=== PATIENT | female | born 1985 | race Caucasian/White ===

== ENCOUNTER → 2019-06-17 10:03 | Outpatient (CLI) | payer OTHER, SELFPAY ==
[2013-10-02 12:51] VITALS: BMI 35.2
[2019-06-17 12:31] LABS: Absolute Lymphocyte Count 2.29 X10^3/uL (0.83-4.51); Absolute Neutrophil Count 5.2 X10^3/uL (2.0-7.7); Basophil# 0.07 X10^3/uL; Basophil% 0.8 % (0-1); Eosinophil# 0.14 X10^3/uL; Eosinophils% 1.7 % (0-5); Hematocrit 42.1 % (37-47); Hemoglobin 13.6 g/dL (12.0-15.0); Lymphocyte # 2.29 X10^3/ul (4.0); Lymphocyte % 27.7 % (19-41); Mean Corp Hgb Conc 32.3 g/dL (32-36); Mean Corpuscular Hgb 29.4 pg (27.0-32.0); Mean Corpuscular Volume 90.9 fL (81-99); Mean Platelet Vol. 11.8 fl (6.2-12.0); Monocyte# 0.53 X10^3/uL; Monocyte% 6.4 % (0-10); NRBC Flagged by Analyzer 0 % (0-5); Platelet Count 311 K/mm3 (150-450); RBC Distribution Width CV 13.4 % (11.6-14.6); RBC Distribution Width SD 44.7 fl (35.1-43.9); Red Blood Count 4.63 M/mm3 (4.2-5.4); White Blood Count 8.3 K/mm3 (4.4-11.0)
[2019-06-17 13:07] LABS: Cholesterol 279 mg/dL (200); High Density Lipoprotein 47 mg/dL; Thyroid Stim Hormone (TSH) 4.76 uIU/mL (0.358-3.74); Triglycerides 187 mg/dL; Very Low Density Lipoprotein 37 mg/dL (5-40)
== END ==
PROVIDERS: Family Provider Family Medicine; PCP Family Medicine; Referring Provider Family Medicine; Visit Provider Family Medicine
DX: F41.9 Anxiety disorder, unspecified (principal); Z13.220 Encounter for screening for lipoid disorders
CPT/HCPCS: 36415; 80061; 84443; 85025

== ENCOUNTER 2019-07-11 12:39 | Day surgery (SDC) | payer OTHER, SELFPAY ==
[2019-07-11] VITALS (9 sets, daily range): BP systolic 120–133; BP diastolic 76–95; PULSE 16–87; RESP 16–20; TEMP 36–36.4; O2SAT 96–98; BMI 36.1
[2019-07-11] MEDS: Lactated Ringers 1,000 ML 100 ML IV ×2 (13:05→18:16)
[2019-07-11 13:15] LABS: Hematocrit 42.9 % (37-47); Hemoglobin 14.1 g/dL (12.0-15.0); Mean Corp Hgb Conc 32.9 g/dL (32-36); Mean Corpuscular Hgb 29.4 pg (27.0-32.0); Mean Corpuscular Volume 89.4 fL (81-99); Platelet Count 327 K/mm3 (150-450); RBC Distribution Width CV 12.7 % (11.6-14.6); RBC Distribution Width SD 41.5 fl (35.1-43.9); White Blood Count 6.7 K/mm3 (4.4-11.0)
--- NOTE | 2019-07-11 13:15 | PCM.HP.STD ---
History of Present Illness Date of Admission: 07/11/19 Chief Complaint: Abnormal uterine bleeding The patient is a 34 year old F presented with complaint of heavy & painful menses. Past Medical History Medical History: Medical History (Last Updated 07/11/19 @ 13:16 by Agusto Nina) Hypothyroidism E03.9 Allergies No Known Allergies Allergy (Verified 07/10/19 11:54) Home Medications: Ambulatory Orders Medication Instructions Recorded Duloxetine Hcl [Cymbalta] 60 mg PO QHS 07/10/19 Levothyroxine Sodium [Synthroid] 75 mcg PO DAILY 07/10/19 Surgical History: appendectomy - laparoscopic Psychiatric History: Anxiety Lives: With Family Smoking Status: Never smoker Tobacco Use: Non-smoker Drugs: None VTE Information - Inpt Only VTE Present on Admission: No - Physical Exam Vitals/I&O's: Vital Signs Temp Pulse Resp BP Pulse Ox 97.5 F L 87 16 120/83 H 97 07/11/19 12:55 07/11/19 12:55 07/11/19 12:55 07/11/19 12:55 07/11/19 12:55 Oxygen Delivery Method Room Air Weight: 217 lb 2.485 oz Body Mass Index (BMI) 36.1 General: Alert, Oriented x3 Lungs: Clear to auscultation Cardiovascular: Regular rate, Regular Rhythm Abdomen: Bowel Sounds Present, Soft, Non Tender, Non-Distended Extremities: No Calf Tenderness Skin: No rashes Neurological: Cranial nerves II-XII grossly intact Laboratory Results 07/11/19 12:55: WBC Pending, RBC Pending, Hgb Pending, Hct Pending, MCV Pending, MCH Pending, MCHC Pending, RDW Std Deviation Pending, RDW Coeff of Rupali Pending, Plt Count Pending 07/11/19 12:55: Sodium Pending, Potassium Pending, Chloride Pending, Carbon Dioxide Pending, Anion Gap Pending, BUN Pending, Creatinine Pending, Est GFR (MDRD) Af Amer Pending, Est GFR (MDRD) Non-Af Pending, BUN/Creatinine Ratio Pending, Glucose Pending, Calcium Pending 07/11/19 12:55: Serum , Qual Pending 07/11/19 12:55: Blood Type Pending, Antibody Screen Pending Current Medications Lactated Ringer's () 1,000 mls @ 100 mls/hr IV .Q10H YESSY Last Admin: 07/11/19 13:05 Dose: 100 mls/hr Documented by: Assessment/Plan 34yo female with AUB & dysmenorrhea TVUS shows thickened endometrium and possible endometrial polyp. Discussed R/B/A of evaluation and treatment options. Patient will proceed with hysteroscopy with D&C, possible polypectomy and Mirena IUD insertion. Informed consent signed.
[2019-07-11 13:36] LABS: Internal QC Validated? YES +Cl - CLEAR BKGD; Pregnancy, Serum, hCG Quali. NEGATIVE Negative
--- NOTE | 2019-07-11 13:37 | SUR.PREOP ---
recd' call from lab that pt has anti-C and anti-e antigens and that should blood be needed that a special order of blood would be needed from the [facility]. Paged Dr. Nina, returned page at 1522. Dr Nina feels that the blood loss would be minimal and would not be necessary, however feels that she will need to discuss this with the patient. Lab advised.
[2019-07-11 13:42] LABS: Anion Gap 9 (5-15); BUN 8 mg/dL (7-18); BUN/Creat Ratio 8.5 RATIO (10-20); Calcium,Total 8.9 mg/dL (8.5-10.1); Chloride 107 mmol/L (98-107); Creatinine, Serum 0.94 mg/dL (0.55-1.02); EST Glomerular Filtration Rate 72 mL/min (>60); Est Glom Filt Rate - Afr Amer 87 mL/min (>60); Estimated Creatinine Clearance 74.45 ml/min; Glucose 91 mg/dL (74-106); Potassium 3.6 mmol/L (3.5-5.1); Sodium Level 142 mmol/L (136-145)
--- NOTE | 2019-07-11 14:10 | EMB_PTH ---
PATIENT: CECI FERGUSON [place] [facility] [place][id number] AGE/SX: 34/F ROOM: RE07/11/[address]: Dr. Agusto Nina MD : 1985 BED: DIS: 07/11/2019 SPEC #: [id number] RECD: 07/12/19 09:54 STATUS: VICTOR HUGO BREWSTER #: [id number] TETE: 07/11/19 14:[address]: Agusto Nina DEPT: SURGICAL PATHOLOGY RECD BY: Sintia Hirsch ENTERED: 07/12/19 11:33 SP TYPE: ENDOM BX/C SYLVIE DR: Dr. Polly Lopez MD Tissues: Endometrium, NOS Procedures: Surgery Specimen Level IV HEADER OPERATION: Hysteroscopy, dilation and curettage PRE-OP DIAGNOSIS: Abnormal uterine bleeding, dysmenorrhea TISSUE SUBMITTED: Endometrial curettings MICROSCOPIC DIAGNOSIS Endometrium, curettings: Proliferative endometrium with mild disorder. Mild chronic endometritis. AM:ronald 07/15/19 MICROSCOPIC DESCRIPTION Slides are reviewed. GROSS DESCRIPTION Received in formalin is one container labeled with the patient name and designated endometrial curettings. The specimen consists of multiple irregular fragments of light and dark navarro soft tissue measuring in aggregate 2.5 x 1 x 0.1 cm. The specimen is totally submitted in 1 cassettes. / AM:ronald 07/12/19 TC: 3 CPT:15651
--- NOTE | 2019-07-11 16:25 | DCINST_ITS ---
Discharge Diet: No Restrictions Discharge Activity: May Drive - after 24 hours, May Shower May resume sexual activity in: 1-2 weeks Weight Bearing Status: Weight bearing as tolerated Call your doctor if you observe: Fever of 101 or Higher, Coldness, Increased Pa in, Numbness or Tingling, Change in Color, Inability to urinate, Inability to have a bowel movement, Using more than one pad per hour, Shortness of breath, Dizziness, Fainting spells, Chest pain, Increased palpitations (irregular heartbeat), Uncontrolled pain Allergies/Adverse Reactions: Allergies No Known Allergies Allergy (Verified 07/10/19 11:54) Medications to take at Discharge Duloxetine Hcl [Cymbalta] 60 mg PO QHS 07/10/19 Levothyroxine Sodium [Synthroid] 75 mcg PO DAILY 07/10/19 Primary Care Physician: Polly Lopez MD [Primary Care Provider] - Test Results: Test results from this visit will be discussed in further detail at your follow- up appointment, if applicable.
--- NOTE | 2019-07-11 16:26 | OP.PCM_ITS ---
Report of Operation Date of Procedure: 07/11/19 Pre-Operative Diagnosis: (1) Abnormal uterine bleeding (2) Thickened endometrium (3) Possible endometrial polyp Post-Operative Diagnosis: (1) Abnormal uterine bleeding (2) Endometrial polyp Surgery/Procedure Performed:: Hysteroscopy with dilation and curettage Description of Surgical Findings:: Uterus sounded to 10 cm. Endometrial lining was thin. Endometrial polyp noted on right side of endometrium. pierce and shave press operator: Manda Rose pierce and shave press operator: Aure Tinsley Type of Anesthesia:: Local MAC Specimen's removed: EMC Estimated Blood Loss (mL): 25ml Fluids Replaced: 1500ml Description of Procedure: Patient taken to OR where MAC anesthesia was placed and found to be adequate. She was prepped & draped in the dorsal lithotomy position. Cervix was grasped with a tenaculum. Cervix was gently dilated. Uterus sounded to 10 cm and was retroverted. Hysteroscope was introduced with above findings that included an endometrial polyp. Hysteroscope removed. Sharp curettage performed with #2 curette. Repeat hysteroscopy performed. Decision made to proceed with Symphion resection of polyp. Symphion hysterscope inserted by under direct visualization. Unable to obtain good visualization of polyp for removal. Thus Symphion removed after assessment by as well. Uterus was re-sounded & was again confirmed at 10cm. Dayna hysteroscope then inserted as well and again good visualization of polyp was not obtained. Decision made to abort procedure as unable to safely remove polyp due to poor visualization. There is no concern of uterine perforation. - Complications None
[2019-07-11] MEDS: oxyCODONE 5 MG Tablet 10 MG PO (18:07)
[2019-07-11] MEDS: Acetaminophen 325 MG Tablet 650 MG PO (18:07)
[2019-07-11 19:17] LABS: Anion Gap 4 (5-15); BUN 7 mg/dL (7-18); Calcium,Total 8.4 mg/dL (8.5-10.1); Chloride 108 mmol/L (98-107); Creatinine, Serum 0.88 mg/dL (0.55-1.02); EST Glomerular Filtration Rate 78 mL/min (>60); Est Glom Filt Rate - Afr Amer 94 mL/min (>60); Estimated Creatinine Clearance 79.53 ml/min; Glucose 95 mg/dL (74-106); Potassium 3.9 mmol/L (3.5-5.1); Sodium Level 140 mmol/L (136-145)
== END 2019-07-11 19:45 | disposition home or self-care (01) ==
LOC: SDC 12:40 → AC 12:43
PROVIDERS: Family Provider Family Medicine; PCP Family Medicine; Referring Provider Obstetrics & Gynecology; Visit Provider Obstetrics & Gynecology
PROC: 0UB98ZZ Excision of Uterus, Via Natural or Artificial Opening Endoscopic (ICD-10-PCS; CPT 58558; principal; 2019-07-11 14:00)
DX: N71.1 Chronic inflammatory disease of uterus (principal); N84.0 Polyp of corpus uteri; E03.9 Hypothyroidism, unspecified; F41.9 Anxiety disorder, unspecified; F32.9 Major depressive disorder, single episode, unspecified; M54.5 Low back pain; G89.29 Other chronic pain; Z79.899 Other long term (current) drug therapy
CPT/HCPCS: 00952; 58558; 36415; 80048; 84703; 85027; 86850; 86900; 86901; 88305; J7120; J2405

== ENCOUNTER 2019-08-01 13:03 | Day surgery (SDC) | payer OTHER, SELFPAY ==
[2019-07-11 12:55] VITALS: BMI 36.1
--- NOTE | 2019-07-23 18:05 | PCM.HP.BLA ---
History and Physical Date of Admission: 08/01/19 HPI: The patient is a 34 year old female presenting for pre-operative visit. She is scheduled for?LAVH,?bilateral salpingectomy?for intramural uterine fibroid, dysmenorrhea, menorrhagia, retroverted uterus on?08/01/19. ??Procedure discussed along with risks, benefits and complications. ?Other alternatives discussed for management. Consent form signed??Yes.? PAST MEDICAL HISTORY PAST MEDICAL HISTORY Diagnosis Date ? Anxiety ? ? Hypothyroidism ? ? Mild or unspecified pre-eclampsia, unspecified as to episode of care ? ? Pre-ecclampsia,MILD ? ? PAST SURGICAL HISTORY PAST SURGICAL HISTORY Procedure Laterality Date ? APPENDECTOMY ? ? ? laparoscopic ? ? CURRENT MEDICATIONS Current Outpatient Medications Medication Sig Dispense Refill ? tranexamic acid (LYSTEDA) 650 mg tablet Take 2 tablets by mouth three times daily as needed (heavy menstrual bleeding) for up to 5 days. 30 tablet 1 ? duloxetine HCl (CYMBALTA ORAL) Take by mouth. ? ? ? levothyroxine sodium (LEVOTHYROXINE ORAL) Take by mouth. ? ? ? No current facility-administered medications for this visit.? ? ALLERGIES:?Patient has no known allergies. ? PERSONAL HISTORY:? SOCIAL HISTORY Social History ? Tobacco Use ? Smoking status: Never Smoker ? Smokeless tobacco: Never Used Substance Use Topics ? Alcohol use: No ? Drug use: No ? FAMILY HISTORY:? FAMILY HISTORY FAMILY HISTORY Problem Relation Age of Onset ? Melanoma Mother ? ? Diabetes Maternal Grandmother ? ? Hypertension Maternal Grandmother ? ? Breast Cancer Maternal Grandmother ? ? Diabetes Maternal Grandfather ? ? Hypertension Maternal Grandfather ? ? Diabetes Paternal Grandmother ? ? Hypertension Paternal Grandmother ? ? Hypertension Paternal Grandfather ? ? Cancer Maternal Aunt ? TYPE ? REVIEW OF SYMPTOMS: GENERAL: denies fevers or chills ENDOCRINOLOGY: has not been on steroids Cardiology : denies palpitations or chest pain Respiratory: denies SOB or cough Hematology: denies history of prolonged bleeding or easy bruising or VTE Allergy: Denies history of personal or family history of allergy to anesthesia ? ? PHYSICAL EXAMINATION: ? VITALS:?There were no vitals taken for this visit. ? GENERAL:??The patient is well nourished, well hydrated in no acute distress. ?, The patient is oriented to time, place, and person. NECK:?Supple. No lynphadenopathy, normal thyroid, no thyromegaly. LUNGS:?Clear to auscultation bilaterally. no wheezes, rhonchi or rales HEART:?Regular rate and rhythm, Normal heart sounds and No murmurs or gallops GENITALIA:?Normal external genitalia, Urethral meatus normal, Bladder nontender, normal cervix, normal uterus, size and consistency, normal adnexa without masses or tenderness, perineum WNL and?normal vaginal ruggae, first degree cystocele and rectocele WET PREP:?Not indicated ? PELVIC US:Report Summary:??06/14/19? Overall impression: Uterus normal size and contour. ?Endometrial thickness 20.1 mm. ?There is a fundal appearing ovoid echogenic mass likely repsents a polyp measuring 1.5cm in greatest dimension. There is a intramural fibroid measuring 3.2 cm in greatest dimension Right and left ovaries appear normal No free fluid in cul-de-sac. Recommendations / therapy: Consider hysteroscopic resection of the endometrial polyp. Follow- up: Follow-up as clinically indicated. Indication: Menorrhagia. History: Last menstrual period: 05/18/2019. 28th day of cycle. Gynecological Ultrasonography: Uterus: normal, retroverted. Size: Longitudinal 96 mm. Anterio- posterior 59 mm. Transverse 72 mm. Volume: 213.5 ml. Fibroids: Fibroid 1: Size: 32 mm x 23 mm x 26 mm. Type: anterior. Position: rt mid ?uterus. Endometrium: endometrium clearly visualized. Endometrium thickness total: 20.1 mm. Endometrial polyps: 15 mm x 10 mm x 17 mm. Fundal. Right Ovary: normal. Visible. Morphology: normal morphology. Right Ovary size: 37 mm x 24 mm x 23 mm. Volume: 10.7 ml. Left Ovary: normal. Visible. Morphology: normal morphology. Left Ovary size: 31 mm x 22 mm x 21 mm. Volume: 7.5 ml. Cul de Sac / Pouch of Oscar: no free fluid visible. ? ? Pap- done today ? IMPRESSION:?Menorrhagia, intramural uterine fibroid, dysmenorrhea, retroverted?uterus ? PLAN:???The risks/benefits/alternatives and personal involved for the planned?laparoscopic assisted vaginal hysterectomy with bilateral salpingectomy?were reviewed with the patient. Her questions were answered to her satisfaction and she desires to proceed. ?Consent was signed. ?I reviewed with her postop instructions and expectations. ? ? I have reviewed and updated past medical and surgical history, medications and allergies. this history and physical was completed in my office on 07/23/2019.
[2019-08-01] VITALS (10 sets, daily range): BP systolic 106–141; BP diastolic 50–91; PULSE 76–100; RESP 14–20; TEMP 36.3–36.7; O2SAT 95–100; BMI 36.6; BMI 36.8
[2019-08-01 13:51] LABS: Internal QC Validated? YES +Cl - CLEAR BKGD
[2019-08-01 13:52] LABS: Pregnancy, Urine Negative Negative
[2019-08-01] MEDS: Celecoxib 200 MG Capsule 400 MG PO (13:54)
[2019-08-01] MEDS: Gabapentin 600 MG Tablet PO (13:54)
[2019-08-01] MEDS: Acetaminophen 500 MG Tablet 1000 MG PO ×2 (13:55→21:45)
[2019-08-01] MEDS: Phenazopyridine 95 MG Tablet 190 MG PO (13:55)
[2019-08-01] MEDS: Scopolamine 1mg/72hr Patch 1 PATCH TRANSDERM. (13:55)
[2019-08-01] MEDS: Lactated Ringers 1,000 ML 40 ML IV (14:10)
[2019-08-01 14:11] LABS: Bedside Glucose 91 mg/dL (70-110)
[2019-08-01] MEDS: Magnesium Sulfate 4gm/100mL 4 GM/100 ML IV.SOLN. IV (14:11)
[2019-08-01] MEDS: Enoxaparin 40 MG/0.4 ML Syringe SC (14:22)
[2019-08-01 14:42] LABS: Absolute Lymphocyte Count 1.96 X10^3/uL (0.83-4.51); Absolute Neutrophil Count 3.6 X10^3/uL (2.0-7.7); Basophil# 0.04 X10^3/uL; Basophil% 0.6 % (0-1); Eosinophil# 0.15 X10^3/uL; Eosinophils% 2.4 % (0-5); Hematocrit 41.2 % (37-47); Hemoglobin 13.5 g/dL (12.0-15.0); Lymphocyte # 1.96 X10^3/ul (4.0); Lymphocyte % 31.2 % (19-41); Mean Corp Hgb Conc 32.8 g/dL (32-36); Mean Corpuscular Hgb 29.3 pg (27.0-32.0); Mean Corpuscular Volume 89.4 fL (81-99); Mean Platelet Vol. 11.5 fl (6.2-12.0); Monocyte# 0.54 X10^3/uL; Monocyte% 8.6 % (0-10); NRBC Flagged by Analyzer 0 % (0-5); Neutrophil # 3.58 X10^3/uL (2.7-7.7); Neutrophil % 56.9 % (47-70); Platelet Count 339 K/mm3 (150-450); RBC Distribution Width SD 42.5 fl (35.1-43.9); Red Blood Count 4.61 M/mm3 (4.2-5.4); White Blood Count 6.3 K/mm3 (4.4-11.0)
--- NOTE | 2019-08-01 15:30 | HYST_PTH ---
PATIENT: CECI FERGUSON LOC: [facility] – [place] U#:[id number] AGE/SX: 34/F ROOM: RE08/01/[address]: Dr. Aure Tinsley MD : 1985 BED: DIS: 08/02/2019 SPEC #: [id number] RECD: 08/02/19 09:37 STATUS: VICTOR HUGO RETina #: [id number] TETE: 08/01/19 15:[address]: Aure Tinsley DEPT: SURGICAL PATHOLOGY RECD BY: Sintia Hirsch ENTERED: 08/02/19 10:44 SP TYPE: HYSTERECT OTHR DR: Dr. Polly Lopez MD Tissues: Uterus, NOS Procedures: Surgery Specimen Level V HEADER OPERATION: Hysterectomy, LAVH, salpingectomy PRE-OP DIAGNOSIS: Intramural uterine fibroid, dysmenorrhea, menorrhagia, retroverted uterus intramural uterine TISSUE SUBMITTED: Uterus, cervix and bilateral fallopian tubes MICROSCOPIC DIAGNOSIS Uterus, hysterectomy: Cervix - nabothian cysts and mild chronic inflammation. Endometrium - secretory endometrium. Endometrial polyp - secretory change. Myometrium - leiomyomas and focal adenomyosis. Right and left fallopian tubes - no pathologic change. AM:jony 08/05/19 MICROSCOPIC DESCRIPTION Slides are reviewed. GROSS DESCRIPTION Received in fixative is one container labeled with the patient's name and designated uterus. The specimen consists of a uterus with attached cervix and three fragments of detached fallopian tubes, unmarked. The uterus with cervix measures 11 x 8 x 6 cm and weighs 160 gm. The ectocervix is unremarkable. The cervical os is oval in contour. The serosal surface has focal instrumentation garcia. The endocervical canal measures 3.5 cm in length and is grossly unremarkable. The triangular endometrial cavity measures 4.5 x 3.5 cm. The endometrium is reddish-navarro, velvety and glistening and measures up to 0.2 cm in thickness. The posterior uterine wall contains a pink-navarro polyp measuring 2 x 2 x 0.5 cm. The myometrium immediately beneath the polyp is not indurated. The myometrium measures 2.2 cm in average thickness and contains a firm, rubbery, white-navarro nodule measuring 1.5 x 1 cm and grossly resembling a leiomyoma. One fallopian tube measures 5 cm in length and 0.7 cm in average diameter and contains a normal fimbriated end. The other discontinuous fallopian tube measures 6.5?cm?in length and 0.6 cm in average diameter. The fimbriated end has a normal gross appearance. Egg Sorter sections are submitted in ten cassettes as follows: 1 - anterior cervix, 2 - posterior cervix, 3 & 4 - anterior uterine wall, 5 & 6 - posterior uterine wall, 7 - endometrial polyp, 8 - myometrial nodule, 9??discontinuous fallopian tube, 10 - the other fallopian tube. / AM:jony 08/02/19 TC:1 CPT: 21085
[2019-08-01] MEDS: Cefazolin 2 GM in 0.9% Normal Saline 100 ML IV (17:40)
[2019-08-01] MEDS: Ondansetron 4 MG/2 ML Vial IV (17:45)
[2019-08-01] MEDS: dexAMETHasone 10 MG/ML Vial 8 MG IV (17:56)
[2019-08-01] MEDS: Bupivacaine Mpf 0.5% 30 ML VIAL (18:00)
--- NOTE | 2019-08-01 18:55 | OP.PCM_ITS ---
Report of Operation Date of Procedure: 08/01/19 Pre-Operative Diagnosis: menorrhagia, dysmenorrhea, retroflexed uterus Post-Operative Diagnosis: same Surgery/Procedure Performed:: Laparoscopic-assisted vaginal hysterectomy with bilateral salpingectomy Description of Surgical Findings:: retroverted uterus, normal tubes and ovaries sustainability coordinator: Aliya Trejo Type of Anesthesia:: General Anesthesiologist: Di Basurto Special Medications: none Specimen's removed: uterus, cervix, bilater fallpian tubes Drains: castillo Estimated Blood Loss (mL): 20 Fluids Replaced: 700cc LR Description of Procedure: The patient was taken to the operating room where she was prepped and draped in the dorsal lithotomy position. Her arms were tucked to the side and padded and her legs were placed in the yellowfin stirrups. Care was taken to ensure that she was placed in a neurologically safe and neutral position. A weighted speculum was placed in the vagina and the anterior lip of the cervix was grasped with a single-tooth tenaculum. The uterus sounded to 10 centimeters. The ZUMI uterine manipulator was placed and secured. The Castillo catheter was placed to straight drain. Attention was turned to the abdominal portion of the case. Before skin incisions were made they were infiltrated with 0.5% Marcaine solution for local anesthetic. A 5 mm intraumbilical incision was made and while tenting the anterior abdominal wall up with towel clamps a 5 mm blade less trocar and sleeve were advanced directly into the peritoneal cavity. Peritoneal placement was confirmed with the laparoscope the pneumoperitoneum was created, and the underlying abdominal contents were intact. The patient was placed in Trendelenburg and the above findings were noted. Right and left lateral 5 mm trochars were placed under direct visualization without difficulty. The antimesenteric portion of the tube was clamped sealed and transected serially on both sides with the LigaSure device. The round ligaments were clamped sealed and transected and a window was made in the peritoneum. The utero-ovarian ligaments were then clamped, sealed and transected with the LigaSure device and the pedicles were hemostatic The bladder flap was dissected down with the LigaSure device and blunt dissection and the uterine arteries were then skeletonized. The uterine arteries were clamped, sealed and transected on both sides with the LigaSure device. At this point the pedicles were all examined and found to be hemostatic. Attention was turned to the vaginal portion of the case. 1% lidocaine with dilute epinephrine solution was used to infiltrate the anterior vaginal epithelium over the cervix. An incision was made from 3 to 9:00 across the anterior vaginal epithelium and the vaginal epithelium was dissected back with blunt sharp dissection. The anterior colpotomy incision was made. The vaginal epithelium on each side of the cervix at 3 and 9:00 was clamped, transected and suture ligated. The next pedicle contained the anterior peritoneum and part of the cardinal ligament. The pedicle was was clamped with a Shayy clamp, transected and suture-ligated. Hemostasis was noted. The uterine fundus was brought through the anterior colpotomy incision. The uterosacral ligaments and vaginal cuff were secured with Shayy clamps. The pedicles were transected. The uterus and cervix were then amputated and removed . The pedicles were secured with an 0 Vicryl suture. There was a small amount of bleeding from the right side of the vaginal cuff angle, a right angle clamp was placed on the bleeding vessel. A free tie was placed around it and hemostasis was noted. At this point, the pedicles were all examined and hemostasis was assured. The vaginal cuff was then closed in a horizontal fashion with interrupted 0 Vicryl dctfnj-ju-ndoso sutures. Care was taken to secure the vagina to the uterosacral ligaments. A sponge stick was placed in the vagina to help place traction against the vaginal cuff. The laparoscope was reinserted into the abdomen and the pneumoperitoneum was re- created. The pedicles were reexamined and found to be hemostatic. The vaginal cuff was hemostatic. Ureters were seen peristalsing at the end of the case. The right and left lateral ports were taken out and the sites were hemostatic. The pneumoperitoneum was released and even under low pressure there was no bleeding of any of the pedicles are vaginal cuff. The umbilical port was removed. The umbilical skin incisions were closed with Monocryl suture and skin glue by Dr. Gonsales. The vaginal instruments were removed by me and a vaginal sweep was completed by me. The surgery was performed by me with assistance other than the portions dictated as above. There were no qualified residents available for this procedure. All sponge lap and needle counts were correct and the patient was transferred to the recovery room in stable condition. Grafts/Implants Used: none - Complications none - Admit VTE Documentation VTE Present on Admission: No VTE Mechan Device Prophylaxis: SCD's VTE Pharm Prophylaxis ordered?: Yes
[2019-08-01] MEDS: Lactated Ringers 1,000 ML 70 ML IV ×2 (19:42→21:46)
[2019-08-01] MEDS: Ketorolac 30 MG/ML Syringe IV (21:45)
[2019-08-01] MEDS: Docusate Sodium 100 MG Capsule PO (21:45)
[2019-08-01] MEDS: oxyCODONE 5 MG Tablet PO (21:45)
[2019-08-01] MEDS: DULoxetine Hcl 60 MG Capsule PO (21:45)
[2019-08-02 00:41] VITALS: BP 101/56; PULSE 101; RESP 18; TEMP 36.7; O2SAT 94
[2019-08-02] MEDS: proCHLORPERazine 10 MG/2 ML Vial 5 MG IV (00:59)
[2019-08-02] MEDS: Levothyroxine 75 MCG Tablet PO (05:08)
[2019-08-02] MEDS: Acetaminophen 500 MG Tablet 1000 MG PO ×2 (05:08→11:54)
[2019-08-02] MEDS: Ketorolac 30 MG/ML Syringe IV ×2 (05:08→11:53)
[2019-08-02 05:18] VITALS: BP 97/51; PULSE 92; RESP 18; TEMP 36.8; O2SAT 94
[2019-08-02 06:56] LABS: Hematocrit 38.8 % (37-47); Hemoglobin 12.8 g/dL (12.0-15.0); Mean Corpuscular Hgb 29.8 pg (27.0-32.0); Mean Corpuscular Volume 90.4 fL (81-99); Mean Platelet Vol. 11.3 fl (6.2-12.0); Platelet Count 346 K/mm3 (150-450); RBC Distribution Width CV 13.2 % (11.6-14.6); RBC Distribution Width SD 43.2 fl (35.1-43.9); Red Blood Count 4.29 M/mm3 (4.2-5.4); White Blood Count 13.5 K/mm3 (4.4-11.0)
--- NOTE | 2019-08-02 08:00 | PCM.DC.AHY ---
Discharge Diet: No Restrictions Discharge Activity: Return to Normal Activity, May Not Drive - while taking narcotic pain medications., May Shower May resume sexual activity in: 6-8 weeks Call your doctor if your incision/area has: Continuous Slow Oozing, Sudden Increased Bleeding, Increased Pain/ Swelling, Increased Redness, Foul Smelling Discharge Call your doctor if you observe: Fever of 101 or Higher, Inability to urinate, Inability to have a bowel movement, Using more than one pad per hour Cleanse incision/area with: Soap & Water, - - your incisions have skin glue, it can get wet. Leave it on for at least 10 days Additional Instructions: take your motrin and 1000 mg of acetaminophen every 6 hrs. Use the oxycodone as needed for breakthrough pain Allergies/Adverse Reactions: Allergies No Known Allergies Allergy (Verified 07/25/19 09:03) Medications to take at Discharge Duloxetine Hcl [Cymbalta] 60 mg PO QHS 07/10/19 Levothyroxine Sodium [Synthroid] 75 mcg PO DAILY 07/10/19 Docusate Sodium [Colace] 100 mg PO BID PRN PRN #30 cap 08/02/19 Ibuprofen [Motrin] 600 mg PO Q6H PRN #60 tab 08/02/19 Oxycodone [Oxyir] 5 mg PO Q4H PRN PRN 5 Days #20 tablet 08/02/19 The following prescriptions were given: Docusate Sodium [Colace] 100 mg PO BID PRN PRN #30 cap PRN Reason: Constipation [id number] Ibuprofen [Motrin] 600 mg PO Q6H PRN #60 tab PRN Reason: Pain Transmission Status[id number] Oxycodone [Oxyir] 5 mg PO Q4H PRN PRN 5 Days #20 tablet PRN Reason: severe pain Transmission Status: Sent to [facility] Orders to be completed after discharge: T&S with Crossmatch, Red Cells Time Frame: 08/01/19, Facility: [facility], Location: Laboratory Primary Care Physician: Polly Lopez MD [Primary Care Provider] - Test Results: Test results from this visit will be discussed in further detail at your follow-up appointment, if applicable. Please Follow Up With: Aure Tinsley MD - [phone] When: 1-2 and 6 weeks or as needed
[2019-08-02 09:00] VITALS: BP 94/57; PULSE 90; RESP 18; TEMP 37; O2SAT 97
--- NOTE | 2019-08-02 09:59 | PN.OBGYN_ITS ---
Subjective: Pain well controlled, no nausea or vomiting. Patient complains of mild dizziness. No chest pain or shortness of breath. - Physical Exam Vitals/I&O's: Vital Signs Temp Pulse Resp BP Pulse Ox 98.2 F 92 18 97/51 L 94 08/02/19 05:18 08/02/19 05:18 08/02/19 05:18 08/02/19 05:18 08/02/19 05:18 Oxygen Flow Rate (L/min) 6 Oxygen Delivery Method Room Air Weight: 100.3 kg Body Mass Index (BMI) 36.8 Intake and Output for Last 24 Hours 07/31/19 08/01/19 08/02/19 23:59 23:59 23:59 Intake Total 1422.33 / 1422.33 200 / 200 Output Total 830 / 1080 550 / 550 Balance 592.33 / 342.33 -350 / -350 General: Alert, Cooperative, No apparent distress Abdomen: Soft, Non-Distended, Tender - Appropriately Skin: Incision - Incisions are clean dry and intact with skin glue Laboratory Results 08/01/19 13:30: Blood Type A POSITIVE, Antibody Screen NEGATIVE, Crossmatch See Detail 08/01/19 13:30: Urine Test Negative 08/01/19 13:30: WBC 6.3, RBC 4.61, Hgb 13.5, Hct 41.2, MCV 89.4, MCH 29.3, MCHC 32.8, RDW Std Deviation 42.5, RDW Coeff of Rupali 13.0, Plt Count 339, MPV 11.5, Immature Gran % (Auto) 0.300, Neut % (Auto) 56.9, Lymph % (Auto) 31.2, [place] % (Auto) 8.6, Eos % (Auto) 2.4, Baso % (Auto) 0.6, Absolute Neuts (auto) 3.6, Absolute Lymphs (auto) 1.96, Nucleated RBC % 0 08/01/19 14:02: POC Glucose 91 08/02/19 06:26: WBC 13.5 H, RBC 4.29, Hgb 12.8, Hct 38.8, MCV 90.4, MCH 29.8, MCHC 33.0, RDW Std Deviation 43.2, RDW Coeff of Rupali 13.2, Plt Count 346, MPV 11.3 Current Medications Acetaminophen (Tylenol) 1,000 mg PO Q6 [facility] Last Admin: 08/02/19 05:08 Dose: 1,000 mg Documented by: Docusate Sodium (Colace) 100 mg PO BID [facility] Last Admin: 08/01/19 21:45 Dose: 100 mg Documented by: Duloxetine HCl (Cymbalta) 60 mg PO QHS [facility] Last Admin: 08/01/19 21:45 Dose: 60 mg Documented by: Enoxaparin Sodium (Lovenox) 40 mg SC DAILY [facility] Sodium Chloride () 250 mls @ 15 mls/hr IV .[id number] PRN PRN Reason: Saline Flush Sodium Chloride () 250 mls @ 15 mls/hr IV .[id number] PRN PRN Reason: Additional IVPB Infusion Lactated Ringer's () 1,000 mls @ 70 mls/hr IV .[id number] [facility] Stop: 08/02/19 20:45 Last Admin: 08/01/19 21:46 Dose: 70 mls/hr Documented by: Sodium Chloride () 500 mls @ 999 mls/hr IV .Q31M ONE Stop: 08/02/19 10:22 Influenza Virus Vaccine Quadrival (Flucelvax /Fluzone ) 0.5 ml IM .ONCE ONE Stop: 08/02/19 10:01 Ketorolac Tromethamine (Toradol) 30 mg IV Q6 [facility] Stop: 08/03/19 00:01 Last Admin: 08/02/19 05:08 Dose: 30 mg Documented by: Levothyroxine Sodium (Synthroid) 75 mcg PO DAILY@0600 [facility] Last Admin: 08/02/19 05:08 Dose: 75 mcg Documented by: Magnesium Oxide (Mag-Ox 400) 400 mg PO DAILY PRN PRN PRN Reason: Constipation Ondansetron HCl (Zofran Odt) 4 mg PO Q6H PRN PRN PRN Reason: NAUSEA Oxycodone HCl (Oxyir) 5 - 10 mg PO Q4H PRN PRN PRN Reason: Pain Score 4-10/10 Last Admin: 08/01/19 21:45 Dose: 10 mg Documented by: Prochlorperazine Edisylate (Compazine Iv) 5 mg IV Q4H PRN PRN PRN Reason: NAUSEA/VOMITING Last Admin: 08/02/19 00:59 Dose: 5 mg Documented by: Sodium Chloride () 10 - 40 ml IV UD PRN PRN Reason: SALINE FLUSH Medical Necessity - Tobacco Use Smoking Status: Never smoker Assessment/Plan Postoperative day #1 status post laparoscopic assisted vaginal hysterectomy. Urine output is adequate, patient feels mildly dizzy. Postoperative hemoglobin is stable. We will give a 500 cc bolus. Discharge home if passes voiding trial and able to ambulate.
[2019-08-02] MEDS: Docusate Sodium 100 MG Capsule PO (10:58)
[2019-08-02] MEDS: Enoxaparin 40 MG/0.4 ML Syringe SC (10:58)
[2019-08-02] MEDS: Lactated Ringers 1,000 ML 70 ML IV (11:00)
[2019-08-02] MEDS: 0.9% Saline Lock 10 ML Syringe IV (11:53)
[2019-08-02 12:00] VITALS: BP 100/57; PULSE 86; RESP 18; TEMP 37.1; O2SAT 98
[2019-08-02 15:16] VITALS: BP 112/74; PULSE 84; RESP 18; TEMP 36.9; O2SAT 98
== END 2019-08-02 15:40 | disposition home or self-care (01) ==
LOC: SDC 13:03 → AC 13:04 → MS3 20:02
PROVIDERS: Anesthesiology; Family Provider Family Medicine; PCP Family Medicine; Referring Provider Obstetrics & Gynecology; Visit Provider Obstetrics & Gynecology
PROC: 0UT9FZZ Resection of Uterus, Via Natural or Artificial Opening With Percutaneous Endoscopic Assistance (ICD-10-PCS; CPT 58552; principal; 2019-08-01 15:05)
DX: D25.1 Intramural leiomyoma of uterus (principal); N88.8 Other specified noninflammatory disorders of cervix uteri; N80.0 Endometriosis of uterus; N92.0 Excessive and frequent menstruation with regular cycle; N94.6 Dysmenorrhea, unspecified; E03.9 Hypothyroidism, unspecified; F41.9 Anxiety disorder, unspecified; Z23 Encounter for immunization; Z79.899 Other long term (current) drug therapy
CPT/HCPCS: 58552; 36415; 81025; 82962; 85025; 85027; 86850; 86900; 86901; 88307; 99251; J7040; J7120; 90686; A4216; G0463; J2405

== ENCOUNTER → 2020-02-25 12:05 | Outpatient (CLI) | payer OTHER, SELFPAY ==
[2019-08-01 20:58] VITALS: BMI 36.8
[2020-02-25 15:45] LABS: Anion Gap 4 (5-15); BUN 9 mg/dL (7-18); BUN/Creat Ratio 12.1 RATIO (10-20); Calcium,Total 9.3 mg/dL (8.5-10.1); Chloride 105 mmol/L (98-107); Cholesterol 293 mg/dL (200); Creatinine, Serum 0.74 mg/dL (0.55-1.02); EST Glomerular Filtration Rate 94 mL/min (>60); Est Glom Filt Rate - Afr Amer 114 mL/min (>60); Glucose 90 mg/dL (74-106); High Density Lipoprotein 49 mg/dL; Potassium 4.4 mmol/L (3.5-5.1); Sodium Level 138 mmol/L (136-145); T4 Total, Thyroxin 8.6 ug/dL (4.8-13.9); Thyroid Stim Hormone (TSH) 2.14 uIU/mL (0.358-3.74); Triglycerides 185 mg/dL; Very Low Density Lipoprotein 37 mg/dL (5-40)
== END ==
PROVIDERS: PCP Family Medicine; Referring Provider Family Medicine; Visit Provider Family Medicine
DX: E03.9 Hypothyroidism, unspecified (principal); R03.0 Elevated blood-pressure reading, without diagnosis of hypertension
CPT/HCPCS: 36415; 80048; 80061; 84436; 84443

== ENCOUNTER 2020-07-02 17:44 | Emergency (ER) | payer OTHER, SELFPAY ==
[2019-08-01 20:58] VITALS: BMI 36.8
[2020-07-02 17:45] VITALS: BP 144/91; PULSE 119; RESP 17; TEMP 36.2; O2SAT 99; BMI 33.7
[2020-07-02 17:49] VITALS: PULSE 97; RESP 18; O2SAT 97
--- NOTE | 2020-07-02 18:11 | CT_ITS ---
STUDY: CT ABDOMEN AND PELVIS WITHOUT CONTRAST REASON FOR EXAM: Female, 35 years old. RLQ PAIN TODAY. Prior hysterectomy. HTN-rx controlled RADIATION DOSAGE (If Supplied By Facility): CTDIvol = ( 17.58 ) mGy, DLP = ( 931.00 ) mGycm TECHNIQUE: Transaxial images were obtained from the dome of the diaphragm to the symphysis pubis without oral contrast, and without intravenous contrast. Sagittal and coronal images were reconstructed. Individualized dose optimization techniques were used for this CT. COMPARISON: None. FINDINGS: The visualized lung bases are unremarkable. The visualized portions of the heart are within normal limits. There is decreased attenuation of the liver consistent with steatosis. Normal gallbladder and extrahepatic biliary system. Normal spleen. Normal pancreas. Normal bilateral adrenal glands. Normal right kidney. Normal left kidney. Normal visualized stomach. Normal small intestine. Normal colon. There are surgical clips in the region of the appendix consistent with a prior appendectomy. Trace dependent free fluid within the pelvis. Normal abdominal aorta. Normal inferior vena cava. Normal retroperitoneum. Normal urinary bladder. There is absence of the uterus consistent with a prior hysterectomy. Normal abdominal wall. Normal osseous structures. CT/Abdomen/Pelvis without Cont IMPRESSION: No acute intra-abdominal process is identified. Evidence of prior hysterectomy and appendectomy. Hepatic steatosis. Electronically Signed: Tereso Peña, at 19:57 EST Tel , Service support ,
--- NOTE | 2020-07-02 18:12 | ED.DCSUM_ITS ---
History of Present Illness Chief Complaint: Abd Pain Informant: Patient - Abdominal Pain/Flank Pain Onset: Today - around 6 hrs prior to evaluation Context: Sudden Onset - relatively Timing: Continuous - not colicky Quality: Aching Location: RLQ - w/o radiation Current Severity: Moderate Maximum Severity: Severe Worsened by: - - walking Relieved by: - - resting - Nausea/Vomiting/Emesis GI Symptom: Nausea. Negative for: Vomiting - Diarrhea/Melena/Hematochezia GI Symptom: Negative for: Diarrhea, Melena, Hematochezia Associated Symptoms: Negative for: Dysuria, Frequency, Hematuria, Urgency Narrative: Relatively sudden onset of right lower quadrant pain. No injury. She states it started out dull, and it quickly became sharp and severe. She has had prior appendectomy. She has had partial hysterectomy. Pain does not radiate into her back. She denies any lightheadedness or near syncope/syncope. She is otherwise well. No changes in urination or stool. - Past Medical History (1) Hypertension Status: Chronic (2) Hypothyroid Status: Chronic Past Medical History - Allergies and Home Meds Allergies/Adverse Reactions: Allergies No Known Allergies Allergy (Verified 07/02/20 17:44) Primary Care Physician: Polly Lopez MD [Primary Care Provider] - Surgical History: appendectomy - laparoscopic, hysterectomy Smoking Status: Never smoker Review of Systems General: Denies: Chills, Fever, Sweats Eyes: Denies: Visual changes - bilaterally, Diplopia ENT: Denies: Rhinorrhea, Sore throat Cardiovascular: Denies: Chest pain, Palpitations Respiratory: Denies: Dyspnea, Cough, Dyspnea on exertion Gastrointestinal: Reports: Abdominal pain, Nausea. Denies: Vomiting, Diarrhea, Melena, Hematochezia Genitourinary: Denies: Dysuria, Hematuria, Frequency Musculoskeletal: Denies: Back pain, Extremity Pain Skin: Denies: Rash, Wounds Neurological: Denies: Headache, Weakness, Numbness Physical Exam Vital Signs/Narrative: Vital Signs Temp Pulse Resp BP Pulse Ox 07/02/20 17:49 97 18 97 07/02/20 17:45 97.2 F L 119 H 17 144/91 H 99 Inital Vital Signs reviewed: Yes General: Well nourished, Well developed, No Acute Distress Head: Normocephalic, Atraumatic Eyes: Perrl, EOMI ENT: Moist mucous membranes, No rhinorrhea Neck: Supple, Nontender Cardiovascular: Regular rate, Regular rhythm, No murmurs Respiratory: No distress, CTA bilaterally, Chest nontender Abdomen: Soft, Nondistended, Normal bowel sounds, Tender - Lateral right lower quadrant, just medial to the ASIS. Negative for: Guarding, Rebound tenderness, Pulsatile mass Back: Nontender, Normal Inspection. Negative for: CVA tenderness Extremities: Nontender, No edema Skin: Normal color, No rash Neurological: Alert, Oriented x3, Cranial nerves II-XII grossly intact, Normal Strength, Normal Sensation, Normal Gait Psychological: Normal affect, Normal Mood Diagnostic/Tx/Re-eval Impressions Abdomen/Pelvis CT 07/02/20 18:11 IMPRESSION: No acute intra-abdominal process is identified. Evidence of prior hysterectomy and appendectomy. Hepatic steatosis. Electronically Signed: Tereso Peña, at 19:57 EST Tel , Service support , 07/02/20 18:11 Abdomen/Pelvis without Cont [CT] Stat Laboratory Results 07/02/20 07/02/20 07/02/20 18:53 18:53 19:45 WBC 10.1 RBC 4.61 Hgb 14.1 Hct 41.5 MCV 90.0 MCH 30.6 MCHC 34.0 RDW Std Deviation 40.1 RDW Coeff of Rupali 12.3 Plt Count 305 MPV 11.1 Immature Gran % (Auto) 0.300 Neut % (Auto) 66.4 Lymph % (Auto) 24.6 [place] % (Auto) 6.3 Eos % (Auto) 1.8 Baso % (Auto) 0.6 Absolute Neuts (auto) 6.7 Absolute Lymphs (auto) 2.48 Nucleated RBC % 0 Sodium 139 Potassium 3.4 L Chloride 106 Carbon Dioxide 28.0 Anion Gap 5 BUN 10 Creatinine 0.93 Estim Creat Clear Calc 74.53 Est GFR (MDRD) Af Amer 87 Est GFR (MDRD) Non-Af 72 BUN/Creatinine Ratio 10.7 Glucose 99 Calcium 9.0 Urine Color Yellow Urine Clarity Sl. Cloudy Urine pH 6.5 Ur Specific [place] 1.020 Urine Protein 15 H Urine Glucose (UA) Normal Urine Ketones 15 H Urine Occult Blood Negative Urine Nitrite Negative Urine Bilirubin Negative Urine Urobilinogen 1 H Ur Leukocyte Esterase Negative Urine RBC 0 SEEN Urine WBC 0 SEEN Ur Squamous Epith Cells 0-5 SEEN Urine Bacteria 2+ Urine Mucus 3+ - Medical Decision Making Testing is negative including CT abdomen/pelvis. Differential includes ruptured ovarian cyst, hemorrhagic ovarian cyst, ureterolithiasis. Given that the CT is negative, that makes the latter to much less likely. My suspicion is that she had a ruptured ovarian cyst. She was given Toradol, it did help some. Her pain has not been severe, there was no enlargement or mass-effect seen on CT, and the chances of torsion are very low. She is very comfortable-appearing. We discussed torsion, and the fact that ultrasound is not available at the time she presents, and reasons to return to the ER. She was offered analgesics, she declines and is okay using NSAIDs, and I advised follow-up for persistent symptoms beyond the weekend and she is comfortable with that plan. ED Disposition - Plan for ED Patient: Disposition: Home or Assisted Living Diagnosis: Right lower quadrant abdominal pain Instructions: ED Abdominal Pain Unkn Cause Fem, ED Cyst Ovarian Referrals: Polly Lopez MD [Primary Care Provider] - 3-5 Days if not improving
[2020-07-02 19:07] LABS: Absolute Lymphocyte Count 2.48 X10^3/uL (0.83-4.51); Absolute Neutrophil Count 6.7 X10^3/uL (2.0-7.7); Basophil# 0.06 X10^3/uL; Basophil% 0.6 % (0-1); Eosinophil# 0.18 X10^3/uL; Eosinophils% 1.8 % (0-5); Hematocrit 41.5 % (37-47); Hemoglobin 14.1 g/dL (12.0-15.0); Lymphocyte # 2.48 X10^3/ul (4.0); Lymphocyte % 24.6 % (19-41); Mean Corpuscular Hgb 30.6 pg (27.0-32.0); Mean Platelet Vol. 11.1 fl (6.2-12.0); Monocyte# 0.64 X10^3/uL; Monocyte% 6.3 % (0-10); NRBC Flagged by Analyzer 0 % (0-5); Neutrophil # 6.71 X10^3/uL (2.7-7.7); Neutrophil % 66.4 % (47-70); Platelet Count 305 K/mm3 (150-450); RBC Distribution Width CV 12.3 % (11.6-14.6); RBC Distribution Width SD 40.1 fl (35.1-43.9); Red Blood Count 4.61 M/mm3 (4.2-5.4); White Blood Count 10.1 K/mm3 (4.4-11.0)
[2020-07-02] MEDS: Ketorolac 30 MG/ML Syringe IV (19:07)
[2020-07-02] MEDS: Ondansetron 4 MG/2 ML Vial IV (19:07)
[2020-07-02 19:19] LABS: Anion Gap 5 (5-15); BUN 10 mg/dL (7-18); BUN/Creat Ratio 10.7 RATIO (10-20); Chloride 106 mmol/L (98-107); Creatinine, Serum 0.93 mg/dL (0.55-1.02); EST Glomerular Filtration Rate 72 mL/min (>60); Est Glom Filt Rate - Afr Amer 87 mL/min (>60); Estimated Creatinine Clearance 74.53 ml/min; Glucose 99 mg/dL (74-106); Potassium 3.4 mmol/L (3.5-5.1); Sodium Level 139 mmol/L (136-145)
[2020-07-02 19:44] VITALS: RESP 18
[2020-07-02 19:55] LABS: Red Blood Cells-Urine 0 SEEN /hpf (0-5); White Blood Cells 0 SEEN /hpf (0-5)
[2020-07-02 20:01] LABS: Color, Urine Yellow (Yellow); Glucose, Dipstick Normal (Normal); Ketone-Dipstick 15 mg/dl (Negative); Leukocyte Esterase-Dipstick Negative /ul (Negative); Nitrite-Dipstick Negative (Negative); Occult Blood-Urine Negative /ul (Negative); Protein-Dipstick 15 mg/dl (Negative); Urine Bilirubin Dipstick Negative (Negative); Urine Clarity Sl. Cloudy (Clear); Urine Urobilinogen 1 mg/dl (Normal); Urine pH 6.5 (5.0 - 8.0)
[2020-07-02 20:10] LABS: Bacteria 2+ /hpf (None Seen); Mucous, Urine 3+ /hpf (<or=2+); Squamous Epithelial Cells - UA 0-5 SEEN /hpf (5-10)
[2020-07-02 20:44] VITALS: BP 136/82; PULSE 90; RESP 18; O2SAT 96
== END 2020-07-02 20:45 | disposition home or self-care (01) ==
PROVIDERS: Emergency Provider Emergency Medicine; PCP Family Medicine
DX: R10.31 Right lower quadrant pain (principal); R11.0 Nausea; K76.0 Fatty (change of) liver, not elsewhere classified; I10 Essential (primary) hypertension; E03.9 Hypothyroidism, unspecified; Z90.49 Acquired absence of other specified parts of digestive tract; Z79.899 Other long term (current) drug therapy
CPT/HCPCS: 74176; 80048; 81001; 85025; 96374; 96375; 99283; A4216; J2405

== ENCOUNTER → 2020-11-27 11:15 | Outpatient (CLI) | payer OTHER, SELFPAY ==
[2020-11-27 12:39] LABS: Absolute Lymphocyte Count 2.51 X10^3/uL (0.83-4.51); Absolute Neutrophil Count 4.6 X10^3/uL (2.0-7.7); Basophil# 0.09 X10^3/uL; Basophil% 1.1 % (0-1); Eosinophil# 0.15 X10^3/uL; Eosinophils% 1.9 % (0-5); Hematocrit 44.5 % (37-47); Hemoglobin 14.5 g/dL (12.0-15.0); Lymphocyte # 2.51 X10^3/ul (0.83-4.51); Lymphocyte % 31.3 % (19-41); Mean Corp Hgb Conc 32.6 g/dL (32-36); Mean Corpuscular Hgb 29.8 pg (27.0-32.0); Mean Corpuscular Volume 91.4 fL (81-99); Mean Platelet Vol. 11.5 fl (6.2-12.0); Monocyte# 0.62 X10^3/uL; Monocyte% 7.7 % (0-10); NRBC Flagged by Analyzer 0 % (0-5); Neutrophil # 4.61 X10^3/uL (2.7-7.7); Neutrophil % 57.5 % (47-70); Platelet Count 372 K/mm3 (150-450); RBC Distribution Width CV 12.6 % (11.6-14.6); RBC Distribution Width SD 42.2 fl (35.1-43.9); Red Blood Count 4.87 M/mm3 (4.2-5.4)
[2020-11-27 13:23] LABS: ALB/GLOB Ratio 1.1 RATIO (0.9-2.4); AST(SGOT) 43 U/L (15-37); Alanine Aminotransfer ALT/SGPT 117 U/L (13-56); Alkaline Phosphatase 87 U/L (45-117); Anion Gap 5 (5-15); BUN 8 mg/dL (7-18); BUN/Creat Ratio 9.2 RATIO (10-20); Calcium,Total 8.9 mg/dL (8.5-10.1); Chloride 104 mmol/L (98-107); Cholesterol 260 mg/dL (200); Creatinine, Serum 0.87 mg/dL (0.55-1.02); EST Glomerular Filtration Rate 78 mL/min (>60); Est Glom Filt Rate - Afr Amer 94 mL/min (>60); Globulin 3.6 g/dL (2.2-4.2); Glucose 78 mg/dL (74-106); High Density Lipoprotein 52 mg/dL; Protein, Total 7.6 g/dL (6.4-8.2); Sodium Level 137 mmol/L (136-145); Triglycerides 208 mg/dL; Very Low Density Lipoprotein 42 mg/dL (5-40)
== END ==
PROVIDERS: PCP Family Medicine; Visit Provider Family Medicine
DX: Z01.818 Encounter for other preprocedural examination (principal); E78.5 Hyperlipidemia, unspecified
CPT/HCPCS: 36415; 80053; 80061; 85025

== ENCOUNTER 2020-12-17 09:55 | Day surgery (SDC) | payer OTHER, SELFPAY ==
[2020-12-17] VITALS (8 sets, daily range): BP systolic 98–139; BP diastolic 66–80; PULSE 79–95; RESP 16–18; TEMP 36.3–36.8; O2SAT 95–99; BMI 37.2
[2020-12-17] MEDS: Lactated Ringers 1,000 ML 100 ML IV (10:30)
--- NOTE | 2020-12-17 10:53 | RAD_ITS ---
STUDY: X-RAY - LEFT FOOT CLINICAL: Left foot bunionectomy. TECHNIQUE: 2 intraoperative images of the foot. COMPARISON: None. FINDINGS: There is resection of the medial aspect of the first metatarsal head and an osteotomy of the distal first metatarsal bridged with an orthopedic screw. 26 seconds of fluoroscopy time was used. Electronically Signed: Dontae Marie MD at 13:56 EDT Tel , Service support , RAD/Foot 2 Views
[2020-12-17] MEDS: Cefazolin 2 GM in 0.9% Normal Saline 100 ML IV (11:34)
[2020-12-17] MEDS: Bupivacaine Mpf 0.5% 30 ML VIAL (12:45)
--- NOTE | 2020-12-17 13:09 | PCM.DC ---
Discharge Instructions Follow Up Care Test Results: Test results from this visit will be discussed in further detail at your follow-up appointment, if applicable. Discharge Plan Admission Primary Reason for Your Visit: bunion surgery Attending Provider: Sheila Roblero Primary Care Provider: Polly Lopez Discharge Orders/Prescriptions Prescriptions: No Action levothyroxine 75 MCG tablet 75 mcg PO DAILY RF: 0 duloxetine 60 MG capsule 60 mg PO QHS RF: 0 ibuprofen 600 MG tablet 600 mg PO Q6H PRN (Reason: Pain) Qty: 60 RF: 1 lisinopril 20 mg tablet 20 mg PO DAILY RF: 0 Referrals / Follow Up: Polly Lopez MD [Primary Care Provider] -
--- NOTE | 2020-12-17 13:16 | EX.PCM.DISCH ---
Discharge Instructions Procedure Other Diet Discharge Diet: No restrictions Activity Discharge Activity: Return to Normal Activity, May not drive while taking narcotic pain medications. (for 3 days.) and Use Crutches Ice area for (Minutes): 20 Weight Bearing Status: No weight bearing Keep extremity elevated above heart level: Operative Extremity Additional Activity Instructions:: in offloading shoe Dressing / Incision Call your doctor if your incision/area has: Continuous Slow Oozing, Increased Pain/ Swelling, Increased Redness and Foul Smelling Discharge Call your doctor if you observe: Fever of 101 or Higher, Numbness or Tingling, Shortness of breath, Dizziness, Chest pain, Calf discomfort and Uncontrolled pain Change Dressing in: leave in place till F/U Remove Dressing in: do not remove dressing Cleanse incision/area with: Keep Dressing Clean & Dry Follow Up Care Please Follow Up With: Sheila Roblero DPM When: 1 week Discharge Plan Admission Primary Reason for Your Visit: bunion surgery Attending Provider: Sheila Roblero Primary Care Provider: Polly Lopez Instructions Additional Instructions / Restrictions: Rest ice and elevate the operative limb. Keep off as much as possible. Use crutches and surgical shoe whenever up and ambulating. Follow-up with instructions as far as medications go. Follow-up in office in 1 week Discharge Orders/Prescriptions Prescriptions: New oxycodone-acetaminophen [Percocet] 5-325 mg tablet 1 ea PO Q8H PRN PRN (Reason: Pain Score 4-10) 7 Days Qty: 20 RF: 0 ondansetron HCl [Zofran] 4 mg tablet 4 mg PO Q6H PRN PRN (Reason: Nausea) Qty: 20 RF: 1 Continued levothyroxine 75 MCG tablet 75 mcg PO DAILY RF: 0 duloxetine 60 MG capsule 60 mg PO QHS RF: 0 ibuprofen 600 MG tablet 600 mg PO Q6H PRN (Reason: Pain) Qty: 60 RF: 1 lisinopril 20 mg tablet 20 mg PO DAILY RF: 0 Referrals / Follow Up: Polly Lopez MD [Primary Care Provider] - Sheila Roblero DPM [STAFF PHYSICIAN] - Disposition Disposition (needs filled in before D/C Order can be placed): Home, self care
--- NOTE | 2020-12-17 13:22 | RAD_ITS ---
STUDY: X-RAY - LEFT FOOT CLINICAL: Postop left foot bunionectomy. TECHNIQUE: 3 view(s) of the foot. COMPARISON: Intraoperative images earlier today. FINDINGS: Normal talus, calcaneus, and tarsal bones. Normal visualized subtalar, talonavicular, calcaneocuboid, tarsal and tarsometatarsal articulations. There is resection of the medial aspect of the first metatarsal head and osteotomy of the distal first metatarsal with a bridging orthopedic screw. Normal metatarsophalangeal joint of the great toe. Normal tibial and fibular sesamoid bones. Normal interphalangeal joint of the great toe. Normal phalanges of the great toe. Normal second through fifth metatarsophalangeal joints. Normal interphalangeal joints and phalanges of the lesser toes. There is postoperative gas in the soft tissues. RAD/Foot min 3 Views IMPRESSION: Postoperative changes of the distal first metatarsal. Electronically Signed: Dontae Marie MD at 14:46 EDT Tel , Service support ,
--- NOTE | 2020-12-17 14:03 | OP.PCM_ITS ---
Problems Associated Problem List Diagnoses (1) Pain in left foot: (2) Bunion, left: (3) Other acute postprocedural pain: Report of Operation Date of Procedure: 12/17/20 Pre-Operative Diagnosis: Bunion left foot Post-Operative Diagnosis: Same Surgery/Procedure Performed:: Bunionectomy left foot Description of Surgical Findings:: Materials: Arthrex 2.5 headless compression screw 24 mm, 3-0 4-0 Vicryl and 4-0 Monocryl Hemostasis: 250 mmHg ankle tourniquet left foot Local anesthesia: 13 cc of 0.5% bupivacaine plain final assembly inspector: None (Surgeon: Dr. Sheila Roblero D.P.M. imaging assistant: Marisol Castillo, PGY2) Type of Anesthesia: General and Local Specimen's removed: None Drains: None Estimated Blood Loss (mL): <10cc Fluids Replaced: None Description of Procedure: Indications for procedure: Patient is a 35-year-old female who presents for pain to her left foot at the bunion site. Patient has failed conservative treatment including resting, icing, change in shoe gear including wider shoe gear, padding, offloading options. Patient relates that her pain is getting worse and is affecting her daily activity. Discussed with the patient all risk associated with undergoing surgery as regards to COVID-19 exposure. Discussed all risks, benefits, alternatives, and complications including but not limited to infection, delayed healing, nonhealing, and/or need for further surgery with the patient. No guarantees were given or implied. Patient agreed to proceed with the procedure. All questions answered. Description of the procedure: Patient was seen in the preoperative holding area where the chart was reviewed and patient was examined and all questions were answered to patient satisfaction. Patient was then transferred to the OR and placed on the OR table in the supine position. After administration of anesthetic noted above, as well as local anesthetic and a lentz block type fashion a well-padded ankle tourniquet was applied but not inflated at this time to the operative limb. The operative limb was then prepped and draped in usual sterile fashion. The operative limb was then elevated and exsanguinated with Esmarch bandage and the ankle tourniquet was inflated 250 mmHg and then lowered onto the sterile field. Attention was then directed to the dorsal aspect of the first metatarsophalangeal joint. A 6 cm linear longitudinal incision was drawn drawn out with a skin scribe medial and parallel to the extensor hallucis longus tendon over the joint and proximal to it. A 15 blade was then utilized in order to make the incision through the epidermis and dermal layers into the subcutaneous tissue with all vital neurovascular structures retracted or cauterized as necessary. Visualization of the extensor hallucis longus tendon was made which was noted to be healthy in appearance. This was retracted laterally. A 15 blade was utilized to dissect down to the level of bone through remaining soft tissue structures including the capsule. All soft tissue attach ments then removed from the head first metatarsal head. A sagittal saw was then introduced in order to remove the medial eminence in a through and through manner. A K wire was then placed from medial to lateral across first metatarsal head. Sagittal saw was then introduced again to make a chevron type osteotomy cut in a through and through manner with the apex of the chevron distal. A second dorsal arm made approximately 1 mm from the original dorsal arm in order to decompress the head. The capital fragment was then shifted laterally and impacted upon the remaining metatarsal head this was temporarily fixated with a K wire from the dorsal proximal to it distal plantar fashion. An appropriately sized headless compression screw from [employer] was then placed over top of the K wire following standard AO technique. The [employer] auto service representative was in the room for the whole procedure. Good compression was noted across the osteotomy site. With decompression of the joint it was noted t hat there is more range of motion of the first metatarsophalangeal joint compared to preoperatively. C-arm fluoroscopy was utilized in order to confirm placement of all hardware. Sagittal saw was reintroduced in order to remove remaining medial shelf of the first metatarsal. Attention was then directed to the first interspace where the extensor hallucis longus tendon was retracted medially and a combination of sharp and blunt dissection was utilized to resect down into the first interspace. The adductor hallucis tendon was visualized as well as the suspensory fibular sesamoidal ligament, lateral capsule of the first metatarsophalangeal joint and the lateral collateral ligament. These were all sharply transected with a #15 blade. It is noted that the hallux fell in a more desired straight corrected position once this was completed without tension. Again C arm fluoroscopy was utilized in order to access surgical placement. It was noted that the sesamoids fell in a more desired corrected position with reduction of the first IM angle. It was determined that a capsulorrhaphy would also be utilized. Attention was then directed to the medial aspect of the first metatarsophalangeal joint capsule. This was dissected out from other tissue layers and a Julienne was introduced in order to grasp the capsule at this level as far plantarly as possible. A 15 blade was then utilized in order to resect a section of the capsule. 3-0 Vicryl was then utilized in order to suture the capsule in its new alignment. It was noted that this took up the slack in the capsule and held help to hold the toe in desired straight positioning. Site was then flushed with copious amounts of normal sterile saline. The site was closed in a layered suture fashion with 3-0 Vicryl for running capsular closure, 4-0 Vicryl for running subcutaneous closure, and 4-0 Monocryl for running subcuticular skin closure. The site was then dressed with Steri-Strips, Betadine soaked Adaptic, 4 x 4's, Kerlix, Jose wrap. The ankle tourniquet was deflated with prompt brisk hyperemic response noted to all digits of patient's right foot. Patient was then transferred from the OR to PACU with vital signs stable and vascular status intact. Patient will be discharged with the following written and oral postoperative instructions: 1 patient is to keep dressing clean, dry, and intact 2 patient is to follow-up in office in [address] Roblero 3 patient take all medications as prescribed 4 patient is to be non weightbearing to the operative limb 5 patient is to watch for signs of infection including nausea, fever, vomiting, chills, chest pain, or shortness of breath and if seen patient is contact doctor's office or the emergency room. Patient is also contact doctor's office if there is any questions or concerns. Complications None Admit VTE Documentation VTE Present on Admission: Yes VTE Mechan Device Prophylaxis: SCD's VTE Pharm Prophylaxis ordered?: No Reason prophylaxis not ordered:: Procedure Not Indicated
== END 2020-12-17 14:52 | disposition home or self-care (01) ==
LOC: SDC 09:58 → AC 09:59
PROVIDERS: PCP Family Medicine; Referring Provider Podiatrist Foot & Ankle Surgery; Visit Provider Podiatrist Foot & Ankle Surgery
PROC: (CPT 28292; principal; 2020-12-17 11:15)
DX: M21.612 Bunion of left foot (principal); F41.9 Anxiety disorder, unspecified; F32.9 Major depressive disorder, single episode, unspecified; E03.9 Hypothyroidism, unspecified; G47.30 Sleep apnea, unspecified; Z79.899 Other long term (current) drug therapy
CPT/HCPCS: 01480; 28296; 73620; 73630; 76000; C1713; J7120; J2405

== ENCOUNTER → 2021-01-20 | Outpatient (CLI) | payer OTHER, SELFPAY ==
[2020-12-17 10:31] VITALS: BMI 37.2
[2021-01-20 19:23] LABS: M R Staph aureus DNA By PCR Negative (Negative); Probe Check PASS; Specimen Processing Control PASS; Staph aureus DNA By PCR NEGATIVE (Negative)
== END | disposition home or self-care (01) ==
PROVIDERS: Visit Provider Podiatrist Foot & Ankle Surgery
DX: L03.116 Cellulitis of left lower limb (principal)
CPT/HCPCS: 87070; 87077; 87186; 87205; 87640

== ENCOUNTER 2021-01-31 17:04 | Emergency (ER) | payer OTHER, SELFPAY ==
[2020-12-17 10:31] VITALS: BMI 37.2
[2021-01-31 17:05] VITALS: BP 148/97; PULSE 89; RESP 16; TEMP 36.9; O2SAT 100; BMI 38.2
--- NOTE | 2021-01-31 17:44 | EDS_ITS ---
HPI History of Present Illness Chief Complaint: Laceration Informant: patient Narrative Narrative: 35-year-old female presents the emergency department for laceration to the left thumb. She sustained this while cutting potatoes. Unknown last tetanus. Tetanus Immunization: Unknown [facility] Medical History Alcohol use Anxiety Depression Heartburn History of postoperative nausea and vomiting Hypothyroidism Non-smoker Sleep apnea Home Medications duloxetine 60 mg PO QHS 07/10/19 [History Last Taken Unknown] levothyroxine 75 mcg PO DAILY 07/10/19 [History Last Taken 08/01/19 07:00 75 MCG] ibuprofen 600 mg PO Q6H PRN #60 tab 08/02/19 [Rx Last Taken Unknown] lisinopril 20 mg PO DAILY 12/10/20 [History Last Taken 12/17/20 08:00] ondansetron HCl [Zofran] 4 mg PO Q6H PRN PRN #20 tab 12/17/20 [Rx Last Taken Unknown] oxycodone-acetaminophen [Percocet] 1 ea PO Q8H PRN PRN 7 Days #20 tab 12/17/20 [Rx Last Taken Unknown] cephalexin 500 mg PO BID 01/31/21 [History Last Taken Unknown] Allergy/AdvReac Type Severity Reaction Status Date / Time No Known Allergies Allergy Verified 12/10/20 09:54 Surgical History History of appendectomy History of hysterectomy Social History (Updated 01/31/21 @ 17:[address] Jere Delvalle DO) Smoking Status: Never smoker substance use type: does not use ROS ROS ED Constitutional Constitutional ED: Denies chills or weight loss Eyes Eyes: Denies change in vision or diplopia ENT ENT ED: Denies ear pain, rhinorrhea or sore throat Cardiovascular Cardiovascular: Denies chest pain, orthopnea, palpitations or racing heartbeat Respiratory/Chest Respiratory/Chest: Denies cough, dyspnea or orthopnea Gastrointestinal Gastrointestinal: Denies abdominal pain, diarrhea, nausea or vomiting Genitourinary Genitourinary ED: Denies dysuria, hematuria or urinary frequency Musculoskeletal Musculoskeletal: Denies arthralgias or myalgias Integumentary Reports other Details: See history of present illness ; Denies abscess or rash Neurologic Neurologic: Denies headache(s) or weakness Psychiatric Psychiatric: Denies anxiety, depression, suicidal ideation or suicidal thoughts Endocrine Endocrinology: Denies polydipsia, polyphagia or polyuria Allergic/Immunologic Allergic/Immunologic ED: Denies mouth swelling, tongue swelling or urticaria EXAM Physical Exam Const Vital Signs: 01/31/21 17:05 Temperature 98.5 F Temperature Source Oral Pulse Rate 89 Respiratory Rate 16 Blood Pressure 148/97 H Blood Pressure Mean 114 Pulse Ox 100 Oxygen Delivery Method Room Air Positive well nourished and well developed General Appearance ED: well developed HEENT Reports normocephalic, head/scalp atraumatic and moist mucous membranes Eyes PERRL and EOMs intact bilaterally Neck no lymphadenopathy, supple and no JVD Resp normal respiratory effort and clear to auscultation bilaterally Cardio regular rate, regular rhythm and no murmurs GI normal to inspection, nondistended, normoactive bowel sounds and non-tender Palpation: soft Back/Spine no CVA tenderness and normal ROM Extremity normal to inspection General Extremety ED: Negative for edema General Extremity: Negative for edema Neuro oriented x3 and CN's II-XII intact bilaterally Sensorium / Orientation: alert Motor Exam: strength 5/5 throughout Psych mental status grossly normal Mood & Affect: Negative for depressed or tearful Skin no rashes or lesions noted Skin Narrative: There is a 1 cm laceration to the distal tip of the left thumb. No active bleeding. No nail involvement. MDM MDM MDM Narrative Medical decision making narrative: Wound was locally anesthetized using 1% lidocaine. He was washed with Shur-Clens. It was closed using 2 simple interrupted 5-0 Ethilon sutures. Tetanus will be updated. [facility] for suture removal Discharge Plan Triage Chief Complaint: Laceration ED Provider: Jere Delvalle Dx/Rx/DC Orders Clinical Impression: Laceration of left thumb Instructions: ED Laceration, Hand: All Closures Prescriptions: No Action levothyroxine 75 MCG tablet 75 mcg PO DAILY RF: 0 duloxetine 60 MG capsule 60 mg PO QHS RF: 0 ibuprofen 600 MG tablet 600 mg PO Q6H PRN (Reason: Pain) Qty: 60 RF: 1 lisinopril 20 mg tablet 20 mg PO DAILY RF: 0 oxycodone-acetaminophen [Percocet] 5-325 mg tablet 1 ea PO Q8H PRN PRN (Reason: Pain Score 4-10) 7 Days Qty: 20 RF: 0 ondansetron HCl [Zofran] 4 mg tablet 4 mg PO Q6H PRN PRN (Reason: Nausea) Qty: 20 RF: 1 cephalexin 500 mg Tablet 500 mg PO BID RF: 0 Activity Restrictions/Additional Instructions: Stitches will need to be removed in 7 to 10 days. You may return here or your primary care doctor to have them removed. Disposition Disposition: Home, Self Care
[2021-01-31] MEDS: Diphth,Pertuss(Acell),Tet Vac 0.5 ML Vial IM (17:58)
[2021-01-31] MEDS: Lidocaine 1% (20 ml mdv) 20 ML Vial INFILT (17:59)
== END 2021-01-31 18:19 | disposition home or self-care (01) ==
LOC: ED 17:58
PROVIDERS: Emergency Provider Emergency Medicine; PCP Family Medicine
DX: S61.012A Laceration without foreign body of left thumb without damage to nail, initial encounter (principal); W26.9XXA Contact with unspecified sharp object(s), initial encounter; Y93.9 Activity, unspecified; Y92.9 Unspecified place or not applicable; F32.9 Major depressive disorder, single episode, unspecified; E03.9 Hypothyroidism, unspecified; F41.9 Anxiety disorder, unspecified; G47.30 Sleep apnea, unspecified; Z79.899 Other long term (current) drug therapy
CPT/HCPCS: 12001; 90715; 99283

== ENCOUNTER 2022-02-28 08:39 | Emergency (ER) | payer OTHER, SELFPAY ==
[2022-02-28] VITALS (7 sets, daily range): BP systolic 149–169; BP diastolic 99–118; PULSE 85–107; RESP 10–22; TEMP 36.6; O2SAT 94–100; BMI 33.0
--- NOTE | 2022-02-28 08:48 | EKG12_ITS ---
Test Reason : cp Blood Pressure : / mmHG Vent. Rate : 101 BPM Atrial Rate : 101 BPM P-R Int : 156 ms QRS Dur : 094 ms QT Int : 354 ms P-R-T Axes : 040 -14 012 degrees QTc Int : 459 ms Sinus tachycardia Anterior infarct , age undetermined , cannot be excluded Abnormal ECG Confirmed by JONATHAN PAZ, MARCO A ([id number]), film and video editor LUKE HERNÁNDEZ ([id number]) on 03/01/2022 11:34:14 AM Referred By: Confirmed By:MARCO A CASTILLO MD
--- NOTE | 2022-02-28 08:50 | VDLE_ITS ---
Reason For Study: swelling RIGHT LEFT GSV is normal. GSV is normal. CFV is compressible, spontaneous, phasic, CFV is compressible, spontaneous, phasic, competent and demonstrates normal competent, and demonstrates normal augmentation. augmentation. FV is compressible, spontaneous, phasic, FV is compressible, spontaneous, phasic, competent and demonstrates normal competent and demonstrates normal augmentation. augmentation. POP V is compressible, spontaneous, phasic, POP V is compressible, spontaneous, phasic, competent and demonstrates normal competent and demonstrates normal augmentation. augmentation. T/P Trunk is compressible. T/P Trunk is compressible. PTV is compressible. PTV is compressible. RT PerV is compressible. LT PerV is compressible. Procedure This is a venous duplex using B-mode, color flow and spectral Doppler. Exam performed portable in ED. The exam was diagnostic. A preliminary report was called and/or faxed to Dr. Yoder. VL/Venous Duplex US - Teja Extrem Interpretation Summary No evidence for acute deep venous thrombosis bilateral lower extremities with p atent and compressible bilateral great saphenous veins. Ordering Physician: Sylvester Yoder Performed By: Robe Pablo RVT
--- NOTE | 2022-02-28 08:53 | ED.VIS.CHEST ---
HPI History of Present Illness Chief Complaint: Chest Pain Informant: patient and family Narrative Narrative: Awakening at 7:30 AM this morning with chest pressure bilateral shoulder pain with dyspnea. No nausea. No diaphoresis. Yesterday had some back pain. Recent travel back from [place] by car had mild leg swelling. No history of DVT PE. History of hypertension. Denies tobacco. Family history of MIs in both grandmothers however over 55. No history of stress test. Denies diabetes or hyperlipidemia. Pressure sensation. Reporting 8 out of 10 headache. Prior Similar Symptoms: No CVD Risk Factors: Positive for Hypertension PE Risk Factors: Positive for Recent Travel/Surgery [facility] Medical History Alcohol use Anxiety Depression Heartburn History of postoperative nausea and vomiting Hypothyroidism Non-smoker Sleep apnea Home Medications duloxetine 60 mg capsule,delayed release 60 mg PO QHS anxiety 07/10/19 [History Last Taken Unknown] levothyroxine 75 mcg tablet 75 mcg PO DAILY thyroid 07/10/19 [History Last Taken 08/01/19 07:00 75 MCG] ibuprofen 600 mg tablet 600 mg PO Q6H PRN Pain #60 tabs 08/02/19 [Rx Last Taken Unknown] lisinopril 20 mg tablet 20 mg PO DAILY blood pressure 12/10/20 [History Last Taken 12/17/20 08:00] ondansetron HCl 4 mg tablet (Zofran) 4 mg PO Q6H PRN PRN Nausea #20 tabs 12/17/20 [Rx Last Taken Unknown] oxycodone-acetaminophen 5 mg-325 mg tablet (Percocet) 1 ea PO Q8H PRN PRN Pain Score 4-10 7 days #20 tabs 12/17/20 [Rx Last Taken Unknown] cephalexin 500 mg tablet 500 mg PO BID 01/31/21 [History Last Taken Unknown] omeprazole 40 mg capsule,delayed release 40 mg PO DAILY #30 caps 02/28/22 [Rx Last Taken Unknown] Allergy/AdvReac Type Severity Reaction Status Date / Time No Known Allergies Allergy Verified 02/28/22 09:25 Surgical History History of appendectomy History of hysterectomy Social History Smoking Status: Never smoker substance use type: does not use ROS ROS ED Constitutional Constitutional ED: Denies chills, fever(s) or sweats Eyes Eyes: Denies change in vision ENT ENT ED: Denies dysphagia or sore throat Cardiovascular Cardiovascular: Reports chest pain; Denies leg edema, palpitations or racing heartbeat Respiratory/Chest Respiratory/Chest: Reports dyspnea; Denies cough or dyspnea on exertion Gastrointestinal Gastrointestinal: Denies abdominal pain, diarrhea, nausea or vomiting Genitourinary Genitourinary ED: Denies dysuria, hematuria or urinary frequency Musculoskeletal Musculoskeletal: Denies back pain, extremity pain or neck pain Integumentary Denies rash or wounds Neurologic Neurologic: Denies headache(s), paresthesias or weakness EXAM Physical Exam Const Vital Signs: 02/28/22 08:41 02/28/22 08:42 02/28/22 09:05 Temperature 97.8 F Temperature Source Temporal Pulse Rate 107 H 100 Respiratory Rate 22 H Respiratory Effort Non-Labored Short of Breath Blood Pressure 155/99 H 162/101 H Blood Pressure Mean 117 Pulse Ox 100 Oxygen Delivery Method Room Air 02/28/22 09:08 02/28/22 09:13 02/28/22 09:19 Temperature Temperature Source Pulse Rate 89 100 Respiratory Rate Respiratory Effort Blood Pressure 162/101 H 169/118 H Blood Pressure Mean Pulse Ox Oxygen Delivery Method Room Air 02/28/22 10:26 02/28/22 11:07 02/28/22 12:03 Temperature Temperature Source Pulse Rate 87 85 88 Respiratory Rate 10 L 12 14 Respiratory Effort Blood Pressure 152/110 H 149/103 H 158/107 H Blood Pressure Mean 124 118 Pulse Ox 94 95 95 Oxygen Delivery Method Room Air Room Air Positive well nourished and well developed Constitutional Narrative: Anxious tearful General Appearance ED: well developed HEENT Reports moist mucous membranes normocephalic and atraumatic Eyes PERRL, EOMs intact bilaterally and conjunctivae normal General Eye ED: Yes normal appearance of both eyes Neck no lymphadenopathy and supple General: Negative for tenderness Chest Wall Chest: Negative for tenderness Resp normal respiratory effort and normal air movement Effort and Inspection: symmetric chest movement; Negative for respiratory distress Cardio regular rhythm and no murmurs Rate: tachycardic Peripheral Pulses: pulses 2+ throughout GI normal to inspection, nondistended, normoactive bowel sounds and non-tender Palpation: Negative for guarding or rebound tenderness present Back/Spine no CVA tenderness and no thoracic nor lumbar tenderness Extremity normal to inspection Extremity Narrative: Minimal swelling to his ankles no calf or medial thigh tenderness bilaterally. Pulses intact x4. General Extremety ED: Yes edema; Negative for tenderness General Extremity: edema Neuro oriented x3 and no sensory deficits noted Sensorium / Orientation: awake and alert Skin no rashes or lesions noted and no wounds MDM MDM MDM Narrative Medical decision making narrative: EKG normal. Cardiac work-up initiated. Ultrasound lower extremities with her recent travel along with D-dimer. Aspirin nitro series was given. 1015: Labs normal initial troponin negative D-dimer negative. Bilateral lower extremity ultrasound negative for DVT. 2 view chest x-ray reviewed by myself and read by radiology shows no acute process. Discussed with patient she still had some improvement of symptoms still has mild symptoms currently. Awaiting 2-hour delta troponin. Will give a GI cocktail and reevaluate. 1200: There is moderate improvement with GI cocktail. Repeat troponin negative. Omeprazole written for daily use. Follow-up with her PCP. Return precautions. All questions answered. Lab Data Attestation: I reviewed the patient's lab results. Labs: Laboratory Results - last 24 hr 02/28/22 02/28/22 02/28/22 08:55 08:55 08:55 WBC 6.8 RBC 4.84 Hgb 14.8 Hct 43.2 MCV 89.3 MCH 30.6 MCHC 34.3 RDW Std Deviation 42.5 RDW Coeff of Rupali 13.1 Plt Count 343 MPV 11.4 Immature Gran % (Auto) 0.300 Neut % (Auto) 60.4 Lymph % (Auto) 29.0 [place] % (Auto) 7.2 Eos % (Auto) 2.1 Baso % (Auto) 1.0 Absolute Neuts (auto) 4.1 Absolute Lymphs (auto) 1.97 Nucleated RBC % 0 PT INR APTT D-Dimer Quant (PE/DVT) Sodium 138 Potassium 4.1 Chloride 105 Carbon Dioxide 25.0 Anion Gap 8 BUN 7 Creatinine 0.97 Estim Creat Clear Calc 73.62 Est GFR (MDRD) Af Amer 83 Est GFR (MDRD) Non-Af 68 BUN/Creatinine Ratio 7.2 L Glucose 115 H Calcium 9.3 Troponin I High Sens < 3 L Serum , Qual NEGATIVE 02/28/22 02/28/22 08:55 11:13 WBC RBC Hgb Hct MCV MCH MCHC RDW Std Deviation RDW Coeff of Rupali Plt Count MPV Immature Gran % (Auto) Neut % (Auto) Lymph % (Auto) [place] % (Auto) Eos % (Auto) Baso % (Auto) Absolute Neuts (auto) Absolute Lymphs (auto) Nucleated RBC % PT 11.6 L INR 0.9 APTT 29.4 D-Dimer Quant (PE/DVT) < 0.27 L Sodium Potassium Chloride Carbon Dioxide Anion Gap BUN Creatinine Estim Creat Clear Calc Est GFR (MDRD) Af Amer Est GFR (MDRD) Non-Af BUN/Creatinine Ratio Glucose Calcium Troponin I High Sens < 3 L Serum , Qual Radiography Diagnostic Testing: Clinical Impression(s) from Imaging Studies Venous Doppler Study 02/28/22 08:50 Interpretation Summary No evidence for acute deep venous thrombosis bilateral lower extremities with patent and compressible bilateral great saphenous veins. Ordering Physician: Sylvester Yoder Performed By: Robe Pablo, T Chest X-Ray 02/28/22 09:40 IMPRESSION: Normal x-ray examination of the chest. Electronically Signed: Jimenez Martinez MD at 9:56 EDT , EKG Initial EKG: Attestation: I personally reviewed and interpreted this EKG as follows: Comments: Sinus rate of 101, no ST or T wave changes. Discharge Plan Triage Chief Complaint: Chest Pain ED Provider: Sylvester Yoder Dx/Rx/DC Orders Clinical Impression: Chest pain, Hypertension, Dyspnea, Leg swelling Instructions: ED Chest Pain, Uncertain Cause Prescriptions: New omeprazole 40 mg capsule,delayed release(DR/EC) 40 mg PO DAILY Qty: 30 0RF No Action levothyroxine 75 MCG tablet 75 mcg PO DAILY duloxetine 60 MG capsule 60 mg PO QHS ibuprofen 600 MG tablet 600 mg PO Q6H PRN (Reason: Pain) Qty: 60 1RF lisinopril 20 mg tablet 20 mg PO DAILY oxycodone-acetaminophen [Percocet] 5-325 mg tablet 1 ea PO Q8H PRN PRN (Reason: Pain Score 4-10) 7 Days Qty: 20 0RF ondansetron HCl [Zofran] 4 mg tablet 4 mg PO Q6H PRN PRN (Reason: Nausea) Qty: 20 1RF cephalexin 500 mg Tablet 500 mg PO BID Primary Care Provider: Polly Lopez Referrals: Polly Lopez MD [Primary Care Provider] - 3-5 Days Activity Restrictions/Additional Instructions: Your cardiac work-up negative. Ultrasounds of your legs are negative. D-dimer negative. Chest x-ray negative. Prescription omeprazole sent to your pharmacy. Follow-up with your doctor for further testing. Return if any worsening symptoms. Disposition Disposition: Home, Self Care Discharge Date/Time: 02/28/22 12:10
[2022-02-28] MEDS: Nitroglycerin SL (ED/IMG/CATH) 0.4 MG TABLET SL ×3 (09:05→09:19)
[2022-02-28] MEDS: Aspirin 81 MG TAB.CHEW 324 MG PO (09:05)
[2022-02-28 09:10] LABS: Absolute Lymphocyte Count 1.97 X10^3/uL (0.83-4.51); Absolute Neutrophil Count 4.1 X10^3/uL (2.0-7.7); Basophil# 0.07 X10^3/uL; Eosinophil# 0.14 X10^3/uL; Eosinophils% 2.1 % (0-5); Hematocrit 43.2 % (37-47); Hemoglobin 14.8 g/dL (12.0-15.0); Lymphocyte # 1.97 X10^3/ul (0.83-4.51); Mean Corp Hgb Conc 34.3 g/dL (32-36); Mean Corpuscular Hgb 30.6 pg (27.0-32.0); Mean Corpuscular Volume 89.3 fL (81-99); Mean Platelet Vol. 11.4 fl (6.2-12.0); Monocyte# 0.49 X10^3/uL; Monocyte% 7.2 % (0-10); NRBC Flagged by Analyzer 0 % (0-5); Neutrophil # 4.11 X10^3/uL (2.7-7.7); Neutrophil % 60.4 % (47-70); Platelet Count 343 K/mm3 (150-450); RBC Distribution Width CV 13.1 % (11.6-14.6); RBC Distribution Width SD 42.5 fl (35.1-43.9); Red Blood Count 4.84 M/mm3 (4.2-5.4); White Blood Count 6.8 K/mm3 (4.4-11.0)
[2022-02-28 09:17] LABS: International Normalized Ratio 0.9; Prothrombin Time (Protime)PT. 11.6 SECONDS (11.7-14.9)
[2022-02-28 09:18] LABS: Partial Thromboplast Time 29.4 Seconds (24.1-36.2)
[2022-02-28 09:23] LABS: Anion Gap 8 (5-15); BUN 7 mg/dL (7-18); BUN/Creat Ratio 7.2 RATIO (10-20); Calcium,Total 9.3 mg/dL (8.5-10.1); Chloride 105 mmol/L (98-107); Creatinine, Serum 0.97 mg/dL (0.55-1.02); EST Glomerular Filtration Rate 68 mL/min (>60); Est Glom Filt Rate - Afr Amer 83 mL/min (>60); Estimated Creatinine Clearance 73.62 ml/min; Glucose 115 mg/dL (74-106); Potassium 4.1 mmol/L (3.5-5.1); Sodium Level 138 mmol/L (136-145); Troponin-I HS (w/2H Reflex) < 3 pg/mL (3.0-54.0)
[2022-02-28 09:28] LABS: D-Dimer Quantitative (DVT/PE) < 0.27 FEU/ug/m (0.27-0.49)
[2022-02-28 09:39] LABS: Internal QC Validated? YES +Cl - CLEAR BKGD; Pregnancy, Serum, hCG Quali. NEGATIVE Negative
--- NOTE | 2022-02-28 09:40 | RAD_ITS ---
STUDY: X-RAY CHEST REASON FOR EXAM: Female, 36 years old. Chest pain TECHNIQUE: PA and lateral views of the chest. COMPARISON: None. FINDINGS: EKG electrodes are seen. The lungs are clear and expanded. There is no demonstrated pleural abnormality. Normal size heart. Normal mediastinum and yonathan. Normal visualized pulmonary arteries. Normal visualized aortic arch and descending thoracic aorta. Normal visualized thoracic spine. Normal visualized ribs, clavicles, and shoulders. There is no demonstrated abnormality of the visualized soft tissue structures of the upper abdomen. RAD/Chest PA and Lateral IMPRESSION: Normal x-ray examination of the chest. Electronically Signed: Jimenez Martinez MD at 9:56 EDT ,
[2022-02-28] MEDS: Mag Hydrox/Al Hydrox/Simeth 30 ML UDC PO (10:26)
[2022-02-28 11:01] LABS: Reflex Troponin-HS? (from REC) Y
[2022-02-28 11:46] LABS: Troponin-I HS < 3 pg/mL (3.0-54.0)
== END 2022-02-28 12:10 | disposition home or self-care (01) ==
PROVIDERS: Emergency Provider Emergency Medicine; PCP Family Medicine; Visit Provider Emergency Medicine
DX: R07.89 Other chest pain (principal); F41.9 Anxiety disorder, unspecified; F32.A Depression, unspecified; E03.9 Hypothyroidism, unspecified; G47.30 Sleep apnea, unspecified; Z79.899 Other long term (current) drug therapy; I10 Essential (primary) hypertension; M79.89 Other specified soft tissue disorders; M25.511 Pain in right shoulder; M25.512 Pain in left shoulder; R06.00 Dyspnea, unspecified
CPT/HCPCS: 71046; 80048; 84484; 84703; 85025; 85379; 85610; 85730; 93005; 93970; 99285; A4216

== ENCOUNTER 2024-01-22 13:00 | Outpatient (RCR) | payer OTHER, SELFPAY ==
--- NOTE | 2023-12-28 18:47 | HP.PTEVAL_ITS ---
Patient's Visit Information Visit Information Visit Information: CECI FERGUSON is a 38 year old F referred to Physical Therapy by Out of Town Doctor with a diagnosis of L ankle trimalleolar fracture ORIF 09/23/23. Date of Evaluation: 12/28/23 Physical Therapist: Celso Whalen, DPT, OCS, CSCS Visit Plan Frequency: 5x /Week Duration: 2 Months Plan: 2x/week for 4-8 week for 1. MH and gastroc rollout and STM L foot and ankle DF mobs and PROM DF, inv/ev/PF 2. strength L ankle and proprioceptive ex 3. gait training L ankle and stairs as ROM allows. 4. floor trasnfer for gardening. ice as needed IE:L HEp of towel toe curls 40x, seatted heel toe raises 2x10, PROM inv/ev 2x10, SLS x 2 minutes, gastroc DF stretch 30 5x all 2x/day with pics Subjective Subjective: Slipped and fell on ice when walking and L foot went the other way. [facility] to [facility]. Sent to [facility] and had surgery the next mornign for trimalleolar fracture. In brace NWB x 2 weeks, then boot NWB 6 more weeks, then back and slow WB over the last month. Boot off 2 weeks ago. It hurts more now that boot is off. pain this week to 7/10 inside and outside of ankle but was better in the boot. Quit boot cold turkey. Doing some AP and rubbing incisions. She feels like doing OK abut feels really swollen. 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 [employer] and last day is tomorrow. Is on it all day. Sits alot though. Wears tennis shoes all day. Basic ADLs all I, shower is tricky as she has routine to get in and out. Hobbies include gardening and reading. Gardening and walking not right now. Sleep is interrupted as she wakes up 2x at night with some pain or if bumps it. Ibuprofen and ice when she get home. Pain L ankle: Pain Intensity (Out of 10): 2 Pain Intensity Range: 2 and 7 Objective Objective: Walks into PT I with tennis shoes on, has a slight L antalgia avoiding R full step length, missing DF and hesitant to bear weight for long on L but I. Transfers chair and bed I. Steps are up with R and down onto L, With cues can go up steps reciprocally slowly onto L, desciending is unable today with L due to ROM and confidence. AROM L ankle -10 DF vs 0 on R, inversion is 15L and 40 R , eversion is 10 L and 20 R, PF is 55 R and 45 L. has some pain with OP in forntal plane movements opposite side. Tender to touch at malleoli and distal lateral > medial Incisions are healed well and mild scar tissue palpable. strtength is 4- L ankle withou much pain except eversion laterally. r ankle is 4+. knees and hips 4/5 pain and symmetrical. Sensation in LE is WNL to gross light touch B. Pt is scareed to SLS on L but able for 1 second., 10 sec on R. Very hesitant and scared today. Balance/Special Test Scores Lower Extremity Functional Score: 26 Goals Goal 1:: AROM L ankle 55 PF, 0 DF to aid with walking without gait deficits Goal Time Frame: 4-6 Weeks Goal 2:: Ambulate up and down steps reciprocally with one rail Goal Time Frame: 4-6 Weeks Goal 3:: L SLS 10 seconds easily Goal Time Frame: 4-6 Weeks Goal 4:: Sleep without waking at night due to pain Goal Time Frame: 4-6 Weeks Goal 5:: Plan to return to gardening and walking for leisure Goal Time Frame: 4-6 Weeks Rehabilitation Potential Physical Therapy Diagnosis: stiffness , pain and weakness in L ankle limiting funciton Rehabilitation Potential: Good Anticipated Interventions Patient/Client Instruction: Educate patient on: Condition and Plan of Care For the Purpose of:: To decrease pain, To increase ROM, To improve nutrient delivery to tissue, To improve muscle performance and motor function, To increase tolerance to activity/condition/position, To improve ability of physical actions for home/community/work/leisure and To improve gait and locomotor functions Therapeutic Exercise to Include: Strength training, Balance training, Flexibilty training, Gait and locomotor training, Passive ROM and Active ROM For the Purpose of:: To decrease pain, To increase ROM, To improve nutrient delivery to tissue, To increase oxygenation perfusion, To increase tolerance to activity/condition/position, To improve ability of physical actions for home/community/work/leisure and To improve gait and locomotor functions Manual Therapy Techniques to Include: Massage, Mobilization, Passive ROM and Soft tissue mobilization For the Purpose of:: To decrease pain, To increase ROM, To improve nutrient delivery to tissue, To improve muscle performance and motor function, To increase tolerance to activity/condition/position and To improve gait and locomotor functions Cryotherapy (ice pack, ice massage): Yes Thermo therapy (hot pack): Yes For the Purpose of:: To decrease pain, To increase ROM and To improve nutrient delivery to tissue Text: Thank you for the opportunity to evaluate your patient. For Medicare and Medicare HMO plans, please review the plan of care and approve it. It will need to be FAXED BACK to us at [phone] for Medicare purposes. For Medicare only, by signing this I certify the plan of care. Please let me know if there are questions or concerns regarding this plan of care. Physician Signature: Date:
--- NOTE | 2024-03-13 14:53 | HP.PTDCNRP_ITS ---
Patient Information Patient Information: CECI FERGUSON was seen in my office for initial evaluation on 12/28/23. The following Plan of Care was established for this patient: POC Established Initial Frequency: 5x /Week Initial Duration: 2 Months Anticipated Interventions Patient/Client Instruction: Educate patient on: Condition and Plan of Care For the Purpose of:: To decrease pain, To increase ROM, To improve nutrient delivery to tissue, To improve muscle performance and motor function, To increase tolerance to activity/condition/position, To improve ability of physical actions for home/community/work/leisure and To improve gait and locomotor functions Therapeutic Exercise to Include: Strength training, Balance training, Flexibilty training, Gait and locomotor training, Passive ROM and Active ROM For the Purpose of:: To decrease pain, To increase ROM, To improve nutrient delivery to tissue, To increase oxygenation perfusion, To increase tolerance to activity/condition/position, To improve ability of physical actions for home/community/work/leisure and To improve gait and locomotor functions Manual Therapy Techniques to Include: Massage, Mobilization, Passive ROM and Soft tissue mobilization For the Purpose of:: To decrease pain, To increase ROM, To improve nutrient delivery to tissue, To improve muscle performance and motor function, To increase tolerance to activity/condition/position and To improve gait and locomotor functions Cryotherapy (ice pack, ice massage): Yes Thermo therapy (hot pack): Yes For the Purpose of:: To decrease pain, To increase ROM and To improve nutrient delivery to tissue Last Seen Last Seen: This patient was last seen in our office 01/22/24. Pertinent comments regarding their Physical therapy will appear below: Pt seen for 3 visits of POC then no showed for the next adn failed to schedule any further sessions. AT this point, it has been over 6 weeks and i will di scontinue from my care. At this point I will be discontinuing this patient from physical therapy. I would be happy to see this patient again in the future if found appropriate by the physician. Thank you! Celso Whalen, DPT, OCS, CSCS Balance/Gait/Functional tests Balance/Special Test Scores Lower Extremity Functional Score: 26
== END 2024-01-22 19:00 | disposition home or self-care (01) ==
LOC: PT 13:00
PROVIDERS: PCP Family Medicine
DX: S82.852D Displaced trimalleolar fracture of left lower leg, subsequent encounter for closed fracture with routine healing (principal)
CPT/HCPCS: 97110; 97140; 97161

== ENCOUNTER 2024-03-11 02:37 | Emergency (ER) | payer OTHER, SELFPAY ==
[2024-03-11 02:38] VITALS: BP 145/108; PULSE 89; RESP 16; TEMP 36.2; O2SAT 98; BMI 36.3
[2024-03-11] MEDS: AMOXICILLIN 500 MG CAPSULE PO (03:26)
[2024-03-11] MEDS: Ibuprofen 600 MG Tablet PO (03:27)
[2024-03-11] MEDS: Tetracaine/Benzocaine/Butamben 1 APPLIC TOPICAL (03:27)
--- NOTE | 2024-03-11 03:37 | EDS_ITS ---
HPI History of Present Illness Chief Complaint: Dental Informant: patient Narrative Narrative: Patient with about 2 days of dental pain that has gotten significantly worse, right maxillary molar, now swollen and pain more intense. No systemic symptoms or fever/chills. No discharge or bleeding. States she has had issues with teeth in this area for a long time. [facility] Medical History History of postoperative nausea and vomiting Alcohol use Depression Anxiety Heartburn Non-smoker Sleep apnea Hypothyroidism Home Medications ?Medication ?Instructions ?Recorded ?Last Taken ?Type duloxetine 60 mg capsule,delayed 60 mg PO QHS anxiety 07/10/19 Unknown History release levothyroxine 75 mcg tablet 75 mcg PO DAILY thyroid 07/10/19 08/01/19 07:00 History 75 MCG ibuprofen 600 mg tablet 600 mg PO Q6H PRN Pain #60 tabs 08/02/19 Unknown Rx lisinopril 20 mg tablet 20 mg PO DAILY blood pressure 12/10/20 12/17/20 08:00 History ondansetron HCl 4 mg tablet 4 mg PO Q6H PRN PRN Nausea #20 tabs 12/17/20 Unknown Rx (Zofran) omeprazole 40 mg capsule,delayed 40 mg PO DAILY #30 caps 02/28/22 Unknown Rx release hydrocortisone 2.5 % topical cream 1 applic [place] BID-QID PRN 07/07/23 Unknown Rx with perineal applicator hemorrhoids #30 grams (Proctosol HC) amoxicillin 500 mg tablet 500 mg PO TID #30 tabs 03/11/24 Unknown Rx tramadol 50 mg tablet 50 mg PO Q6H PRN pain 3 days #10 03/11/24 Unknown Rx tabs Allergy/AdvReac Type Severity Reaction Status Date / Time No Known Allergies Allergy Verified 03/11/24 02:41 Surgical History History of hysterectomy History of appendectomy Social History Smoking Status: Never smoker substance use type: does not use ROS ROS ED Constitutional Constitutional ED: Denies chills or fever(s) Eyes Eyes: Denies change in vision or double vision ENT ENT ED: Reports dental pain; Denies sinus pain or throat swelling Cardiovascular Cardiovascular: Denies chest pain or palpitations Respiratory/Chest Respiratory/Chest: Denies cough or dyspnea Integumentary Denies abscess or rash Neurologic Neurologic: Denies headache(s), paresthesias or weakness EXAM Physical Exam Const Vital Signs: 03/11/24 02:38 Temperature 97.2 F L Temperature Source Temporal Pulse Rate 89 Respiratory Rate 16 Blood Pressure 145/108 H Blood Pressure Mean 120 Pulse Ox 98 Oxygen Delivery Method Room Air Positive well nourished and well developed General Appearance ED: well developed and NAD HEENT HEENT Narrative: Right facial swelling/asymmetry compared with the contralateral side, and the midface. No eyelid involvement progresses to that area. No signs of external cellulitis of the face. No trismus. The right second maxillary molar is decayed down to the gumline, very tender, and there is what appears to be gingival/mucosal abscess nearby which is very tender. There is no spontaneous drainage or bleeding. There is no signs of any necrotic tissue. Face and Sinus: sinuses nontender Throat: posterior oropharynx normal Eyes PERRL and EOMs intact bilaterally Neck no lymphadenopathy and supple Resp normal respiratory effort Neuro oriented x3 and CN's II-XII intact bilaterally Sensorium / Orientation: alert Gait (Neuro): normal gait Psych mental status grossly normal and thought process normal Skin no rashes or lesions noted and no wounds MDM MDM MDM Narrative Medical decision making narrative: This appears to be a focal abscess next to the affected decayed tooth. I recommend needle aspiration, we discussed the pros and cons and she was amenable to that. See the procedure note we yielded a small amount of pus. She will start taking amoxicillin I prescribed her some tramadol to use as needed for the pain and gave her some ibuprofen prior to discharge she is comfortable with that plan felt better at discharge, she is going to follow-up with a dentist soon as possible. Procedures Other Procedures Procedure(s): Needle aspiration dental abscess: After informed consent verbally, I provided topical anesthesia with a spray of Cetacaine for 2 seconds to the area of interest. Then used a 21-gauge needle and aspirated less than half cc of white pus. The patient was given water to rinse and massaged her face and was able to get a little bit more out through that area. Tolerated well no complications. Good hemostasis with ice water rinsing. Discharge Plan Triage Chief Complaint: Dental ED Provider: Andrea Castellanos Dx/Rx/DC Orders Clinical Impression: Dental abscess Instructions: Dental Abscess Prescriptions: New tramadol 50 mg tablet 50 mg PO Q6H PRN (Reason: pain) 3 Days Qty: 10 0RF amoxicillin 500 mg tablet 500 mg PO TID Qty: 30 0RF Continued hydrocortisone [Proctosol HC] 2.5 % cream with perineal applicator 1 applic [place] BID-QID PRN (Reason: hemorrhoids) Qty: 30 1RF levothyroxine 75 MCG tablet 75 mcg PO DAILY duloxetine 60 MG capsule 60 mg PO QHS ibuprofen 600 MG tablet 600 mg PO Q6H PRN (Reason: Pain) Qty: 60 1RF lisinopril 20 mg tablet 20 mg PO DAILY ondansetron HCl [Zofran] 4 mg tablet 4 mg PO Q6H PRN PRN (Reason: Nausea) Qty: 20 1RF omeprazole 40 mg capsule,delayed release(DR/EC) 40 mg PO DAILY Qty: 30 0RF Discontinued oxycodone-acetaminophen [Percocet] 5-325 mg tablet 1 ea PO Q8H PRN PRN (Reason: Pain Score 4-10) 7 Days Qty: 20 0RF cephalexin 500 mg Tablet 500 mg PO BID Primary Care Provider: Polly Lopez Referrals: Polly Lopez MD [Primary Care Provider] - Dentist,Your [STAFF PHYSICIAN] - As soon as possible Print Language: Angolan Disposition Disposition: Home, Self Care
[2024-03-11 03:44] VITALS: BP 139/105; PULSE 87; RESP 16; TEMP 36.2; O2SAT 99
== END 2024-03-11 03:45 | disposition home or self-care (01) ==
PROVIDERS: Emergency Provider Emergency Medicine; PCP Family Medicine; Visit Provider Emergency Medicine
DX: K04.7 Periapical abscess without sinus (principal); K02.9 Dental caries, unspecified; E03.9 Hypothyroidism, unspecified; Z79.890 Hormone replacement therapy; Z79.899 Other long term (current) drug therapy
CPT/HCPCS: 41800; 99283

== ENCOUNTER → 2024-12-10 | Outpatient (CLI) | payer OTHER, SELFPAY ==
[2024-12-10 17:52] LABS: Absolute Lymphocyte Count 2.73 X10^3/uL (0.83-4.51); Absolute Neutrophil Count 5.7 X10^3/uL (2.0-7.7); Basophil% 1.1 % (0-1); Eosinophil# 0.16 X10^3/uL; Eosinophils% 1.7 % (0-5); Hematocrit 42.4 % (37-47); Hemoglobin 14.5 g/dL (12.0-15.0); Lymphocyte # 2.73 X10^3/ul (0.83-4.51); Lymphocyte % 29.5 % (19-41); Mean Corp Hgb Conc 34.2 g/dL (32-36); Mean Corpuscular Hgb 30.7 pg (27.0-32.0); Mean Corpuscular Volume 89.6 fL (81-99); Mean Platelet Vol. 11.5 fl (6.2-12.0); Monocyte# 0.52 X10^3/uL; Monocyte% 5.6 % (0-10); NRBC Flagged by Analyzer 0 % (0-5); Neutrophil # 5.69 X10^3/uL (2.7-7.7); Neutrophil % 61.6 % (47-70); Platelet Count 389 K/mm3 (150-450); RBC Distribution Width CV 12.5 % (11.6-14.6); RBC Distribution Width SD 41.3 fl (35.1-43.9); Red Blood Count 4.73 M/mm3 (4.2-5.4); White Blood Count 9.3 K/mm3 (4.4-11.0)
[2024-12-10 19:13] LABS: ALB/GLOB Ratio 1.5 RATIO (0.9-2.4); AST(SGOT) 21 U/L (<=31); Alanine Aminotransfer ALT/SGPT 27 U/L (<=34); Albumin, Serum 4.6 g/dL (3.5-5.0); Alkaline Phosphatase 65 U/L (35-104); Anion Gap 14 (5-15); BUN 7 mg/dL (4-19); BUN/Creat Ratio 8.2 RATIO (10-20); Calcium,Total 9.7 mg/dL (7.6-11.0); Carbon Dioxide 23.3 mmol/L (21.0-32.0); Chloride 102 mmol/L (98-108); Creatinine, Serum 0.85 mg/dL (0.70-1.20); EST Glomerular Filtration Rate 88 (>60); Follicle Stimulating Hormone 4.6 mIU/mL; Globulin 3.1 g/dL (2.2-4.2); Glucose 88 mg/dL (70-99); Luteinizing Hormone 11.3 mIU/mL; Potassium 3.8 mmol/L (3.3-5.1); Protein, Total 7.7 g/dL (5.9-8.4); Sodium Level 139 mmol/L (133-145); Total Bilirubin 0.23 mg/dL (0.00-1.30)
== END | disposition home or self-care (01) ==
LOC: MFPLAB 16:31
PROVIDERS: PCP Family Medicine; Referring Provider Family Medicine; Visit Provider Family Medicine
DX: N95.1 Menopausal and female climacteric states (principal); F41.1 Generalized anxiety disorder
CPT/HCPCS: 36415; 80053; 83001; 83002; 84439; 84443; 85025

== ENCOUNTER 2024-12-22 14:53 | Emergency (ER) | payer OTHER, SELFPAY ==
[2024-12-22 14:54] VITALS: BP 153/99; PULSE 87; RESP 16; TEMP 36.1; O2SAT 100; BMI 35.6
--- NOTE | 2024-12-22 15:09 | US_ITS ---
PROCEDURE: TRANSVAGINAL NON- 12/22/2024 REASON FOR EXAM: CONCERN FOR OVARIAN TORSION TECHNIQUE: Transabdominal pelvic ultrasound COMPARISON: None FINDINGS: Measurements: Status post hysterectomy Right Ovary: 4.1 x 4.4 x 2.2. 2.3 x 2.2 x 2.0 cm corpus luteal cyst. Left Ovary: Not visualized Uterus: The uterus is surgically absent. Right ovary: Normal size and echotexture. Left ovary: Not visualized. Other: No large pelvic mass identified. US/Transvaginal Non- IMPRESSION: 1. Status post hysterectomy. 2. 2.3 cm right corpus luteal cyst, otherwise normal-appearing right ovary. 3. Nonvisualized left ovary. Reading Location: [facility]
--- NOTE | 2024-12-22 15:10 | CT_ITS ---
PROCEDURE: ABDOMEN/PELVIS W IV CONT ONLY 12/22/2024 REASON FOR EXAM: RLQ PAIN, HISTORY OF APPENDECTOMY TECHNIQUE: Abdomen and pelvis CT with intravenous contrast. Coronal and Sagittal reconstruction series were provided. PATIENT PREPARATION: Per protocol ORAL CONTRAST TYPE: None. AMOUNT: mL CONTRAST: Omnipaque 350 VOLUME: 100 mL Not Provided1 Gauge IV One or more dose reduction techniques were used (e.g., Automated exposure control, adjustment of the mA and/or kV according to patient size, use of iterative reconstruction technique. COMPARISON: CT abdomen and pelvis 07/02/2020 FINDINGS: Lung bases: Mild dependent atelectasis Liver: Hepatic steatosis with focal sparing at the gallbladder fossa. Hepatomegaly, craniocaudal length 20.2 cm. Gallbladder: No ductal dilation. Gallbladder is within normal limits. Spleen: Normal size. Pancreas: Normal size without evidence of mass surrounding inflammation or ductal dilation. Adrenals: Unremarkable Kidneys: Normal renal sizes. No hydronephrosis. Bladder: Urinary bladder is unremarkable. Reproductive Organs: 19 mm right hemorrhagic cyst. Small slightly hyperdense fluid about the cysts, likely secondary to rupture. Bowel: Small hiatal hernia. Stomach is otherwise unremarkable. No bowel dilation or wall thickening. Appendix: Status post appendectomy Lymph nodes: Unremarkable. Vasculature: The abdominal aorta and IVC are normal. Peritoneum / Retroperitoneum: No pneumoperitoneum. Bones: Unremarkable. Soft tissues: No focal soft tissue abnormality. CT/Abdomen/Pelvis W IV Cont ONLY IMPRESSION: No acute findings in the abdomen and pelvis. 19 mm right ovarian likely hemorrhagic cyst with small surrounding slightly hyp erattenuating fluid, likely secondary to rupture. Reading Location: [facility]
--- NOTE | 2024-12-22 15:15 | EDS_ITS ---
HPI History of Present Illness Chief Complaint: Abd Pain Narrative Narrative: Chief complaint and HPI: Right lower quadrant abdominal pain. 39-year-old female with past medical history of appendectomy, HTN, hypothyroidism, hysterectomy, ovarian cysts presents for evaluation of right lower quadrant abdominal pain. Onset of symptoms this morning and progressively worsening. Fluctuates in intensity. Described as sharp/tearing. Associated symptom is nausea without emesis. Denies any fever, chills, shortness of breath, chest pain, diarrhea, constipation, dysuria. Denies any history of kidney stones. Still has her bilateral ovaries. Review of systems: See HPI Medications: As listed on the chart Allergies: As listed on the chart PFSH: Per chart Vital signs: As listed on the chart. Reviewed. Physical exam: Gen: A&O x3, NAD but uncomfortable secondary to pain Head: Normocephalic, atraumatic Eyes: No sclera icterus, conjunctiva clear ENT: Moist mucous membranes Neck: Trachea midline, No JVD CV: RRR, no murmurs, no peripheral edema Resp: Lungs CTA BL, no w/r/c GI: Abd soft, non-distended, tender to palpation in the right lower quadrant, no rebound or rigidity : No CVA tenderness Musc: Full ROM, no deformity Skin: Warm, dry Neuro: Alert, oriented, grossly intact, sensation intact Psych: Cooperative, appropriate mood and affect [facility] Medical History History of postoperative nausea and vomiting Alcohol use Depression Anxiety Heartburn Non-smoker Sleep apnea Hypothyroidism Home Medications ?Medication ?Instructions ?Recorded ?Last Taken ?Type duloxetine 60 mg capsule,delayed 60 mg PO QHS anxiety 07/10/19 12/21/24 History release lisinopril 20 mg tablet 20 mg PO QHS blood pressure 12/10/20 12/21/24 History bupropion HCl 150 mg tablet,12 hr 150 mg PO DAILY 12/0512/22/24 History sustained-release clonidine HCl 0.1 mg tablet 0.1 - 0.2 mg PO QHS 12/21/24 History levothyroxine 25 mcg tablet 25 mcg PO DAILY 12/22/24 0 12/22/24 History omeprazole 40 mg capsule,delayed 40 mg PO DAILY PRN he artburn 12/22/24 Unknown History release Allergy/AdvReac Type Severity Reaction Status Date / Time No Known Allergies Allergy Verified 12/22/24 14:54 Family History no significant family his Surgical History History of hysterectomy History of appendectomy Social History Smoking Status: Never smoker substance use type: does not use EXAM Physical Exam Const Vital Signs: 12/22/24 14:54 12/22/24 16:54 Temperature 97 F L Temperature Source Temporal Pulse Rate 87 93 Respiratory Rate 16 Blood Pressure 153/99 H 146/101 H Blood Pressure Mean 117 116 Pulse Ox 100 98 Oxygen Delivery Method Room Air Room Air MDM MDM MDM Narrative Medical decision making narrative: 39-year-old female with past medical history of appendectomy, HTN, hypothyroidism, hysterectomy, ovarian cysts presents for evaluation of right lower quadrant abdominal pain. Onset of symptoms this morning and progressively worsening. Differential diagnosis includes but is not limited to ovarian torsion, ovarian cyst, urolithiasis, colitis, UTI, electrolyte abnormality. NS bolus, Zofran, morphine ordered for symptoms. Abdominal pain workup ordered inc luding CT abdomen pelvis as well as pelvic ultrasound to assess for ovarian torsion. CBC with mild leukocytosis 11.9. No anemia. CMP relatively unremarkable. Lactic unremarkable. Lipase unremarkable. UA negative for UTI. CT abdomen pelvis shows a 19 mm right ovarian likely hemorrhagic cyst with small surrounding slightly hyperattenuating fluid, likely secondary to rupture. Transvaginal ultrasound shows a 2.3 cm right corpus luteal cyst, otherwise normal-appearing right ovary. Nonvisualized left ovary. Patient's pain is likely secondary to her rupturing cyst. On reevaluation, her pain is now controlled. Patient follows with Dr. Nina with [facility] [employer] [employer]. Therefore [facility] [employer] was contacted and I spoke with Dr. Perez. She agrees with conservative management. Follow-up in their office. Patient was updated on the recommendations and confirmed understanding. She will be given Percocet and Zofran as needed for pain. She will be given a work note for tomorrow off. Return precautions explained. Impression: 1. 2.3 cm right corpus luteal cyst, likely rupture Lab Data Labs: Laboratory Results - last 24 hr 12/22/24 12/22/24 15:15 16:40 WBC 11.9 H RBC 4.81 Hgb 14.7 Hct 42.2 MCV 87.7 MCH 30.6 MCHC 34.8 RDW Std Deviation 40.3 RDW Coeff of Rupali 12.5 Plt Count 363 MPV 10.8 Immature Gran % (Auto) 0.300 Neut % (Auto) 78.4 H Lymph % (Auto) 15.3 L Lamar % (Auto) 4.4 Eos % (Auto) 0.9 Baso % (Auto) 0.7 Absolute Neuts (auto) 9.4 H Absolute Lymphs (auto) 1.82 Nucleated RBC % 0 Sodium 139 Potassium 3.7 Chloride 103 Carbon Dioxide 21.9 Anion Gap 14 BUN 9 Creatinine 0.97 Estim Creat Clear Calc 88.01 Est GFR (MDRD) Non-Af 75 BUN/Creatinine Ratio 9.0 L Glucose 129 H Lactic Acid 1.4 Calcium 9.6 Total Bilirubin 0.46 AST 20 ALT 25 Alkaline Phosphatase 67 Total Protein 7.9 Albumin 4.7 Globulin 3.2 Albumin/Globulin Ratio 1.5 Lipase 28 Urine Color Yellow Urine Clarity Clear Urine pH 6.5 Ur Specific [place] 1.010 Urine Protein 15 H Urine Glucose (UA) Normal Urine Ketones Negative Urine Occult Blood Negative Urine Nitrite Negative Urine Bilirubin Negative Urine Urobilinogen Normal Ur Leukocyte Esterase Negative Urine RBC 0 SEEN Urine WBC 0 SEEN Ur Squamous Epith Cells 0-5 SEEN Urine Bacteria RARE Urine Mucus 0 SEEN Radiography Diagnostic Testing: Clinical Impression(s) from Imaging Studies Transvaginal US 12/22/24 15:09 IMPRESSION: 1. Status post hysterectomy. 2. 2.3 cm right corpus luteal cyst, otherwise normal-appearing right ovary. 3. Nonvisualized left ovary. Reading Location: [facility] Abdomen/Pelvis CT 12/22/24 15:10 IMPRESSION: No acute findings in the abdomen and pelvis. 19 mm right ovarian likely hemorrhagic cyst with small surrounding slightly hyperattenuating fluid, likely secondary to rupture. Reading Location: [facility] Discharge Plan Triage Chief Complaint: Abd Pain ED Provider: Rajan Fay Dx/Rx/DC Orders Prescriptions: No Action duloxetine 60 MG capsule 60 mg PO QHS lisinopril 20 mg tablet 20 mg PO QHS bupropion HCl 150 mg tablet sustained-release 12 hr 150 mg PO DAILY clonidine HCl 0.1 mg tablet 0.1 - 0.2 mg PO QHS levothyroxine 25 mcg tablet 25 mcg PO DAILY omeprazole 40 mg capsule,delayed release(DR/EC) 40 mg PO DAILY PRN (Reason: heartburn) Primary Care Provider: Celso Brewer Referrals: Celso Brewer MD [Primary Care Provider] - Print Language: Monegasque
[2024-12-22] MEDS: Morphine 4 MG/ML Syringe IV ×2 (15:25→16:57)
[2024-12-22] MEDS: Ondansetron 4 MG/2 ML Vial IV (15:25)
[2024-12-22] MEDS: 0.9% Normal Saline (1000mL) 1,000 ML 999 ML IV (15:27)
[2024-12-22 15:28] LABS: Absolute Lymphocyte Count 1.82 X10^3/uL (0.83-4.51); Absolute Neutrophil Count 9.4 X10^3/uL (2.0-7.7); Basophil# 0.08 X10^3/uL; Basophil% 0.7 % (0-1); Eosinophil# 0.11 X10^3/uL; Eosinophils% 0.9 % (0-5); Hematocrit 42.2 % (37-47); Hemoglobin 14.7 g/dL (12.0-15.0); Lymphocyte # 1.82 X10^3/ul (0.83-4.51); Lymphocyte % 15.3 % (19-41); Mean Corp Hgb Conc 34.8 g/dL (32-36); Mean Corpuscular Hgb 30.6 pg (27.0-32.0); Mean Corpuscular Volume 87.7 fL (81-99); Mean Platelet Vol. 10.8 fl (6.2-12.0); Monocyte# 0.52 X10^3/uL; Monocyte% 4.4 % (0-10); NRBC Flagged by Analyzer 0 % (0-5); Neutrophil # 9.35 X10^3/uL (2.7-7.7); Neutrophil % 78.4 % (47-70); Platelet Count 363 K/mm3 (150-450); RBC Distribution Width CV 12.5 % (11.6-14.6); RBC Distribution Width SD 40.3 fl (35.1-43.9); Red Blood Count 4.81 M/mm3 (4.2-5.4); White Blood Count 11.9 K/mm3 (4.4-11.0)
[2024-12-22 15:48] LABS: Lactic Acid 1.4 mmol/L (0.0-2.0)
[2024-12-22 15:50] LABS: ALB/GLOB Ratio 1.5 RATIO (0.9-2.4); AST(SGOT) 20 U/L (<=31); Alanine Aminotransfer ALT/SGPT 25 U/L (<=34); Albumin, Serum 4.7 g/dL (3.5-5.0); Alkaline Phosphatase 67 U/L (35-104); Anion Gap 14 (5-15); BUN 9 mg/dL (4-19); Calcium,Total 9.6 mg/dL (7.6-11.0); Carbon Dioxide 21.9 mmol/L (21.0-32.0); Chloride 103 mmol/L (98-108); Creatinine, Serum 0.97 mg/dL (0.70-1.20); EST Glomerular Filtration Rate 75 (>60); Estimated Creatinine Clearance 88.01 ml/min (50-250); Globulin 3.2 g/dL (2.2-4.2); Glucose 129 mg/dL (70-99); Lipase 28 U/L (13-75); Potassium 3.7 mmol/L (3.3-5.1); Protein, Total 7.9 g/dL (5.9-8.4); Sodium Level 139 mmol/L (133-145); Total Bilirubin 0.46 mg/dL (0.00-1.30)
[2024-12-22 16:49] LABS: Mucous, Urine 0 SEEN /hpf (<or=2+); Red Blood Cells-Urine 0 SEEN /hpf (0-5); White Blood Cells 0 SEEN /hpf (0-5)
[2024-12-22 16:54] VITALS: BP 146/101; PULSE 93; O2SAT 98
[2024-12-22 16:55] LABS: Color, Urine Yellow (Yellow); Glucose, Dipstick Normal (Normal); Ketone-Dipstick Negative (Negative); Leukocyte Esterase-Dipstick Negative /ul (Negative); Nitrite-Dipstick Negative (Negative); Occult Blood-Urine Negative /ul (Negative); Protein-Dipstick 15 mg/dl (Negative); Urine Bilirubin Dipstick Negative (Negative); Urine Clarity Clear (Clear); Urine Urobilinogen Normal (Normal); Urine pH 6.5 (5.0 - 8.0)
[2024-12-22 17:04] LABS: Bacteria RARE /hpf (None Seen); Squamous Epithelial Cells - UA 0-5 SEEN /hpf (5-10)
[2024-12-22 17:34] VITALS: BP 144/97; PULSE 89; RESP 14; TEMP 36.1; O2SAT 97
== END 2024-12-22 17:47 | disposition home or self-care (01) ==
PROVIDERS: Emergency Provider Surgery; PCP Family Medicine; Visit Provider Surgery
DX: R10.31 Right lower quadrant pain (principal); I10 Essential (primary) hypertension; Z90.710 Acquired absence of both cervix and uterus; N83.11 Corpus luteum cyst of right ovary; Z90.49 Acquired absence of other specified parts of digestive tract; F41.9 Anxiety disorder, unspecified; Z79.899 Other long term (current) drug therapy; E03.9 Hypothyroidism, unspecified; Z79.890 Hormone replacement therapy; F32.A Depression, unspecified; R12 Heartburn; R11.0 Nausea
CPT/HCPCS: 74177; 76830; 80053; 81001; 83605; 83690; 85025; 96361; 96374; 96375; 96376; 99283; Q9967; A4216; J2405

== ENCOUNTER 2025-01-20 08:34 | Emergency (ER) | payer OTHER, SELFPAY ==
[2025-01-20 08:34] VITALS: BP 146/106; PULSE 100; RESP 16; TEMP 37.2; O2SAT 98; BMI 35.2
--- NOTE | 2025-01-20 08:41 | US_ITS ---
PROCEDURE: TRANSVAGINAL NON- 01/20/2025 REASON FOR EXAM: CONCERN FOR OVARIAN TORSION TECHNIQUE: Transvaginal pelvic ultrasound COMPARISON: Prior study dated December 22, 2024. FINDINGS: Measurements: The patient is status post hysterectomy. Right Ovary: 2.3 cm x 1.7 cm x 1.5 cm with a volume of 20.62 mL. Left Ovary: 5.7 cm x 3.6 cm x 3.8 with a volume of 41.61 mL. Uterus: The uterus is surgically absent. Right ovary: Normal size and echotexture. Left ovary: Enlarged left ovary. Regressing follicle. It presently measures 1.6 cm x 2 cm. Other: No large pelvic mass identified. Normal blood flow to both ovaries. US/Transvaginal Non- IMPRESSION: Residual follicle in the left ovary. Status post hysterectomy. Reading Location: [place] [id number]
--- NOTE | 2025-01-20 08:46 | ED.VIS.FEGU ---
HPI HPI - Female History of Present Illness Chief Complaint: Female C/O Narrative Narrative: Chief complaint and HPI: Left lower extremity pain. 39-year-old female with past medical history of appendectomy, HTN, hypothyroidism, hysterectomy, ovarian cyst presents for evaluation of left lower quadrant abdominal pain. Onset of symptoms this morning. Describes it as sharp/tearing. Fluctuates in intensity. Associated symptom is nausea without emesis. Denies any fever, chills, shortness of breath, chest pain, diarrhea, constipation, dysuria. Patient was seen in December for right lower quadrant abdominal pain, she states that the pain feels similar accepted on the other side. That time she was seen in the emergency department in late in which she had a suspected right ovarian cyst rupture. She follows with [facility]. She states she called them today and they told her to come to the emergency department. Review of systems: See HPI Medications: As listed on the chart Allergies: As listed on the chart PFSH: Per chart Vital signs: As listed on the chart. Reviewed. Physical exam: Gen: A&O x3 Head: Normocephalic, atraumatic Eyes: No sclera icterus, conjunctiva clear ENT: Moist mucous membranes Neck: Trachea midline, No JVD CV: RRR, no murmurs, no peripheral edema Resp: Lungs CTA BL, no w/r/c GI: Abd soft, non-distended, tender to palpation in the left lower quadrant, no rebound or rigidity : No CVA tenderness Musc: Full ROM, no deformity Skin: Warm, dry Neuro: Alert, oriented, grossly intact, sensation intact Psych: Cooperative, appropriate mood and affect [facility] Medical History History of postoperative nausea and vomiting Alcohol use Depression Anxiety Heartburn Non-smoker Sleep apnea Hypothyroidism Home Medications ?Medication ?Instructions ?Recorded ?Last Taken ?Type duloxetine 60 mg capsule,delayed 60 mg PO QHS anxiety 07/10/19 12/21/24 History release lisinopril 20 mg tablet 20 mg PO QHS blood pressure 12/10/20 12/21/24 History bupropion HCl 150 mg tablet,12 hr 150 mg PO DAILY 12/22/24 12/22/24 History sustained-release clonidine HCl 0.1 mg tablet 0.1 - 0.2 mg PO QHS 12/22/24 12/21/24 History levothyroxine 25 mcg tablet 25 mcg PO DAILY 12/22/24 12/22/24 History omeprazole 40 mg capsule,delayed 40 mg PO DAILY PRN heartburn 12/22/24 Unknown History release ondansetron 4 mg disintegrating 4 mg PO Q8H PRN PRN Nausea #10 tabs 12/22/24 Unknown Rx tablet oxycodone-acetaminophen 5 mg-325 1 tab PO Q6H PRN pain 2 days #8 12/22/24 Unknown Rx mg tablet (Percocet) tabs oxycodone-acetaminophen 5 mg-325 1 tab PO Q6H 2 days #8 tabs 01/20/25 Unknown Rx mg tablet (Percocet) Allergy/AdvReac Type Severity Reaction Status Date / Time No Known Allergies Allergy Verified 01/20/25 08:35 Surgical History History of hysterectomy History of appendectomy Social History Smoking Status: Never smoker substance use type: does not use EXAM Physical Exam Const Vital Signs: 01/20/25 08:34 Temperature 99 F Temperature Source Temporal Pulse Rate 100 Respiratory Rate 16 Blood Pressure 146/106 H Blood Pressure Mean 119 Pulse Ox 98 Oxygen Delivery Method Room Air MDM MDM MDM Narrative Medical decision making narrative: 39-year-old female with past medical history of appendectomy, HTN, hypothyroidism, hysterectomy, ovarian cyst presents for evaluation of left lower quadrant abdominal pain. Onset of symptoms this morning. Differential diagnosis includes but is not limited to ovarian cyst rupture, ovarian torsion, UTI, urolithiasis, diverticulitis. Given patient has a history of ovarian cysts rupture and states this feels similar will start with ultrasound of the pelvis, if this is unremarkable will get CT abdomen pelvis. Morphine, NS bolus, Zofran ordered for symptoms. Abdominal pain workup ordered. Patient has a history of a hysterectomy therefore no chance of . Patient was seen in our emergency department for the same pain in December. At that time I saw her and she had a transvaginal ultrasound that showed a 2.3 cm right corpus luteal cyst with nonvisualized left ovary. CT of the abdomen showed a 3 mm right ovarian likely hemorrhagic cyst with a small surrounding slightly hypotonic fluid likely secondary to rupture. She had no diverticulosis. She had no urolithiasis. CBC without leukocytosis or anemia. CMP relatively unremarkable without significant electrolyte abnormality or CAT. Lactic acid unremarkable. ALT mildly elevated at 39. Patient not having any right upper quadrant abdominal pain. Lipase unremarkable. UA is negative for UTI. Transvaginal ultrasound shows enlarged left ovary with regression follicle. Presently measures 1.6 cm x 2 cm. Right ovary unremarkable. Normal blood flow to both ovaries. On reevaluation, patient still endorsing left lower quadrant abdominal pain. Will get CT abdomen pelvis. IV Toradol ordered. CT abdomen pelvis shows borderline hepatomegaly and fatty infiltration of the liver. Follicles are seen in the left ovary. Small amount of free fluid is seen in the cul-de-sac suggestive of a ruptured ovarian cyst. Patient's pain is likely secondary to a ruptured left ovarian cyst. On reevaluation, she states her pain is improved. She is comfortable discharging home. Follow-up with her COMPOSITE WORKER. She was educated she can take ibuprofen after 8 hours due to the Toradol. Requesting narcotics for home. She was given a small prescription. She was offered Zofran but declined she states has this prescription at home. Return precautions explained. Impression: 1. Left ovarian cyst rupture 2. History of ruptured ovarian cyst 3. Fatty liver on CT Lab Data Labs: Laboratory Results - last 24 hr 01/20/25 01/20/25 08:47 10:05 WBC 9.4 RBC 4.96 Hgb 15.0 Hct 43.1 MCV 86.9 MCH 30.2 MCHC 34.8 RDW Std Deviation 39.2 RDW Coeff of Rupali 12.5 Plt Count 340 MPV 11.0 Immature Gran % (Auto) 0.200 Neut % (Auto) 63.8 Lymph % (Auto) 26.0 [place] % (Auto) 6.7 Eos % (Auto) 2.4 Baso % (Auto) 0.9 Absolute Neuts (auto) 6.0 Absolute Lymphs (auto) 2.44 Nucleated RBC % 0 Sodium 138 Potassium 3.7 Chloride 102 Carbon Dioxide 21.6 Anion Gap 14 BUN 9 Creatinine 0.99 Estim Creat Clear Calc 85.80 Est GFR (MDRD) Non-Af 73 BUN/Creatinine Ratio 8.6 L Glucose 106 H Lactic Acid 1.5 Calcium 9.4 Total Bilirubin 0.40 AST 24 ALT 39 H Alkaline Phosphatase 72 Total Protein 7.7 Albumin 4.6 Globulin 3.0 Albumin/Globulin Ratio 1.5 Lipase 29 Urine Color Yellow Urine Clarity Sl. Cloudy Urine pH 6.5 Ur Specific [place] 1.010 Urine Protein 15 H Urine Glucose (UA) Normal Urine Ketones Negative Urine Occult Blood Negative Urine Nitrite Negative Urine Bilirubin Negative Urine Urobilinogen Normal Ur Leukocyte Esterase 100 H Urine RBC 0 SEEN Urine WBC 0-5 SEEN Ur Squamous Epith Cells 0-5 SEEN Urine Bacteria 0 SEEN Urine Mucus 0 SEEN Radiography Diagnostic Testing: Clinical Impression(s) from Imaging Studies Transvaginal US 01/20/25 08:41 IMPRESSION: Residual follicle in the left ovary. Status post hysterectomy. Reading Location: [facility] Abdomen/Pelvis CT 01/20/25 10:27 IMPRESSION: Borderline hepatomegaly and fatty infiltration of the liver. Follicles are seen in the left ovary. Small amount of free fluid is seen in the cul-de-sac suggestive of ruptured ovarian cyst. Reading Location: [facility]1 Discharge Plan Triage Chief Complaint: Female C/O ED Provider: Rajan Fay Dx/Rx/DC Orders Clinical Impression: Ovarian cyst rupture Instructions: Treating a Ruptured Ovarian Cyst, Understanding Ovarian Cysts, Treatment for Ovarian Cysts, ED Ovarian Cyst Prescriptions: New oxycodone-acetaminophen [Percocet] 5-325 mg tablet 1 tab PO Q6H 2 Days Qty: 8 0RF No Action duloxetine 60 MG capsule 60 mg PO QHS lisinopril 20 mg tablet 20 mg PO QHS bupropion HCl 150 mg tablet sustained-release 12 hr 150 mg PO DAILY clonidine HCl 0.1 mg tablet 0.1 - 0.2 mg PO QHS levothyroxine 25 mcg tablet 25 mcg PO DAILY omeprazole 40 mg capsule,delayed release(DR/EC) 40 mg PO DAILY PRN (Reason: heartburn) oxycodone-acetaminophen [Percocet] 5-325 mg tablet 1 tab PO Q6H PRN (Reason: pain) 2 Days Qty: 8 0RF ondansetron 4 mg tablet,disintegrating 4 mg PO Q8H PRN PRN (Reason: Nausea) Qty: 10 0RF Primary Care Provider: Celso Brewer Referrals: Celso Brewer MD [Primary Care Provider] - 3-5 Days Agusto Nina MD [Med Staff - Active Staff] - 3-5 Days Activity Restrictions/Additional Instructions: You received Toradol here in the emergency department. No ibuprofen for 8 hours. After that okay for ibuprofen and Tylenol. Be careful as narcotic has Tylenol in it. Follow-up with your COMPOSITE WORKER. Return back to the ED if symptoms change or worsen. Print Language: Somali Disposition Disposition: Home, Self Care
[2025-01-20] MEDS: 0.9% Normal Saline (1000mL) 1,000 ML 999 ML IV (08:56)
[2025-01-20] MEDS: Morphine 4 MG/ML Syringe IV (08:56)
[2025-01-20] MEDS: Ondansetron 4 MG/2 ML Vial IV (08:56)
[2025-01-20 09:01] LABS: Absolute Lymphocyte Count 2.44 X10^3/uL (0.83-4.51); Basophil# 0.08 X10^3/uL; Basophil% 0.9 % (0-1); Eosinophil# 0.23 X10^3/uL; Eosinophils% 2.4 % (0-5); Hematocrit 43.1 % (37-47); Lymphocyte # 2.44 X10^3/ul (0.83-4.51); Mean Corp Hgb Conc 34.8 g/dL (32-36); Mean Corpuscular Hgb 30.2 pg (27.0-32.0); Mean Corpuscular Volume 86.9 fL (81-99); Monocyte# 0.63 X10^3/uL; Monocyte% 6.7 % (0-10); NRBC Flagged by Analyzer 0 % (0-5); Neutrophil # 5.99 X10^3/uL (2.7-7.7); Neutrophil % 63.8 % (47-70); Platelet Count 340 K/mm3 (150-450); RBC Distribution Width CV 12.5 % (11.6-14.6); RBC Distribution Width SD 39.2 fl (35.1-43.9); Red Blood Count 4.96 M/mm3 (4.2-5.4); White Blood Count 9.4 K/mm3 (4.4-11.0)
[2025-01-20 09:13] LABS: Lipase 29 U/L (13-75)
[2025-01-20 09:44] LABS: ALB/GLOB Ratio 1.5 RATIO (0.9-2.4); AST(SGOT) 24 U/L (<=31); Alanine Aminotransfer ALT/SGPT 39 U/L (<=34); Albumin, Serum 4.6 g/dL (3.5-5.0); Alkaline Phosphatase 72 U/L (35-104); Anion Gap 14 (5-15); BUN 9 mg/dL (4-19); BUN/Creat Ratio 8.6 RATIO (10-20); Calcium,Total 9.4 mg/dL (7.6-11.0); Carbon Dioxide 21.6 mmol/L (21.0-32.0); Chloride 102 mmol/L (98-108); Creatinine, Serum 0.99 mg/dL (0.70-1.20); EST Glomerular Filtration Rate 73 (>60); Glucose 106 mg/dL (70-99); Lactic Acid 1.5 mmol/L (0.0-2.0); Potassium 3.7 mmol/L (3.3-5.1); Protein, Total 7.7 g/dL (5.9-8.4); Sodium Level 138 mmol/L (133-145)
[2025-01-20 10:13] LABS: Bacteria 0 SEEN /hpf (None Seen); Mucous, Urine 0 SEEN /hpf (<or=2+); Red Blood Cells-Urine 0 SEEN /hpf (0-5)
[2025-01-20 10:17] LABS: Color, Urine Yellow (Yellow); Glucose, Dipstick Normal (Normal); Ketone-Dipstick Negative (Negative); Leukocyte Esterase-Dipstick 100 /ul (Negative); Nitrite-Dipstick Negative (Negative); Occult Blood-Urine Negative /ul (Negative); Protein-Dipstick 15 mg/dl (Negative); Urine Bilirubin Dipstick Negative (Negative); Urine Clarity Sl. Cloudy (Clear); Urine Urobilinogen Normal (Normal); Urine pH 6.5 (5.0 - 8.0)
--- NOTE | 2025-01-20 10:27 | CT_ITS ---
PROCEDURE: ABDOMEN/PELVIS W IV CONT ONLY 01/20/2025 REASON FOR EXAM: LLQ PAIN History of ruptured left ovarian cyst. TECHNIQUE: ABDOMEN/PELVIS W IV CONT ONLY. Coronal and Sagittal reconstruction series were provided. ORAL CONTRAST TYPE: None. CONTRAST: Isovue 3 7 VOLUME: 100 mL One or more dose reduction techniques were used (e.g., Automated exposure control, adjustment of the mA and/or kV according to patient size, use of iterative reconstruction technique. RADIATION DOSE SUMMARY: CTDlvol: 14.4 mGy DLP: 1248.87 mGycm COMPARISON: Prior study dated December 22, 2024 FINDINGS: Lung bases: Unremarkable Liver: Diffuse fatty infiltration. Hepatomegaly. Gallbladder: Unremarkable Spleen: Borderline splenomegaly. Pancreas: Normal size without evidence of mass surrounding inflammation or ductal dilation. Adrenals: Unremarkable Kidneys: Normal renal sizes. No hydronephrosis. Bladder: Unremarkable Reproductive Organs: Prior hysterectomy. Adnexal regions are unremarkable. Follicles are seen in the left ovary. Small amount of free fluid is seen in the pelvis. Bowel: Unremarkable Appendix: Prior appendectomy. Lymph nodes: Unremarkable. Vasculature: Mild diffuse atherosclerotic calcifications are noted. Peritoneum / Retroperitoneum: Unremarkable Bones: Unremarkable CT/Abdomen/Pelvis W IV Cont ONLY IMPRESSION: Borderline hepatomegaly and fatty infiltration of the liver. Follicles are seen in the left ovary. Small amount of free fluid is seen in th e cul-de-sac suggestive of ruptured ovarian cyst. Reading Location: [place] [id number]
[2025-01-20 10:30] LABS: Squamous Epithelial Cells - UA 0-5 SEEN /hpf (5-10); White Blood Cells 0-5 SEEN /hpf (0-5)
[2025-01-20 10:34] VITALS: PULSE 84; RESP 16; O2SAT 95
[2025-01-20] MEDS: Ketorolac 15 MG/ML Vial IV (11:41)
[2025-01-20 11:46] VITALS: BP 136/94; PULSE 79; RESP 18; TEMP 36.4; O2SAT 98
== END 2025-01-20 11:49 | disposition home or self-care (01) ==
PROVIDERS: Emergency Provider Surgery; PCP Family Medicine; Visit Provider Surgery
DX: N83.202 Unspecified ovarian cyst, left side (principal); K76.0 Fatty (change of) liver, not elsewhere classified; I10 Essential (primary) hypertension; E03.9 Hypothyroidism, unspecified; F41.9 Anxiety disorder, unspecified; F32.A Depression, unspecified; Z90.49 Acquired absence of other specified parts of digestive tract; Z79.890 Hormone replacement therapy; Z79.899 Other long term (current) drug therapy
CPT/HCPCS: 74177; 76830; 80053; 81001; 83605; 83690; 85025; 93976; 96361; 96374; 96375; 99283; Q9967; A4216; J2405

== ENCOUNTER 2025-01-30 18:17 | Observation (INO) | payer OTHER, SELFPAY ==
[2025-01-30] VITALS (13 sets, daily range): BP systolic 136–155; BP diastolic 66–98; PULSE 57–104; RESP 14–16; TEMP 35.8–36.7; O2SAT 97–100; BMI 34.5
--- NOTE | 2025-01-30 18:44 | EX.ED.DYSGE1 ---
HPI History of Present Illness Chief Complaint: Other, Pain/Inj Narrative Narrative: 39-year-old female past medical history of thrombosed hemorrhoids, had incision and drainage at Dr. Canas's office today by the PA. She and her state that they lanced the area twice. Initially, a large clot/clots were expressed. Patient states she went home and took a nap and took a leftover oxycodone that she had previously. However, she started having increasing pressure as well as bleeding. She denies other bleeding diathesis. She returned to the office in the afternoon, and had repeat incision and drainage performed. She presents again after her second incision and drainage of her thrombosed hemorrhoid. Her states that the area is becoming larger. They were supposed to follow-up on Monday to discuss surgery/surgical intervention for full removal of the hemorrhoid. However, she was sent in by Dr. Canas today for reaccumulation of blood of her hemorrhoid. [facility] Medical History History of postoperative nausea and vomiting Alcohol use Depression Anxiety Heartburn Non-smoker Sleep apnea Hypothyroidism Home Medications ?Medication ?Instructions ?Recorded ?Last Taken ?Type duloxetine 60 mg capsule,delayed 60 mg PO QHS anxiety 07/10/19 12/21/24 History release bupropion HCl 150 mg tablet,12 hr 150 mg PO DAILY 12/22/24 12/22/24 History sustained-release clonidine HCl 0.1 mg tablet 0.1 - 0.2 mg PO QHS 12/22/24 12/21/24 History levothyroxine 25 mcg tablet 25 mcg PO DAILY 12/22/24 12/22/24 History omeprazole 40 mg capsule,delayed 40 mg PO DAILY PRN heartburn 12/22/24 Unknown History release oxycodone-acetaminophen 5 mg-325 1 tab PO Q6H 2 days #8 tabs 01/20/25 Unknown Rx mg tablet (Percocet) Hydrocortisone 2.5% / Lidocaine 5% #1 ea 01/30/25 Unknown Rx ointment (cmpd) losartan 50 mg tablet 50 mg PO QDAY 01/30/25 Unknown History Allergy/AdvReac Type Severity Reaction Status Date / Time No Known Allergies Allergy Verified 01/30/25 18:18 Surgical History History of hysterectomy History of appendectomy Social History (Updated 01/30/25 @ 19:33 by Claudia Fernandez) current occupational status: employed Smoking Status: Never smoker substance use type: does not use ROS ROS ED ROS Narrative Review of systems positive for rectal pain, pressure, and bleeding. Denies fevers, chills, nausea and vomiting, or other symptoms. EXAM Physical Exam Narrative Exam Narrative: Afebrile. Vital signs noted. Nontoxic-appearing. Cardiovascular examination reveals mild tachycardia. Lungs are clear to auscultation bilaterally. Abdomen soft and nontender without guarding or rebound. Chaperoned rectal examination on visual inspection does show a large hemorrhoid approximately 2 cm in size that appears fluid-filled. No active hemorrhaging. Const Vital Signs: 01/30/25 18:18 01/30/25 18:38 01/30/25 18:55 Temperature 96.5 F L Temperature Source Temporal Pulse Rate 104 H 92 Respiratory Rate 16 16 Respiratory Effort Normal Respiratory Pattern Normal Blood Pressure 143/98 H 155/66 H Blood Pressure Mean 113 95 Blood Pressure Position Pulse Ox 99 98 Oxygen Delivery Method Room Air Room Air 01/30/25 19:26 01/30/25 19:33 01/30/25 19:35 Temperature 97.9 F Temperature Source Pulse Rate 81 102 H 102 H Respiratory Rate 16 16 Respiratory Effort Respiratory Pattern Blood Pressure 147/86 H 148/91 H 148/91 H Blood Pressure Mean 106 110 110 Blood Pressure Position Supine Pulse Ox 97 98 98 Oxygen Delivery Method Room Air MDM MDM MDM Narrative Medical decision making narrative: I do not feel differential diagnosis is applicable. Plan is for patient to go to the OR so I will obtain preoperative labs and she was administered fentanyl 50 mcg intravenously. I discussed patient with Dr. Canas. Disposition will be ED to the OR. Patient is in stable condition. I reviewed her laboratory work and she does have elevated white count of 16.3 but hemoglobin is normal at 13.7, platelet count normal at 359. BMP is grossly unremarkable except for glucose of 111. Blood type is a positive. She was given an additional dose of 50 mcg intravenously as she will not be taken to the OR until 9 PM per anesthesia because she reportedly ate at 3 PM. History & Record Review Discussion w/independent historian: Patient and Family () Lab Data Attestation: I reviewed the patient's lab results. Labs: Laboratory Results - last 24 hr 01/30/25 18:53 WBC 16.3 H RBC 4.51 Hgb 13.7 Hct 39.8 MCV 88.2 MCH 30.4 MCHC 34.4 RDW Std Deviation 40.7 RDW Coeff of Rupali 12.7 Plt Count 359 MPV 11.5 Immature Gran % (Auto) 0.400 Neut % (Auto) 79.7 H Lymph % (Auto) 13.4 L [place] % (Auto) 5.0 Eos % (Auto) 1.0 Baso % (Auto) 0.5 Absolute Neuts (auto) 13.0 H Absolute Lymphs (auto) 2.18 Nucleated RBC % 0 Sodium 139 Potassium 3.6 Chloride 104 Carbon Dioxide 22.9 Anion Gap 13 BUN 8 Creatinine 0.97 Estim Creat Clear Calc 89.67 Est GFR (MDRD) Non-Af 75 BUN/Creatinine Ratio 8.4 L Glucose 111 H Calcium 9.3 Blood Type A POSITIVE Management Discussion w/another healthcare provider: Verifier Operator (Dr. Canas) Discharge Plan Dx/Rx/DC Orders Clinical Impression: Hemorrhoid, Failure of outpatient treatment Disposition Disposition: Acute Care [facility]
[2025-01-30] MEDS: fentaNYL 100 MCG/2 ML Ampul 50 MCG IV ×2 (18:53→20:11)
[2025-01-30 19:19] LABS: Absolute Lymphocyte Count 2.18 X10^3/uL (0.83-4.51); Basophil# 0.08 X10^3/uL; Basophil% 0.5 % (0-1); Eosinophil# 0.16 X10^3/uL; Hematocrit 39.8 % (37-47); Hemoglobin 13.7 g/dL (12.0-15.0); Lymphocyte # 2.18 X10^3/ul (0.83-4.51); Lymphocyte % 13.4 % (19-41); Mean Corp Hgb Conc 34.4 g/dL (32-36); Mean Corpuscular Hgb 30.4 pg (27.0-32.0); Mean Corpuscular Volume 88.2 fL (81-99); Mean Platelet Vol. 11.5 fl (6.2-12.0); Monocyte# 0.81 X10^3/uL; NRBC Flagged by Analyzer 0 % (0-5); Neutrophil # 12.97 X10^3/uL (2.7-7.7); Neutrophil % 79.7 % (47-70); Platelet Count 359 K/mm3 (150-450); RBC Distribution Width CV 12.7 % (11.6-14.6); RBC Distribution Width SD 40.7 fl (35.1-43.9); Red Blood Count 4.51 M/mm3 (4.2-5.4); White Blood Count 16.3 K/mm3 (4.4-11.0)
[2025-01-30 19:42] LABS: Anion Gap 13 (5-15); BUN 8 mg/dL (4-19); BUN/Creat Ratio 8.4 RATIO (10-20); Calcium,Total 9.3 mg/dL (7.6-11.0); Carbon Dioxide 22.9 mmol/L (21.0-32.0); Chloride 104 mmol/L (98-108); Creatinine, Serum 0.97 mg/dL (0.70-1.20); EST Glomerular Filtration Rate 75 (>60); Estimated Creatinine Clearance 89.67 ml/min (50-250); Glucose 111 mg/dL (70-99); Potassium 3.6 mmol/L (3.3-5.1); Sodium Level 139 mmol/L (133-145)
[2025-01-30] MEDS: BUPIVACAINE LIPOSOME/PF 20 ML VIAL OPERA.SITE (20:08)
[2025-01-30] MEDS: Dibucaine 30 GM Tube 1 APPLIC (20:17)
--- NOTE | 2025-01-30 20:43 | HP.PCM.SX_ITS ---
HPI - General General Date of Service: 01/30/25 HPI Narrative CECI FERGUSON, is a 39 F who presents to the ER due to recurrent thrombosed hemorrhoid. Patient did have this incised twice in the office today however did come back each time with swelling and pain. Patient previously did have excision of thrombosed hemorrhoid in office which did not recur at that time. Patient has not had a bowel movement a couple days. [facility] Medical History History of postoperative nausea and vomiting Alcohol use Depression Anxiety Heartburn Non-smoker Sleep apnea Hypothyroidism Home Medications ?Medication ?Instructions ?Recorded ?Last Taken ?Type duloxetine 60 mg capsule,delayed 60 mg PO QHS anxiety 07/10/19 12/21/24 History release bupropion HCl 150 mg tablet,12 hr 150 mg PO DAILY 12/0512/22/24 History sustained-release clonidine HCl 0.1 mg tablet 0.1 - 0.2 mg PO QHS 12/21/24 History levothyroxine 25 mcg tablet 25 mcg PO DAILY 12/22/24 0 12/22/24 History omeprazole 40 mg capsule,delayed 40 mg PO DAILY PRN he artburn 12/22/24 Unknown History release oxycodone-acetaminophen 5 mg-325 1 tab PO Q6H 2 days # 8 tabs 01/20/25 Unknown Rx mg tablet (Percocet) Hydrocortisone 2.5% / Lidocaine 5% #1 ea 01/30/25 Unkn own Rx ointment (cmpd) losartan 50 mg tablet 50 mg PO QDAY 01/30/25 Unkno wn History Allergy/AdvReac Type Severity Reaction Status Date / Time No Known Allergies Allergy Verified 01/30/25 18:18 Surgical History History of hysterectomy History of appendectomy Social History (Updated 01/30/25 @ 19:33 by Claudia Fernandez) current occupational status: employed Smoking Status: Never smoker substance use type: does not use Vital Signs Vital Signs Vital Signs: 01/30/25 18:18 01/30/25 18:38 01/30/25 18:55 Temperature 96.5 F L Temperature Source Temporal Pulse Rate 104 H 92 Respiratory Rate 16 16 Respiratory Effort Normal Respiratory Pattern Normal Blood Pressure 143/98 H 155/66 H Blood Pressure Mean 113 95 Blood Pressure Position Pulse Ox 99 98 Oxygen Delivery Method Room Air Room Air 01/30/25 19:26 01/30/25 19:33 01/30/25 19:35 Temperature 97.9 F Temperature Source Pulse Rate 81 102 H 102 H Respiratory Rate 16 16 Respiratory Effort Respiratory Pattern Blood Pressure 147/86 H 148/91 H 148/91 H Blood Pressure Mean 106 110 110 Blood Pressure Position Supine Pulse Ox 97 98 98 Oxygen Delivery Method Room Air 01/30/25 20:00 Temperature Temperature Source Pulse Rate 79 Respiratory Rate 14 Respiratory Effort Respiratory Pattern Blood Pressure 136/88 H Blood Pressure Mean 104 Blood Pressure Position Pulse Ox 100 Oxygen Delivery Method Weight Weight: 214 lb 1.102 oz Body Mass Index (BMI) 34.5 Physical Exam Const oriented x3 Resp normal respiratory effort Cardio regular rate GI soft to palpation and non-tender GI Narrative: Thrombosed hemorrhoid with bleeding Results Lab / Micro Data 01/30/25 18:53 01/30/25 18:53 Labs: Laboratory Results - last 24 hr 01/30/25 18:53: WBC 16.3 H, RBC 4.51, Hgb 13.7, Hct 39.8, MCV 88.2, MCH 30.4, MCHC 34.4, RDW Std Deviation 40.7, RDW Coeff of Rupali 12.7, Plt Count 359, MPV 11.5, Immature Gran % (Auto) 0.400, Neut % (Auto) 79.7 H, Lymph % (Auto) 13.4 L, [place] % (Auto) 5.0, Eos % (Auto) 1.0, Baso % (Auto) 0.5, Absolute Neuts (auto) 13.0 H, Absolute Lymphs (auto) 2.18, Nucleated RBC % 0, Sodium 139, Potassium 3.6, Chloride 104, Carbon Dioxide 22.9, Anion Gap 13, BUN 8, Creatinine 0.97, Estim Creat Clear Calc 89.67, Est GFR (MDRD) Non-Af 75, BUN/Creatinine Ratio 8.4 L, Glucose 111 H, Calcium 9.3, Blood Type A POSITIVE, Antibody Screen NEGATIVE Assessment & Plan Assessment/Plan (1) Thrombosed hemorrhoids: (2) Failure of outpatient treatment: PLAN: Plan Plan for exam under anesthesia, excision of thrombosed hemorrhoid, hemorrhoidectomy. Discussed with patient and her risk including not limited to bleeding, infection, need for further surgery. Patient and her no further questions time. Kelsey Canas M.D. Pager: [phone] [facility] [address] [place] [address], [address] [place] [address] Office: [phone]
--- NOTE | 2025-01-30 20:50 | ED.RN ---
REPORT CALLED TO OR NURSE VALENTIN AT THIS TIME.
--- NOTE | 2025-01-30 20:59 | PCM.PRE.AN2 ---
ASA Classification* ASA Classification ASA Classification: 2 Assessment & Plan Anesthesia* Anesthesia Assessment Anesthesia Assessment: Discussed sedation and/or anesthesia options, risks, benefits, and alternatives with patient/parents/legal guardian/POA. Questions invited. The patient/parents/legal guardian/POA seems to understand and agrees to proceed with anesthesia plan. Reviewed the physical assessment, medical history, allergy history and patient home medications list prior to surgery/procedure/anesthetic and documented any changes. Performed airway and anesthesia risk assessments. Anesthesia Type Anesthesia Type: MAC History Source History Obtained from:: Patient and Chart Anesthesia Focused Assessment* Temperature: 97.9 F Pulse Rate: 79 Blood Pressure: 136/88 Respiratory Rate: 14 Pulse Ox: 100 Oxygen Delivery Method: Room Air Airway Assessment Mouth opens: >3 cm Mallampati Score: IV Teeth Condition: Missing (1 missing treatment.) Neck Range of motion (ROM): Full ROM Labs Anesthesia Preop lab: CBC WBC 16.3 K/mm3 (4.4-11.0) H 01/30/25 18:53 01/30/25 RBC 4.51 M/mm3 (4.2-5.4) 01/30/25 18:53 01/30/25 Hgb 13.7 g/dL (12.0-15.0) 01/30/25 18:53 01/30/25 Hct 39.8 % (37-47) 01/30/25 18:53 01/30/25 Plt Count 359 K/mm3 (150-450) 01/30/25 18:53 01/30/25 CHEMISTRY Potassium 3.6 mmol/L (3.3-5.1) 01/30/25 18:53 01/30/25 Sodium 139 mmol/L (133-145) 01/30/25 18:53 01/30/25 BUN 8 mg/dL (4-19) 01/30/25 18:53 01/30/25 Creatinine 0.97 mg/dL (0.70-1.20) 01/30/25 18:53 01/30/25 Glucose 111 mg/dL (70-99) H 01/30/25 18:53 01/30/25 POC Glucose 91 mg/dL (70-110) 08/01/19 14:02 08/01/19 TSH 7.090 uIU/mL (0.300-4.200) H 12/10/24 16:31 12/10/24 COAG PT 11.6 SECONDS (11.7-14.9) L 02/28/22 08:55 02/28/22 Urine Test Negative Negative 08/01/19 13:30 08/01/19 Pre-Assessment Diagnosis/Proposed Procedure Planned Operative Procedure(s): Hemorrhoidectomy Anesthesia History Anesthesia 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 When Was Last Pacemaker Check QUESTION #4 FULL TEXT: You/Your Family Experience fever (hyperthermia) with Anesthesia Last Oral Intake Last Oral intake: Last Oral Intake NPO since Meds taken in AM with sips of water? Meds patient instructed to take am of surgery Any additional information?: Yes NPO since: 15:00 PONV PONV - regional education manager: PONV - regional education manager Female HX of Motion Sickness HX of N/V After Surgery Non-Smoker Duration of Surgery greater than 60 minutes Number of Risk Factors PONV Score Height & Weight Height & Weight: Anesthesia: Height & Weight Height 5 ft 6 in 01/30/25 19:33 Weight: 97.1 kg 01/30/25 19:33 Body Mass Index (BMI) 34.5 01/30/25 19:33 Respiratory Assessment Respiratory Assessment - regional education manager: Respiratory Tract Infection Hx - regional education manager Hx Respiratory Tract Infection No 01/30/25 19:33 STOP Sleep Apnea STOP Sleep Apnea - regional education manager: STOP Sleep Apnea - regional education manager Hx Hypertension No 01/30/25 19:33 Hx Sleep Apnea No 01/30/25 19:33 CPAP BIPAP Do you snore loudly (louder Yes 01/30/25 19:33 than talking or can be heard Do you often feel tired/ Yes 01/30/25 19:33 fatigued/ sleepy during daytime? Has anyone observed you stop No 01/30/25 19:33 breathing during sleep? STOP Results Positive 01/30/25 19:33 QUESTION #5 FULL TEXT : Do you snore loudly (louder than talking or can be heard through closed doors)? 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 Specify any problems Hx of Preganancy in last 3 Months Nurse Filling Out Transfusion & Questions: Date: Time: Patient unable to answer at this time (ie. confused, unrespo /Reproduction History /Reproductive History - regional education manager: /Reproductive Hx- regional education manager Hx Now No 01/30/25 19:33 Gestational Age (in weeks): EDC: Hx Hx Para Hx Section SAB No 01/30/25 19:33 PFSH Medical History History of postoperative nausea and vomiting Alcohol use Depression Anxiety Heartburn Non-smoker Sleep apnea Hypothyroidism Home Medications ?Medication ?Instructions ?Recorded ?Last Taken ?Type duloxetine 60 mg capsule,delayed 60 mg PO QHS anxiety 07/10/19 12/21/24 History release bupropion HCl 150 mg tablet,12 hr 150 mg PO DAILY 12/22/24 12/22/24 History sustained-release clonidine HCl 0.1 mg tablet 0.1 - 0.2 mg PO QHS 12/22/24 12/21/24 History levothyroxine 25 mcg tablet 25 mcg PO DAILY 12/22/24 12/22/24 History omeprazole 40 mg capsule,delayed 40 mg PO DAILY PRN heartburn 12/22/24 Unknown History release oxycodone-acetaminophen 5 mg-325 1 tab PO Q6H 2 days #8 tabs 01/20/25 Unknown Rx mg tablet (Percocet) Hydrocortisone 2.5% / Lidocaine 5% #1 ea 01/30/25 Unknown Rx ointment (cmpd) losartan 50 mg tablet 50 mg PO QDAY 01/30/25 Unknown History Allergy/AdvReac Type Severity Reaction Status Date / Time No Known Allergies Allergy Verified 01/30/25 18:18 Surgical History History of hysterectomy History of appendectomy Social History (Updated 01/30/25 @ 19:33 by Claudia Fernandez) current occupational status: employed Smoking Status: Never smoker substance use type: does not use Review of Systems (Anesthesia) ROS Narrative System reviewed and no additional complaints, except as documented.
--- NOTE | 2025-01-30 21:15 | HEM_PTH ---
PATIENT: CECI FERGUSON LOC: [facility] U#:[id number] AGE/SX: 39/F ROOM: MD315 RE01/30/[address]: Dr. Kelsey Canas MD : [id number] BED: 1 DIS: 01/31/2025 SPEC #: [id number] RECD: 01/31/25 09:33 STATUS: VICTOR HUGO NARCISA #: [id number] TETE: 01/30/25 21:[address]: Kelsey Canas DEPT: SURGICAL PATHOLOGY RECD BY: Kit Greene ENTERED: 01/31/25 09:58 SP TYPE: HEMORRHOID OTHR DR: MD Dr. Celso Conteh MD Tissues: A - HEMORRHOIDS Procedures: Surgery Specimen Level III HEADER OPERATION: Hemorrhoidectomy PRE-OP DIAGNOSIS: Thrombosed hemorrhoids, failure of outpatient treatment TISSUE SUBMITTED: A- Thrombosed hemorrhoid MICROSCOPIC DIAGNOSIS A. Soft tissue, thrombosed hemorrhoid , hemorrhoidectomy: - Inflamed skin with dilated and congested blood vessels, consistent with hemorrhoid. MICROSCOPIC DESCRIPTION Slides are reviewed. GROSS DESCRIPTION A. Received in formalin labeled with the patient's name and date of . Designated as thrombosed hemorrhoid is a 3.3 x 2.7 x 1.4 cm purple-red, congested and focally disrupted portion of tissue with a heavily cauterized margin. Sectioning reveals red and rubbery, torturous cut surfaces containing clotted blood (suspicious for thrombi). Head Of Strategy sections are submitted in 1 cassette. [place] 01/31/2025 CPT:05164
--- NOTE | 2025-01-30 22:04 | OP.PCM_ITS ---
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: No Type of Anesthesia: General/Supplemental RN Documented Start/Stop Times: Operation Date: 01/30/25 21:15 Case Time Anesthesia Start 01/30/25 09:12 Into Room 01/30/25 09:12 Procedure Start 01/30/25 21:31 Procedure End 01/30/25 22:03 Anesthesia End 01/30/25 22:04 Out of Room 01/30/25 22:04 Into Recovery 01/30/25 22:05 Out of Recovery 01/30/25 22:35 Procedure Start Time: :31 Procedure Stop Time: 22:03 Select all DRAINS/GRAFTS/IMPLANTS that apply: None Special Medications: none Estimated Blood Loss: 10 cc Specimen collected: Yes Description of specimen(s) removed: Thrombosed hemorrhoid right anterior Description of surgery: 39-year-old female presents for excision of thrombosed hemorrhoid/hemorrhoidectomy due to failure of outpatient management. The patient was brought into the operating room and general anesthesia was induced. She was placed in left lateral decubitus position with appropriate padding. A timeout was completed verifying correct patient, procedure, site, position, and special equipment prior to beginning the procedure. The buttocks were taped apart. Perineum was prepped and draped in standard sterile fashion with Betadine. Local anesthesia was injected as a perianal nerve block and local anesthesia with Exparel 20 cc total throughout the case. Anus carefully dilated. Small Hill-Godinez retractor was introduced and 3 marginal pedicles identified. She was noted to have thrombosed external/internal right anterior hemorrhoid. Patient does have small hemorrhoids at the other 2 cushions with external components as well. 0 Vicryl was placed at the base of each of the pedicles and retracted externally to exteriorize the hemorrhoidal pedicles. An elliptical incision was made extending from perianal skin to anal rectal ring including both internal and external hemorrhoids and excising a minimal amount of anoderm. Hand-held harmonic was used to separate the hemorrhoid from the underlying tissue, multiple small thrombosed clots were noted. Careful not to involve any of the sphincter muscle. The pedicle was indicated from the base and sent to pathology. Hemostasis was achieved using electrocautery. Following the hemostasis the skin and mucosal incisions were closed with the running lock stitch of 2-0 chromic. A large Surgifoam with dibucaine was placed in the anus. A gauze pad tucked between the gluteal folds. The patient tolerated procedure well and was extubated and taken to the post anesthesia care unit in stable condition. Surgical Findings: See operative report Complications Complications: No
--- NOTE | 2025-01-30 22:06 | PCM.POST.ANE ---
Anesthesia: Postop Eval I Current Vital Signs Temperature: 97.9 F Pulse Rate: 57 Blood Pressure: 151/91 Respiratory Rate: 16 Pulse Ox: 100 Oxygen Delivery Method: Room Air Assessment Airway patent: Yes Spontaneous unlabored respirations: Yes Mental status: Awake and Calm nausea: Yes Vomiting: No Anesthesia Complication: No Fluid Hydration Crystalloid volume administer (ml): 400 Total IV fluid infused: 400 Progress Note Anesthesia document: Postop Eval 1 completed: Yes
--- OUTSIDE RECORDS SUMMARY | 2025-01-30 22:13 | XMS RPT_ITS | CCD ---
Author Organization [facility] Care Team Providers Care Sewer Inspector Name Role Phone Dr. Polly Lopez Primary Care Provider Dr. Elias Ford Attending Provider [phone] Polly Lopez Primary Care Provider [phone] Dr. Polly Lopez Primary Care Provider Dr. Elias Ford Attending Provider Dr. Sylvester Yoder Referring Provider [phone] Polly Lopez Primary Care Provider [phone] OGORZOLKA, LUDY Referring Unavailable JOLLIFF, POLLY Primary Care Unavailable OGORZOLKA, LUDY Referring Unavailable JOLLIFF, POLLY Primary Care Unavailable DEZ, MELVIN Attending Unavailable JOLLIFF, POLLY Primary Care Unavailable DEZ, MELVIN Attending Unavailable JOLLIFF, POLLY Primary Care Unavailable DEZ, MELVIN Attending Unavailable JOLLIFF, POLLY Primary Care Unavailable OGORZOLKA, LUDY Referring Unavailable JOLLIFF, POLLY Primary Care Unavailable LAFOUNTAIN, MARC B Referring Unavailab le JOLLIFF, POLLY Primary Care Unavailable LAFOUNTAIN, MARC B Referring Unavailab le JOLLIFF, POLLY Primary Care Unavailable JOLLIFF, POLLY Primary Care Unavailable DEZ, MELVIN Consulting Unavailable YUSUF, CHRISTOPH Admitting Unavailable MANOLO CONNOLLY Attending Unavailable Polly Lopez Primary Care Provider Dr. Celso Brewer MD Primary Care Provider Osman PAZ, Dr. [place] Attending Provider [phone] Dr. Celso Brewer MD Referring Provider [phone] Dr. Rajan Fay DO Emergency Provider Dr. Rajan Fay DO Attending Provider MANOLO HARRINGTON Attending Unavailable POLLY LOPEZ Primary Care Unavailable POLLY LOPEZ Primary Care Unavailable Osman, Celso Primary Care Unavailable Rajan Fay Attending UnavailAndrea Aguirre Attending Unavailable Polly Lopez Primary Care Unavailable Rajan Fay Attending Unavailmauricio e Brewer, Celso Primary Care Unavailable Brewer, Celso Primary Care Unavailable Brewer, Celso Attending Unavailable Brewer, Celso Referring Unavailable Essie Leggett PA-C Attending Provider Jakub Jones MD Referring Provider Jakub Jones MD Emergency Provider [phone] Missael PAZ, Dr. Cole Attending Provider [phone] Dr. Kelsey Canas MD Other Provider Allergies Allergy Classification Reported Allergen(s) Allergy Type Date of Onset Reaction(s) Facility (17 sources) Lactose (non-medical use) Propensity to adverse reactions 09-22-2023 [facility] Medications Current Medications Medication Drug Class(es) Dates Sig (Normalized) Sig (Original) acetaminophen 325 mg / oxyCODONE hydrochloride 5 mg oral tablet (17 sources) Opioid Agonist Start: 12-22-2024 End: 01-30-2025 take 1 tablet by mouth every six hours Oxycodone-Acetami nophen (Percocet) 5-325 mg tablet Active 1 {tbl} PO EVERY 6 HOURS 8 2 January 20, 2025 Start: 12-17-2020 End: 03-11-2024 Oxycodone-Acetaminophen (Per cocet) 5-325 mg tablet Discontinued 1 NMA PO EVERY 8 HOURS NEEDED as needed for Pain Score 4-10 20 7 December 17, 2020 March 11, 2024 3:39am 12 hr buPROPion hydrochloride 150 mg extended release oral tablet (5 sources) Aminoketone Start: 12-22-2024 take 1 tablet by mouth once daily Bupropion Hcl 150 mg tablet sustained-release 12 hr Active 150 mg PO DAILY December 22, 2024 12:00am cloNIDine hydrochloride 0.1 mg oral tablet (5 sources) Central alpha-2 Adrenergic Agonist Start: 12-22-2024 take 0.1-0.2 mg by mouth at bedtime Clonidine Hcl 0.1 mg tablet Active 0.1 - 0.2 mg PO AT BEDTIME December 22, 2024 12:00am Docusate (4 sources) docusate sodium (COLACE ORAL) Take by mouth. Active docusate sodium (COLACE ORAL) Take by mouth. 0 Active Comment on above: Take by mouth. doxycycline hyclate 100 mg oral tablet (3 sources) Tetracycline-class Drug Start: 023 take 1 tablet by mouth twice daily doxycycline (Vibra-Tabs) 100 MG tablet Take 100 mg by mouth 2 times daily. 01/18/2023 Active 21 day ethinyl estradiol 0.519321 mg/hr / etonogestrel 0.005 mg/hr vaginal system (1 source) Progestin, Estrogen Start: Etonogestrel-Ethinyl Estradiol (NUVARING) 0.12-0.015 mg/24 hr vaginal ring Use 1 each vaginally as directed. INSERT ONE(1) RING VAGINALLY AND LEAVE IN PLACE FOR THREE WEEKS, THEN REMOVE FOR 1 WEEK. 3 each 3 01/22/2025 Active hydrocortisone 25 mg/ml rectal cream (15 sources) Corticosteroid Start: hydrocortisone (Anusol-HC) 2.5 % rectal cream 1 APPLIC RECTALLY 2 TO 4 TIMES PER DAY NEEDED FOR HEMORRHOIDS 07/07/2023 Active Start: 07-07-2023 End: 12-22-2024 Hydrocortisone (Proctosol Hc ) 2.5 % cream with perineal applicator Discontinued 1 NMA RC 2 to 4 times per day as needed for hemorrhoids July 07, 2023 1:00am December 22, 2024 4:37pm Hydrocortisone / Lidocaine (1 source) Antiarrhythmic, Corticosteroid, Amide Local Anesthetic Start: 01-30-2025 Hydrocortisone 2.5% / Lidocaine 5% Ointment (Cmpd) ointment Active 0 .ROUTE .MEDSUPPLY January 30, 2025 12:00am As directed levothyroxine sodium 0.025 mg oral tablet (17 sources) l-Thyroxine Start: 12-22-2024 take 1 tablet by mouth once daily Levothyroxine 25 mcg tablet Active 25 ug PO DAILY December 22, 2024 12:00am Start: 07-10-2019 End: 12-22-2024 take 1 tablet by mouth once daily Levothyroxine 75 MCG tablet Discontinued 75 ug PO DAILY July 10, 2019 1:00am December 22, 2024 4:37pm levothyroxine so dium (LEVOTHYROXINE ORAL) Take by mouth. Active levothyroxine so dium (LEVOTHYROXINE ORAL) Take by mouth. 0 Active Comment on above: Take by mouth. losartan potassium 50 mg oral tablet (20 sources) Angiotensin 2 Receptor Darrel Start: 01-30-2025 take 1 tablet by mouth once daily Losartan 50 mg tablet Active 50 mg PO daily January 30, 2025 12:00am Start: 09-28-2022 take 1 tablet by seth th once daily losartan (Cozaar) 50 MG tablet Take 50 mg by mouth daily. 09/28/2022 Active LOSARTAN POTASSI UM PO Take by mouth. Active LOSARTAN POTASSI UM PO Take by mouth. 0 Active omeprazole 40 mg delayed release oral capsule (13 sources) Proton Pump Inhibitor Start: 02-28-2022 End: 12-22-2024 take 1 capsule by mouth once daily as needed for gastroesophageal reflux disease Omeprazole 40 mg capsule,delayed release(DR/EC) Active 40 mg PO DAILY as needed for heartburn December 22, 2024 12:00am predniSONE 20 mg oral tablet (3 sources) Start: 08-25-2023 take 2 tablets by mouth once daily, then take 1 tablet by mouth once daily predniSONE (Deltasone) 20 MG tablet TAKE 2 TABLETS BY MOUTH EVERY DAY FOR 3 DAYS, THEN 1 TABLET EVERY DAY 3 DAYS 08/25/2023 Active Completed/Discontinued Medications Medication Drug Class(es) Dates Sig (Normalized) Sig (Original) Acetaminophen (2 sources) Start: 09-23-2023 End: 09-24-2023 take 1 tablet by mouth every six hours as needed for pain and fever acetaminophen (Tylenol) tablet 650 mg amoxicillin 500 mg oral tablet (6 sources) Penicillin-class Antibacterial Start: 03-11-2024 End: 12-22-2024 take 1 tablet by mouth three times daily Amoxicillin 500 mg tablet Discontinued 500 mg PO THREE TIMES A DAY March 11, 2024 12:00am December 22, 2024 4:37pm ceFAZolin 2000 mg injection (2 sources) Cephalosporin Antibacterial Start: 09-23-2023 End: 09-24-2023 take 2000 mg intravenously every eight hours 2,000 mg, IntraVENous, Administer over 30 Minutes, Every 8 hours, First dose on 09/23/23 at 1800, For 24 hours, Recovery & On Unit, premix bag, Suspected Indication (Select all that apply): Surgical Prophylaxis cephalexin 500 mg oral tablet (8 sources) Cephalosporin Antibacterial Start: 01-31-2021 End: 03-11-2024 take 1 tablet by mouth twice daily Cephalexin 500 mg Tablet Discontinued 500 mg PO TWICE A DAY January 31, 2021 12:00am March 11, 2024 3:39am DULoxetine 20 mg delayed release oral capsule (20 sources) Serotonin and Norepinephrine Reuptake Inhibitor Start: 09-23-2023 End: 09-24-2023 take 20 mg by mouth once daily 20 mg, Oral, Daily, First dose on 09/23/23 at 1345, Do not crush or chew. Start: 07-10-2019 take 1 capsule by [facility] at bedtime Duloxetine 60 MG capsule Active 60 mg PO AT BEDTIME July 10, 2019 1:00am duloxetine HCl ( CYMBALTA ORAL) Take by mouth. Active DULOXETINE HCL P O Take by mouth. Active DULOXETINE HCL P O Take by mouth. 0 Active duloxetine HCl ( CYMBALTA ORAL) Take by mouth. 0 Active Comment on above: Take by mouth. 1 ml HYDROmorphone hydrochloride 1 mg/ml cartridge (10 sources) Opioid Agonist Start: 09-22-2023 End: 09-23-2023 HYDROmorphone (Dilaudid) injection 0.5 mg Start: 09-22-2023 End: 09-22-2023 HYDROmorphone (Dilaudid) inj ection 1 mg hydrOXYzine hydrochloride 10 mg oral tablet (2 sources) Antihistamine Start: 09-23-2023 End: 09-23-2023 hydrOXYzine HCl (Atarax) tablet 10 mg ibuprofen 600 mg oral tablet (20 sources) Nonsteroidal Anti-inflammatory Drug Start: 08-02-2019 End: 12-22-2024 take 1 tablet by mouth every six hours as needed for pain Ibuprofen 600 MG tablet Discontinued 600 mg PO EVERY 6 HOURS as needed for Pain 60 August 02, 2019 1:00am December 22, 2024 4:37pm Comment on above: Take 600 mg by mouth every 6 hours as needed. 10 ml lidocaine hydrochloride 10 mg/ml injection (2 sources) Antiarrhythmic, Amide Local Anesthetic Start: 09-23-2023 End: 09-23-2023 lidocaine (Xylocaine) 1 % injection 20 mL lisinopril 20 mg oral tablet (8 sources) Angiotensin Converting Enzyme Inhibitor Start: 12-10-2020 End: 01-30-2025 take 1 tablet by mouth at bedtime Lisinopril 20 mg tablet Discontinued 20 mg PO AT BEDTIME December 10, 2020 12:00am January 30, 2025 9:34am 1 ml LORazepam 2 mg/ml injection (4 sources) Benzodiazepine Start: 09-23-2023 End: 09-23-2023 LORazepam (Ativan) injection 0.5 mg Start: 09-23-2023 End: 09-23-2023 LORazepam (Ativan) injection 0.5 mg Start: 09-23-2023 End: 09-23-2023 LORazepam (Ativan) 2 MG/ML i njection - Pyxis ADS Override Pull 1 ml naloxone hydrochloride 0.4 mg/ml injection (2 sources) Opioid Antagonist Start: 09-23-2023 End: 09-24-2023 naloxone (Narcan) injection 0.4 mg nitrofurantoin, macrocrystals 25 mg / nitrofurantoin, monohydrate 75 mg oral capsule (2 sources) Nitrofuran Antibacterial Start: 09-12-2023 End: 09-24-2023 take 1 capsule by mouth twice daily nitrofurantoin, macrocrystal-mono hydrate, (Macrobid) 100 MG capsule Take 100 mg by mouth 2 times daily. 0 09/12/2023 09/24/2023 Discontinued (Stop taking at discharge) ondansetron 4 mg disintegrating oral tablet (13 sources) Serotonin-3 Receptor Antagonist Start: 12-22-2024 End: 01-30-2025 take 1 tablet by mouth every eight hours as needed for nausea Ondansetron 4 mg tablet,disintegra ting Discontinued 4 mg PO EVERY 8 HOURS NEEDED as needed for Nausea December 22, 2024 12:00am January 30, 2025 9:34am Start: 12-17-2020 End: 12-22-2024 take 1 tablet by mouth every six hours as needed for nausea Ondansetron Hcl (Zofran) 4 mg tablet Discontinued 4 mg PO EVERY 6 HOURS NEEDED as needed for Nausea December 17, 2020 12:00am December 22, 2024 4:38pm ondansetron ODT (Zofran-ODT) disintegrating tablet 4 mg (2 sources) Start: 09-23-2023 End: 09-24-2023 take 1 tablet by mouth every eight hours as needed for nausea and vomiting ondansetron ODT (Zofran-ODT) disintegrating tablet 4 mg oxyCODONE hydrochloride 5 mg oral tablet (20 sources) Opioid Agonist Start: 09-28-2023 End: 10-03-2023 take 1 tablet by mouth every six hours as needed for pain oxyCODONE (Roxicodone) 5 MG immediate release tablet Indications: Closed displaced trimalleolar fracture of left ankle, initial encounter Take 1 tablet (5 mg) by mouth every 6 hours as needed for severe pain (7-10) for up to 5 days. 15 tablet 0 09/28/2023 10/03/2023 Start: 09-24-2023 End: 09-29-2023 take 1 tablet by mouth every four hours as needed for pain oxyCODONE (Roxicodone) 5 MG immediate release tablet Indications: Closed displaced trimalleolar fracture of left ankle, initial encounter Take 1 tablet (5 mg) by mouth every 4 hours as needed for severe pain (7-10) for up to 5 days. 15 tablet 0 09/24/2023 09/29/2023 Start: 09-23-2023 End: 09-24-2023 take 1 tablet by mouth every four hours as needed for pain oxyCODONE (Roxicodone) immediate release tablet 2.5 mg Start: 09-23-2023 End: 09-23-2023 take 1 tablet by mouth every six hours as needed for pain oxyCODONE (Roxicodone) 5 MG immediate release tablet Indications: Closed displaced trimalleolar fracture of left ankle, initial encounter Take 1 tablet (5 mg) by mouth every 6 hours as needed for severe pain (7-10) for up to 5 days. 15 tablet 0 09/23/2023 09/23/2023 Discontinued (Ineffective) Start: 08-02-2019 End: 08-07-2019 take 1 tablet by mouth every four hours as needed for pain Oxycodone 5 MG tablet Discontinued 5 mg PO EVERY 4 HOURS NEEDED as needed for severe pain 24 12August 02, 2019 August 06, 2019 1:00am August 07, 2019 1:07am Start: 07-11-2019 End: 07-24-2019 take 1 tablet by mouth every six hours as needed for pain Oxycodone 5 MG tablet Discontinued 5 mg PO EVERY 6 HOURS NEEDED as needed for Pain Or Fever 24 12July 11, 2019 July 15, 2019 1:00am July 24, 2019 1:10am polyethylene glycol 3350 16642 mg powder for oral solution (5 sources) Osmotic Laxative Start: 09-23-2023 End: 10-04-2023 take 17 g by mouth every twenty-four hours as needed polyethylene glycol, PEG, 3350 (Miralax) 17 g packet Take 17 g by mouth Daily as needed (consitpation) for up to 10 days. 10 packet 0 09/24/2023 10/04/2023 1000 ml sodium chloride 9 mg/ml injection (4 sources) Start: 09-23-2023 End: 09-23-2023 take 100 mL intravenously every hour 100 mL/hr, IntraVENous, Continuous, Starting on 09/23/23 at 1345 Start: 09-23-2023 End: 09-23-2023 sodium chloride 0.9 % bolus 1,000 mL traMADol hydrochloride 50 mg oral tablet (6 sources) Opioid Agonist Start: 03-11-2024 End: 12-22-2024 take 1 tablet by mouth every six hours as needed for pain Tramadol 50 mg tablet Discontinued 50 mg PO EVERY 6 HOURS as needed for pain 10 3 March 11, 2024 3:38am December 22, 2024 4:38pm Problems Active Problems Problem Classification Problem Date Documented Date Episodic/Chronic Abdominal pain (13 sources) Right lower quadrant pain; Translations: [Right lower quadrant pain] Onset: 11-03-2023 11-03-2023 Episodic Acquired foot deformities (11 sources) Bunion; Translations: [Bunion of left foot] Onset: 11-03-2023 11-03-2023 Episodic Disorders of teeth and jaw (7 sources) Dental abscess; Translations: [Periapical abscess without sinus] Onset: 03-29-2024 03-19-2024 Episodic Essential hypertension (11 sources) Hypertensive disorder; Translations: [Essential (primary) hypertension] Onset: 11-03-2023 11-03-2023 Chronic Fracture of lower limb (20 sources) Closed trimalleolar fracture; Translations: [Displaced trimalleolar fracture of left lower leg, initial encounter for closed fracture] Onset: 09-22-2023 09-23-2023 Episodic Hemorrhoids (12 sources) Thrombosed hemorrhoids; Translations: [Perianal venous thrombosis] 07-07-2023 Episodic Menopausal disorders (1 source) Menopausal and female climacteric states; Translations: [Menopausal and female climacteric states] Onset: 12-16-2024 Chronic Nonspecific chest pain (11 sources) Chest pain; Translations: [Chest pain, unspecified] Onset: 11-03-2023 11-03-2023 Episodic Open wounds of extremities (11 sources) Laceration of left thumb; Translations: [Laceration without foreign body of left thumb without damage to nail, initial encounter] Onset: 11-03-2023 11-03-2023 Episodic Other connective tissue disease (11 sources) Swelling of lower limb; Translations: [Other specified soft tissue disorders] Onset: 11-03-2023 11-03-2023 Episodic Other connective tissue disease (11 sources) Foot pain; Translations: [Pain in left foot] Onset: 11-03-2023 11-03-2023 Episodic Other eye disorders (1 source) Pain of right eye; Translations: [Ocular pain, right eye] Episodic Other lower respiratory disease (11 sources) Dyspnea; Translations: [Dyspnea, unspecified] Onset: 11-03-2023 11-03-2023 Episodic Other nervous system disorders (11 sources) Acute postoperative pain; Translations: [Other acute postprocedural pain] Onset: 11-03-2023 11-03-2023 Episodic Other upper respiratory infections (1 source) Viral upper respiratory tract infection; Translations: [Acute upper respiratory infection, unspecified] 10-21-2024 Episodic Ovarian cyst (11 sources) Ruptured cyst of ovary; Translations: [Unspecified ovarian cyst, unspecified side] Onset: 01-22-2025 12-22-2024 Episodic Residual codes; unclassified (2 sources) Other specified health status; Translations: [Failure of outpatient treatment] 01-30-2025 Episodic Thyroid disorders (11 sources) Hypothyroidism; Translations: [Hypothyroidism, unspecified] Onset: 11-03-2023 11-03-2023 Chronic Past or Other Problems Problem Classification Problem Date Documented Da te Episodic/Chronic Early or threatened labor (3 sources) False labor before 37 completed weeks of gestation, unspecified trimester; Translations: [Threatened premature labor, antepartum condition or complication] Onset: 02-11-2010 Resolved: 06-07-2019 06-07-2019 Episodic Other complications of (3 sources) History of pre-eclampsia; Translations: [Supervision of with other poor reproductive or obstetric history, unspecified trimester] Onset: 02-16-2013 Resolved: 06-07-2019 08-02-2021 Episodic Other complications of (3 sources) History of shoulder dystocia; Translations: [Supervision of with other poor reproductive or obstetric history, unspecified trimester] Onset: 02-16-2013 Resolved: 06-07-2019 08-02-2021 Episodic Other complications of (3 sources) History of delivery of macrosomal infant; Translations: [Supervision of with other poor reproductive or obstetric history, unspecified trimester] Onset: 02-16-2013 Resolved: 06-07-2019 06-07-2019 Episodic Other complications of (3 sources) Vomiting of , unspecified; Translations: [Unspecified vomiting of , unspecified as to episode of care or not applicable] Onset: 02-26-2013 Resolved: 06-07-2019 06-07-2019 Episodic Other and delivery including normal (6 sources) Normal in primigravida; Translations: [Encounter for supervision of normal first , unspecified trimester] Onset: 02-16-2006 Resolved: 06-07-2019 07-28-2008 Episodic Residual codes; unclassified (3 sources) RhD positive; Translations: [Unspecified blood type, Rh positive] Onset: 02-16-2013 Resolved: 06-07-2019 08-02-2021 Episodic Results Test Name Value Interpretation Reference Range Facility Absolute lymphocyte countOrd ered By: Jakub Jones on 01-30-2025 Lymphocytes Auto (Unsp spec) [#/Vol] 2.18 10*3/uL 0.83-4.51 [facility] Absolute neutrophil countOrd ered By: Jakub Jones on 01-30-2025 Neutrophils (Bld) [#/Vol] 13.0 10*3/uL High 2.0-7.7 [facility] Anion gap in Serum or Plasma Ordered By: Jakub Jones on 01-30-2025 Anion gap [Moles/Vol] 13 mmol/L 5-15 [facility] Automated lymphocyte count a s percentage of total leukocytesOrdered By: Jakub Jones on 01-30-2025 Lymphocytes/100 WBC Auto (Unsp spec) 13.4 % Low 19-41 [facility] BUN/creatinine ratioOrdered By: Jakub Jones on 01-30-2025 Urea nitrogen/Creatinine [Mass ratio] 8.4 mg/mg Low 10-20 [facility] Basophil percentageOrdered B y: Jakub Jones on 01-30-2025 Basophils/100 WBC (Bld) 0.5 % 0-[address] [facility] Carbon dioxide, total [Moles /volume] in Central venous bloodOrdered By: Jakub Jones on 01-30-2025 CO2 [Moles/Vol] 22.9 mmol/L 21.0-32.0 [facility] Chloride assayOrdered By: Oral Jones on 01-30-2025 Chloride [Moles/Vol] 104 mmol/L 98-108 [facility] Eosinophil percentageOrdered By: Jakub Jones on 01-30-2025 Eosinophils/100 WBC (Bld) 1.0 % 0-5 [facility] Erythrocyte distribution wid th ratioOrdered By: Jakub Jones on 01-30-2025 Erythrocyte distribution width (RBC) [Ratio] 12.7 % 11.6-14.6 [facility] Erythrocyte distribution wid th standard deviationOrdered By: Jakub Jones on 01-30-2025 Erythrocyte distribution width (RBC) [Ratio] 40.7 fl 35.1-43.9 [facility] Glomerular filtration rate ( GFR) estimation/1.73 sq m using serum, plasma, or whole bOrdered By: Jakub Jones on 01-30-2025 GFR/1.73 sq M.predicted among non-blacks MDRD (S/P/Bld) [Vol rate/Area] 75 mL/min/{1.73_m2} >60 [facility] Comment on above: mL/min/1.73m2 CKD-EP I Creatinine Equation (2020) Hematocrit Auto (Bld) [Volum e fraction]Ordered By: Jakub Jones on 01-30-2025 Hematocrit (Bld) [Volume fraction] 39.8 % 37-47 [facility] Hemoglobin measurementOrdere d By: Jakub Jones on 01-30-2025 Hemoglobin (Bld) [Mass/Vol] 13.7 g/dL 12.0-15.0 [facility] Immature granulocytes/100 WB C Auto (Bld)Ordered By: Jakub Jones on 01-30-2025 Immature granulocytes/100 WBC (Bld) 0.400 % 0.0-0.9 [facility] Comment on above: IG% - Immature Granu locytes (promyelocytes, myelocytes and metamyelocytes) > 1% indicates that a LEFT SHIFT is Present. MCV (mean corpuscular volume ) determinationOrdered By: Jakub Jones on 01-30-2025 MCV (RBC) [Entitic vol] 88.2 fL 81-[address] [facility] Mean corpuscular hemoglobin (MCH) determinationOrdered By: Jakub Jones on 01-30-2025 MCH (RBC) [Entitic mass] 30.4 pg 27.0-32.0 [facility] Mean corpuscular hemoglobin concentration (MCHC) determinationOrdered By: Jakub Jones on 01-30-2025 MCHC (RBC) [Mass/Vol] 34.4 g/dL 32-36 [facility] Mean platelet volume determi nationOrdered By: Jakub Jones on 01-30-2025 Platelet mean volume (Bld) [Entitic vol] 11.5 fL 6.2-12.0 [facility] Monocyte percentageOrdered B y: Jakub Jones on 01-30-2025 Monocytes/100 WBC (Bld) 5.0 % 0-[address] [facility] Neutrophil percentageOrdered By: Jakub Jones on 01-30-2025 Neutrophils/100 WBC (Bld) 79.7 % High 47-70 [facility] Nucleated red blood cell per centageOrdered By: Jakub Jones on 01-30-2025 Nucleated RBC/100 WBC (Bld) [Ratio] 0 % 0-5 [facility] Platelet countOrdered By: Oral Jones on 01-30-2025 Platelets (Bld) [#/Vol] 359 10*3/uL 150-450 [facility] Potassium measurement (mass/ volume)Ordered By: Jakub Jones on 01-30-2025 Potassium (Unsp spec) [Mass/Vol] 3.6 mmol/L 3.3-5.1 [facility] RBC Auto (Bld) [#/Vol]Ordere d By: Jakub Jones on 01-30-2025 RBC (Bld) [#/Vol] 4.51 10*6/uL 4.2-5.4 [facility] Serum creatinine measurement (mass/volume)Ordered By: Jakub Jones on 01-30-2025 Creatinine [Mass/Vol] 0.97 mg/dL 0.70-1.20 [facility] Serum glucose measurement (m ass/volume)Ordered By: Jakub Jones on 01-30-2025 Glucose [Mass/Vol] 111 mg/dL High 70-99 [facility] Serum or plasma calcium jami urement (mass/volume)Ordered By: Jakub Jones on 01-30-2025 Calcium [Mass/Vol] 9.3 mg/dL 7.6-11.0 [facility] Serum or plasma urea nitroge n measurement (mass/volume)Ordered By: Jakub Jones on 01-30-2025 Urea nitrogen [Mass/Vol] 8 mg/dL 4-19 [facility] Sodium levelOrdered By: Jakub Jones on 01-30-2025 Sodium [Moles/Vol] 139 mmol/L 133-145 [facility] White blood cell (WBC) count Ordered By: Jakub Jones on 01-30-2025 WBC (Bld) [#/Vol] 16.3 10*3/uL High 4.4-11.0 [facility] CNOVon 01-22-2025 CNOV Office Visit (OBGYWM) CATRACHITA MURRAY ([id number]) 1985 F Date Time Provider Department 01/22/25 11:10 AM MANOLO HARRINGTON OBSELENA During your visit today, we recorded the following information about you: Blood pressure Weight 110/88 94.8 kg Manolo Harrington MD 01/22/2025 11:31 AM Signed Stratigraphy Teacher offered: Patient accepts, visit chaperoned by Essie Sandoval MA. Catrachita Murray is a 39 year old female who presents for problem visit subsequent to ER visits for painful ovarian cysts/follicles that resolved spontaneously. HPI: as above, DANNA 2000 for fibroids/HMB OB History Gravida3 Para3 Term3 Preterm0 AB0 Living2 SAB0 IAB0 Ectopic0 Multiple0 Live Births1 Health Care Facility Administrator History LMP: 2019 (Exact Date), Hysterectomy Age at Menarche: Age at First : Age at Menopause: Health Care Facility Administrator History Comments: Sexual Activity: Yes; Male Contraception: Condom PAST MEDICAL HISTORY Diagnosis Date Anxiety Hypothyroidism Mild or unspecified pre-eclampsia, unspecified as to episode of care Pre-ecclampsia,MILD PAST SURGICAL HISTORY Procedure Laterality Date APPENDECTOMY laparoscopic D+C 07/2019 VAG HYST 250 GM/< W/RMVL TUBEAND/OVARY Bilateral 08/01/2019 LAVH, bilateral salpingectomy FAMILY HISTORY Problem Relation Age of Onset Melanoma Mother Diabetes Maternal Grandmother Hypertension Maternal Grandmother Breast Cancer Maternal Grandmother Diabetes Maternal Grandfather Hypertension Maternal Grandfather Diabetes Paternal Grandmother Hypertension Paternal Grandmother Hypertension Paternal Grandfather Cancer Maternal Aunt ? TYPE Social History Tobacco Use Smoking status: Never Smokeless tobacco: Never Vaping Use Vaping status: Never Used Substance Use Topics Alcohol use: No Drug use: No Current Outpatient Medications Medication Sig docusate sodium (COLACE ORAL) Take by mouth. ibuprofen (MOTRIN) 600 mg tablet Take 600 mg by mouth every 6 hours as needed. duloxetine HCl (CYMBALTA ORAL) Take by mouth. levothyroxine sodium (LEVOTHYROXINE ORAL) Take by mouth. No current facility-administere d medications for this visit. Allergies As of Date: 01/22/2025 (No Known Allergies) Fully Assessed 01/22/2025 REVIEW OF SYSTEMS Abdomen: No bloating, early satiety, indigestion, or increased flatulence. No abdominal pain, nausea, vomiting, diarrhea, or constipation. Bladder: No dysuria, gross hematuria, urinary frequency, urinary urgency, or incontinence. Breast: No breast lumps, nipple d/c, overlying skin changes, redness or skin retraction. Expanded ROS: N/A Allergies and current medication updated:Yes SENSITIVE EXAM: The sensitive examination was discussed with the Patient or Patient's Authorized Veneer Jointer Helper. As applicable, any other physician, advance practice provider, medical student, or other health professional student that will be observing or involved in the sensitive examination for educational or training purposes was discussed with the Patient or Authorized Veneer Jointer Helper. The Patient or Authorized Veneer Jointer Helper has agreed to proceed with the sensitive examination. (Sensitive examination includes inspection and/or palpation of the breasts, pelvis, prostate and anorectal regions). EXAM: BP 110/88 Wt 209 lb (94.8kg) LMP 2019 GENERAL: pleasant, female in no apparent distress PELVIC: external genitalia normal, normal Bartholin's glands, urethra, Bovill's glands, no vulvar lesions, no cervical lesions, good vaginal support, physiologic discharge present, normal appearing perineal body and perianal region, well estrogenized, cervix surgically absent BIMANUAL: no adnexal masses, non-tender, and uterus surgically absent ASSESSMENT AND PLAN: Assessment AND Plan Corpus luteum cyst Nuvaring for ovarian suppression of painful cysts ftft> 30 m Manolo Harrington MD Allergies As of Date: 01/22/2025 (No Known Allergies) Date Reviewed: 01/22/2025 Reviewed by: Essie Sandoval MA - Fully Assessed Reason for Visit: New Patient [172] Cmt: ER follow-up Ovarian Cyst Primary Visit Diagnosis:Corpus luteum cyst [N83.10] Order(s):Etonogestre l-Ethinyl Estradiol (NUVARING) 0.12-0.015 mg/24 hr vaginal ringUse 1 each vaginally as directed. INSERT ONE(1) RING VAGINALLY AND LEAVE IN PLACE FOR THREE WEEKS, THEN REMOVE FOR 1 WEEK.Disp: 3 eachRfl: 3 Prescriptions as of 01/22/2025 - Etonogestrel-Ethinyl Estradiol (NUVARING) 0.12-0.015 mg/24 hr vaginal ring Use 1 each vaginally as directed. INSERT ONE(1) RING VAGINALLY AND LEAVE IN PLACE FOR THREE WEEKS, THEN REMOVE FOR 1 WEEK. - docusate sodium (COLACE ORAL) Take by mouth. - ibuprofen (MOTRIN) 600 mg tablet Take 600 mg by mouth every 6 hours as needed. - duloxetine HCl (CYMBALTA ORAL) Take by mouth. - levothyroxine sodium (LEVOTHYROXINE ORAL) Take by mouth. Meds Comments as of (more content not included)... [facility] LOL[facility] Tele[facility] (OBGYWM) CATRACHITA MURRAY ([id number]) 1985 F Date Time Provider Department 01/21/25 CAMILA VILLASENOR During your visit today, we recorded the following information about you: Umu Norris, GREGORY 01/21/2025 11:04 AM Signed RR did Pt's hysterectomy 08/01/2019. Pt calls stating she called yesterday d/t severe LLQ pain and went to ER. Pt states still c/o pain to LLQ, stabbing 02/13(with oxycodone. Last taken at 0630 am). Morphine given in ER and fluids. US and CT completed in ER- fluid in abdomen ruptured cyst on left side. Pt states a month ago this happened and this was on the right side. Pt states she was sent home with Oxycodone 5-325mg (has been taking every 6 hours, Pt states takes the edge off but still feels like stabbing sensation) and for Zofran nausea (hasn't needed to take). Pt asking if she can be seen sooner by RR as she does not want to go back to ER. States pain is terrible. Advised Pt that d/t her not being seen in office since 2019, she would be classified as a new patient and unfortunately RR does not have anything available today and that it would be best, if she is agreeable to see AT and he can communicate with RR if she were to need surgical intervention. Advised Pt to take Rx as advised by ER, use heating pad, take hot shower, and go to ER if pain is uncontrolled. Pt voiced understanding. Umu Norris RN Allergies As of Date: 01/21/2025 (No Known Allergies) Date Reviewed: 10/21/2024 Reviewed by: Radha Phillips, KATHRYN.CUTTER GRINDER - Fully Assessed Prescriptions as of 01/21/2025 - docusate sodium (COLACE ORAL) Take by mouth. - ibuprofen (MOTRIN) 600 mg tablet Take 600 mg by mouth every 6 hours as needed. - duloxetine HCl (CYMBALTA ORAL) Take by mouth. - levothyroxine sodium (LEVOTHYROXINE ORAL) Take by mouth. Meds Comments as of 08/05/2009: All medications reviewed today/August 05, 2009 Roz Barron Rn Problem List As Of Date 01/21/2025 Noted Resolved SUPERVIS NORMAL 1ST PREG [Z34.00] 02/16/2006 07/28/2008 Supervision of other normal [Z34.80] 08/14/2009 06/07/2019 Threatened premature labor, antepartum(644.03) *02/11/2010 06/07/2019 Hx of preeclampsia, prior , currently *02/16/2013 06/07/2019 History of shoulder dystocia in prior *02/16/2013 06/07/2019 History of macrosomia in infant in prior pregna*02/16/2013 06/07/2019 Blood type, Rh positive [Z67.90] 02/16/2013 06/07/2019 Nausea/vomiting in [O21.9] 02/26/2013 06/07/2019 Encounter Status:Closed by UMU NORRIS on 01/21/25 Normal [facility] Abdomen/Pelvis W IV Cont ONL Yon 01-20-2025 Abdomen/Pelvis W IV Cont ONLY [facility] [address] [place] [address] Abdomen/Pelvis W IV Cont ONLY MR#: [id number] Acct: [id number] Name: CATRACHITA MURRAY Rep #: [id number] : 1985 F 39 From: Jimenez dobson MD PCP: Dr. Celso Brewer MD Status: [facility] ER Study: Abdomen/Pelvis W IV Cont ONLY Date of Exam: Exam# [id number] Ordering Dr: Rajan Fay DO PROCEDURE: ABDOMEN/PELVIS W IV CONT ONLY 01/20/2025 REASON FOR EXAM: LLQ PAIN History of ruptured left ovarian cyst. TECHNIQUE: ABDOMEN/PELVIS W IV CONT ONLY. Coronal and Sagittal reconstruction series were provided. ORAL CONTRAST TYPE: None. CONTRAST: Isovue 3 7 VOLUME: 100 mL One or more dose reduction techniques were used (e.g., Automated exposure control, adjustment of the mA and/or kV according to patient size, use of iterative reconstruction technique. RADIATION DOSE SUMMARY: CTDlvol: 14.4 mGy DLP: 1248.87 mGycm COMPARISON: Prior study dated December 22, 2024 FINDINGS: Lung bases: Unremarkable Liver: Diffuse fatty infiltration. Hepatomegaly. Gallbladder: Unremarkable Spleen: Borderline splenomegaly. Pancreas: Normal size without evidence of mass surrounding inflammation or ductal dilation. Adrenals: Unremarkable Kidneys: Normal renal sizes. No hydronephrosis. Bladder: Unremarkable Reproductive Organs: Prior hysterectomy. Adnexal regions are unremarkable. Follicles are seen in the left ovary. Small amount of free fluid is seen in the pelvis. Bowel: Unremarkable Appendix: Prior appendectomy. Lymph nodes: Unremarkable. Vasculature: Mild diffuse atherosclerotic calcifications are noted. Peritoneum / Retroperitoneum: Unremarkable Bones: Unremarkable CT/Abdomen/Pelvis W IV Cont ONLY IMPRESSION: Borderline hepatomegaly and fatty infiltration of the liver. Follicles are seen in the left ovary. Small amount of free fluid is seen in the cul-de-sac suggestive of ruptured ovarian cyst. Reading Location: [place] [address] CC: Dr. Rajan Fay DO; Dr. Celso Brewer MD Inspector Final Assembly Electrical: Signed Normal [facility] Absolute lymphocyte countOrd ered By: Rajanmaggie Fay on 01-20-2025 Lymphocytes Auto (Unsp spec) [#/Vol] 2.44 10*3/uL 0.83-4.51 [facility] Absolute neutrophil countOrd ered By: [place] Sumeet on 01-20-2025 Neutrophils (Bld) [#/Vol] 6.0 10*3/uL 2.0-7.7 [facility] Anion gap in Serum or Plasma Ordered By: Rajanmaggie Fay on 01-20-2025 Anion gap [Moles/Vol] 14 mmol/L 5-15 [facility] Automated lymphocyte count a s percentage of total leukocytesOrdered By: Rajanmaggie Fay on 01-20-2025 Lymphocytes/100 WBC Auto (Unsp spec) 26.0 % 19-41 [facility] BUN/creatinine ratioOrdered By: [place] Sumeet on 01-20-2025 Urea nitrogen/Creatinine [Mass ratio] 8.6 mg/mg Low 10-20 [facility] Basophil percentageOrdered B y: Rajan Fay on 01-20-2025 Basophils/100 WBC (Bld) 0.9 % 0-[address] [facility] Bilirubin Test strip Ql (U)O rdered By: Rajanmaggie Fay on 01-20-2025 Bilirubin Ql (U) Negative Negative [facility] Bilirubin, totalOrdered By: [place] Sumeet on 01-20-2025 Bilirubin [Mass/Vol] 0.40 mg/dL 0.00-1.30 [facility] CBC W/Diff, Automatedon 01-05 Absolute Lymph 2.44 X10 3/uL Normal 0.83-4.51 [facility] Comment on above: Performed By: #### L 100.0100 ####[facility] [address] [place], [place], [id number] Absolute Neut 6.0 X10 3/uL Normal 2.0-7.7 [facility] Comment on above: Performed By: #### L 100.0100 ####[facility] [address] [place], [address] Basophils/100 WBC (Bld) 0.9 % Normal 0-[address] [facility] Comment on above: Performed By: #### L 100.0100 ####[facility] [address] [place], [address] Eosinophils/100 WBC (Bld) 2.4 % Normal 0-5 [facility] Comment on above: Performed By: #### L 100.0100 ####[facility] [address] [place], [address] Erythrocyte distribution width (RBC) [Ratio] 12.5 % Normal 11.6-14.6 [facility] Comment on above: Performed By: #### L 100.0100 ####[facility] [address] [place], [address] Hematocrit (Bld) [Volume fraction] 43.1 % Normal 37-47 [facility] Comment on above: Performed By: #### L 100.0100 ####[facility] [address] [place], [address] Hemoglobin (Bld) [Mass/Vol] 15.0 g/dL Normal 12.0-15.0 [facility] Comment on above: Performed By: #### L 100.0100 ####[facility] [address] [place], [address] IG% 0.200 Normal 0.0-0.9 [facility] Comment on above: Result Comment: IG% - Immature Granulocytes (promyelocytes, myelocytes and metamyelocytes) > 1% indicates that a LEFT SHIFT is Present. Performed By: #### L 100.0100 ####[facility] [address] [place], [address] Lymphocytes/100 WBC (Bld) 26.0 % Normal 19-41 [facility] Comment on above: Performed By: #### L 100.0100 ####[facility] [address] [place], [address] MCH (RBC) [Entitic mass] 30.2 pg Normal 27.0-32.0 [facility] Comment on above: Performed By: #### L 100.0100 ####[facility] [address] [place], [address] MCHC (RBC) [Mass/Vol] 34.8 g/dL Normal 32-36 [facility] Comment on above: Performed By: #### L 100.0100 ####[facility] [address] [place], [address] MCV (RBC) [Entitic vol] 86.9 fL Normal 81-[address] [facility] Comment on above: Performed By: #### L 100.0100 ####[facility] [address] [place], [address] Monocytes/100 WBC (Bld) 6.7 % Normal 0-10 [facility] Comment on above: Performed By: #### L 100.0100 ####[facility] [address] [place], [address] Neutrophils/100 WBC (Bld) 63.8 % Normal 47-70 [facility] Comment on above: Performed By: #### L 100.0100 ####[facility] [address] [place], [address] Nucleated RBC (Bld) [#/Vol] 0 10*3/uL Normal 0-5 [facility] Comment on above: Performed By: #### L 100.0100 ####[facility] [address] [place], [address] Platelet mean volume (Bld) [Entitic vol] 11.0 fL Normal 6.2-12.0 [facility] Comment on above: Performed By: #### L 100.0100 ####[facility] [address] [place], [address] Platelets (Bld) [#/Vol] 340 10*3/uL Normal 150-450 [facility] Comment on above: Performed By: #### L 100.0100 ####[facility] [address] [place], [address] RBC (Bld) [#/Vol] 4.96 10*6/uL Normal 4.2-5.4 [facility] Comment on above: Performed By: #### L 100.0100 ####[facility] [address] [place], [address] RDW SD 39.2 fl Normal 35.1-43.9 [facility] Comment on above: Performed By: #### L 100.0100 ####[facility] [address] [place], [address] WBC (Bld) [#/Vol] 9.4 10*3/uL Normal 4.4-11.0 [facility] Comment on above: Performed By: #### L 100.0100 ####[facility] [address] [place], [address] Carbon dioxide, total [Moles /volume] in Central venous bloodOrdered By: Rajan Fay on 01-20-2025 CO2 [Moles/Vol] 21.6 mmol/L 21.0-32.0 [facility] Chloride assayOrdered By: Eldon Fay on 01-20-2025 Chloride [Moles/Vol] 102 mmol/L 98-108 [facility] Comprehensive Metabolic Prof ilon 01-20-2025 Albumin [Mass/Vol] 4.6 g/dL Normal 3.5-5.0 [facility] Comment on above: Performed By: #### L 503.6005, L500.4050, L501.2450, L700.6800 #### [facility] [address] [place], [address] Albumin/Globulin [Mass ratio] 1.5 {ratio} Normal 0.9-2.4 [facility] Comment on above: Performed By: #### L 503.6005, L500.4050, L501.2450, L700.6800 #### [facility] [address] [place], [address] ALK PHOS 72 U/L Normal 35-104 [facility] Comment on above: Performed By: #### L 503.6005, L500.4050, L501.2450, L700.6800 #### [facility] [address] [place], [address] ALT [Catalytic activity/Vol] 39 U/L High <=34 [facility] Comment on above: Performed By: #### L 503.6005, L500.4050, L501.2450, L700.6800 #### [facility] [address] [place], [address] AST [Catalytic activity/Vol] 24 U/L Normal <=31 [facility] Comment on above: Performed By: #### L 503.6005, L500.4050, L501.2450, L700.6800 #### [facility] [address] [place], [address] Bilirubin [Mass/Vol] 0.40 mg/dL Normal 0.00-1.30 [facility] Comment on above: Performed By: #### L 503.6005, L500.4050, L501.2450, L700.6800 #### [facility] [address] [place], [address] BUN/CRE 8.6 RATIO Low 10-20 [facility] Comment on above: Performed By: #### L 503.6005, L500.4050, L501.2450, L700.6800 #### [facility] [address] [place], [address] Calcium [Mass/Vol] 9.4 mg/dL Normal 7.6-11.0 [facility] Comment on above: Performed By: #### L 503.6005, L500.4050, L501.2450, L700.6800 #### [facility] [address] [place], [address] Chloride [Moles/Vol] 102 mmol/L Normal 98-108 [facility] Comment on above: Performed By: #### L 503.6005, L500.4050, L501.2450, L700.6800 #### [facility] [address] [place], [address] CO2 [Moles/Vol] 21.6 mmol/L Normal 21.0-32.0 [facility] Comment on above: Performed By: #### L 503.6005, L500.4050, L501.2450, L700.6800 #### [facility] [address] [place], [address] Creatinine [Mass/Vol] 0.99 mg/dL Normal 0.70-1.20 [facility] Comment on above: Performed By: #### L 503.6005, L500.4050, L501.2450, L700.6800 #### [facility] [address] [place], [address] ECRCL 85.80 ml/min Normal 50-250 [facility] Comment on above: Performed By: #### L 503.6005, L500.4050, L501.2450, L700.6800 #### [facility] [address] [place], [address] GAP 14 Normal 5-15 [facility] Comment on above: Performed By: #### L 503.6005, L500.4050, L501.2450, L700.6800 #### [facility] [address] [place], [address] GFR/1.73 sq M.predicted among non-blacks MDRD (S/P/Bld) [Vol rate/Area] 73 mL/min/{1.73_m2} Normal >60 [facility] Comment on above: Result Comment: mL/m in/1.73m2 CKD-EPI Creatinine Equation (2020) Performed By: #### L 503.6005, L500.4050, L501.2450, L700.6800 #### [facility] [address] [place], [address] Globulin (S) [Mass/Vol] 3.0 g/dL Normal 2.2-4.2 [facility] Comment on above: Performed By: #### L 503.6005, L500.4050, L501.2450, L700.6800 #### [facility] [address] [place], [address] Glucose [Mass/Vol] 106 mg/dL High 70-99 [facility] Comment on above: Performed By: #### L 503.6005, L500.4050, L501.2450, L700.6800 #### [facility] [address] [place], [address] Potassium [Moles/Vol] 3.7 mmol/L Normal 3.3-5.1 [facility] Comment on above: Performed By: #### L 503.6005, L500.4050, L501.2450, L700.6800 #### [facility] [address] [place], [address] Sodium [Moles/Vol] 138 mmol/L Normal 133-145 [facility] Comment on above: Performed By: #### L 503.6005, L500.4050, L501.2450, L700.6800 #### [facility] [address] [place], [address] T PROT 7.7 g/dL Normal 5.9-8.4 [facility] Comment on above: Performed By: #### L 503.6005, L500.4050, L501.2450, L700.6800 #### [facility] [address] [place], [address] Urea nitrogen [Mass/Vol] 9 mg/dL Normal 4-19 [facility] Comment on above: Performed By: #### L 503.6005, L500.4050, L501.2450, L700.6800 #### [facility] [address] [place], [address] Emergency Department Summary on 01-20-2025 Emergency Department Summary [facility] Medical Records Department [address] [place] [address] Emergency Department Summary 01/20/25 MR#: [id number] Acct: [id number] Name: CATRACHITA MURRAY Rep #: [id number] : 1985 39 From: Rajan Fay DO PCP: Dr. Celso Brewer MD Status:REG ER Location: ED HPI HPI - Female History of Present Illness Chief Complaint: Female C/O Narrative Narrative: Chief complaint and HPI: Left lower extremity pain. 39-year-old female with past medical history of appendectomy, HTN, hypothyroidism, hysterectomy, ovarian cyst presents for evaluation of left lower quadrant abdominal pain. Onset of symptoms this morning. Describes it as sharp/tearing. Fluctuates in intensity. Associated symptom is nausea without emesis. Denies any fever, chills, shortness of breath, chest pain, diarrhea, constipation, dysuria. Patient was seen in December for right lower quadrant abdominal pain, she states that the pain feels similar accepted on the other side. That time she was seen in the emergency department in late in which she had a suspected right ovarian cyst rupture. She follows with [facility]. She states she called them today and they told her to come to the emergency department. Review of systems: See HPI Medications: As listed on the chart Allergies: As listed on the chart PFSH: Per chart Vital signs: As listed on the chart. Reviewed. Physical exam: Gen: A O x3 Head: Normocephalic, atraumatic Eyes: No sclera icterus, conjunctiva clear ENT: Moist mucous membranes Neck: Trachea midline, No JVD CV: RRR, no murmurs, no peripheral edema Resp: Lungs CTA BL, no w/r/c GI: Abd soft, non-distended, tender to palpation in the left lower quadrant, no rebound or rigidity : No CVA tenderness Musc: Full ROM, no deformity Skin: Warm, dry Neuro: Alert, oriented, grossly intact, sensation intact Psych: Cooperative, appropriate mood and affect [facility] Medical History History of postoperative nausea and vomiting Alcohol use Depression Anxiety Heartburn Non-smoker Sleep apnea Hypothyroidism Home Medications ???Medication ???Instructions ???Recorded ???Last Taken ???Type duloxetine 60 mg capsule,delayed 60 mg PO QHS anxiety 07/10/1912/05 History release lisinopril 20 mg tablet 20 mg PO QHS blood pressure 12/21/24 History bupropion HCl 150 mg tablet,12 hr 150 mg PO DAILY 12/22/24 12/22/24 History sustained-release clonidine HCl 0.1 mg tablet 0.1 - 0.2 mg PO QHS 12/22/2412/21 History levothyroxine 25 mcg tablet 25 mcg PO DAILY 12/22/24 12/22/24 History omeprazole 40 mg capsule,delayed 40 mg PO DAILY PRN heartburn 12/22 Unknown History release ondansetron 4 mg disintegrating 4 mg PO Q8H PRN PRN Nausea #10 tab s 12/22/24 Unknown Rx tablet oxycodone-acetaminop hen 5 mg-325 1 tab PO Q6H PRN pain 2 days #8 Unknown Rx mg tablet (Percocet) tabs oxycodone-acetaminop hen 5 mg-325 1 tab PO Q6H 2 days #8 tabs Unknown Rx mg tablet (Percocet) Allergy/AdvReac Type Severity Reaction Status Date / Time No Known Allergies Allergy Verified 01/20/25 08:35 Surgical History History of hysterectomy History of appendectomy Social History Smoking Status: Never smoker substance use type: does not use EXAM Physical Exam Const Vital Signs: 01/20/25 08:34 Temperature 99 F Temperature Source Temporal Pulse Rate 100 Respiratory Rate 16 Blood Pressure 146/106 H Blood Pressure Mean 119 Pulse Ox 98 Oxygen Delivery Method Room Air MDM MDM MDM Narrative Medical decision making narrative: 39-year-old female with past medical history of appendectomy, HTN, hypothyroidism, hysterectomy, ovarian cyst presents for evaluation of left lower quadrant abdominal pain. Onset of symptoms this morning. Differential diagnosis includes but is not limited to ovarian cyst rupture, ovarian torsion, UTI, urolithiasis, diverticulitis. Given patient has a history of ovarian cysts rupture and states this feels similar will start with ultrasound of the pelvis, if this is unremarkable will get CT abdomen pelvis. Morphine, NS bolus, Zofran ordered for symptoms. Abdominal pain workup ordered. Patient has a history of a hysterectomy therefore no chance of . Patient was seen in our emergency department for the same pain in December. At that time I saw her and she had a transvaginal ultrasound that showed a 2.3 cm right corpus luteal cyst with nonvisualized left ovary. CT of the abdomen showed a 3 mm right ovarian likely hemorrhagic cyst with a small surrounding slightly hypotonic flu (more content not included)... Normal [facility] Eosinophil percentageOrdered By: Rajan Fay on 01-20-2025 Eosinophils/100 WBC (Bld) 2.4 % 0-5 [facility] Erythrocyte distribution wid th ratioOrdered By: Rajan Fay on 01-20-2025 Erythrocyte distribution width (RBC) [Ratio] 12.5 % 11.6-14.6 [facility] Erythrocyte distribution wid th standard deviationOrdered By: Rajan Emanuel on 01-20-2025 Erythrocyte distribution width (RBC) [Ratio] 39.2 fl 35.1-43.9 [facility] Glomerular filtration rate ( GFR) estimation/1.73 sq m using serum, plasma, or whole bOrdered By: Rajan Fay on 01-20-2025 GFR/1.73 sq M.predicted among non-blacks MDRD (S/P/Bld) [Vol rate/Area] 73 mL/min/{1.73_m2} >60 [facility] Comment on above: mL/min/1.73m2 CKD-EP I Creatinine Equation (2020) Hematocrit Auto (Bld) [Volum e fraction]Ordered By: [facility] on 01-20-2025 Hematocrit (Bld) [Volume fraction] 43.1 % 37-47 [facility] Hemoglobin measurementOrdere d By: Rajanmaggie Fay on 01-20-2025 Hemoglobin (Bld) [Mass/Vol] 15.0 g/dL 12.0-15.0 [facility] Immature granulocytes/100 WB C Auto (Bld)Ordered By: Rajanmaggie Fay on 01-20-2025 Immature granulocytes/100 WBC (Bld) 0.200 % 0.0-0.9 [facility] Comment on above: IG% - Immature Granu locytes (promyelocytes, myelocytes and metamyelocytes) > 1% indicates that a LEFT SHIFT is Present. Ketones Test strip Ql (U)Ord ered By: Rajanmaggie Fay on 01-20-2025 Ketones Ql (U) Negative Negative [facility] Laboratory - Chemistry and C hemistry - challengeOrdered By: Rajan Fay on 01-20-2025 AST [Catalytic activity/Vol] 24 U/L <32 [facility] Lactic Acidon 01-20-2025 Lactate [Moles/Vol] 1.5 mmol/L Normal 0.0-2.0 [facility] Comment on above: Order Comment: Y Performed By: #### L 503.6009, L500.4050, L501.2450, L700.1510 #### [facility] [address] [place], [address] Lactic acid measurementOrder ed By: Rajan Fay on 01-20-2025 Lactate [Moles/Vol] 1.5 mmol/L 0.0-2.0 [facility] Lipaseon 01-20-2025 Lipase [Catalytic activity/Vol] 29 U/L Normal 13-75 [facility] Comment on above: Result Comment: Kassandra zaragoza note: LIPASE revised reference range effective 22. New Lipase methodology. Expected to produce lower values than the previous assay method. NEW Reference Range: 13 - 75 U/L Performed By: #### L 503.6005, L500.4050, L501.2450, L700.6800 #### [facility] [address] [place], [address] Lipase measurementOrdered By : Rajan Fay on 01-20-2025 Lipase [Catalytic activity/Vol] 29 U/L - [facility] Comment on above: Please note:LIPASE r evised reference range effective 22. New Lipase methodology. Expected to produce lower values than the previous assay method. NEW Reference Range: 13 - 75 U/L MCV (mean corpuscular volume ) determinationOrdered By: Rajan Fay on 01-20-2025 MCV (RBC) [Entitic vol] 86.9 fL 81-[address] [facility] Mean corpuscular hemoglobin (MCH) determinationOrdered By: Rajan Fay on 01-20-2025 MCH (RBC) [Entitic mass] 30.2 pg 27.0-32.0 [facility] Mean corpuscular hemoglobin concentration (MCHC) determinationOrdered By: Rajan Fay on 01-20-2025 MCHC (RBC) [Mass/Vol] 34.8 g/dL 32-36 [facility] Mean platelet volume determi nationOrdered By: Rajan Fay on 01-20-2025 Platelet mean volume (Bld) [Entitic vol] 11.0 fL 6.2-12.0 [facility] Microscopic analysis of urin e for red blood cells (RBC)Ordered By: Rajan Fay on 01-20-2025 Microscopic analysis of urine for red blood cells (RBC) 0 SEEN /hpf 0-5 [facility] Monocyte percentageOrdered B y: Rajan Fay on 01-20-2025 Monocytes/100 WBC (Bld) 6.7 % 0-[address] [facility] Mucus LM Ql (Urine sed)Order ed By: Rajan Fay on 01-20-2025 Mucus Ql (Urine sed) 0 SEEN /hpf [facility] Neutrophil percentageOrdered By: Rajan Fay on 01-20-2025 Neutrophils/100 WBC (Bld) 63.8 % 47-70 [facility] Nitrite Test strip Ql (U)Ord ered By: Rajan Fay on 01-20-2025 Nitrite Ql (U) Negative Negative [facility] Nucleated red blood cell per centageOrdered By: Rajan Fay on 01-20-2025 Nucleated RBC/100 WBC (Bld) [Ratio] 0 % 0-5 [facility] Platelet countOrdered By: Eldon Fay on 01-20-2025 Platelets (Bld) [#/Vol] 340 10*3/uL 150-450 [facility] Potassium measurement (mass/ volume)Ordered By: Rajan Fay on 01-20-2025 Potassium (Unsp spec) [Mass/Vol] 3.7 mmol/L 3.3-5.1 [facility] ,Serum,hCG Quali.on 01-20-2025 HCG, SERUM QUAL Normal [facility] Comment on above: Result Comment: Canc elled via OM: Ordered Performed By: #### L 503.6005, L500.4050, L501.2450, L700.6800 #### [facility] [address] [place], [address] INTERNAL QC OK? Normal [facility] Comment on above: Result Comment: Canc danteed via OM: Ordered Performed By: #### L 503.6005, L500.4050, L501.2450, L700.6800 #### [facility] [address] [place], [place], [address] RECORD KIT LOT# Normal [facility] Comment on above: Result Comment: Hannah driver via OM: MD Ordered Performed By: #### L 503.6005, L500.4050, L501.2450, L700.6800 #### [facility] [address] [place], [address] Protein Test strip Ql (U)Ord ered By: Rajan Fay on 01-20-2025 Protein Ql (U) 15 mg/dl High Negative [facility] RBC Auto (Bld) [#/Vol]Ordere d By: Rajan Fay on 01-20-2025 RBC (Bld) [#/Vol] 4.96 10*6/uL 4.2-5.4 [facility] Serum creatinine measurement (mass/volume)Ordered By: Rajan Fay on 01-20-2025 Creatinine [Mass/Vol] 0.99 mg/dL 0.70-1.20 [facility] Serum globulin measurementOr dered By: Rajan Fay on 01-20-2025 Globulin (S) [Mass/Vol] 3.0 g/dL 2.2-4.[address] [facility] Serum glucose measurement (m ass/volume)Ordered By: Rajan Fay on 01-20-2025 Glucose [Mass/Vol] 106 mg/dL High 70-99 [facility] Serum or plasma alanine mike otransferase (ALT) measurementOrdered By: Rajan Fay on 01-20-2025 ALT [Catalytic activity/Vol] 39 U/L High <35 [facility] Serum or plasma albumin jami urement (mass/volume)Ordered By: Rajan Emanuel on 01-20-2025 Albumin [Mass/Vol] 4.6 g/dL 3.5-5.0 [facility] Serum or plasma albumin/glob ulin mass ratioOrdered By: Rajan Fay on 01-20-2025 Albumin/Globulin [Mass ratio] 1.5 {ratio} 0.9-2.4 [facility] Serum or plasma alkaline cassia sphatase measurementOrdered By: Rajan Fay on 01-20-2025 ALP [Catalytic activity/Vol] 72 U/L 35-104 [facility] Serum or plasma calcium jami urement (mass/volume)Ordered By: Rajan Emanuel on 01-20-2025 Calcium [Mass/Vol] 9.4 mg/dL 7.6-11.0 [facility] Serum or plasma urea nitroge n measurement (mass/volume)Ordered By: Rajan Fay on 01-20-2025 Urea nitrogen [Mass/Vol] 9 mg/dL 4-19 [facility] Sodium levelOrdered By: Rayo Fay on 01-20-2025 Sodium [Moles/Vol] 138 mmol/L 133-145 [facility] Squamous epithelial cells de tection in urine sediment by light microscopyOrdered By: Rajan Fay on 01-20-2025 Epithelial cells.squamous LM Ql (Urine sed) 0-5 SEEN /hpf 5-10 [facility] Total proteinOrdered By: Keshawn Fay on 01-20-2025 Protein [Mass/Vol] 7.7 g/dL 5.9-8.4 [facility] Transvaginal Non-on 01-20-2025 Transvaginal Non- [facility] [address] [place] [address] Transvaginal Non- MR#: [id number] Acct: [id number] Name: CATRACHITA MURRAY Rep #: [id number] : 1985 F 39 From: Jimenez dobson MD PCP: Dr. Celso Brewer MD Status: REG ER Study: Transvaginal Non- Date of Exam: Exam# [id number] Ordering Dr: Rajan Fay DO PROCEDURE: TRANSVAGINAL NON- 01/20/2025 REASON FOR EXAM: CONCERN FOR OVARIAN TORSION TECHNIQUE: Transvaginal pelvic ultrasound COMPARISON: Prior study dated December 22, 2024. FINDINGS: Measurements: The patient is status post hysterectomy. Right Ovary: 2.3 cm x 1.7 cm x 1.5 cm with a volume of 20.62 mL. Left Ovary: 5.7 cm x 3.6 cm x 3.8 with a volume of 41.61 mL. Uterus: The uterus is surgically absent. Right ovary: Normal size and echotexture. Left ovary: Enlarged left ovary. Regressing follicle. It presently measures 1.6 cm x 2 cm. Other: No large pelvic mass identified. Normal blood flow to both ovaries. US/Transvaginal Non- IMPRESSION: Residual follicle in the left ovary. Status post hysterectomy. Reading Location: [place] [address] CC: Dr. Rajan Fay DO; Dr. Celso Brewer MD Inspector Final Assembly Electrical: Signed Normal [facility] Urinalysis, Completeon 01-20 EPI,SQUAMOUS 0-5 SEEN Normal 5-10 [facility] Comment on above: Order Comment: CLEAN CATCH Performed By: #### L 400.0001 ####[facility] [address] [place], [address] WBC 0-5 SEEN Normal 0-5 [facility] Comment on above: Order Comment: CLEAN CATCH Performed By: #### L 400.0001 ####[facility] [address] [facility] [address] BACTERIA 0 SEEN Normal None Seen [facility] Comment on above: Order Comment: CLEAN CATCH Performed By: #### L 400.0001 ####[facility] [address] [place], [address] Mucus Ql (Urine sed) 0 SEEN Normal [facility] Comment on above: Order Comment: CLEAN CATCH Performed By: #### L 400.0001 ####[facility] [address] [place], [address] RBC 0 SEEN Normal 0-5 [facility] Comment on above: Order Comment: CLEAN CATCH Performed By: #### L 400.0001 ####[facility] [address] [place], [address] Urine clarityOrdered By: Keshawn Fay on 01-20-2025 Clarity (U) Sl. Cloudy Clear [facility] Urine color determinationOrd ered By: Rajan Fay on 01-20-2025 Color (U) Yellow Yellow [facility] Urine glucose detectionOrder ed By: Rajan Fay on 01-20-2025 Glucose Ql (U) Normal mg/dl Normal [facility] Urine leukocyte esterase det ection by dipstickOrdered By: Rajan Fay on 01-20-2025 Leukocyte esterase Test strip Ql (U) 100 /ul High Negative [facility] Urine pHOrdered By: Rajan Sal on 01-20-2025 pH (U) 6.5 [pH] 5.0 - 8.0 [facility] Urine sediment bacteria coun t by microscopy (number/high power field)Ordered By: Rajan Fay on 01-20-2025 Bacteria LM.HPF (Urine sed) [#/Area] 0 /[HPF] None Seen [facility] Urine specific gravity measu rementOrdered By: Rajan Fay on 01-20-2025 Specific gravity (U) [Rel density] 1.010 1.002-1.030 [facility] Urine urobilinogen measureme ntOrdered By: Rajan Fay on 01-20-2025 Urobilinogen Ql (U) Normal mg/dl Normal [facility] White blood cell (WBC) count Ordered By: Rajan Fay on 01-20-2025 WBC (Bld) [#/Vol] 9.4 10*3/uL 4.4-11.0 [facility] White blood cell countOrdere d By: Rajan Fay on 01-20-2025 White blood cell count 0-5 SEEN /hpf 0-5 [facility] Abdomen/Pelvis W IV Cont ONL Yon 12-22-2024 Abdomen/Pelvis W IV Cont ONLY [facility] [address] [place] [address] Abdomen/Pelvis W IV Cont ONLY MR#: [id number] Acct: [id number] Name: CATRACHITA MURRAY Rep #: [id number] : 1985 F 39 From: Aki garcia MD PCP: Dr. Celso Brewer MD Status: REG ER Study: Abdomen/Pelvis W IV Cont ONLY Date of Exam: Exam# [id number] Ordering Dr: Rajan Fay DO PROCEDURE: ABDOMEN/PELVIS W IV CONT ONLY 12/22/2024 REASON FOR EXAM: RLQ PAIN, HISTORY OF APPENDECTOMY TECHNIQUE: Abdomen and pelvis CT with intravenous contrast. Coronal and Sagittal reconstruction series were provided. PATIENT PREPARATION: Per protocol ORAL CONTRAST TYPE: None. AMOUNT: mL CONTRAST: Omnipaque 350 VOLUME: 100 mL Not Provided1 Gauge IV One or more dose reduction techniques were used (e.g., Automated exposure control, adjustment of the mA and/or kV according to patient size, use of iterative reconstruction technique. COMPARISON: CT abdomen and pelvis 07/02/2020 FINDINGS: Lung bases: Mild dependent atelectasis Liver: Hepatic steatosis with focal sparing at the gallbladder fossa. Hepatomegaly, craniocaudal length 20.2 cm. Gallbladder: No ductal dilation. Gallbladder is within normal limits. Spleen: Normal size. Pancreas: Normal size without evidence of mass surrounding inflammation or ductal dilation. Adrenals: Unremarkable Kidneys: Normal renal sizes. No hydronephrosis. Bladder: Urinary bladder is unremarkable. Reproductive Organs: 19 mm right hemorrhagic cyst. Small slightly hyperdense fluid about the cysts, likely secondary to rupture. Bowel: Small hiatal hernia. Stomach is otherwise unremarkable. No bowel dilation or wall thickening. Appendix: Status post appendectomy Lymph nodes: Unremarkable. Vasculature: The abdominal aorta and IVC are normal. Peritoneum / Retroperitoneum: No pneumoperitoneum. Bones: Unremarkable. Soft tissues: No focal soft tissue abnormality. CT/Abdomen/Pelvis W IV Cont ONLY IMPRESSION: No acute findings in the abdomen and pelvis. 19 mm right ovarian likely hemorrhagic cyst with small surrounding slightly hyperattenuating fluid, likely secondary to rupture. [facility] CC: Dr. Rajan Fay, DO; Dr. Celso Brewer MD Inspector Final Assembly Electrical: Signed Normal [facility] Absolute lymphocyte countOrd ered By: Rajan Fay on 12-22-2024 Lymphocytes Auto (Unsp spec) [#/Vol] 1.82 10*3/uL 0.83-4.51 [facility] Absolute neutrophil countOrd ered By: Rajan Fay on 12-22-2024 Neutrophils (Bld) [#/Vol] 9.4 10*3/uL High 2.0-7.7 [facility] Anion gap in Serum or Plasma Ordered By: Rajan Fay on 12-22-2024 Anion gap [Moles/Vol] 14 mmol/L 5-15 [facility] Automated lymphocyte count a s percentage of total leukocytesOrdered By: Rajan Fay on 12-22-2024 Lymphocytes/100 WBC Auto (Unsp spec) 15.3 % Low 19-41 [facility] BUN/creatinine ratioOrdered By: Rajan Fay on 12-22-2024 Urea nitrogen/Creatinine [Mass ratio] 9.0 mg/mg Low 10-20 [facility] Basophil percentageOrdered B y: Rajan Fay on 12-22-2024 Basophils/100 WBC (Bld) 0.7 % 0-[address] [facility] Bilirubin Test strip Ql (U)O rdered By: Rajan Fay on 12-22-2024 Bilirubin Ql (U) Negative Negative [facility] Bilirubin, totalOrdered By: Rajan Fay on 12-22-2024 Bilirubin [Mass/Vol] 0.46 mg/dL 0.00-1.30 [facility] CBC W/Diff, Automatedon 12-05 Absolute Lymph 1.82 X10 3/uL Normal 0.83-4.51 [facility] Comment on above: Performed By: #### L 503.6005, L100.0100, L500.4050, L501.2450 ####[facility] [address] [place], [address] Absolute Neut 9.4 X10 3/uL High 2.0-7.7 [facility] Comment on above: Performed By: #### L 503.6005, L100.0100, L500.4050, L501.2450 ####[facility] [address] [place], [address] Basophils/100 WBC (Bld) 0.7 % Normal 0-[address] [facility] Comment on above: Performed By: #### L 503.6005, L100.0100, L500.4050, L501.2450 ####[facility] [address] [place], [address] Eosinophils/100 WBC (Bld) 0.9 % Normal 0-5 [facility] Comment on above: Performed By: #### L 503.6005, L100.0100, L500.4050, L501.2450 ####[facility] [address] [place], [address] Erythrocyte distribution width (RBC) [Ratio] 12.5 % Normal 11.6-14.6 [facility] Comment on above: Performed By: #### L 503.6005, L100.0100, L500.4050, L501.2450 ####[facility] [address] [place], [address] Hematocrit (Bld) [Volume fraction] 42.2 % Normal 37-47 [facility] Comment on above: Performed By: #### L 503.6005, L100.0100, L500.4050, L501.2450 ####[facility] [address] [place], [address] Hemoglobin (Bld) [Mass/Vol] 14.7 g/dL Normal 12.0-15.0 [facility] Comment on above: Performed By: #### L 503.6005, L100.0100, L500.4050, L501.2450 ####[facility] [address] [place], [address] IG% 0.300 Normal 0.0-0.9 [facility] Comment on above: Result Comment: IG% - Immature Granulocytes (promyelocytes, myelocytes and metamyelocytes) > 1% indicates that a LEFT SHIFT is Present. Performed By: #### L 503.6005, L100.0100, L500.4050, L501.2450 ####[facility] [address] [place], [address] Lymphocytes/100 WBC (Bld) 15.3 % Low 19-41 [facility] Comment on above: Performed By: #### L 503.6005, L100.0100, L500.4050, L501.2450 ####[facility] [address] [place], [address] MCH (RBC) [Entitic mass] 30.6 pg Normal 27.0-32.0 [facility] Comment on above: Performed By: #### L 503.6005, L100.0100, L500.4050, L501.2450 ####[facility] [address] [place], [address] MCHC (RBC) [Mass/Vol] 34.8 g/dL Normal 32-36 [facility] Comment on above: Performed By: #### L 503.6005, L100.0100, L500.4050, L501.2450 ####[facility] [address] [place], [address] MCV (RBC) [Entitic vol] 87.7 fL Normal 81-[address] [facility] Comment on above: Performed By: #### L 503.6005, L100.0100, L500.4050, L501.2450 ####[facility] [address] [place], [address] Monocytes/100 WBC (Bld) 4.4 % Normal 0-[address] [facility] Comment on above: Performed By: #### L 503.6005, L100.0100, L500.4050, L501.2450 ####[facility] [address] [place], [address] Neutrophils/100 WBC (Bld) 78.4 % High 47-70 [facility] Comment on above: Performed By: #### L 503.6005, L100.0100, L500.4050, L501.2450 ####[facility] [address] [place], [address] Nucleated RBC (Bld) [#/Vol] 0 10*3/uL Normal 0-5 [facility] Comment on above: Performed By: #### L 503.6005, L100.0100, L500.4050, L501.2450 ####[facility] [address] [place], [address] Platelet mean volume (Bld) [Entitic vol] 10.8 fL Normal 6.2-12.0 [facility] Comment on above: Performed By: #### L 503.6005, L100.0100, L500.4050, L501.2450 ####[facility] [address] [place], [address] Platelets (Bld) [#/Vol] 363 10*3/uL Normal 150-450 [facility] Comment on above: Performed By: #### L 503.6005, L100.0100, L500.4050, L501.2450 ####[facility] [address] [place], [address] RBC (Bld) [#/Vol] 4.81 10*6/uL Normal 4.2-5.4 [facility] Comment on above: Performed By: #### L 503.6005, L100.0100, L500.4050, L501.2450 ####[facility] [address] [place], [address] RDW SD 40.3 fl Normal 35.1-43.9 [facility] Comment on above: Performed By: #### L 503.6005, L100.0100, L500.4050, L501.2450 ####[facility] [address] [place], [address] WBC (Bld) [#/Vol] 11.9 10*3/uL High 4.4-11.0 [facility] Comment on above: Performed By: #### L 503.6005, L100.0100, L500.4050, L501.2450 ####[facility] [address] [place], [address] Carbon dioxide, total [Moles /volume] in Central venous bloodOrdered By: Rajan Fay on 12-22-2024 CO2 [Moles/Vol] 21.9 mmol/L 21.0-32.0 [facility] Chloride assayOrdered By: Eldon Fay on 12-22-2024 Chloride [Moles/Vol] 103 mmol/L 98-108 [facility] Comprehensive Metabolic Prof ilon 12-22-2024 Albumin [Mass/Vol] 4.7 g/dL Normal 3.5-5.0 [facility] Comment on above: Performed By: #### L 503.6005, L100.0100, L500.4050, L501.2450 ####[facility] [address] [place], [address] Albumin/Globulin [Mass ratio] 1.5 {ratio} Normal 0.9-2.4 [facility] Comment on above: Performed By: #### L 503.6005, L100.0100, L500.4050, L501.2450 ####[facility] [address] [place], [address] ALK PHOS 67 U/L Normal 35-104 [facility] Comment on above: Performed By: #### L 503.6005, L100.0100, L500.4050, L501.2450 ####[facility] [address] [place], [address] ALT [Catalytic activity/Vol] 25 U/L Normal <=34 [facility] Comment on above: Performed By: #### L 503.6005, L100.0100, L500.4050, L501.2450 ####[facility] [address] [place], [address] AST [Catalytic activity/Vol] 20 U/L Normal <=31 [facility] Comment on above: Performed By: #### L 503.6005, L100.0100, L500.4050, L501.2450 ####[facility] [address] [place], [address] Bilirubin [Mass/Vol] 0.46 mg/dL Normal 0.00-1.30 [facility] Comment on above: Performed By: #### L 503.6005, L100.0100, L500.4050, L501.2450 ####[facility] [address] [place], [address] BUN/CRE 9.0 RATIO Low 10-20 [facility] Comment on above: Performed By: #### L 503.6005, L100.0100, L500.4050, L501.2450 ####[facility] [address] [place], [address] Calcium [Mass/Vol] 9.6 mg/dL Normal 7.6-11.0 [facility] Comment on above: Performed By: #### L 503.6005, L100.0100, L500.4050, L501.2450 ####[facility] [address] [place], [address] Chloride [Moles/Vol] 103 mmol/L Normal 98-108 [facility] Comment on above: Performed By: #### L 503.6005, L100.0100, L500.4050, L501.2450 ####[facility] [address] [place], [address] CO2 [Moles/Vol] 21.9 mmol/L Normal 21.0-32.0 [facility] Comment on above: Performed By: #### L 503.6005, L100.0100, L500.4050, L501.2450 ####[facility] [address] [place], [address] Creatinine [Mass/Vol] 0.97 mg/dL Normal 0.70-1.20 [facility] Comment on above: Performed By: #### L 503.6005, L100.0100, L500.4050, L501.2450 ####[facility] [address] [place], [address] ECRCL 88.01 ml/min Normal 50-250 [facility] Comment on above: Performed By: #### L 503.6005, L100.0100, L500.4050, L501.2450 ####[facility] [address] [place], [address] GAP 14 Normal 5-15 [facility] Comment on above: Performed By: #### L 503.6005, L100.0100, L500.4050, L501.2450 ####[facility] [address] [place], [address] GFR/1.73 sq M.predicted among non-blacks MDRD (S/P/Bld) [Vol rate/Area] 75 mL/min/{1.73_m2} Normal >60 [facility] Comment on above: Result Comment: mL/m in/1.73m2 CKD-EPI Creatinine Equation (2020) Performed By: #### L 503.6005, L100.0100, L500.4050, L501.2450 ####[facility] [address] [place], [address] Globulin (S) [Mass/Vol] 3.2 g/dL Normal 2.2-4.2 [facility] Comment on above: Performed By: #### L 503.6005, L100.0100, L500.4050, L501.2450 ####[facility] [address] [place], [address] Glucose [Mass/Vol] 129 mg/dL High 70-99 [facility] Comment on above: Performed By: #### L 503.6005, L100.0100, L500.4050, L501.2450 ####[facility] [address] [place], [address] Potassium [Moles/Vol] 3.7 mmol/L Normal 3.3-5.1 [facility] Comment on above: Performed By: #### L 503.6005, L100.0100, L500.4050, L501.2450 ####[facility] [address] [place], [address] Sodium [Moles/Vol] 139 mmol/L Normal 133-145 [facility] Comment on above: Performed By: #### L 503.6005, L100.0100, L500.4050, L501.2450 ####[facility] [address] [place], [address] T PROT 7.9 g/dL Normal 5.9-8.4 [facility] Comment on above: Performed By: #### L 503.6005, L100.0100, L500.4050, L501.2450 ####[facility] [address] [place], [address] Urea nitrogen [Mass/Vol] 9 mg/dL Normal 4-19 [facility] Comment on above: Performed By: #### L 503.6005, L100.0100, L500.4050, L501.2450 ####[facility] [address] [place], [address] Emergency Department Summary on 12-22-2024 Emergency Department Summary [facility] Medical Records Department [address] [place] [address] Emergency Department Summary 12/22/24 MR#: [id number] Acct: [id number] Name: CATRACHITA MURRAY Rep #: [id number] : 1985 39 From: Rajan Fay DO PCP: Dr. Celso Brewer MD Status:REG ER Location: ED HPI History of Present Illness Chief Complaint: Abd Pain Narrative Narrative: Chief complaint and HPI: Right lower quadrant abdominal pain. 39-year-old female with past medical history of appendectomy, HTN, hypothyroidism, hysterectomy, ovarian cysts presents for evaluation of right lower quadrant abdominal pain. Onset of symptoms this morning and progressively worsening. Fluctuates in intensity. Described as sharp/tearing. Associated symptom is nausea without emesis. Denies any fever, chills, shortness of breath, chest pain, diarrhea, constipation, dysuria. Denies any history of kidney stones. Still has her bilateral ovaries. Review of systems: See HPI Medications: As listed on the chart Allergies: As listed on the chart PFSH: Per chart Vital signs: As listed on the chart. Reviewed. Physical exam: Gen: A O x3, NAD but uncomfortable secondary to pain Head: Normocephalic, atraumatic Eyes: No sclera icterus, conjunctiva clear ENT: Moist mucous membranes Neck: Trachea midline, No JVD CV: RRR, no murmurs, no peripheral edema Resp: Lungs CTA BL, no w/r/c GI: Abd soft, non-distended, tender to palpation in the right lower quadrant, no rebound or rigidity : No CVA tenderness Musc: Full ROM, no deformity Skin: Warm, dry Neuro: Alert, oriented, grossly intact, sensation intact Psych: Cooperative, appropriate mood and affect PFSH PFSH Medical History History of postoperative nausea and vomiting Alcohol use Depression Anxiety Heartburn Non-smoker Sleep apnea Hypothyroidism Home Medications ???Medication ???Instructions ???Recorded ???Last Taken ???Type duloxetine 60 mg capsule,delayed 60 mg PO QHS anxiety 07/10/1912/05 History release lisinopril 20 mg tablet 20 mg PO QHS blood pressure 12/21/24 History bupropion HCl 150 mg tablet,12 hr 150 mg PO DAILY 12/22/24 12/22/24 History sustained-release clonidine HCl 0.1 mg tablet 0.1 - 0.2 mg PO QHS 12/22/2412/21 History levothyroxine 25 mcg tablet 25 mcg PO DAILY 12/22/24 12/22/24 History omeprazole 40 mg capsule,delayed 40 mg PO DAILY PRN heartburn 12/22 Unknown History release Allergy/AdvReac Type Severity Reaction Status Date / Time No Known Allergies Allergy Verified 12/22/24 14:54 Family History no significant family his Surgical History History of hysterectomy History of appendectomy Social History Smoking Status: Never smoker substance use type: does not use EXAM Physical Exam Const Vital Signs: 12/22/24 14:54 12/22/24 16:54 Temperature 97 F L Temperature Source Temporal Pulse Rate 87 93 Respiratory Rate 16 Blood Pressure 153/99 H 146/101 H Blood Pressure Mean 117 116 Pulse Ox 100 98 Oxygen Delivery Method Room Air Room Air MDM MDM MDM Narrative Medical decision making narrative: 39-year-old female with past medical history of appendectomy, HTN, hypothyroidism, hysterectomy, ovarian cysts presents for evaluation of right lower quadrant abdominal pain. Onset of symptoms this morning and progressively worsening. Differential diagnosis includes but is not limited to ovarian torsion, ovarian cyst, urolithiasis, colitis, UTI, electrolyte abnormality. NS bolus, Zofran, morphine ordered for symptoms. Abdominal pain workup ordered including CT abdomen pelvis as well as pelvic ultrasound to assess for ovarian torsion. CBC with mild leukocytosis 11.9. No anemia. CMP relatively unremarkable. Lactic unremarkable. Lipase unremarkable. UA negative for UTI. CT abdomen pelvis shows a 19 mm right ovarian likely hemorrhagic cyst with small surrounding slightly hyperattenuating fluid, likely secondary to rupture. Transvaginal ultrasound shows a 2.3 cm right corpus luteal cyst, otherwise normal-appearing right ovary. Nonvisualized left ovary. Patient's pain is likely secondary to her rupturing cyst. On reevaluation, her pain is now controlled. Patient follows with Dr. Nina with [facility]. Therefore [facility] DERMATOLOG[facility] was contacted and I spoke with Dr. Perez. She agrees with conservative management. Follow-up in their office. Patient was updated on the recommendations and confirmed understanding. She will be given Percocet and Zofran as needed for pain. She will be given a work note for tomorrow off. Return precautions explained. Impression: (more content not included)... Normal [facility] Eosinophil percentageOrdered By: Rajan Fay on 12-22-2024 Eosinophils/100 WBC (Bld) 0.9 % 0-5 [facility] Erythrocyte distribution wid th ratioOrdered By: Rajan Sumeet on 12-22-2024 Erythrocyte distribution width (RBC) [Ratio] 12.5 % 11.6-14.6 [facility] Erythrocyte distribution wid th standard deviationOrdered By: Rajan Emanuel on 12-22-2024 Erythrocyte distribution width (RBC) [Ratio] 40.3 fl 35.1-43.9 [facility] Glomerular filtration rate ( GFR) estimation/1.73 sq m using serum, plasma, or whole bOrdered By: Rajan Fay on 12-22-2024 GFR/1.73 sq M.predicted among non-blacks MDRD (S/P/Bld) [Vol rate/Area] 75 mL/min/{1.73_m2} >60 [facility] Comment on above: mL/min/1.73m2 CKD-EP I Creatinine Equation (2020) Hematocrit Auto (Bld) [Volum e fraction]Ordered By: Rajan Fay on 12-22-2024 Hematocrit (Bld) [Volume fraction] 42.2 % 37-47 [facility] Hemoglobin measurementOrdere d By: Rajan Fay on 12-22-2024 Hemoglobin (Bld) [Mass/Vol] 14.7 g/dL 12.0-15.0 [facility] Immature granulocytes/100 WB C Auto (Bld)Ordered By: Rajan Doron on 12-22-2024 Immature granulocytes/100 WBC (Bld) 0.300 % 0.0-0.9 [facility] Comment on above: IG% - Immature Granu locytes (promyelocytes, myelocytes and metamyelocytes) > 1% indicates that a LEFT SHIFT is Present. Ketones Test strip Ql (U)Ord ered By: Rajan Fay on 12-22-2024 Ketones Ql (U) Negative Negative [facility] Laboratory - Chemistry and C hemistry - challengeOrdered By: Rajanmaggie Fay on 12-22-2024 AST [Catalytic activity/Vol] 20 U/L <32 [facility] Lactic Acidon 12-22-2024 Lactate [Moles/Vol] 1.4 mmol/L Normal 0.0-2.0 [facility] Comment on above: Order Comment: Y Performed By: #### L 503.6005, L100.0100, L500.4050, L501.2450 ####[facility] [address] [place], [address] Lactic acid measurementOrder ed By: Rajan Fay on 12-22-2024 Lactate [Moles/Vol] 1.4 mmol/L 0.0-2.0 [facility] Lipaseon 12-22-2024 Lipase [Catalytic activity/Vol] 28 U/L Normal 13-75 [facility] Comment on above: Result Comment: Kassandra zaragoza note: LIPASE revised reference range effective 22. New Lipase methodology. Expected to produce lower values than the previous assay method. NEW Reference Range: 13 - 75 U/L Performed By: #### L 503.6005, L100.0100, L500.4050, L501.2450 ####[facility] [address] [place], [address] Lipase measurementOrdered By : Rajan Fay on 12-22-2024 Lipase [Catalytic activity/Vol] 28 U/L 13-75 [facility] Comment on above: Please note:LIPASE r evised reference range effective 22. New Lipase methodology. Expected to produce lower values than the previous assay method. NEW Reference Range: 13 - 75 U/L MCV (mean corpuscular volume ) determinationOrdered By: Rajan Fay on 12-22-2024 MCV (RBC) [Entitic vol] 87.7 fL 81-[address] [facility] Mean corpuscular hemoglobin (MCH) determinationOrdered By: Rajan Sumeet on 12-22-2024 MCH (RBC) [Entitic mass] 30.6 pg 27.0-32.0 [facility] Mean corpuscular hemoglobin concentration (MCHC) determinationOrdered By: Rajanmaggie Fay on 12-22-2024 MCHC (RBC) [Mass/Vol] 34.8 g/dL 32-36 [facility] Mean platelet volume determi nationOrdered By: Rajan Fay on 12-22-2024 Platelet mean volume (Bld) [Entitic vol] 10.8 fL 6.2-12.0 [facility] Microscopic analysis of urin e for red blood cells (RBC)Ordered By: Rajan Fay on 12-22-2024 Microscopic analysis of urine for red blood cells (RBC) 0 SEEN /hpf 0-5 [facility] Monocyte percentageOrdered B y: Rajan Fay on 12-22-2024 Monocytes/100 WBC (Bld) 4.4 % 0-[address] [facility] Mucus LM Ql (Urine sed)Order ed By: Rajan Fay on 12-22-2024 Mucus Ql (Urine sed) 0 SEEN /hpf [facility] Neutrophil percentageOrdered By: Rajan Fay on 12-22-2024 Neutrophils/100 WBC (Bld) 78.4 % High 47-70 [facility] Nitrite Test strip Ql (U)Ord ered By: Rajan Fay on 12-22-2024 Nitrite Ql (U) Negative Negative [facility] Nucleated red blood cell per centageOrdered By: Rajan Fay on 12-22-2024 Nucleated RBC/100 WBC (Bld) [Ratio] 0 % 0-5 [facility] Platelet countOrdered By: Eldon Fay on 12-22-2024 Platelets (Bld) [#/Vol] 363 10*3/uL 150-450 [facility] Potassium measurement (mass/ volume)Ordered By: Rajan Fay on 12-22-2024 Potassium (Unsp spec) [Mass/Vol] 3.7 mmol/L 3.3-5.1 [facility] Protein Test strip Ql (U)Ord ered By: Rajan Fay on 12-22-2024 Protein Ql (U) 15 mg/dl High Negative [facility] RBC Auto (Bld) [#/Vol]Ordere d By: Rajan Fay on 12-22-2024 RBC (Bld) [#/Vol] 4.81 10*6/uL 4.2-5.4 [facility] Serum creatinine measurement (mass/volume)Ordered By: Rajan Fay on 12-22-2024 Creatinine [Mass/Vol] 0.97 mg/dL 0.70-1.20 [facility] Serum globulin measurementOr dered By: Rajan Fay on 12-22-2024 Globulin (S) [Mass/Vol] 3.2 g/dL 2.2-4.[address] [facility] Serum glucose measurement (m ass/volume)Ordered By: Rajan Fay on 12-22-2024 Glucose [Mass/Vol] 129 mg/dL High 70-99 [facility] Serum or plasma alanine mike otransferase (ALT) measurementOrdered By: Rajan Fay on 12-22-2024 ALT [Catalytic activity/Vol] 25 U/L <35 [facility] Serum or plasma albumin jami urement (mass/volume)Ordered By: Rajan Emanuel on 12-22-2024 Albumin [Mass/Vol] 4.7 g/dL 3.5-5.0 [facility] Serum or plasma albumin/glob ulin mass ratioOrdered By: Rajanmaggie GarrisonMarisel on 12-22-2024 Albumin/Globulin [Mass ratio] 1.5 {ratio} 0.9-2.4 [facility] Serum or plasma alkaline cassia sphatase measurementOrdered By: Rajan Fay on 12-22-2024 ALP [Catalytic activity/Vol] 67 U/L 35-104 [facility] Serum or plasma calcium jami urement (mass/volume)Ordered By: Rajan Emanuel on 12-22-2024 Calcium [Mass/Vol] 9.6 mg/dL 7.6-11.0 [facility] Serum or plasma urea nitroge n measurement (mass/volume)Ordered By: Rajan Fay on 12-22-2024 Urea nitrogen [Mass/Vol] 9 mg/dL 4-19 [facility] Sodium levelOrdered By: Rayo Fay on 12-22-2024 Sodium [Moles/Vol] 139 mmol/L 133-145 [facility] Squamous epithelial cells de tection in urine sediment by light microscopyOrdered By: Rajan Fay on 12-22-2024 Epithelial cells.squamous LM Ql (Urine sed) 0-5 SEEN /hpf 5-10 [facility] Total proteinOrdered By: Keshawn Fay on 12-22-2024 Protein [Mass/Vol] 7.9 g/dL 5.9-8.4 [facility] Transvaginal Non-on 12-22-2024 Transvaginal Non- [facility] Imaging Services [address] [place] [address] Transvaginal Non- MR#: [id number] Acct: [id number] Name: CATRACHITA MURRAY Rep #: [id number] : 1985 F 39 From: Aki garcia MD PCP: Dr. Celso Brewer MD Status: REG ER Study: Transvaginal Non- Date of Exam: Exam# [id number] Ordering Dr: Rajan Fay DO PROCEDURE: TRANSVAGINAL NON- 12/22/2024 REASON FOR EXAM: CONCERN FOR OVARIAN TORSION TECHNIQUE: Transabdominal pelvic ultrasound COMPARISON: None FINDINGS: Measurements: Status post hysterectomy Right Ovary: 4.1 x 4.4 x 2.2. 2.3 x 2.2 x 2.0 cm corpus luteal cyst. Left Ovary: Not visualized Uterus: The uterus is surgically absent. Right ovary: Normal size and echotexture. Left ovary: Not visualized. Other: No large pelvic mass identified. US/Transvaginal Non- IMPRESSION: 1. Status post hysterectomy. 2. 2.3 cm right corpus luteal cyst, otherwise normal-appearing right ovary. 3. Nonvisualized left ovary. [facility]: Dr. Rajan Fay DO; Dr. Celso Brewer MD Inspector Final Assembly Electrical: Signed Normal [facility] Urinalysis, Completeon 12-22 BACTERIA RARE Normal None Seen [facility] Comment on above: Order Comment: CLEAN CATCH Performed By: #### L 400.0001 #### [facility] [address] [place], [address] EPI,SQUAMOUS 0-5 SEEN Normal 5-10 [facility] Comment on above: Order Comment: CLEAN CATCH Performed By: #### L 400.0001 #### [facility] [address] [place], [address] Mucus Ql (Urine sed) 0 SEEN Normal [facility] Comment on above: Order Comment: CLEAN CATCH Performed By: #### L 400.0001 #### [facility] [address] [place], [place], [address] RBC 0 SEEN Normal 0-5 [facility] Comment on above: Order Comment: CLEAN CATCH Performed By: #### L 400.0001 #### [facility] [address] [place], [place], [id number] WBC 0 SEEN Normal 0-5 [facility] Comment on above: Order Comment: CLEAN CATCH Performed By: #### L 400.0001 #### [facility] [address] [place], [place], [id number] Urine clarityOrdered By: Keshawn Fay on 12-22-2024 Clarity (U) Clear Clear [facility] Urine color determinationOrd ered By: Rajan Fay on 12-22-2024 Color (U) Yellow Yellow [facility] Urine glucose detectionOrder ed By: Rajan Fay on 12-22-2024 Glucose Ql (U) Normal mg/dl Normal [facility] Urine leukocyte esterase det ection by dipstickOrdered By: Rajan Fay on 12-22-2024 Leukocyte esterase Test strip Ql (U) Negative Negative [facility] Urine pHOrdered By: Rajan Sal on 12-22-2024 pH (U) 6.5 [pH] 5.0 - 8.0 [facility] Urine sediment bacteria coun t by microscopy (number/high power field)Ordered By: Rajan Fay on 12-22-2024 Bacteria LM.HPF (Urine sed) [#/Area] RARE /hpf None Seen [facility] Urine specific gravity measu rementOrdered By: Rajan Fay on 12-22-2024 Specific gravity (U) [Rel density] 1.010 1.002-1.030 [facility] Urine urobilinogen measureme ntOrdered By: Rajan Fay on 12-22-2024 Urobilinogen Ql (U) Normal mg/dl Normal [facility] White blood cell (WBC) count Ordered By: Rajan Fay on 12-22-2024 WBC (Bld) [#/Vol] 11.9 10*3/uL High 4.4-11.0 [facility] White blood cell countOrdere d By: Rajan Fay on 12-22-2024 White blood cell count 0 SEEN /hpf 0-[address] [facility] Absolute lymphocyte countOrd ered By: Celso Brewer on 12-10-2024 Lymphocytes Auto (Unsp spec) [#/Vol] 2.73 10*3/uL 0.83-4.51 [facility] Absolute neutrophil countOrd ered By: Celso Brewer on 12-10-2024 Neutrophils (Bld) [#/Vol] 5.7 10*3/uL 2.0-7.7 [facility] Anion gap in Serum or Plasma Ordered By: Celso Brewer on 12-10-2024 Anion gap [Moles/Vol] 14 mmol/L 5-15 [facility] Automated lymphocyte count a s percentage of total leukocytesOrdered By: Celso Brewer on 12-10-2024 Lymphocytes/100 WBC Auto (Unsp spec) 29.5 % 19-41 [facility] BUN/creatinine ratioOrdered By: Celso Brewer on 12-10-2024 Urea nitrogen/Creatinine [Mass ratio] 8.2 mg/mg Low 10-20 [facility] Basophil percentageOrdered B y: Celso Brewer on 12-10-2024 Basophils/100 WBC (Bld) 1.1 % High 0-[address] [facility] Bilirubin, totalOrdered By: Celso Brewer on 12-10-2024 Bilirubin [Mass/Vol] 0.23 mg/dL 0.00-1.30 [facility] CBC W/Diff, Automatedon Absolute Lymph 2.73 X10 3/uL Normal 0.83-4.51 [facility] Comment on above: Order Comment: Order Date: 12/10/24 Order Info: 0184-1 - CBCD Performed By: #### L 506.0400, L501.9520, L500.4050, L100.0100 #### [facility] [address] [place], [address] Absolute Neut 5.7 X10 3/uL Normal 2.0-7.7 [facility] Comment on above: Order Comment: Order Date: 12/10/24 Order Info: 0184-1 - CBCD Performed By: #### L 506.0400, L501.9520, L500.4050, L100.0100 #### [facility] [address] [place], [address] Basophils/100 WBC (Bld) 1.1 % High 0-[address] [facility] Comment on above: Order Comment: Order Date: 12/10/24 Order Info: 0184-1 - CBCD Performed By: #### L 506.0400, L501.9520, L500.4050, L100.0100 #### [facility] [address] [place], [address] Eosinophils/100 WBC (Bld) 1.7 % Normal 0-5 [facility] Comment on above: Order Comment: Order Date: 12/10/24 Order Info: 0184-1 - CBCD Performed By: #### L 506.0400, L501.9520, L500.4050, L100.0100 #### [facility] [address] [place], [address] Erythrocyte distribution width (RBC) [Ratio] 12.5 % Normal 11.6-14.6 [facility] Comment on above: Order Comment: Order Date: 12/10/24 Order Info: 0184-1 - CBCD Performed By: #### L 506.0400, L501.9520, L500.4050, L100.0100 #### [facility] [address] [place], [address] Hematocrit (Bld) [Volume fraction] 42.4 % Normal 37-47 [facility] Comment on above: Order Comment: Order Date: 12/10/24 Order Info: 0184-1 - CBCD Performed By: #### L 506.0400, L501.9520, L500.4050, L100.0100 #### [facility] [address] [place], [address] Hemoglobin (Bld) [Mass/Vol] 14.5 g/dL Normal 12.0-15.0 [facility] Comment on above: Order Comment: Order Date: 12/10/24 Order Info: 0184- - CBCD Performed By: #### L 506.0400, L501.9520, L500.4050, L100.0100 #### [facility] [address] [place], [address] IG% 0.500 Normal 0.0-0.9 [facility] Comment on above: Order Comment: Order Date: 12/10/24 Order Info: 018- - CBCD Result Comment: IG% - Immature Granulocytes (promyelocytes, myelocytes and metamyelocytes) > 1% indicates that a LEFT SHIFT is Present. Performed By: #### L 506.0400, L501.9520, L500.4050, L100.0100 #### [facility] [address] [place], [address] Lymphocytes/100 WBC (Bld) 29.5 % Normal 19-41 [facility] Comment on above: Order Comment: Order Date: 12/10/24 Order Info: 0184- - CBCD Performed By: #### L 506.0400, L501.9520, L500.4050, L100.0100 #### [facility] [address] [place], [address] MCH (RBC) [Entitic mass] 30.7 pg Normal 27.0-32.0 [facility] Comment on above: Order Comment: Order Date: 12/10/24 Order Info: 0184- - CBCD Performed By: #### L 506.0400, L501.9520, L500.4050, L100.0100 #### [facility] [address] [place], [address] MCHC (RBC) [Mass/Vol] 34.2 g/dL Normal 32-36 [facility] Comment on above: Order Comment: Order Date: 12/10/24 Order Info: 0184-1 - CBCD Performed By: #### L 506.0400, L501.9520, L500.4050, L100.0100 #### [facility] [address] [place], [address] MCV (RBC) [Entitic vol] 89.6 fL Normal 81-99 [facility] Comment on above: Order Comment: Order Date: 12/10/24 Order Info: 0184-1 - CBCD Performed By: #### L 506.0400, L501.9520, L500.4050, L100.0100 #### [facility] [address] [place], [address] Monocytes/100 WBC (Bld) 5.6 % Normal 0-10 [facility] Comment on above: Order Comment: Order Date: 12/10/24 Order Info: 0184-1 - CBCD Performed By: #### L 506.0400, L501.9520, L500.4050, L100.0100 #### [facility] [address] [place], [address] Neutrophils/100 WBC (Bld) 61.6 % Normal 47-70 [facility] Comment on above: Order Comment: Order Date: 12/10/24 Order Info: 0184-1 - CBCD Performed By: #### L 506.0400, L501.9520, L500.4050, L100.0100 #### [facility] [address] [place], [address] Nucleated RBC (Bld) [#/Vol] 0 10*3/uL Normal 0-5 [facility] Comment on above: Order Comment: Order Date: 12/10/24 Order Info: 0184-1 - CBCD Performed By: #### L 506.0400, L501.9520, L500.4050, L100.0100 #### [facility] [address] [place], [address] Platelet mean volume (Bld) [Entitic vol] 11.5 fL Normal 6.2-12.0 [facility] Comment on above: Order Comment: Order Date: 12/10/24 Order Info: 0184-1 - CBCD Performed By: #### L 506.0400, L501.9520, L500.4050, L100.0100 #### [facility] [address] [place], [address] Platelets (Bld) [#/Vol] 389 10*3/uL Normal 150-450 [facility] Comment on above: Order Comment: Order Date: 12/10/24 Order Info: 0184-1 - CBCD Performed By: #### L 506.0400, L501.9520, L500.4050, L100.0100 #### [facility] [address] [place], [address] RBC (Bld) [#/Vol] 4.73 10*6/uL Normal 4.2-5.4 [facility] Comment on above: Order Comment: Order Date: 12/10/24 Order Info: 0184-1 - CBCD Performed By: #### L 506.0400, L501.9520, L500.4050, L100.0100 #### [facility] [address] [place], [address] RDW SD 41.3 fl Normal 35.1-43.9 [facility] Comment on above: Order Comment: Order Date: 12/10/24 Order Info: 0184-1 - CBCD Performed By: #### L 506.0400, L501.9520, L500.4050, L100.0100 #### [facility] [address] [place], [address] WBC (Bld) [#/Vol] 9.3 10*3/uL Normal 4.4-11.0 [facility] Comment on above: Order Comment: Order Date: 12/10/24 Order Info: 0184-1 - CBCD Performed By: #### L 506.0400, L501.9520, L500.4050, L100.0100 #### [facility] [address] [place], [address] Carbon dioxide, total [Moles /volume] in Central venous bloodOrdered By: Celso Brewer on 12-10-2024 CO2 [Moles/Vol] 23.3 mmol/L 21.0-32.0 [facility] Chloride assayOrdered By: Reese Brewer on 12-10-2024 Chloride [Moles/Vol] 102 mmol/L 98-108 [facility] Comprehensive Metabolic Prof ilon 12-10-2024 Albumin [Mass/Vol] 4.6 g/dL Normal 3.5-5.0 [facility] Comment on above: Order Comment: Order Date: 12/10/24Order Info: [id number] - CMPOrder Info: [id number] - TSHOrder Info: 302-7 - M3FKkhim Info: 0553-1 - FSHLH Performed By: #### L 506.0400, L501.9520, L500.4050, L100.0100 ####[facility] [address] [place], [address] Albumin/Globulin [Mass ratio] 1.5 {ratio} Normal 0.9-2.4 [facility] Comment on above: Order Comment: Order Date: 12/10/24Order Info: 0786-1 - CMPOrder Info: 3015-3 - TSHOrder Info: 302-7 - R9UVdlhy Info: 0553-1 - FSHLH Performed By: #### L 506.0400, L501.9520, L500.4050, L100.0100 ####[facility] [address] [place], [address] ALK PHOS 65 U/L Normal 35-104 [facility] Comment on above: Order Comment: Order Date: 12/10/24Order Info: 0786-1 - CMPOrder Info: 3 - TSHOrder Info: [id number] - E3VOfqov Info: 53-1 - FSHLH Performed By: #### L 506.0400, L501.9520, L500.4050, L100.0100 ####[facility] [address] [place], [address] ALT [Catalytic activity/Vol] 27 U/L Normal <=34 [facility] Comment on above: Order Comment: Order Date: 12/10/24Order Info: 785- - CMPOrder Info: [id number] - TSHOrder Info: 3024-02 - A7FEphsd Info: 53-1 - FSHLH Performed By: #### L 506.0400, L501.9520, L500.4050, L100.0100 ####[facility] [address] [place], [address] AST [Catalytic activity/Vol] 21 U/L Normal <=31 [facility] Comment on above: Order Comment: Order Date: 12/10/24Order Info: 07-1 - CMPOrder Info: [id number] - TSHOrder Info: 3024-02 - F5VOybll Info: 0553-1 - FSHLH Performed By: #### L 506.0400, L501.9520, L500.4050, L100.0100 ####[facility] [address] [place], [address] Bilirubin [Mass/Vol] 0.23 mg/dL Normal 0.00-1.30 [facility] Comment on above: Order Comment: Order Date: 12/10/24Order Info: 0786-1 - CMPOrder Info: 3015-10 - TSHOrder Info: 3024-02 - Z3KTbzpd Info: 0553-1 - FSHLH Performed By: #### L 506.0400, L501.9520, L500.4050, L100.0100 ####[facility] [address] [place], [address] BUN/CRE 8.2 RATIO Low 10-20 [facility] Comment on above: Order Comment: Order Date: 12/10/24Order Info: 0786-1 - CMPOrder Info: 6-3 - TSHOrder Info: 3024-7 - Y4MHwidw Info: 0553-1 - FSHLH Performed By: #### L 506.0400, L501.9520, L500.4050, L100.0100 ####[facility] [address] [place], [address] Calcium [Mass/Vol] 9.7 mg/dL Normal 7.6-11.0 [facility] Comment on above: Order Comment: Order Date: 12/10/24Order Info: 0786-1 - CMPOrder Info: 3015-3 - TSHOrder Info: 3024-7 - S5PUvnsx Info: 0553-1 - FSHLH Performed By: #### L 506.0400, L501.9520, L500.4050, L100.0100 ####[facility] [address] [place], [address] Chloride [Moles/Vol] 102 mmol/L Normal 98-108 [facility] Comment on above: Order Comment: Order Date: 12/10/24Order Info: 0786-1 - CMPOrder Info: 6-3 - TSHOrder Info: 3024-7 - V1YYhcdm Info: 0553-1 - FSHLH Performed By: #### L 506.0400, L501.9520, L500.4050, L100.0100 ####[facility] [address] [place], [address] CO2 [Moles/Vol] 23.3 mmol/L Normal 21.0-32.0 [facility] Comment on above: Order Comment: Order Date: 12/10/24Order Info: 0786-1 - CMPOrder Info: 3 - TSHOrder Info: 7 - N6IQlztj Info: 53- - FSHLH Performed By: #### L 506.0400, L501.9520, L500.4050, L100.0100 ####[facility] [address] [place], [address] Creatinine [Mass/Vol] 0.85 mg/dL Normal 0.70-1.20 [facility] Comment on above: Order Comment: Order Date: 12/10/24Order Info: 785- - CMPOrder Info: 3015-10 - TSHOrder Info: 3024-02 - Z1KLbvee Info: 552-08 - FSHLH Performed By: #### L 506.0400, L501.9520, L500.4050, L100.0100 ####[facility] [address] [place], [address] GAP 14 Normal 5-15 [facility] Comment on above: Order Comment: Order Date: 12/10/24Order Info: 07 - CMPOrder Info: 3015-10 - TSHOrder Info: 3024-02 - G1CPxaop Info: 552-08 - FSHLH Performed By: #### L 506.0400, L501.9520, L500.4050, L100.0100 ####[facility] [address] [place], [place], [address] GFR/1.73 sq M.predicted among non-blacks MDRD (S/P/Bld) [Vol rate/Area] 88 mL/min/{1.73_m2} Normal >60 [facility] Comment on above: Order Comment: Order Date: 12/10/24Order Info: 0786-1 - CMPOrder Info: 3 - TSHOrder Info: 3027 - X4JWogba Info: 0553-1 - FSHLH Result Comment: mL/m in/1.73m2 CKD-EPI Creatinine Equation (2020) Performed By: #### L 506.0400, L501.9520, L500.4050, L100.0100 ####[facility] [address] [place], [address] Globulin (S) [Mass/Vol] 3.1 g/dL Normal 2.2-4.2 [facility] Comment on above: Order Comment: Order Date: 12/10/24Order Info: 86-1 - CMPOrder Info: 3015-3 - TSHOrder Info: 4-7 - E5MUczei Info: 53-1 - FSHLH Performed By: #### L 506.0400, L501.9520, L500.4050, L100.0100 ####[facility] [address] [place], [address] Glucose [Mass/Vol] 88 mg/dL Normal 70-99 [facility] Comment on above: Order Comment: Order Date: 12/10/24Order Info: 785-1 - CMPOrder Info: 3015-10 - TSHOrder Info: 7 - Y7ARtehb Info: 53-1 - FSHLH Performed By: #### L 506.0400, L501.9520, L500.4050, L100.0100 ####[facility] [address] [place], [address] Potassium [Moles/Vol] 3.8 mmol/L Normal 3.3-5.1 [facility] Comment on above: Order Comment: Order Date: 12/10/24Order Info: 0786-1 - CMPOrder Info: 3 - TSHOrder Info: 3024-7 - W4WXwnjz Info: 0553-1 - FSHLH Performed By: #### L 506.0400, L501.9520, L500.4050, L100.0100 ####[facility] [address] [place], [address] Sodium [Moles/Vol] 139 mmol/L Normal 133-145 [facility] Comment on above: Order Comment: Order Date: 12/10/24Order Info: 0786-1 - CMPOrder Info: 3015-10 - TSHOrder Info: 3024-02 - T9YDcbft Info: 552-08 - FSHLH Performed By: #### L 506.0400, L501.9520, L500.4050, L100.0100 ####[facility] [address] [place], [place], [address] T PROT 7.7 g/dL Normal 5.9-8.4 [facility] Comment on above: Order Comment: Order Date: 12/10/24Order Info: 07- - CMPOrder Info: 3015-10 - TSHOrder Info: 3024-02 - I0MUewjk Info: 552-08 - FSHLH Performed By: #### L 506.0400, L501.9520, L500.4050, L100.0100 ####[facility] [address] [place], [place], [address] Urea nitrogen [Mass/Vol] 7 mg/dL Normal 4-19 [facility] Comment on above: Order Comment: Order Date: 12/10/24Order Info: 0786- - CMPOrder Info: 3015-10 - TSHOrder Info: 3024-02 - Y1ATctra Info: 552-08 - FSHLH Performed By: #### L 506.0400, L501.9520, L500.4050, L100.0100 ####[facility] [address] [place], [place], [address] Eosinophil percentageOrdered By: Celso Brewer on 12-10-2024 Eosinophils/100 WBC (Bld) 1.7 % 0-5 [facility] Erythrocyte distribution wid th ratioOrdered By: Celso Brewer on 12-10-2024 Erythrocyte distribution width (RBC) [Ratio] 12.5 % 11.6-14.6 [facility] Erythrocyte distribution wid th standard deviationOrdered By: Celso Brewer on 12-10-2024 Erythrocyte distribution width (RBC) [Ratio] 41.3 fl 35.1-43.9 [facility] FSH and LHon 12-10-2024 FSH 4.6 mIU/mL Normal [facility] Comment on above: Order Comment: Order Date: 12/10/24Order Info: 0786-1 - CMPOrder Info: 3 - TSHOrder Info: 3024-02 - H6QTtfxe Info: 0553-1 - FSHLH Result Comment: FEMA LE: Follicular: 1.4 - 18.1 mIU/mL Midcycle: 3.4 - 33.4 mIU/mL Luteal: 1.5 - 9.1 mIU/mL Post Menopause: 23.0 - 116.3 mIU/mL MALE: 1.4 - 18.1 mIU/mL NORMAL REFERENCE RANGES FEMALE FOLLICULAR 2.3 - 12.6 mIU/mL MID-CYCLE PEAK 5.2 - 17.5 mIU/mL LUTEAL 1.7 - 12.9 mIU/mL POST-MENOPAUSAL ON MHT 5.9 - 72.8 mIU/mL NOT ON MHT 12.7 - 132.2 mlU/mL MALE 0.7 - 10.8 mIU/mL Performed By: #### L 3100.5055 ####[facility] [address] [place], [address] LH 11.3 mIU/mL Normal [facility] Comment on above: Order Comment: Order Date: 12/10/24Order Info: 0786-1 - CMPOrder Info: 3016-3 - TSHOrder Info: 3027 - Y8RDwqdl Info: 0553- - FSHLH Result Comment: FEMA LE: Follicular: 1.9-12.5 mIU/mL Midcycle: 8.7-76.3 mIU/mL Luteal: 0.5-16.9 mIU/mL Post Menopause: 15.9-54.0 mIU/mL MALE: 20-70 Years: 1.5-9.3 mIU/mL >70 Years: 3.1-34.6 mIU/mL Performed By: #### L 3100.5055 ####[facility] [address] [place], [address] Glomerular filtration rate ( GFR) estimation/1.73 sq m using serum, plasma, or whole bOrdered By: Celso Brewer on 12-10-2024 GFR/1.73 sq M.predicted among non-blacks MDRD (S/P/Bld) [Vol rate/Area] 88 mL/min/{1.73_m2} >60 [facility] Comment on above: mL/min/1.73m2 CKD-EP I Creatinine Equation (2020) Hematocrit Auto (Bld) [Volum e fraction]Ordered By: Celso Brewer on 12-10-2024 Hematocrit (Bld) [Volume fraction] 42.4 % 37-47 [facility] Hemoglobin measurementOrdere d By: Celso Brewer on 12-10-2024 Hemoglobin (Bld) [Mass/Vol] 14.5 g/dL 12.0-15.0 [facility] Immature granulocytes/100 WB C Auto (Bld)Ordered By: Celso Brewer on 12-10-2024 Immature granulocytes/100 WBC (Bld) 0.500 % 0.0-0.9 [facility] Comment on above: IG% - Immature Granu locytes (promyelocytes, myelocytes and metamyelocytes) > 1% indicates that a LEFT SHIFT is Present. Laboratory - Chemistry and C hemistry - challengeOrdered By: Celso Brewer on 12-10-2024 AST [Catalytic activity/Vol] 21 U/L <32 [facility] MCV (mean corpuscular volume ) determinationOrdered By: Celso Brewer on 12-10-2024 MCV (RBC) [Entitic vol] 89.6 fL 81-[address] [facility] Mean corpuscular hemoglobin (MCH) determinationOrdered By: Celso Brewer on 12-10-2024 MCH (RBC) [Entitic mass] 30.7 pg 27.0-32.0 [facility] Mean corpuscular hemoglobin concentration (MCHC) determinationOrdered By: Celso Brewer on 12-10-2024 MCHC (RBC) [Mass/Vol] 34.2 g/dL 32-36 [facility] Mean platelet volume determi nationOrdered By: Celso Brewer on 12-10-2024 Platelet mean volume (Bld) [Entitic vol] 11.5 fL 6.2-12.0 [facility] Monocyte percentageOrdered B y: Celso Brewer on 12-10-2024 Monocytes/100 WBC (Bld) 5.6 % 0-[address] [facility] Neutrophil percentageOrdered By: Celso Brewer on 12-10-2024 Neutrophils/100 WBC (Bld) 61.6 % 47-70 [facility] Nucleated red blood cell per centageOrdered By: Celso Brewer on 12-10-2024 Nucleated RBC/100 WBC (Bld) [Ratio] 0 % 0-5 [facility] Platelet countOrdered By: Reese Brewer on 12-10-2024 Platelets (Bld) [#/Vol] 389 10*3/uL 150-450 [facility] Potassium measurement (mass/ volume)Ordered By: Celso Brewer on 12-10-2024 Potassium (Unsp spec) [Mass/Vol] 3.8 mmol/L 3.3-5.1 [facility] RBC Auto (Bld) [#/Vol]Ordere d By: Celso Brewer on 12-10-2024 RBC (Bld) [#/Vol] 4.73 10*6/uL 4.2-5.4 [facility] Serum creatinine measurement (mass/volume)Ordered By: Celso Brewer on 12-10-2024 Creatinine [Mass/Vol] 0.85 mg/dL 0.70-1.20 [facility] Serum globulin measurementOr dered By: Celso Brewer on 12-10-2024 Globulin (S) [Mass/Vol] 3.1 g/dL 2.2-4.2 [facility] Serum glucose measurement (m ass/volume)Ordered By: Celso Brewer on 12-10-2024 Glucose [Mass/Vol] 88 mg/dL 70-99 [facility] Serum or plasma alanine mike otransferase (ALT) measurementOrdered By: Celso Brewer on 12-10-2024 ALT [Catalytic activity/Vol] 27 U/L <35 [facility] Serum or plasma albumin jami urement (mass/volume)Ordered By: Celso Brewer on 12-10-2024 Albumin [Mass/Vol] 4.6 g/dL 3.5-5.0 [facility] Serum or plasma albumin/glob ulin mass ratioOrdered By: Celso Brewer on 05-06-2025 Albumin/Globulin [Mass ratio] 1.5 {ratio} 0.9-2.4 [facility] Serum or plasma alkaline cassia sphatase measurementOrdered By: Celso Brewer on 12-10-2024 ALP [Catalytic activity/Vol] 65 U/L 35-104 [facility] Serum or plasma calcium jami urement (mass/volume)Ordered By: Celso Brewer on 12-10-2024 Calcium [Mass/Vol] 9.7 mg/dL 7.6-11.0 [facility] Serum or plasma urea nitroge n measurement (mass/volume)Ordered By: Celso Brewer on 12-10-2024 Urea nitrogen [Mass/Vol] 7 mg/dL 4-19 [facility] Sodium levelOrdered By: Celso Brewer on 12-10-2024 Sodium [Moles/Vol] 139 mmol/L 133-145 [facility] T4 Free Directon 12-10-2024 T4 FREE DIRECT 0.80 ng/dL Normal 0.76-1.46 [facility] Comment on above: Order Comment: Order Date: 12/10/24Order Info: 0786-1 - CMPOrder Info: 3016-3 - TSHOrder Info: 3024-7 - Q5NIrubk Info: 0553-1 - FSHLH Performed By: #### L 506.0400, L501.9520, L500.4050, L100.0100 ####[facility] [address] [place], [address] T4 freeOrdered By: Celso venegas on 12-10-2024 Free T4 [Mass/Vol] 0.80 ng/dL 0.76-1.46 [facility] TSH DL <= 0.005 mIU/L QnOrde red By: Celso Brewer on 12-10-2024 TSH Qn 7.090 uIU/mL High 0.300-4.200 [facility] Thyroid Stim Hormone (TSH)on 12-10-2024 TSH 7.090 uIU/mL High 0.300-4.200 [facility] Comment on above: Order Comment: Order Date: 12/10/24Order Info: 0786-1 - CMPOrder Info: 3016-3 - TSHOrder Info: 3024-7 - X0WIohuv Info: 0553-1 - FSHLH Performed By: #### L 506.0400, L501.9520, L500.4050, L100.0100 ####[facility] [address] [place], [address] Total proteinOrdered By: Buffy Brewer on 12-10-2024 Protein [Mass/Vol] 7.7 g/dL 5.9-8.4 [facility] White blood cell (WBC) count Ordered By: Celso Brewer on 12-10-2024 WBC (Bld) [#/Vol] 9.3 10*3/uL 4.4-11.0 [facility] CNOVon 10-21-2024 CNOV Office Visit (UCWSTR) CATRACHITA MURRAY ([id number]) 1985 F Date Time Provider Department 10/21/24 10:45 AM RADHA PHILLIPS [facility] During your visit today, we recorded the following information about you: Temperature Pulse Respiration Blood pressure 97.2 degrees 102/minute 16/minute 144/90 Weight 99 kg Radha Phillips APRN.[employer]ER 10/21/2024 10:50 AM Signed This note was created using NoteWriter. Subjective Catrachita Murray is a 39 year old female. HPI Pt had flu a about a week ago. Yesterday she developed a cough, sore throat and left ear pain. No recent fevers. Review of Systems As above Objective BP 144/90 Pulse 102 Temp 36.2 ?C (97.2 ?F) Resp 16 Wt 99 kg (218 lb 4.1 oz) LMP 2019 (Exact Date) SpO2 97% BMI 36.32 kg/m? Physical Exam Vitals and nursing note reviewed. Constitutional: General: She is not in acute distress. Appearance: Normal appearance. She is not ill-appearing. HENT: Head: Normocephalic. Right Ear: Tympanic membrane and ear canal normal. Left Ear: Tympanic membrane and ear canal normal. Mouth/Throat: Mouth: Mucous membranes are moist. Pharynx: No oropharyngeal exudate or posterior oropharyngeal erythema. Eyes: Conjunctiva/sclera: Conjunctivae normal. Cardiovascular: Rate and Rhythm: Normal rate and regular rhythm. Pulmonary: Effort: Pulmonary effort is normal. Breath sounds: Normal breath sounds. Musculoskeletal: General: Normal range of motion. Cervical back: Normal range of motion. Skin: General: Skin is warm and dry. Neurological: General: No focal deficit present. Mental Status: She is alert. Psychiatric: Mood and Affect: Mood normal. Behavior: Behavior normal. Assessment and Plan ASSESSMENT/PLAN: 1. Viral URI - ICD9: 465.9, ICD10: J06.9 -Discussed with patient that symptoms seem more viral in origin and most likely related to her recent episode with influenza A. She will use her home Flonase and Zyrtec for probable mild eustachian tube dysfunction causing that pressure sensation in her left ear. We did discuss possible strep testing and chest x-ray which patient declines at this time as clinically it does not appear to be indicated. She will otherwise get plenty rest and fluids and follow-up with PCP as needed Radha Phillips APRN.[employer]ER Allergies As of Date: 10/21/2024 (No Known Allergies) Date Reviewed: 10/21/2024 Reviewed by: Radha Phillips APRN.C[employer]ER - Fully Assessed Reason for Visit: Ear Pain [817] Cmt: left, cough, headache and sore throat x 1 day, + flu A x 10 days ago Primary Visit Diagnosis:Viral URI [J06.9] Prescriptions as of 10/21/2024 - docusate sodium (COLACE ORAL) Take by mouth. - ibuprofen (MOTRIN) 600 mg tablet Take 600 mg by mouth every 6 hours as needed. - duloxetine HCl (CYMBALTA ORAL) Take by mouth. - levothyroxine sodium (LEVOTHYROXINE ORAL) Take by mouth. Meds Comments as of 08/05/2009: All medications reviewed today/August 05, 2009 Roz Barron Rn Problem List As Of Date 10/21/2024 Noted Resolved SUPERVIS NORMAL 1ST PREG [Z34.00] 02/16/2006 07/28/2008 Supervision of other normal [Z34.80] 08/14/2009 06/07/2019 Threatened premature labor, antepartum(644.03) *02/11/2010 06/07/2019 Hx of preeclampsia, prior , currently *02/16/2013 06/07/2019 History of shoulder dystocia in prior *02/16/2013 06/07/2019 History of macrosomia in in prior pregna*02/16/2013 06/07/2019 Blood type, Rh positive [Z67.90] 02/16/2013 06/07/2019 Nausea/vomiting in [O21.9] 02/26/2013 06/07/2019 Encounter Status:Closed by RADHA PHILLIPS on 10/21/24 Normal [facility] Emergency Department Summary on 03-11-2024 Emergency Department Summary [facility] Medical Records Department [address] [facility] [place] [address] Emergency Department Summary 03/11/24 MR#: [id number] Acct: [id number] Name: CATRACHITA MURRAY Rep #: [id number] : 1985 38 From: Andrea Castellanos MD PCP: Dr. Polly Lopez MD Status:DEP ER Location: ED HPI History of Present Illness Chief Complaint: Dental Informant: patient Narrative Narrative: Patient with about 2 days of dental pain that has gotten significantly worse, right maxillary molar, now swollen and pain more intense. No systemic symptoms or fever/chills. No discharge or bleeding. States she has had issues with teeth in this area for a long time. [facility] Medical History History of postoperative nausea and vomiting Alcohol use Depression Anxiety Heartburn Non-smoker Sleep apnea Hypothyroidism Home Medications ???Medication ???Instructions ???Recorded ???Last Taken ???Type duloxetine 60 mg capsule,delayed 60 mg PO QHS anxiety 07/10/19 Unknown History release levothyroxine 75 mcg tablet 75 mcg PO DAILY thyroid 07/10/19 08/01/19 07:00 History 75 MCG ibuprofen 600 mg tablet 600 mg PO Q6H PRN Pain #60 tabs 08/02/19 Unknown Rx lisinopril 20 mg tablet 20 mg PO DAILY blood pressure 12/10/20 12/17/20 08:00 History ondansetron HCl 4 mg tablet 4 mg PO Q6H PRN PRN Nausea #20 tabs 12/17/20 Unknown Rx (Zofran) omeprazole 40 mg capsule,delayed 40 mg PO DAILY #30 caps 02/28/22 Unknown Rx release hydrocortisone 2.5 % topical cream 1 applic [place] BID-QID PRN 07/07/23 Unknown Rx with perineal applicator hemorrhoids #30 grams (Proctosol HC) amoxicillin 500 mg tablet 500 mg PO TID #30 tabs 03/11/24 Unknown Rx tramadol 50 mg tablet 50 mg PO Q6H PRN pain 3 days #10 03/11/24 Unknown Rx tabs Allergy/AdvReac Type Severity Reaction Status Date / Time No Known Allergies Allergy Verified 03/11/24 02:41 Surgical History History of hysterectomy History of appendectomy Social History Smoking Status: Never smoker substance use type: does not use ROS ROS ED Constitutional Constitutional ED: Denies chills or fever(s) Eyes Eyes: Denies change in vision or double vision ENT ENT ED: Reports dental pain; Denies sinus pain or throat swelling Cardiovascular Cardiovascular: Denies chest pain or palpitations Respiratory/Chest Respiratory/Chest: Denies cough or dyspnea Integumentary Denies abscess or rash Neurologic Neurologic: Denies headache(s), paresthesias or weakness EXAM Physical Exam Const Vital Signs: 03/11/24 02:38 Temperature 97.2 F L Temperature Source Temporal Pulse Rate 89 Respiratory Rate 16 Blood Pressure 145/108 H Blood Pressure Mean 120 Pulse Ox 98 Oxygen Delivery Method Room Air Positive well nourished and well developed General Appearance ED: well developed and NAD HEENT HEENT Narrative: Right facial swelling/asymmetry compared with the contralateral side, and the midface. No eyelid involvement progresses to that area. No signs of external cellulitis of the face. No trismus. The right second maxillary molar is decayed down to the gumline, very tender, and there is what appears to be gingival/mucosal abscess nearby which is very tender. There is no spontaneous drainage or bleeding. There is no signs of any necrotic tissue. Face and Sinus: sinuses nontender Throat: posterior oropharynx normal Eyes PERRL and EOMs intact bilaterally Neck no lymphadenopathy and supple Resp normal respiratory effort Neuro oriented x3 and CN's II-XII intact bilaterally Sensorium / Orientation: alert Gait (Neuro): normal gait Psych mental status grossly normal and thought process normal Skin no rashes or lesions noted and no wounds MDM MDM MDM Narrative Medical decision making narrative: This appears to be a focal abscess next to the affected decayed tooth. I recommend needle aspiration, we discussed the pros and cons and she was amenable to that. See the procedure note we yielded a small amount of pus. She will start taking amoxicillin I prescribed her some tramadol to use as needed for the pain and gave her some ibuprofen prior to discharge she is comfortable with that plan felt better at discharge, she is going to follow-up with a dentist soon as possible. Procedures Other Procedures Procedure(s): Needle aspiration dental abscess: After informed consent verbally, I provided topical anesthesia with a spray of Cetacaine for 2 seconds to the area of interest. Then used a 21-gauge needle and aspirated less than half cc of white pus. The patient was given water to rinse and massaged her face and (more content not included)... Normal [facility] Office Visiton 12-15-2023 Follow-up visit [id number] Catrachita Murray 1985 F Date Provider Department Center 12/15/2023 [facility]42[facility] None No family history on file Level of Service:99281 [place] POSTOP FOLLOW UP VISIT RELATED TO ORIGINAL PX Reason for Visit and Comments: Post-op [483] - left ORIF trimalleolar ankle fracture with fixation of posterior lip, DOS 09/23/2023 Normal [facility] Progress Noteon 12-15-2023 Progress Note Subjective: Catrachita is approximately 3 months post opfrom left ORIF trimalleolar ankle fracture with fixation of posterior lip DOS 09/23/2023. She has mild pain. She notes that her pain is most prevalent at the end of the day when she comes out of her walking boot. She denies new numbness or tingling since surgery. She denies other new complaints. Reports she has been compliant with her HEP and feels that has been beneficial. Review of Systems Objective: There were no vitals taken for this visit. All incisions are healed appropriately. Gait: Normal presents in short walking boot. Ankle ROM: 10 degrees dorsiflexion and 60 degrees plantarflexion. Swelling:mild. Sensation normal to all distal dermatomes. XRAYS: NWB 3v left ankle show the hardware remains in good position. The fracture is well-aligned and healed appropriately. The talus is well-positioned in the mortise. There is no post-traumatic arthritis. Assessment 1. Closed displaced trimalleolar fracture of left ankle, initial encounter Plan Orders Placed This Encounter Procedures XR ankle 3+ views left Catrachita will continue weight bearing as tolerated. We discussed using an [facility] ankle brace for support prn. We reviewed expectations for recovery and timeline for this. We discussed the option for hardware removal if it becomes more symptomatic. No follow-ups on file.. For any future visits we will obtain WB 3v ankle. Melvin Bucio MD Orthopaedic Sports Medicine [facility] Department of Orthopaedics and Sports Medicine [facility] Office Visiton 11-03-2023 Follow-up visit [id number] Catrachita Murray 1985 F Date Provider Department Center 11/03/2023 [id number][facility] None No family history on file Level of Service:10643 [place] POSTOP FOLLOW UP VISIT RELATED TO ORIGINAL PX Reason for Visit and Comments: Post-op [483] - Left ankle ORIF; DOS: 09/23/23 [facility] Progress Noteon 11-03-2023 Progress Note [facility] [address] [place] [address] [place] [phone] Dept: [phone] Dept Catrachita Murray 1985 [id number] 11/03/2023 HISTORY OF PRESENT ILLNESS: Catrachita is here for her 6 week(s) postoperative visit s/p left ORIF trimalleolar ankle fracture with fixation of posterior lip. Catrachita reports that her pain has decreased since the surgery/last visit Catrachita reports that her swelling has been minimal Catrachiat had been instructed to be nonweight bearing on the left lower extremity. Catrachita has been compliant with her weight bearing restrictions Catrcahita has been working on her home exercise program and it is going well Catrachita denies fevers and chills and has not had calf pain or shortness of breath In general Catrachita feels that she is doing better than the her last visit Other issues or concerns that Catrachita would like addressed at this visit: Review of Systems Neurological: Positive for weakness. Negative for numbness. PAST MEDICAL HISTORY: Past Medical History: Diagnosis Date Anxiety Hypertension Allergies Allergen Reactions Lactose PHYSICAL EXAM: This is an age appropriate appearing female who is alert and oriented x 3. The patient appears well nourished. The patient is able to verbalize normally and seems to have a good understanding of her situation. Normocephalic and atraumatic Respiratory: No shortness of breath The left lower extremity is examined. Skin: warm and dry Lymphatic: Minimal swelling of the ankle Vascular: Capillary refill in the foot/toes is brisk Neurologic: Sensation is intact except over the surgical incision site(s) Musculoskeletal: The calf is nontender to palpation. The patient is able to actively move the ankle/foot/toes The medial and lateral incisions are healed and benign Tenderness: no areas of tenderness on exam Gait: Gait not evaluated ROM: 45 degree plantarflexion and 0 degrees dorsiflexion RADIOGRAPHIC INTERPRETATION: 3 nonweightbearing views of the left ankle were obtained and the following is my interpretation of the findings present of the X-rays: show the hardware remains in good position. The fracture is well-aligned and healing appropriately. The talus is well-positioned in the mortise. DIAGNOSIS: Diagnosis Plan 1. Closed displaced trimalleolar fracture of left ankle, initial encounter MEDICAL DECISION MAKING: I had a discussion with Catrachita to make sure she has a good understanding of the diagnoses/issues that I think are present today and understands the plan moving forward. She will begin progressing weightbearing at 8 week angel in the CAM boot based on pain using the boot and continue with aggressive ROM of ankle and edema control. She will then begin progressive weight bearing in the boot with the goal of full weight bearing by the 3 month angel as long as she has no increasing pain. She can wean from the boot and assistive devices once bearing full weight with little pain. I'll see her back in 6 weeks with WB 3v ankle out of boot. Follow up in 6 weeks (on 12/15/2023). Melvin Bucio MD Orthopaedic Sports Medicine [facility] Department of Orthopaedics and Sports Medicine 11/03/2023 3:51 PM Voice recognition was used for portions of this note and although it was reviewed prior to signing some incorrect words or phrases could be present. [facility] Office Visiton 10-06-2023 Follow-up visit [id number] Catrachita Murray 1985 F Date Provider Department Center 10/06/2023 [id number] OR None No family history on file Level of Service:23682 [place] POSTOP FOLLOW UP VISIT RELATED TO ORIGINAL PX Reason for Visit and Comments: Post-op [483] [facility] Progress Noteon 10-06-2023 Progress Note Subjective: Catrachita is approximately 2 weeks post op from ORIF left trimalleolar ankle fracture, DOS 09/23/2023. Pain is mild. She denies new numbness or tingling since surgery. She denies other new complaints. Reports that she is taking ibuprofen/tylenol for pain modulation, using Roxicodone at night. She reports she has just finished her Rx for Roxicodone as of last night. Review of Systems Objective: BP 128/84 Ht 5' 6 (1.676 m) Wt 207 lb (93.9 kg) BMI 33.41 kg/m? All incisions are healing appropriately. Ankle ROM: 0 degrees dorsiflexion and 30 degrees plantarflexion. Swelling:moderate. Sensation normal to all distal dermatomes. XRAYS: 3v left ankle show the hardware remains in good position. The fracture is well-aligned and healingappropriately . The talus is well-positioned in the mortise. Assessment 1. Closed displaced trimalleolar fracture of left ankle, initial encounter Orders Placed This Encounter Procedures General supply request: DME Order for Lower extremity Catrachita will remain NWB and focus on aggressive ROM of ankle and edema control. She was given a walker boot for support and protection with instructions on appropriate wear and use given. I'll see her back in one month with NWB 3v ankle out of boot. Melvin Bucio MD Orthopaedic Sports Medicine [facility] Department of Orthopaedics and Sports Medicine [facility] XR ANKLE 3+ VIEWS LEFTon XR ANKLE 3+ VIEWS LEFT XRAYS: 3v left an kle show the hardware remains in good position. The fracture is well-aligned and healingappropriately . The talus is well-positioned in the mortise. [facility] 36on 09-28-2023 36 New oxycodone order placed [facility] 36 DOS 09/23/2023- ORIF left trimalleolar ankle fracture; stress exam of left ankle under fluouroscopy Please see request below regarding refill. Last Rx of Oxycodone (Roxicodone) 5mg- 09/24/2023 (15 tablets) [facility] 36 Oxycodone refill request. Down to 1 pill. Pharmacy correct on file. DOS 09/23/2023 - ORIF LT trimal ankle fx IPO scheduled 10/06/2023 [facility] 36on 09-26-2023 36 Scheduled [place] [address]on 09-25-2023 36 Name of Caller: Catrachita Contact Reason for Appointment: Patient called wants to schedule IPO. Please call to schedule teams message sent. Office Name: Ortho [facility] IDNon 09-24-2023 IDN Problem: Knowledge Deficit Goal: Patient/family/careg iver demonstrates understanding of disease process, treatment plan, medications, and discharge instructions Outcome: Progressing Problem: Potential for Compromised Skin Integrity Goal: Skin Integrity is Maintained or Improved Outcome: Progressing Goal: Nutritional status is improving Outcome: Progressing Problem: Urinary Incontinence Goal: Perineal skin integrity is maintained or improved Outcome: Progressing [facility] Nursing Noteon 09-24-2023 Nursing Note Removed PIV, ensured catheter intact, dry dressing placed. Reviewed AVS with Pt, answered all questions, Pt verbalized understanding and voiced no concerns. Pt being discharged at this time to home with all belongings. [facility] Progress Noteon 09-24-2023 Progress Note Nutrition rescreen completed. Chart reviewed. Patient to be monitored and followed by the diet power generation technician. YASMEEN Ding [facility] ABO and Rh group Confirm Nom (Bld)on 09-23-2023 ABO group Nom (Bld) A [facility] D Ag Ql (RBC) Positive [facility] BASIC METABOLIC PANELon 09-07 Anion gap [Moles/Vol] 8 mmol/L Normal 3-13 [facility] Comment on above: Performed By: #### L AB15 ####Polymer Scientist: POLLY RILEY ([id number])[facility] ([facility])[address] [place] [address] Calcium [Mass/Vol] 8.5 mg/dL Normal 8.4-10.4 [facility] Comment on above: Performed By: #### L AB15 ####Polymer Scientist: POLLY RILEY ([id number])[facility] ([facility])[address] [place] [address] Chloride [Moles/Vol] 105 mmol/L Normal 98-107 [facility] Comment on above: Performed By: #### L AB15 ####Polymer Scientist: POLLY RILEY ([id number])[facility] ([facility])[address] [place] [address] CO2 [Moles/Vol] 26 mmol/L Normal 22-30 [facility] Comment on above: Performed By: #### L AB15 ####Polymer Scientist: POLLY RILEY ([id number])[facility] ([facility])[address] [place] [address] Creatinine [Mass/Vol] 0.81 mg/dL Normal 0.52-1.04 [facility] Comment on above: Performed By: #### L AB15 ####Polymer Scientist: POLLY RILEY ([id number])[facility] ([facility])[address] [place] [address] GLOMERULAR FILTRATION RATE ML/MIN/1.73 SQ M.PREDICTED >90.0 Normal >60.0 [facility] Comment on above: Result Comment: Calc ulation based on the Chronic Kidney Disease Epidemiology Collaboration (CKD-EPI) equation refit without adjustment for race Performed By: #### L AB15 ####Polymer Scientist: POLLY RILEY ([id number])[facility] ([facility])[address] [place] [address] Glucose [Mass/Vol] 117 mg/dL High 70-100 [facility] Comment on above: Performed By: #### L AB15 ####Polymer Scientist: POLLY RILEY ([id number])[facility] ([facility])[address] [place] [address] Potassium [Moles/Vol] 3.8 mmol/L Normal 3.5-5.1 [facility] Comment on above: Performed By: #### L AB15 ####Polymer Scientist: POLLY RILEY ([id number])[facility] ([facility])[address] [place] [address] Sodium [Moles/Vol] 139 mmol/L Normal 135-145 [facility] Comment on above: Performed By: #### L AB15 ####Polymer Scientist: POLLY RILEY ([id number])[facility])[address] [place] [address] Urea nitrogen [Mass/Vol] 7 mg/dL Normal 7-17 [facility] Comment on above: Performed By: #### L AB15 ####Polymer Scientist: POLLY RILEY ([id number])[facility])[address] [place] [address] BLOOD TYPE AND SCREEN GELon 09-23-2023 ABO GROUPING A Normal [facility] Comment on above: Performed By: #### L [id number] ####Polymer Scientist: POLLY RILEY ([id number])[facility] ([facility])[address] [place] [address] RH TYPE IN BLOOD Positive Normal [facility] Comment on above: Performed By: #### L [id number] ####Polymer Scientist: POLLY RILEY ([id number])[facility] ([facility])[address] [place] [address] Basic metabolic 1998 panelon 09-23-2023 Anion gap [Moles/Vol] 8 mmol/L 3 - 13 mmol/L [facility] Calcium [Mass/Vol] 8.5 mg/dL 8.4 - 10. 4 mg/dL [facility] Chloride [Moles/Vol] 105 mmol/L 98 - 10 7 mmol/L [facility] CO2 [Moles/Vol] 26 mmol/L 22 - 30 mmol/L [facility] Creatinine [Mass/Vol] 0.81 mg/dL 0.52 - 1.04 mg/dL [facility] GFR/1.73 sq M.predicted MDRD (S/P/Bld) [Vol rate/Area] - PINF [facility] Comment on above: Calculation based on the Chronic Kidney Disease Epidemiology Collaboration (CKD-EPI) equation refit without adjustment for race Glucose [Mass/Vol] 117 mg/dL High 70 - 100 mg/dL [facility] Interpretation and review of laboratory results Abnormal [facility] Potassium [Moles/Vol] 3.8 mmol/L 3.5 - 5.1 mmol/L [facility] Sodium [Moles/Vol] 139 mmol/L 135 - 145 mmol/L [facility] Urea nitrogen [Mass/Vol] 7 mg/dL 7 - 17 mg/d L [facility] Blood type and Crossmatch pa ethan (Bld)on 09-23-2023 ABO group Nom (Bld) A [facility] Blood group antibody screen GEL Ql Negative [facility] D Ag Ql (RBC) Positive [facility] CBC (HEMOGRAM)on 09-23-2023 Erythrocyte distribution width (RBC) [Ratio] 13.9 % Normal 11.5-14.5 [facility] Comment on above: Performed By: #### L [id number] ####Polymer Scientist: POLLY RILEY ([id number])[address] ERYTHROCYTE MEAN CORPUSCULAR HEMOGLOBIN CONCENTRATION (G/DL) BY AUTOMATED 34.3 % Normal 32.0-36.0 [facility] Comment on above: Performed By: #### L [id number] ####Polymer Scientist: POLLY RILEY ([id number])[address] Hematocrit (Bld) [Volume fraction] 38.5 % Normal 35.0-47.0 [facility] Comment on above: Performed By: #### L [id number] ####Polymer Scientist: POLLY RILEY ([id number])[facility])[address] [place] [address] Hemoglobin (Bld) [Mass/Vol] 13.2 g/dL Normal 11.7-16.0 [facility] Comment on above: Performed By: #### L [id number] ####Polymer Scientist: POLLY RILEY ([id number])[facility])[address] [place] [address] MCH (RBC) [Entitic mass] 30.4 pg Normal 26.0-34.0 [facility] Comment on above: Performed By: #### L [id number] ####Polymer Scientist: POLLY RILEY ([id number])[facility])[address] [place] [address] MCV (RBC) [Entitic vol] 88.6 fL Normal 80.0-98.0 [facility] Comment on above: Performed By: #### L [id number] ####Polymer Scientist: POLLY RILEY ([id number])[facility])[address] [place] [address] Platelet mean volume (Bld) [Entitic vol] 9.2 fL Normal 7.4-12.4 [facility] Comment on above: Performed By: #### L [id number] ####Polymer Scientist: POLLY RILEY ([id number])[facility])[address] [place] [address] [place] Platelets (Bld) [#/Vol] 332 10*3/uL Normal 140-440 [facility] Comment on above: Performed By: #### L [id number] ####Polymer Scientist: POLLY RILEY ([id number])[facility])[address] [place] [address] RBC (Bld) [#/Vol] 4.34 10*6/uL Normal 3.8-5.20 [facility] Comment on above: Performed By: #### L [id number] ####Polymer Scientist: POLLY RILEY ([id number])[facility] ([facility])[address] [place] [address] WBC (Bld) [#/Vol] 11.4 10*3/uL High 3.6-10.7 [facility] Comment on above: Performed By: #### L [id number] ####Polymer Scientist: POLLY RILEY ([id number])[facility] [place] [address] CBC panel Auto (Bld)Ordered By: Dg Newton on 09-23-2023 Erythrocyte distribution width (RBC) [Ratio] 13.9 % 11.5 - 14.5 % [facility] Hematocrit (Bld) [Volume fraction] 38.5 % 35.0 - 47.0 % [facility] Hemoglobin (Bld) [Mass/Vol] 13.2 g/dL 11.7 - 16.0 g/dL [facility] Interpretation and review of laboratory results Abnormal [facility] MCH (RBC) [Entitic mass] 30.4 pg 26. 0 - 34.0 pg [facility] MCHC (RBC) [Mass/Vol] 34.3 % 32.0 - 36.0 % [facility] MCV (RBC) [Entitic vol] 88.6 fL 80.0 - 98.0 fL [facility] Platelet mean volume (Bld) [Entitic vol] 9.2 fL 7.4 - 12.4 fL [facility] Platelets (Bld) [#/Vol] 332 10*3/uL 140 - 440 10*3/uL [facility] RBC (Bld) [#/Vol] 4.34 10*6/uL 3.8 - 5.20 10*6/uL [facility] WBC (Bld) [#/Vol] 11.4 10*3/uL High 3.6 - 10.7 10*3/uL [facility] CT ANKLE LEFT WO IV CONTRAST on 09-23-2023 CT ANKLE LEFT WO IV CONTRAST Patient Name: CATRACHITA MURRAY : 1985 Exam Date/Time: 09/23/2023 05:42 Procedure: CT ANKLE LEFT WO IV CONTRAST Ordering Provider: GOODEN NICHOLAS Reason For Exam: Pre-op CT LEFT ANKLE: CLINICAL INDICATION: Preoperative evaluation of trimalleolar fracture TECHNIQUE: Axial CT imaging of the left ankle was performed without intravenous contrast. Coronal and sagittal reformats were obtained. 3-D virtual injected images were created and reviewed by the radiologist on 3-D workstation software. Dose reduction was employed with automated exposure control. COMPARISON: Radiograph performed same day FINDINGS: There is redemonstration of a transverse oriented fracture of the medial malleolus with distraction of fracture fragments measuring up to 6.2 mm. There is a mildly comminuted oblique fracture of the distal fibula with up to 5.7 mm of posterior displacement of the distal fracture fragment. There is minimally displaced vertically oriented comminuted fracture of the posterior malleolus. Alignment is near anatomic with some widening of the medial tibiotalar joint space, likely on the basis of distraction of the medial malleolus fracture fragment and rotation of the talus relative to the tibial plafond. There is diffuse soft tissue swelling about the left ankle. IMPRESSION: Trimalleolar fracture as described above. Report Dictated on Electronically Signed By: Bello Oh MD Electronically Signed Date/Time: 09/23/2023 5:53 AM EST Ankle Pain Fall Leg Pain Normal [facility] CT Ankle - left WO contrasto n 09-23-2023 Trimalleolar fracture as described above. Report Dictated on Electronically Signed By: Bello Oh MD Electronically Signed Date/Time: 09/23/2023 5:53 AM [facility] Name[facility] CATRACH[facility] 1985 [id number] Exam Date/Time: 09/23/2023 05:42 Procedure: CT ANKLE LEFT WO IV CONTRAST Ordering Provider: GOODEN NICHOLAS Reason For Exam: Pre-op CT LEFT ANKLE: CLINICAL INDICATION: Preoperative evaluation of trimalleolar fracture TECHNIQUE: Axial CT imaging of the left ankle was performed without intravenous contrast. Coronal and sagittal reformats were obtained. 3-D virtual injected images were created and reviewed by the radiologist on 3-D workstation software. Dose reduction was employed with automated exposure control. COMPARISON: Radiograph performed same day FINDINGS: There is redemonstration of a transverse oriented fracture of the medial malleolus with distraction of fracture fragments measuring up to 6.2 mm. There is a mildly comminuted oblique fracture of the distal fibula with up to 5.7 mm of posterior displacement of the distal fracture fragment. There is minimally displaced vertically oriented comminuted fracture of the posterior malleolus. Alignment is near anatomic with some widening of the medial tibiotalar joint space, likely on the basis of distraction of the medial malleolus fracture fragment and rotation of the talus relative to the tibial plafond. There is diffuse soft tissue swelling about the left ankle. [facility] Bello Oh MD - 09/23/2023 Patient Name: CATRACHITA MURRAY : 1985 [id number] Exam Date/Time: 09/23/2023 05:42 Procedure: CT ANKLE LEFT WO IV CONTRAST Ordering Provider: GOODEN NICHOLAS Reason For Exam: Pre-op CT LEFT ANKLE: CLINICAL INDICATION: Preoperative evaluation of trimalleolar fracture TECHNIQUE: Axial CT imaging of the left ankle was performed without intravenous contrast. Coronal and sagittal reformats were obtained. 3-D virtual injected images were created and reviewed by the radiologist on 3-D workstation software. Dose reduction was employed with automated exposure control. COMPARISON: Radiograph performed same day FINDINGS: There is redemonstration of a transverse oriented fracture of the medial malleolus with distraction of fracture fragments measuring up to 6.2 mm. There is a mildly comminuted oblique fracture of the distal fibula with up to 5.7 mm of posterior displacement of the distal fracture fragment. There is minimally displaced vertically oriented comminuted fracture of the posterior malleolus. Alignment is near anatomic with some widening of the medial tibiotalar joint space, likely on the basis of distraction of the medial malleolus fracture fragment and rotation of the talus relative to the tibial plafond. There is diffuse soft tissue swelling about the left ankle. IMPRESSION: Trimalleolar fracture as described above. Report Dictated on Electronically Signed By: Bello Oh MD Electronically Signed Date/Time: 09/23/2023 5:53 AM EST [facility] Radiology Study observation (narrative) [facility] [place] Consult Attestation signed by Melvin Bucio MD at 09/23/2023 11:16 AM Attestation: The patient was seen, examined and all relevant radiographs/lab results were reviewed. I agree with what is documented above with any changes noted. The plan of care was discussed with the evaluating resident. The risks and benefits of the surgery (improved pain and function vs nonunion, malunion, damage to surrounding neurovascular structures, need for repeat surgery, infection, etc) vs non operative management were discussed with the patient along with possible anesthesia complications (DVT, stroke, FL, and even ). They would like to move forward with surgery. Electronically signed by Melvin Bucio M.D. 09/23/2023 at 11:16 AM. Ortho Consult Patient: Catrachita Mruray Date of : 1985 Acct: [id number] PCP: POLLY LOPEZ Date of Admission: 09/22/2023 Date of Service: Pt seen/examined on 09/23/2023 Chief Complaint: Left ankle pain History Of Present Illness: 38 y.o. female who presents with left ankle pain after a fall from standing while walking outside after having 2 margaritas. Denies head trauma or loss of consciousness. Denies significant pain other than the ankle. Denies numbness and tingling in the affected extremity. Patient originally presented to an outside hospital and had her left ankle fracture dislocation reduced and splinted and sent to [facility] for skin check and resplinting. Patient denies neck and back pain. Patient denies seeing any orthopedic surgery history other than a bunionectomy on her left foot with a surgeon at an outside hospital PMH of anxiety and hypertension. Non-smoker, social drinker, denies drug use Patient ambulation status: no difficulty. Antiplatelets/Antico agulation includes: none. Hx from chart and/or Pt. Past Medical History: Past Medical History: Diagnosis Date Anxiety Hypertension Past Surgical History: Past Surgical History: Procedure Laterality Date TOE SURGERY Home Medications: Prior to Admission medications Medication Sig Start Date End Date Taking? Authorizing Provider DULOXETINE HCL PO Take by mouth. Historical Provider, LOSARTAN POTASSIUM PO Take by mouth. Historical Provider, Current Hospital Medications: Current Facility-Administere d Medications: lidocaine (Xylocaine) 1 % injection 20 mL, 20 mL, Injection, Once, Madelyn Aj MD Current Outpatient Medications: DULOXETINE HCL PO, Take by mouth., Disp: , Rfl: LOSARTAN POTASSIUM PO, Take by mouth., Disp: , Rfl: Allergies: Lactose Social History: Social History Socioeconomic History Marital status: Spouse name: Not on file Number of children: Not on file Years of education: Not on file Highest education level: Not on file Occupational History Not on file Tobacco Use Smoking status: Never Smokeless tobacco: Not on file Substance and Sexual Activity Alcohol use: Yes Comment: Intoxicated during this ED visit Drug use: Not Currently Sexual activity: Not on file Other Topics Concern Not on file Social History Narrative Not on file Social Determinants of Health Financial Resource Strain: Not on file Food Insecurity: Not on file Transportation Needs: Not on file Physical Activity: Not on file Stress: Not on file Social Connections: Not on file Intimate Partner Violence: Not on file Housing Stability: Not on file Family History: @[facility] Family History is noncontributory to this injury. REVIEW OF SYSTEMS: Review of Systems - General ROS: negative for - chills, fatigue, fever, malaise or night sweats Psychological ROS: negative Ophthalmic ROS: negative ENT ROS: negative for - headaches or sore throat Hematological and Lymphatic ROS: negative for - bleeding problems or blood clots Respiratory ROS: no cough, shortness of breath, or wheezing Cardiovascular ROS: no chest pain or dyspnea on exertion Gastrointestinal ROS: negative Musculoskeletal ROS: See HPI Neurological ROS: negative for - bowel and bladder control changes, gait disturbance or numbness/tingling All other systems reviewed and are negative PHYSICAL EXAM: BP 126/86 Pulse 93 Temp 36.7 ?C (98.1 ?F) (Oral) Resp 16 Wt 93.9 kg (207 lb) SpO2 99% GENERAL APPEARANCE: Awake and oriented x3. No acute distress, except appropriate to injury. MOOD AND AFFECT: Calm appropriate to situation GAIT AND STATION: Patient is in bed and unable to ambulate secondary to known injury. COORDINATION and BALANCE: Patient is grossly coordinated unable to ambulate secondary to known injury. Lymphadenopathy: none on examination of the affected extremity(s) Right Upper Extremity: -No obvious pain or deformity to inspection with normal joint range of motion, stability, (more content not included)... Normal [facility] ECG 12-LEADon 09-23-2023 ECG 12-LEAD IMPRESSION: Sinus rhythm Prolonged [place] interval Low voltage, precordial leads No ST segment elevations Electronically Signed On 09-23-2023 16:07:43 EST by Dg Carey [facility] ED Nursing Noteon 09-23-2023 ED Nursing Note Pt was advised that as she is going by private vehicle Dr. Gooden is not comfortable giving more pain medication. Pt pivot transferred to wheelchair from ED cot with assistance. IV site to right a/c wrapped with coban. Pt to restroom by wheelchair with assistance, again pivot transferring, voided, then back to wheelchair. Pt c/o feeling dizzy with movement but denies nausea. Pt to car, passenger rear, warm blanket provided to pt as she did not have a coat with her. Transfer papers with pt. Flora Velez RN 09/23/23 0210 Flora Velez RN 09/23/23 0211 [facility] ED Nursing Note Pts friends had been in waiting room. Upon their arrival back to room the pts call light immediately went off. Madelyn JENKINS informed pt and friends of delayed ETA and they now wish to take her by private car. Pt also states she needs to use the restroom and is requesting more pain medication again. Dr. Gooden updated; aware that pt was just medicated less than 90minutes ago with 3rd dose of Dilaudid. Flora Velez RN 09/23/23 0144 [facility] ED Nursing Note Call placed to [facility] to inquire on status of transport. Staff member answering phone states that there is a crew assigned but they have another trip first, they will be there in 90 to 2(hrs). Advised staff member that they were supposed to be here 10 minutes ago. Staff member states that they have had delays due to other transports and due to the weather and we want to keep our crews safe etc. Staff member was advised that this still does not explain why they do not call to inform us of said delays. Flora Velez RN 09/23/23 013 [facility] ED Nursing Note Updated pt and visitors on ETA of transport. Flora Velez RN 09/22/23 2323 [facility] ED Nursing Note Per Dr. Gooden the pt will be transported to [facility] ED by friends, then friend came to nurses station saying pt instead wishes to go by squad to [facility]. Flora Velez RN 09/23/23 0132 [facility] ED Nursing Note Called Tangela at [facility] and requested call back from Dr. Bucio at [facility] ortho Radha Sutherland RN 09/22/23 2245 [facility] ED Nursing Note Xray completed at bedside, pt requesting more pain medication, physician notified. Flora Velez RN 09/22/23 0946 [facility] Laboratory - Chemistry and C hemistry - challengeon 09-23-2023 Glucose [Mass/Vol] 126 mg/dL High 70 - 100 mg/dL [facility] Laboratory - CoagulationOrde red By: Manolo Mendiola on 09-23-2023 PT Coag (Bld) [Time] 9.9 s 9.0 - 12.0 s [facility] No Panel InformationOrdered By: Dg Carey on 09-23-2023 P [place] 37 degrees [facility] [employer] Work Phone: AZ Interval 208 ms [facility] [employer] Work Phone: QRS [place] -21 degrees [facility] [employer] Work Phone: QRSD Interval 112 ms [facility] [employer] Work Phone: [phone] QT Interval 372 ms [facility] [employer] Work Phone: [phone] QTC Interval 469 ms [employer] Work Phone: T Wave [place] 36 degrees [employer] Work Phone: [employer] Phone: No Panel Informationon 09-23 Sinus rhythm Prolonged [place] interval Low voltage, precordial leads No ST segment elevations Electronically Signed On 09-23-2023 16:07:43 EST by Dg Cobos MD - 09/23/2023 IMPRESSION: Sinus rhythm Prolonged [place] interval Low voltage, precordial leads No ST segment elevations Electronically Signed On 09-23-2023 16:07:43 EST by Dg Carey [facility] There is no interpretation needed for this exam. IMAGING Interpretation and review of laboratory results Abnormal [facility] Performed by: [facility], [address] [place] [address] CLIA ID: [id number] [facility] Radiology Study observation (narrative) [facility] No Panel InformationOrdered By: Bello Oh on 09-23-2023 [facility] [employer] Phone: Nursing Noteon 09-23-2023 Nursing Note Pt sleeping well in recovery after prn medication given prior. VSS on 3L NC. Report called in for transport. Normal [facility] Nursing Note Updated over phone, given room assignment Normal [facility] Op Noteon 09-23-2023 Op Note [facility] OR [address] [facility] [id number] Dept: [phone] Loc: [phone] Operative Report Patient Name: Catrachita Murray Date of : 1985 Date of Surgery: 09/23/23 Pre-operative diagnosis: Left bimalleolar ankle fracture Post-operative diagnosis: Same Procedure(s): Open reduction internal fixation of left trimalleolar ankle fracture Stress exam of left ankle under fluoroscopy Surgeon: Melvin Bucio MD Endoscopy Registered Nurse(s): Ham Caruso M.D. and Jazmyn Valenzuela M.D. Anesthesia: General EBL: 5 cc IVF: Crystalloid Medications: Ancef 2 grams IV Implants: Synthes small frag Clinical History/Indication for Surgery The patient is a 38 y.o. year old female who was presents for operative fixation of a displaced ankle fracture. Typical indications for surgery were reviewed and operative fixation was recommended. Risks of fracture surgery in general were reviewed including, but not limited to, infection, non-union, need for additional procedures, painful or prominent hardware which could require removal, failure of fixation which would require revision, damage to normal structures as well as medical complications such as FL, stroke, PE, DVT, and even . Pt was given opportunity to ask questions and consider her options. She ultimately elected to proceed with surgery. No guarantees were given or implied. Operative Narration The patient was identified in the pre-operative holding area. The surgical site was identified and marked. Informed consent was obtained. The patient was then brought to the operating room and placed supine on the operating table. Anesthesia was administered and care of the head, neck, and airway was maintained by the anesthesia staff throughout the entire procedure. All bony prominences were identified and padded. A tourniquet was applied to the thigh of the operative extremity. The leg was prepped and draped in the usual sterile fashion. A surgical timeout was performed. Antibiotics were confirmed to have been given. After exsanguination the tourniquet was inflated. The medial malleolus was approached through a direct medial incision dividing skin and subcutaneous tissues down to the periosteum. The periosteum was reflected only along the margin of the fracture to allow for reduction but was otherwise left intact. Hematoma was cleaned from the fracture site and it was irrigated. The fracture was clamped anatomically and fixed with a single partially threaded 4mm cancellous screw which achieved good purchase. The fibula was approached through a direct lateral approach dividing skin and subcutaneous tissues down to the periosteum. The superficial peroneal nerve was not visualized during the procedure. The periosteum was reflected only along the margin of the fracture to allow for reduction but was otherwise left intact. Hematoma was cleaned from the fracture site and it was irrigated. The fracture was clamped and fixed initially with a 2.7mm lag screw. A neutralization plate was applied laterally and fixed using cortical screws proximal and cancellous screws distal to the fracture. Fluoroscopic imaging confirmed an excellent overall reduction and appropriate placement of all hardware. A live external rotation stress test of the ankle under fluoroscopy was performed which showed no evidence of ankle or syndesmosis instability. Wounds were copiously irrigated with sterile saline and closed in a layered fashion using 2-0 vicryl and 3-0 nylon. A sterile compressive dressing was applied followed by a well-padded posterior splint with the ankle in neutral dorsiflexion. Once the patient was awakened from anesthesia, they were transported to the PACU in stable condition, having tolerated surgery well with no obvious complications. Postoperative Plan Non-weight bearing in splint Follow-up 2wks with repeat xrays This operative report was prepared and signed by Melvin Bucio MD at 09/23/23, 11:06 AM Normal [facility] PROTHROMBIN TIMEon INR Coag (PPP) [Relative time] {INR} Low 0.9-1.1 [facility] Comment on above: Result Comment: Gregg mmended Anticoagulant Therapy: SEE BELOW ----- INR of 2.0 - 3.0 : - Prophylaxis of Venous Thrombosis (high-risk surgery) - Treatment of Venous Thrombosis - Treatment of Pulmonary Embolism (Includes tissue heart valves, Acute Myocardial Infarction to prevent systemic embolism, Valvular Heart Disease, and Atrial Fibrillation) ----- INR of 2.5 - 3.5 : - Mechanical Prosthetic Valves (high risk) - If oral anticoagulant therapy is used to prevent Myocardial Infarction This result was previously suppressed from the chart. Performed By: #### L [id number] #### Polymer Scientist: POLLY RILEY ([id number]) [facility] ([facility]) [address] [place] [address] PT Coag (PPP) [Time] 9.9 s Normal 9.0-12.0 [facility] Comment on above: Performed By: #### L [id number] #### Polymer Scientist: POLLY RILEY ([id number]) [facility] [address] [place] [address] PT Coag (Bld) [Time]Ordered By: Manolo Mendiola on 09-23-2023 INR Coag (PPP) [Relative time] Low 0.9 - 1.1 [facility] Comment on above: Recommended Anticoag ulant Therapy: SEE BELOW ----- INR of 2.0 - 3.0 : - Prophylaxis of Venous Thrombosis (high-risk surgery) - Treatment of Venous Thrombosis - Treatment of Pulmonary Embolism (Includes tissue heart valves, Acute Myocardial Infarction to prevent systemic embolism, Valvular Heart Disease, and Atrial Fibrillation) ----- INR of 2.5 - 3.5 : - Mechanical Prosthetic Valves (high risk) - If oral anticoagulant therapy is used to prevent Myocardial Infarction This result was previously suppressed from the chart. Interpretation and review of laboratory results Abnormal [facility] Progress Noteon 09-23-2023 Progress Note Post op plan -Operative plans: No further plans for surgery this admission -Weight bearing: RLE: WBAT LLE: NWB RUE: WBAT LUE: WBAT -Range of motion parameters: No ROM of ankle, ok for ROM knee/hip -Immobilization: Splint to LLE. Keep clean, dry, and intact. -Antibiotics: 24 hours of post op antibiotics. -Diet: no restrictions from ortho standpoint -Labs: No further labs needed from ortho standpoint. -PT/OT -PT recommended outpatient/post discharge?: No formal PT is needed -Medical management, dvt ppx and pain control per primary -DVT ppx recommended?: No DVT ppx is indicated from ortho standpoint -Follow-up with Dr Bucio in 2 weeks -Ortho to follow. [facility] Vital signsOrdered By: Dg Carey on 09-23-2023 Heart rate 96 /min bpm [facility] [employer] Work Phone: XR Ankle - left 3 Viewson Patient Name[facility] CAT[facility]ACH[facility] 1985 [id number] Exam Date/Time: 09/23/2023 05:17 Procedure: XR ANKLE 3+ VIEWS LEFT Ordering Provider: GOODEN NICHOLAS Reason For Exam: Post-reduction LEFT ANKLE AND TIBIA/FIBULA: CLINICAL INDICATION: Post-reduction TECHNIQUE: AP and Lateral tibia/fibula and AP, lateral, and oblique left ankle COMPARISON: 09/22/2023 Impression/findings: Overlying cast obscures fine osseous details. Redemonstration of a trimalleolar fracture with near anatomic alignment. There is diffuse soft tissue swelling. No fracture of the proximal tibia or proximal fibula. Report Dictated on Electronically Signed By: Bello Oh MD Electronically Signed Date/Time: 09/23/2023 5:25 AM [facility] Bello Oh MD - 09/23/2023 Patient Name: CATRACHITA MURRAY : 1985 Exam Date/Time: 09/23/2023 05:17 Procedure: XR ANKLE 3+ VIEWS LEFT Ordering Provider: GOODEN NICHOLAS Reason For Exam: Post-reduction LEFT ANKLE AND TIBIA/FIBULA: CLINICAL INDICATION: Post-reduction TECHNIQUE: AP and Lateral tibia/fibula and AP, lateral, and oblique left ankle COMPARISON: 09/22/2023 Impression/findings: Overlying cast obscures fine osseous details. Redemonstration of a trimalleolar fracture with near anatomic alignment. There is diffuse soft tissue swelling. No fracture of the proximal tibia or proximal fibula. Report Dictated on Electronically Signed By: Bello Oh MD Electronically Signed Date/Time: 09/23/2023 5:25 AM [facility] Radiology Study observation (narrative) [facility] XR Chest Single viewon 09-23 No focal consolidation or pulmonary edema. Report Dictated on Electronically Signed By: Bello Oh MD Electronically Signed Date/Time: 09/23/2023 6:37 AM [facility] [employer] [facility] Patient Name: CATRACHITA MURRAY : 1985 Exam Date/Time: 09/23/2023 06:36 Procedure: XR CHEST 1 VIEW Ordering Provider: GOODEN NICHOLAS Reason For Exam: preop PORTABLE CHEST CLINICAL INDICATION: preop TECHNIQUE: Portable AP COMPARISON: None FINDINGS: No focal consolidation or pulmonary edema. No pleural effusions or pneumothorax. The cardiac and mediastinal silhouettes are normal. The osseous structures are unremarkable. [facility] Bello Oh MD - 09/23/2023 Patient Name: CATRACHITA MURRAY : 1985 Exam Date/Time: 09/23/2023 06:36 Procedure: XR CHEST 1 VIEW Ordering Provider: GOODEN NICHOLAS Reason For Exam: preop PORTABLE CHEST CLINICAL INDICATION: preop TECHNIQUE: Portable AP COMPARISON: None FINDINGS: No focal consolidation or pulmonary edema. No pleural effusions or pneumothorax. The cardiac and mediastinal silhouettes are normal. The osseous structures are unremarkable. IMPRESSION: No focal consolidation or pulmonary edema. Report Dictated on Electronically Signed By: Bello Oh MD Electronically Signed Date/Time: 09/23/2023 6:37 AM [facility] Radiology Study observation (narrative) [facility] XR Tibia and Fibula - left 2 Viewson 09-23-2023 Patient Name: CATRACHITA MURRAY : 1985 Exam Date/Time: 09/23/2023 05:17 Procedure: XR TIBIA FIBULA 2 VIEWS LEFT Ordering Provider: GOODEN NICHOLAS Reason For Exam: Prox fib pain LEFT ANKLE AND TIBIA/FIBULA: CLINICAL INDICATION: Post-reduction TECHNIQUE: AP and Lateral tibia/fibula and AP, lateral, and oblique left ankle COMPARISON: 09/22/2023 Impression/findings: Overlying cast obscures fine osseous details. Redemonstration of a trimalleolar fracture with near anatomic alignment. There is diffuse soft tissue swelling. No fracture of the proximal tibia or proximal fibula. Report Dictated on Electronically Signed By: Bello Oh MD Electronically Signed Date/Time: 09/23/2023 5:25 AM [facility] Bello Oh MD - 09/23/2023 Patient Name: CATRACHITA MURRAY : 1985 Exam Date/Time: 09/23/2023 05:17 Procedure: XR TIBIA FIBULA 2 VIEWS LEFT Ordering Provider: GOODEN NICHOLAS Reason For Exam: Prox fib pain LEFT ANKLE AND TIBIA/FIBULA: CLINICAL INDICATION: Post-reduction TECHNIQUE: AP and Lateral tibia/fibula and AP, lateral, and oblique left ankle COMPARISON: 09/22/2023 Impression/findings: Overlying cast obscures fine osseous details. Redemonstration of a trimalleolar fracture with near anatomic alignment. There is diffuse soft tissue swelling. No fracture of the proximal tibia or proximal fibula. Report Dictated on Electronically Signed By: Bello Oh MD Electronically Signed Date/Time: 09/23/2023 5:25 AM EST [facility] Radiology Study observation (narrative) [facility] ED Nursing Noteon 09-22-2023 ED Nursing Note Visitor to nurses station requesting pillow for pts head. 3 visitors at bedside, blanket roll placed behind pts head. Call light is in reach of one of the visitors. 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 Pt remains very anxious and tearful. 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 Pt was able to pivot transfer independently on arrival to room. Physician to bedside to assess pt. Pt stating she cannot move her toes on left foot but +movement. +pain on palpation by physician to left knee. +obvious deformity to left ankle. 2 pillows provided for pt to elevated LLE. Pt restless and crying, very anxious, +hx anxiety. +ETOH intoxication and inappropriately tearful. Pt is A&Ox3, skin warm and dry. Normal [facility] ED Provider Noteon 4 ED Provider Note Emergency Department Encounter [facility] ED Patient: Catrachita Murray : 1985 Date of Evaluation: 09/22/2023 ED Provider: Marc Gooden MD Note: I wore an N95 mask and gloves during this encounter. CHIEF COMPLAINT: Left ankle injury Chief Complaint Patient presents with Ankle Pain Fall Leg Pain HPI: Catrachita Murray is a 38 y.o. female with PMH reports history of prior left foot surgery, presents concern for left ankle injury. Patient reports this evening she slipped getting in/out of car, injured her left ankle with deformity, reports pain in the proximal tib-fib as well, denies pain or injury elsewhere including head or neck, chest admitted pelvis, back, extremities otherwise, denies numbness or weakness, reports pain is severe, denies other symptoms or concerns. Patient reports she has had several margaritas this evening. REVIEW OF SYSTEMS: Pertinent positives and negatives as per HPI. HISTORIES: PAST MEDICAL HISTORY: as per HPI SOCIAL HISTORY: Speaks Pakistani MEDICATIONS: Nursing notes and EMR reviewed ALLERGIES: Nursing notes and EMR reviewed PHYSICAL EXAM: Vital signs: reviewed General: Acute distress secondary to pain, anxious appearing, moderately intoxicated Eyes: no conjunctival injection, eyes tracking HEENT: airway patent, mucous membranes moist, no scalp contusion or tenderness Neck: No nuchal rigidity, no limitation range of motion including flexion and extension, no neck tenderness Cardiovascular: regular rhythm, normal rate, left DP pulse palpable, left foot warm and well-perfused with cap refill less than 2 seconds throughout including the distal toes Respiratory: non-labored breathing, breath sounds clear, no wheezing crackles or rhonchi Gastrointestinal: soft, non-distended, non-tender to palpation throughout Extremities: Left ankle swelling diffuse tenderness and deformity without skin tenting or wound, mild tenderness to palpation proximal tib-fib without deformity, no swelling tenderness or deformity elsewhere through the left lower extremity including the knee femur, foot, no swelling tenderness or deformity throughout the right lower extremity or bilateral upper extremities Back: No tenderness to palpation throughout the back Integumentary: warm, dry Neurologic: alert, no obvious neurologic deficits, wiggles left toes, sensation intact left foot, nonslurred speech, answering questions appropriately, follows commands Procedure: closed reduction of ankle fracture/dislocation Performed by: Marc Gooden MD Neurovascular status intact prior to procedure, see physical exam Affected lower extremity was flexed at the hip and knee, inline traction was applied at the great toe, resulting in improvement of deformity Procedure was well-tolerated Neurovascular and motor function intact following procedure Procedure: splint placement Performed by: Marc Gooden MD Indication: injury stabilization A short leg posterior slab, as well as a sugar tong splint was placed on affected lower extremity, patient did not tolerate rolling into supine position limiting ability to place in dorsiflexion Neurovascular status intact following splint placement MEDICAL DECISION MAKING: Medications HYDROmorphone (Dilaudid) injection 1 mg (1 mg IntraVENous Given 09/22/232118) HYDROmorphone (Dilaudid) injection 0.5 mg (0.5 mg IntraVENous Given 09/22/232237) HYDROmorphone (Dilaudid) injection 0.5 mg (0.5 mg IntraVENous Given 09/23/23 0019) Catrachita Murray is a 38 y.o. female who presents as above, isolated left ankle injury with deformity, denies pain or injury elsewhere, she is neurovascular intact, no skin tenting or wound to suggest open fracture, presentation concerning for ankle dislocation/closed fracture, will treat with Dilaudid, obtain x-rays of left foot ankle and tib-fib. Patient is clinically moderately intoxicated with alcohol. Left tib/fib, ankle, foot x-ray obtained, reviewed by myself, interpreted per radiologist trimalleolar fracture left ankle with posterior lateral dislocation of tibiotalar joint Discussed further management, patient agrees to bedside reduction, given moderate alcohol intoxication, patient agrees to attempted reduction without conscious sedation, please see procedure note above, repeat ankle x-ray obtained demonstrates improved alignment, discussed with on-call orthopedic surgery Dr. Bucio including history patient's history, exam, and reviewed imaging, recommends ER to ER transfer to [facility] for orthopedic surgery consult for further management including improved alignment and splinting, discussed with patient who is in agreement with plan, discussed with EM resident Dr. Veronica on behalf of accepting EM attending Dr. Austin, stable for transfer. Discussed mode of transfer with patient, patient refuses transfer by ambulance, elects to be transferred by persona (more content not included)... Normal [facility] ED Provider Note Emergency Department Encounter [facility] EMERGENCY DEPT Patient: Catrachita Murray : 1985 Date of Evaluation: 09/22/2023 ED [place] Provider: Adrien Leggett PA-C EDcare was supervised by Dr. Mon who independently examined and evaluated the patient. Please see their attestation note for further details. Chief Complaint Chief Complaint Patient presents with Ankle Pain Fall Leg Pain WILTON I was wearing a N95, Surgical mask for the entirety of this encounter. Catrachita Murray is a 38 y.o. female who presents to the emergency department for left ankle injury. Patient injured her left ankle this evening when she was getting out of a car. Patient was transferred from [place] ED due to trimalleolar fracture and orthopedic evaluation. Limitations to history: None Outside historians: EMR Past History Past Medical History: Diagnosis Date Anxiety Hypertension Past Surgical History: Procedure Laterality Date TOE SURGERY Social History Socioeconomic History Marital status: Tobacco Use Smoking status: Never Substance and Sexual Activity Alcohol use: Yes Comment: Intoxicated during this ED visit Drug use: Not Currently Medications/Allergie s Current Discharge Medication List CONTINUE these medications which have NOT CHANGED Details !! DULoxetine (Cymbalta) [address] capsule hydrocortisone (Anusol-HC) 2.5 % rectal cream 1 APPLIC RECTALLY 2 TO 4 TIMES PER DAY NEEDED FOR HEMORRHOIDS ibuprofen 600 MG tablet Take 600 mg by mouth every 6 hours as needed. !! losartan (Cozaar) 50 MG tablet Take 50 mg by mouth daily. nitrofurantoin, macrocrystal-monohyd rate, (Macrobid) 100 MG capsule Take 100 mg by mouth 2 times daily. !! DULOXETINE HCL PO Take by mouth. !! LOSARTAN POTASSIUM PO Take by mouth. !! - Potential duplicate medications found. Please discuss with provider. Allergies Allergen Reactions Lactose Physical Exam BP 125/89 Pulse 120 Temp 36.6 ?C (97.9 ?F) (Temporal) Resp 16 Ht 1.676 m (5' 6) Wt 93.9 kg (207 lb) SpO2 95% BMI 33.41 kg/m? Physical Exam GENERAL APPEARANCE: Awake and alert. Cooperative. HEENT: Normocephalic. Atraumatic. Sclera anicteric. Tolerates saliva. No trismus. NECK: Supple. Trachea midline. CARDIO: Tachycardic initially. Radial pulses symmetrical and palpable LUNGS: Respirations unlabored. CTAB. ABDOMEN: Soft. Non-distended. Non-tender throughout. MUSCULOSKELETAL: Left leg in splint. SKIN: Warm and dry. NEUROLOGICAL: No gross facial drooping. SCREENINGS D Labs: Results for orders placed or performed during the hospital encounter of 09/22/23 Basic metabolic panel Result Value Ref Range SODIUM 139 135 - 145 mmol/L POTASSIUM 3.8 3.5 - 5.1 mmol/L CHLORIDE 105 98 - 107 mmol/L CARBON DIOXIDE 26 22 - 30 mmol/L UREA NITROGEN 7 7 - 17 mg/dL CREATININE 0.81 0.52 - 1.04 mg/dL GLUCOSE 117 (H) 70 - 100 mg/dL CALCIUM 8.5 8.4 - 10.4 mg/dL ANION GAP 8 3 - 13 mmol/L eGFR >90.0 >60.0 mL/min/1.73m*2 CBC Result Value Ref Range Auto WBC 11.4 (H) 3.6 - 10.7 10*3/uL RBC 4.34 3.8 - 5.20 10*6/uL Hemoglobin 13.2 11.7 - 16.0 g/dL Hematocrit 38.5 35.0 - 47.0 % MCV 88.6 80.0 - 98.0 fL MCH 30.4 26.0 - 34.0 pg MCHC 34.3 32.0 - 36.0 % RDW 13.9 11.5 - 14.5 % Platelets 332 140 - 440 10*3/uL MPV 9.2 7.4 - 12.4 fL Protime-INR Result Value Ref Range PROTHROMBIN TIME 9.9 9.0 - 12.0 s INR <0.9 (L) 0.9 - 1.1 Type and Screen Result Value Ref Range ABO Grouping A Antibody Screen NEG Rh Type POS Confirmatory ABO/Rh Result Value Ref Range ABO Grouping A Rh Type POS POCT glucose meter Result Value Ref Range Glucose 126 (H) 70 - 100 mg/dL ECG 12 lead Result Value Ref Range Heart Rate 96 bpm QRSD Interval 112 ms QT Interval 372 ms QTC Interval 469 ms P [place] 37 degrees QRS [place] -21 degrees T Wave [place] 36 degrees [place] Interval 208 ms Radiographs: FL GUIDANCE OR USE ONLY - NON RESULTABLE Final Result XR chest 1 view Final Result No focal consolidation or pulmonary edema. Report Dictated on Electronically Signed By: Bello Oh MD Electronically Signed Date/Time: 09/23/2023 6:[address] ankle left wo IV contrast Final Result Trimalleolar fracture as described above. Report Dictated on Electronically Signed By: Bello Oh MD Electronically Signed Date/Time: 09/23/2023 5:53 AM EST XR ankle 3+ views left Final Result XR tibia fibula 2 views left Final Result FL guidance non-resultable joint reduction Final Result XR ankle 3+ views left Final Result FINDINGS/IMPRESSION: Interval improvement in alignment of the patient's previously described trimalleolar fracture status post casting. Diffuse soft tissue swelling. No radiopaque foreign body. Report Dictated on Electronically Signed By: Elpidio Wynn MD Electronically Signed Date/Time: 09/22/2023 11:19 (more content not included)... Normal [facility] ED Provider Note Emergency Department Encounter [facility] Patient: Catrachita Murray : 1985 Date of Evaluation: 09/22/2023 ED Supervising Physician: Carmita Mon DO I personally evaluated Catrachita Murray and made/approved the management plan and take responsibility for the patient management. This will serve as my Supervisory note and shared attestation. I did perform a substantive portion of the visit including all aspects of the Medical Decision Making. Patient was initially seen by Dr. Gooden at [facility], please see his note I wore appropriate PPE for the entirety of this encounter. In brief, Catrachita Murray is a 38 y.o. that presents to the emergency department as a transfer from [facility] for left trimalleolar ankle fracture with posterior lateral dislocation. Patient transferred for further management per orthopedic surgery. Focused exam: General: Appears well, nontoxic, no distress Skin: no rash visible on exposed skin HEENT: Pupils equal and round, EOMI Cardiovascular: Extremities appear well perfused, no swelling in exposed extremities Respiratory: No dyspnea, equal chest rise and fall Gastrointestinal: Nondistended Musculoskeletal: Left ankle is in a splint. Sensation, motor, capillary refill intact to toes on left. Neurological: Alert and oriented, moving all extremities spontaneously Psychiatric: Appropriate mood and affect for condition, normal behavior Brief ED course/MDM: Patient is a 38-year-old female presenting to the emergency department for evaluation of left ankle fracture Review of records: I reviewed outpatient note and imaging from outside facility Consults: Orthopedic surgery Orthopedic surgery saw and evaluated the patient. They placed a new splint on the patient. Decision was made to proceed with OR for ORIF of the left ankle. Orthopedic surgery recommending admission to medicine, and they will be on consult. Patient admitted to medicine for further management of left ankle fracture Diagnostics interpreted by me: I personally discussed the patient's management with other clinicians: All diagnostic, treatment, and disposition decisions were made by myself in conjunction with the [facility]. For all further details of the patient's emergency department visit, please see their documentation. (Comment: Please note this report has been produced using speech recognition software and may contain errors related to that system including errors in grammar, punctuation, and spelling, as well as words and phrases that may be inappropriate. If there are any questions or concerns please feel free to contact the dictating provider for clarification.) Carmita Mon DO Acute Care [facility] Carmita Mon DO 09/24/23 0107 Normal [facility] No Panel Informationon 09-22 1. Trimalleolar fracture left ankle, with posterolateral dislocation of tibiotalar joint. Report Dictated on Electronically Signed By: Hal Martinez MD Electronically Signed Date/Time: 09/22/2023 9:56 PM [facility] Radiology Study observation (narrative) [facility] No Panel InformationOrdered By: Hal Martinez on 09-22-2023 [facility] [employer] Work Phone: XR Ankle - left 2 Viewson Patient Name: CATRACHITA MURRAY : 1985 [facility]#: [id number] Exam Date/Time: 09/22/2023 21:50 Procedure: XR ANKLE 2 VIEWS LEFT Ordering Provider: GOODEN NICHOLAS Reason For Exam: left ankle injury w deformity LEFT TIBIA AND FIBULA 2 VIEWS. LEFT ANKLE 2 VIEWS. LEFT FOOT 2 VIEWS CLINICAL INDICATION: left ankle injury w deformity TECHNIQUE: 2 views of the left tibia and fibula. 2 views of the left ankle. 2 views of the left foot. COMPARISON: None. FINDINGS: Transverse fracture through medial malleolus, with mild distraction. Oblique fracture through lateral malleolus, with mild lateral displacement. Coronal fracture through posterior malleolus of distal tibia, with mild posterior displacement. Posterolateral dislocation of talus relative to tibial plafond. Diffuse surrounding soft tissue edema. Postsurgical change in great toe metatarsal head-neck , including status post osteotomy and screw fixation. Mild posterior and plantar calcaneal spurring. Remainder of osseous and soft tissue structures grossly unremarkable. [facility] Hal Martinez MD - 09/22/2023 Patient Name: CATRACHITA MURRAY : 1985 Exam Date/Time: 09/22/2023 21:50 Procedure: XR ANKLE 2 VIEWS LEFT Ordering Provider: GOODEN NICHOLAS Reason For Exam: left ankle injury w deformity LEFT TIBIA AND FIBULA 2 VIEWS. LEFT ANKLE 2 VIEWS. LEFT FOOT 2 VIEWS CLINICAL INDICATION: left ankle injury w deformity TECHNIQUE: 2 views of the left tibia and fibula. 2 views of the left ankle. 2 views of the left foot. COMPARISON: None. FINDINGS: Transverse fracture through medial malleolus, with mild distraction. Oblique fracture through lateral malleolus, with mild lateral displacement. Coronal fracture through posterior malleolus of distal tibia, with mild posterior displacement. Posterolateral dislocation of talus relative to tibial plafond. Diffuse surrounding soft tissue edema. Postsurgical change in great toe metatarsal head-neck , including status post osteotomy and screw fixation. Mild posterior and plantar calcaneal spurring. Remainder of osseous and soft tissue structures grossly unremarkable. IMPRESSION: 1. Trimalleolar fracture left ankle, with posterolateral dislocation of tibiotalar joint. Report Dictated on Electronically Signed By: Hal Martinez MD Electronically Signed Date/Time: 09/22/2023 9:56 PM EST [facility] XR Ankle - left 3 Viewson FINDINGS/IMPRESSION: Interval improvement in alignment of the patient's previously described trimalleolar fracture status post casting. Diffuse soft tissue swelling. No radiopaque foreign body. Report Dictated on Electronically Signed By: Elpidio Wynn MD Electronically Signed Date/Time: 09/22/2023 11:19 PM [facility] Patient Name: CATRACHITA MURRAY : 1985 Exam Date/Time: 09/22/2023 22:35 Procedure: XR ANKLE 3+ VIEWS LEFT Ordering Provider: GOODEN NICHOLAS Reason For Exam: left ankle trimal fx, post bedside reduction LEFT ANKLE: CLINICAL INDICATION: Fracture. TECHNIQUE: AP, Lat, Oblique COMPARISON: 09/22/2023 [facility] Elpidio Wynn MD - 09/22/2023 Patient Name: CATRACHITA MURRAY : 1985 Exam Date/Time: 09/22/2023 22:35 Procedure: XR ANKLE 3+ VIEWS LEFT Ordering Provider: GOODEN NICHOLAS Reason For Exam: left ankle trimal fx, post bedside reduction LEFT ANKLE: CLINICAL INDICATION: Fracture. TECHNIQUE: AP, Lat, Oblique COMPARISON: 09/22/2023 IMPRESSION: FINDINGS/IMPRESSION: Interval improvement in alignment of the patient's previously described trimalleolar fracture status post casting. Diffuse soft tissue swelling. No radiopaque foreign body. Report Dictated on Electronically Signed By: Elpidio Wynn MD Electronically Signed Date/Time: 09/22/2023 11:19 PM EST [facility] Radiology Study observation (narrative) [facility] XR Ankle - left 3 ViewsOrder ed By: Elpidio Wynn on 09-22-2023 [facility] Work Phone: XR Foot - left 2 Viewson Patient Name: CATRACHITA MURRAY : 1985 Exam Date/Time: 09/22/2023 21:51 Procedure: XR FOOT 1-2 VIEWS LEFT Ordering Provider: GOODEN NICHOLAS Reason For Exam: left ankle injury w deformity LEFT TIBIA AND FIBULA 2 VIEWS. LEFT ANKLE 2 VIEWS. LEFT FOOT 2 VIEWS CLINICAL INDICATION: left ankle injury w deformity TECHNIQUE: 2 views of the left tibia and fibula. 2 views of the left ankle. 2 views of the left foot. COMPARISON: None. FINDINGS: Transverse fracture through medial malleolus, with mild distraction. Oblique fracture through lateral malleolus, with mild lateral displacement. Coronal fracture through posterior malleolus of distal tibia, with mild posterior displacement. Posterolateral dislocation of talus relative to tibial plafond. Diffuse surrounding soft tissue edema. Postsurgical change in great toe metatarsal head-neck , including status post osteotomy and screw fixation. Mild posterior and plantar calcaneal spurring. Remainder of osseous and soft tissue structures grossly unremarkable. [facility] Hal Martinez MD - 09/22/2023 Patient Name: CATRACHITA MURRAY : 1985 Exam Date/Time: 09/22/2023 21:51 Procedure: XR FOOT 1-2 VIEWS LEFT Ordering Provider: GOODEN NICHOLAS Reason For Exam: left ankle injury w deformity LEFT TIBIA AND FIBULA 2 VIEWS. LEFT ANKLE 2 VIEWS. LEFT FOOT 2 VIEWS CLINICAL INDICATION: left ankle injury w deformity TECHNIQUE: 2 views of the left tibia and fibula. 2 views of the left ankle. 2 views of the left foot. COMPARISON: None. FINDINGS: Transverse fracture through medial malleolus, with mild distraction. Oblique fracture through lateral malleolus, with mild lateral displacement. Coronal fracture through posterior malleolus of distal tibia, with mild posterior displacement. Posterolateral dislocation of talus relative to tibial plafond. Diffuse surrounding soft tissue edema. Postsurgical change in great toe metatarsal head-neck , including status post osteotomy and screw fixation. Mild posterior and plantar calcaneal spurring. Remainder of osseous and soft tissue structures grossly unremarkable. IMPRESSION: 1. Trimalleolar fracture left ankle, with posterolateral dislocation of tibiotalar joint. Report Dictated on Electronically Signed By: Hal Martinez MD Electronically Signed Date/Time: 09/22/2023 9:56 PM EST [facility] XR Tibia and Fibula - left 2 Viewson 09-22-2023 Patient Name: CATRACHITA MURRAY : 1985 Exam Date/Time: 09/22/2023 21:50 Procedure: XR TIBIA FIBULA 2 VIEWS LEFT Ordering Provider: GOODEN NICHOLAS Reason For Exam: left ankle injury w deformity LEFT TIBIA AND FIBULA 2 VIEWS. LEFT ANKLE 2 VIEWS. LEFT FOOT 2 VIEWS CLINICAL INDICATION: left ankle injury w deformity TECHNIQUE: 2 views of the left tibia and fibula. 2 views of the left ankle. 2 views of the left foot. COMPARISON: None. FINDINGS: Transverse fracture through medial malleolus, with mild distraction. Oblique fracture through lateral malleolus, with mild lateral displacement. Coronal fracture through posterior malleolus of distal tibia, with mild posterior displacement. Posterolateral dislocation of talus relative to tibial plafond. Diffuse surrounding soft tissue edema. Postsurgical change in great toe metatarsal head-neck , including status post osteotomy and screw fixation. Mild posterior and plantar calcaneal spurring. Remainder of osseous and soft tissue structures grossly unremarkable. [facility] Hal Martinez MD - 09/22/2023 Patient Name: CATRACHITA MURRAY : 1985 Exam Date/Time: 09/22/2023 21:50 Procedure: XR TIBIA FIBULA 2 VIEWS LEFT Ordering Provider: GOODEN NICHOLAS Reason For Exam: left ankle injury w deformity LEFT TIBIA AND FIBULA 2 VIEWS. LEFT ANKLE 2 VIEWS. LEFT FOOT 2 VIEWS CLINICAL INDICATION: left ankle injury w deformity TECHNIQUE: 2 views of the left tibia and fibula. 2 views of the left ankle. 2 views of the left foot. COMPARISON: None. FINDINGS: Transverse fracture through medial malleolus, with mild distraction. Oblique fracture through lateral malleolus, with mild lateral displacement. Coronal fracture through posterior malleolus of distal tibia, with mild posterior displacement. Posterolateral dislocation of talus relative to tibial plafond. Diffuse surrounding soft tissue edema. Postsurgical change in great toe metatarsal head-neck , including status post osteotomy and screw fixation. Mild posterior and plantar calcaneal spurring. Remainder of osseous and soft tissue structures grossly unremarkable. IMPRESSION: 1. Trimalleolar fracture left ankle, with posterolateral dislocation of tibiotalar joint. Report Dictated on Electronically Signed By: Hal Martinez MD Electronically Signed Date/Time: 09/22/2023 9:56 PM [facility] Absolute lymphocyte counton 02-28-2022 Lymphocytes Auto (Unsp spec) [#/Vol] 1.97 10*3/uL 0.83-4.51 [facility] Work Phone: Basophil percentageon 2021 Basophils/100 WBC (Bld) 1.0 % 0-[address] [facility] Work Phone: Chloride [Moles/Vol] 105 mmol/L 98-107 [facility]: [phone] Eosinophils/100 WBC (Bld) 2.1 % 0-5 [facility] Work Phone: Glucose [Mass/Vol] 115 mg/dL 74-106 [facility] Work Phone: Comment on above: Fasting Glucose resu lt from 100 to 125 mg/dL suggests IMPAIRED HOMEOSTASIS per A.D.A. criteria. Neutrophils (Bld) [#/Vol] 4.1 10*3/uL 2.0-7.7 [facility] Work Phone: [phone] Neutrophils/100 WBC (Bld) 60.4 % 47-70 [facility] Work Phone: [phone] Potassium [Moles/Vol] 4.1 mmol/L 3.5-5.1 [facility] Work Phone: [phone] Comment on above: Slight Hemolysis, Re sult may be falsely increased. Sodium [Moles/Vol] 138 mmol/L 136-145 [facility] Work Phone: [phone] WBC (Bld) [#/Vol] 6.8 10*3/uL 4.4-11.0 [facility] Work Phone: Beta hCG serum qualon 2021 Beta HCG ( test) Ql Negative [facility] Work Phone: Blood erythrocytes count (nu mber/volume)on 02-28-2022 RBC (Bld) [#/Vol] 4.84 10*6/uL 4.2-5.4 [facility] Work Phone: Blood hemoglobin measurement (mass/volume)on 02-28-2022 Hemoglobin (Bld) [Mass/Vol] 14.8 g/dL 12.0-15.0 [facility] Work Phone: Blood lymphocytes/100 leukoc yteson 02-28-2022 Lymphocytes/100 WBC (Bld) 29.0 % 19-41 [facility] Work Phone: [phone] Blood monocytes/100 leukocyt eson 02-28-2022 Monocytes/100 WBC (Bld) 7.2 % 0-[address] [facility] Work Phone: Blood platelet mean volumeon 02-28-2022 Platelet mean volume (Bld) [Entitic vol] 11.4 fL 6.2-12.0 [facility] Work Phone: Determination of erythrocyte mean corpuscular volume (MCV)on 02-28-2022 MCV (RBC) [Entitic vol] 89.3 fL 81-[address] [facility] Work Phone: Hematocrit Auto (Bld) [Volum e fraction]on 02-28-2022 Hematocrit (Bld) [Volume fraction] 43.2 % 37-47 [facility] Work Phone: INR in Blood by Coagulation assayon 02-28-2022 INR Coag (Bld) [Relative time] 0.9 {INR} [facility] Work Phone: Laboratory - Chemistry and C hemistry - challengeon 02-28-2022 CO2 [Moles/Vol] 25.0 mmol/L 21.0-32.0 [facility] Work Phone: Urea nitrogen/Creatinine [Mass ratio] 7.2 mg/mg 10-20 [facility] Work Phone: Laboratory - Coagulationon 0 02-28-2022 aPTT Coag (Bld) [Time] 29.4 s 24.1-36.2 [facility] Work Phone: PT Coag (PPP) [Time] 11.6 s 11.7-14.9 [facility] Work Phone: Laboratory - Hematology and Cell countson 02-28-2022 Erythrocyte distribution width (RBC) [Entitic vol] 42.5 fL 35.1-43.9 [facility] Work Phone: Erythrocyte distribution width (RBC) [Ratio] 13.1 % 11.6-14.6 [facility] Work Phone: Immature granulocytes/100 WBC (Bld) 0.300 % 0.0-0.9 [facility] Work Phone: Comment on above: IG% - Immature Granu locytes (promyelocytes, myelocytes and metamyelocytes) > 1% indicates that a LEFT SHIFT is Present. MCH (RBC) [Entitic mass] 30.6 pg 27.0-32.0 [facility] Work Phone: Nucleated RBC/100 WBC (Bld) [Ratio] 0 % 0-5 [facility] Work Phone: MCHC Auto (RBC) [Mass/Vol]on 02-28-2022 MCHC (RBC) [Mass/Vol] 34.3 g/dL 32-36 [facility] Work Phone: No Panel Informationon 02-28 Troponin I High Sensitivity < 3 pg/mL 3.0-54.0 [facility] Work Phone: Comment on above: Please Note: New Radhika t Units and Gender Specific Reference Ranges. For more information see Policy Stat Procedure [place] High Sensitivity Troponin (TNIH) and attachments. D-Dimer Quantitative (PE/DVT) < 0.27 FEU/ug/m 0.27-0.49 [facility] Work Phone: Comment on above: NORMAL D-Dimer level (<0.50) indicates no DVT or PE. Estimated Creatinine Clearance Calc 73.62 ml/min [facility] Work Phone: Estimated GFR (MDRD) Amer 83 mL/min >60 [facility] Work Phone: Comment on above: GFR Calc Estimated GFR (MDRD) Non-Af Amer 68 mL/min >60 [facility] Work Phone: Comment on above: Non- GFR Calc Platelets bldon 02-28-2022 Platelets (Bld) [#/Vol] 343 10*3/uL 150-450 [facility] Work Phone: Serum or plasma calcium jami urement (mass/volume)on 02-28-2022 Calcium [Mass/Vol] 9.3 mg/dL 8.5-10.1 [facility] Work Phone: Serum or plasma creatinine m easurement (mass/volume)on 02-28-2022 Creatinine [Mass/Vol] 0.97 mg/dL 0.55-1.02 [facility] Work Phone: Comment on above: The validity of the calculated GFR & GFRAA in patients over 70 years has not been determined. Clinical correlation is essential. Serum or plasma urea nitroge n measurement (mass/volume)on 02-28-2022 Urea nitrogen [Mass/Vol] 7 mg/dL 7-18 [facility] Work Phone: Thin prep Papanicolaou smear with manual screeningon 02-28-2022 Thin prep Papanicolaou smear with manual screening 8 5-15 [facility] Work Phone: Vital Signs Date Time Vital Sign Value Performing Clinician Facility 01-30-2025 20:00-0400 Heart rate 79 /min Dr. Celso Brewer MD Work Phone: [facility] 01-30-2025 20:00-0400 Respiratory rate 14 /min Dr. Celso Brewer MD Work Phone: [facility] 01-30-2025 20:00-0400 SaO2% (BldA) [Mass fraction] 100 % Dr. Celso Brewer MD Work Phone: [facility] 01-30-2025 20:00-0400 Systolic blood pressure 136 mm[Hg] Dr. Celso Brewer MD Work Phone: [facility] 01-30-2025 19:35-0400 Body temperature 97.9 [degF] Dr. Celso Brewer MD Work Phone: [phone] [place] [address] 01-30-2025 19:33-0400 Body height 167.[address] Celso Brewer MD Work Phone: [phone] [place] [address] 01-30-2025 19:33-0400 Body mass index (BMI) [Ratio] 34.5 kg/m2 Dr. Celso Brewer MD Work Phone: [phone] [place] [address] 01-30-2025 19:33-0400 Body weight 97.[address] Celso Brewer MD Work Phone: [phone] [place] [address] 01-30-2025 09:33-0400 Body height 165.[address] Celso Brewer MD Work Phone: [phone] [place] [address] 01-30-2025 09:33-0400 Body mass index (BMI) [Ratio] 35.2 kg/m2 Dr. Celso Brewer MD Work Phone: [phone] [place] [address] 01-30-2025 09:33-0400 Body temperature 97.2 [degF] Dr. Celso Brewer MD Work Phone: [phone] [place] [address] 01-30-2025 09:33-0400 Body weight 96.[address] Celso Brewer MD Work Phone: [phone] [place] [address] 01-30-2025 09:33-0400 Diastolic blood pressure 88 mm[Hg] Dr. Celso Brewer MD Work Phone: [phone])184-307162 [place] [address] 01-30-2025 09:33-0400 Heart rate 75 /min Dr. Celso Brewer MD Work Phone: [phone])851-573662 [place] [address] 01-30-2025 09:33-0400 Respiratory rate 18 /min Dr. Celso Brewer MD Work Phone: [phone] [place] [address] 01-30-2025 09:33-0400 SaO2% (BldA) [Mass fraction] 99 % Dr. Celso Brewer MD Work Phone: [phone] [place] [address] 01-30-2025 09:33-0400 Systolic blood pressure 125 mm[Hg] Dr. Celso Brewer MD Work Phone: [facility] 01-22-2025 11:00-0400 Body mass index (BMI) [Ratio] 34.78 kg/m2 Manolo Harrington MD Work Phone: [facility] 01-22-2025 11:00-0400 Body weight 94.8 kg Manolo Harrington MD Work Phone: [facility] 01-22-2025 11:00-0400 Diastolic blood pressure 88 mm[Hg] Manolo Harrington MD Work Phone: [facility] 01-22-2025 11:00-0400 Systolic blood pressure 110 mm[Hg] Manolo Harrington MD Work Phone: [facility] 01-20-2025 11:46-0400 Body temperature 97.5 [degF] Dr. Celso Brewer MD Work Phone: [facility] 01-20-2025 11:46-0400 Diastolic blood pressure 94 mm[Hg] Dr. Celso Brewer MD Work Phone: [facility] 01-20-2025 11:46-0400 Heart rate 79 /min Dr. Celso Brewer MD Work Phone: [facility] 01-20-2025 11:46-0400 Respiratory rate 18 /min Dr. Celso Brewer MD Work Phone: [facility] 01-20-2025 11:46-0400 SaO2% (BldA) [Mass fraction] 98 % Dr. Celso Brewer MD Work Phone: [facility] 01-20-2025 11:46-0400 Systolic blood pressure 136 mm[Hg] Dr. Celso Brewer MD Work Phone: [facility] 01-20-2025 08:34-0400 Body height 165.[address] Celso Brewer MD Work Phone: [facility] 01-20-2025 08:34-0400 Body mass index (BMI) [Ratio] 35.2 kg/m2 Dr. Celso Brewer MD Work Phone: [facility] 01-20-2025 08:34-0400 Body weight 96.[address] Celso Brewer MD Work Phone: [facility] 12-22-2024 17:34-0400 Body temperature 97 [degF] Dr. Celso Brewer MD Work Phone: [facility] 12-22-2024 17:34-0400 Diastolic blood pressure 97 mm[Hg] Dr. Celso Brewer MD Work Phone: [phone] [place] [address] 12-22-2024 17:34-0400 Heart rate 89 /min Dr. Celso Brewer MD Work Phone: [facility] 12-22-2024 17:34-0400 Respiratory rate 14 /min Dr. Celso Brewer MD Work Phone: [facility] 12-22-2024 17:34-0400 SaO2% (BldA) [Mass fraction] 97 % Dr. Celso Brewer MD Work Phone: [facility] 12-22-2024 17:34-0400 Systolic blood pressure 144 mm[Hg] Dr. Celso Brewer MD Work Phone: [facility] 12-22-2024 14:54-0400 Body height 165.[address] Celso Brewer MD Work Phone: [facility] 12-22-2024 14:54-0400 Body mass index (BMI) [Ratio] 35.6 kg/m2 Dr. Celso Brewer MD Work Phone: [facility] 12-22-2024 14:54-0400 Body weight 97.[address] Celso Brewer MD Work Phone: [facility] 10-21-2024 10:42-0400 Body mass index (BMI) [Ratio] 36.32 kg/m2 Radha Phillips APRN.CNP Work Phone: [facility] 10-21-2024 10:42-0400 Body temperature 97.2 [degF] Radha Moomaw FIRE RANGE TECHNICIAN.CUTTER GRINDER Work Phone: [facility] 10-21-2024 10:42-0400 Body weight 99 kg Radha Moomaw FIRE RANGE TECHNICIAN.CUTTER GRINDER Work Phone: [facility] 10-21-2024 10:42-0400 Diastolic blood pressure 90 mm[Hg] Radah Moomaw FIRE RANGE TECHNICIAN.CUTTER GRINDER Work Phone: [facility] 10-21-2024 10:42-0400 Heart rate 102 /min Radha Moomaw FIRE RANGE TECHNICIAN.CUTTER GRINDER Work Phone: [facility] 10-21-2024 10:42-0400 Respiratory rate 16 /min Radha Moomaw FIRE RANGE TECHNICIAN.CUTTER GRINDER Work Phone: [facility] 10-21-2024 10:42-0400 SaO2% (BldA) [Mass fraction] 97 % Radha Moomaw FIRE RANGE TECHNICIAN.CUTTER GRINDER Work Phone: [facility] 10-21-2024 10:42-0400 Systolic blood pressure 144 mm[Hg] Radha Moomaw FIRE RANGE TECHNICIAN.CUTTER GRINDER Work Phone: [facility] 12-15-2023 15:20-0400 Body height 167.6 cm Melvin Bucio MD Work Phone: [facility] 12-15-2023 15:20-0400 Body mass index (BMI) [Ratio] 33.41 kg/m2 Melvin Bucio MD Work Phone: [facility] 12-15-2023 15:20-0400 Body weight 93.89 kg Melvin Bucio MD Work Phone: [facility] 11-03-2023 15:16-0400 Body height 167.6 cm Melvin Bucio MD Work Phone: [facility] 11-03-2023 15:16-0400 Body mass index (BMI) [Ratio] 33.41 kg/m2 Melvin Bucio MD Work Phone: [facility] 11-03-2023 15:16-0400 Body weight 93.89 kg Melvin Bucio MD Work Phone: [employer] [facility] [employer] 10-06-2023 12:00-0500 Body height 167.6 cm Melvin Bucio MD Work Phone: [facility] 10-06-2023 12:00-0500 Body mass index (BMI) [Ratio] 33.41 kg/m2 Melvin Bucio MD Work Phone: [employer] [facility] [employer] 10-06-2023 12:00-0500 Body weight 93.89 kg Melvin Bucio MD Work Phone: [employer] [facility] 10-06-2023 12:00-0500 Diastolic blood pressure 84 mm[Hg] Melvin Bucio MD Work Phone: [employer] [facility] 10-06-2023 12:00-0500 Systolic blood pressure 128 mm[Hg] Melvin Bucio MD Work Phone: [facility] 09-24-2023 08:06-0500 Body temperature 96.01 [degF] Marc Gooden MD Work Phone: [facility] 09-24-2023 08:06-0500 Diastolic blood pressure 83 mm[Hg] Marc Gooden MD Work Phone: [facility] 09-24-2023 08:06-0500 Heart rate 92 /min Marc Gooden MD Work Phone: [facility] 09-24-2023 08:06-0500 SaO2% (BldA) [Mass fraction] 94 % Marc Gooden MD Work Phone: [employer] [facility] [employer] 09-24-2023 08:06-0500 Systolic blood pressure 130 mm[Hg] Marc Gooden MD Work Phone: [employer] [facility] [employer] 09-24-2023 04:12-0500 Respiratory rate 16 /min Marc Gooden MD Work Phone: [employer] [facility] [employer] 09-23-2023 06:26-0500 Body height 167.6 cm Marc Gooden MD Work Phone: [facility] 09-22-2023 21:00-0500 Body mass index (BMI) [Ratio] 33.41 kg/m2 Marc Gooden MD Work Phone: [facility] 09-22-2023 21:00-0500 Body weight 93.89 kg Marc Gooden MD Work Phone: [facility] 04-27-2022 09:01-0400 Body temperature 96.91 [degF] Marianne Nina APRN.CUTTER GRINDER Work Phone: [facility] 04-27-2022 09:01-0400 Body weight 100.7 kg Marianne Nina APRN.CUTTER GRINDER Work Phone: [facility] 04-27-2022 09:01-0400 Diastolic blood pressure 80 mm[Hg] Marianne Nina APRN.CUTTER GRINDER Work Phone: [facility] 04-27-2022 09:01-0400 Heart rate 94 /min Marianne Nina APRN.CUTTER GRINDER Work Phone: [facility] 04-27-2022 09:01-0400 Respiratory rate 16 /min Marianne Nina APRN.CUTTER GRINDER Work Phone: [facility] 04-27-2022 09:01-0400 SaO2% (BldA) [Mass fraction] 99 % Marianne Nina APRN.CUTTER GRINDER Work Phone: [facility] 04-27-2022 09:01-0400 Systolic blood pressure 122 mm[Hg] Marianne Nina APRN.CUTTER GRINDER Work Phone: [facility] 02-28-2022 12:03-0400 Diastolic blood pressure 107 mm[Hg] Dr. Polly Lopez Work Phone: [facility] Work Phone: 02-28-2022 12:03-0400 Heart rate 88 /min Dr. Polly Lopez Work Phone: [facility] Work Phone: 02-28-2022 12:03-0400 Respiratory rate 14 /min Dr. Polly Lopez Work Phone: [facility] Work Phone: 02-28-2022 12:03-0400 SaO2% (BldA) [Mass fraction] 95 % Dr. Polly Lopez Work Phone: [facility] Work Phone: 02-28-2022 12:03-0400 Systolic blood pressure 158 mm[Hg] Dr. Polly Lopez Work Phone: [facility] Work Phone: 02-28-2022 08:41-0400 Body height 167.[address] Polly Lopez Work Phone: [facility] Work Phone: 02-28-2022 08:41-0400 Body mass index (BMI) [Ratio] 33 kg/m2 Dr. Polly Lopez Work Phone: [facility] Work Phone: 02-28-2022 08:41-0400 Body temperature 97.8 [degF] Dr. Polly Lopez Work Phone: [facility] Work Phone: 02-28-2022 08:41-0400 Body weight 92.[address] Polly Lopez Work Phone: [facility] Work Phone: Encounters Encounter Date Encounter Type Care Provider Facility Start: 01-30-2025 Non-patient / Non-visit Dr. Jose Carlos Canas MD -[facility] Start: 01-30-2025 [facility] Dr[facility] Kelsey Canas MD -[facility] Start: 01-30-[address] Celso Brewer MD Work Phone: [facility] Work Phone: Start: 01-30-2025 End: 01-30-[address] Celso Brewer MD Work Phone: [facility] Work Phone: Start: 01-30-2025 End: 01-30-2025 Patient encounter procedure Essie Leggett PA-C -[facility] Work Phone: Start: 01-22-2025 End: 01-22-2025 Patient encounter procedure Manolo Harrington MD Work Phone: OB/Gynecology Comment on above: Corpus luteum cyst ( Primary Dx) Start: 01-22-2025 End: 01-22-2025 ambulatory MANOLO HARRINGTON Facility:[facility] Start: 01-21-2025 End: 01-21-2025 Telephone encounter Camila Villasenor MD Work Phone: OB/Gynecology Start: 01-20-2025 End: 01-20-2025 Emergency department patient visit Dr. Celso Brewer MD Work Phone: -Emergency Department Work Phone: Start: 12-22-2024 End: 12-22-2024 Emergency department patient visit Dr. Celso Brewer MD Work Phone: -Emergency Department Work Phone: Start: 12-10-2024 End: 12-10-[address] Celso Brewer MD Work Phone: [facility] Work Phone: Start: 12-10-2024 End: 12-10-[address] Celso Brewer MD -Laboratory, [facility] Start: 12-10-2024 End: 12-10-2024 ambulatory Celso Brewer Facility:[facility] Start: 10-21-2024 End: 10-21-2024 ambulatory POLLY LOPEZ Facility:[facility] Start: 10-21-2024 End: 10-21-2024 Patient encounter procedure Radha Phillips APRN.CNP Work Phone: [facility] Comment on above: Viral URI (Primary D x) Start: 03-14-2024 End: 03-14-2024 Orders Only Ludy Vila PA-C Work Phone: [facility] Comment on above: Closed displaced tri malleolar fracture of left ankle, initial encounter (Primary Dx) Start: 03-11-2024 End: 03-11-2024 Emergency department patient visit Andrea Castellanos Facility:[facility] Start: 12-15-2023 End: 12-16-2023 ambulatory LUDY VILA [facility] Start: 12-15-2023 End: 12-15-2023 Postop follow up visit related to original px Melvin Bucio MD Work Phone: [facility] Comment on above: Closed displaced tri malleolar fracture of left ankle, initial encounter (Primary Dx) Start: 11-03-2023 End: 11-03-2023 Postop follow up visit related to original px Melvin Bucio MD Work Phone: [facility] Comment on above: Closed displaced tri malleolar fracture of left ankle, initial encounter Start: 11-03-2023 End: 11-03-2023 Orders Only Ludy Vila PA-C Work Phone: [facility] Comment on above: Closed displaced tri malleolar fracture of left ankle, initial encounter (Primary Dx) Start: 10-06-2023 End: 10-06-2023 Orders Only Ludy Vila PA-C Work Phone: [facility] Comment on above: Closed displaced tri malleolar fracture of left ankle, initial encounter (Primary Dx) Start: 10-06-2023 End: 10-06-2023 Postop follow up visit related to original px Melvin Bucio MD Work Phone: [facility] Comment on above: Closed displaced tri malleolar fracture of left ankle, initial encounter Start: 09-28-2023 Telephone encounter Melvin garcia MD Work Phone: [facility] Comment on above: Med Refill Start: 09-23-2023 End: 09-23-2023 Emergency department patient visit MARC Barakat [facility] Start: 09-22-2023 End: 09-23-2023 Emergency department patient visit MARC Barakat [facility] Start: 09-22-2023 End: 09-24-2023 Evaluation and management of inpatient POLLY LOPEZ [facility] Start: 09-22-2023 End: 09-22-2023 Subsequent hospital visit by physician [facility] Comment on above: Arrived Start: 09-22-2023 End: 09-22-2023 Subsequent hospital visit by physician [facility] Rad[facility] Comment on above: Arrived Start: 09-22-2023 End: 09-24-2023 Evaluation and management of inpatient Marc B Taisha PAZ Work Phone: [facility] PCU H6 Comment on above: Closed displaced tri malleolar fracture of left ankle, initial encounter (Primary Dx) Start: 04-27-2022 End: 04-27-2022 Patient encounter procedure Marianne Nina APRN.CNP Work Phone: [facility] Comment on above: Pain of right eye (P rimary Dx) Start: 02-28-2022 Non-patient / Non-visit Dr. Brayan Lopez Work Phone: [facility] Start: 02-28-2022 End: 02-28-2022 Emergency department patient visit Dr. Polly Lopez Work Phone: [facility]-Emergency Department Procedures Date Procedure Procedure Detail Performing Clinician Start: 01-30-[address] Celso Brewer MD Work Phone: Start: 01-20-2025 Computed tomography of abdomen and pelvis with intravenous contrast Dr. Celso Brewer MD Work Phone: Start: 01-20-2025 Urnls dip stick/tabl et reagent auto microscopy Dr. Celso Brewer MD Work Phone: Start: 01-20-[address] Celso Brewer MD Work Phone: Start: 01-20-[address] Celso Brewer MD Work Phone: Start: 12-22-2024 Urnls dip stick/tabl et reagent auto microscopy Dr. Celso Brewer MD Work Phone: Start: 12-22-[address] Celso Brewer MD Work Phone: Start: 12-22-2024 Computed tomography of abdomen and pelvis with intravenous contrast Dr. Celso Brewer MD Work Phone: Start: 12-22-[address] Celso Brewer MD Work Phone: Start: 12-10-2024 [address] stimulating hormone measurement Dr. Celso Brewer MD Work Phone: Comment on above: FEMALE:Follicular: 1 .4 - 18.1 mIU/mLMidcycle: 3.4 - 33.4 mIU/mLLuteal: 1.5 - 9.1 mIU/mLPost Menopause: 23.0 - 116.3 mIU/mLMALE: 1.4 - 18.1 mIU/mL NORMAL REFERENCE RANGES FEMALE FOLLICULAR 2.3 - 12.6 mIU/mL MID-CYCLE PEAK 5.2 - 17.5 mIU/mL LUTEAL 1.7 - 12.9 mIU/mL POST-MENOPAUSAL ON MHT 5.9 - 72.8 mIU/mL NOT ON MHT 12.7 - 132.2 mlU/mL MALE 0.7 - 10.8 mIU/mL Start: 12-10-[address] Celso Brewer MD Work Phone: Comment on above: FEMALE:Follicular: 1 .9-12.5 mIU/mLMidcycle: 8.7-76.3 mIU/mLLuteal: 0.5-16.9 mIU/mLPost Menopause: 15.9-54.0 mIU/mLMALE:20-70 Years: 1.5-9.3 mIU/mL>70 Years: 3.1-34.6 mIU/mL Start: 09-23-2023 FL GUIDANCE OR USE O NLY - NON-RESULTABLE Melvin Bucio MD Work Phone: Start: 09-23-2023 Antibody screen [facility] Comment on above: Performed By: #### L [id number] ####Polymer Scientist: POLLY RILEY ([id number])[facility] ([facility])[address] [place] [address] Start: 09-23-2023 Radiologic exam ches t single view Camryn Marquez MD Work Phone: Start: 09-23-2023 ABO and Rh group [Ty pe] in Blood by Confirmatory method Camryn Marquez MD Work Phone: Start: 09-23-2023 Basic metabolic pane l calcium total Camryn Marquez MD Work Phone: Start: 09-23-2023 Blood typing serologic abo Camryn Marquez MD Work Phone: Start: 09-23-2023 Ecg routine ecg w/le ast 12 lds trcg only w/o i&r Camryn Marquez MD Work Phone: Start: 09-23-2023 Ct lower extremity w /o contrast material Melvin Arita MD Work Phone: Start: 09-23-2023 End: 09-23-2023 Radiologic examination tibia & fibula 2 views Melvin Arita MD Work Phone: Start: 09-23-2023 RF Less than 1 hour Michelle jorge Aj MD Work Phone: Start: 09-23-2023 Glucose quantitative blood xcpt reagent strip Marc Gooden MD Work Phone: Start: 09-22-2023 End: 09-22-2023 Radiologic examination tibia & fibula 2 views Marc Gooden MD Work Phone: Start: 02-28-2022 Plain chest X-ray Dr. Nba Lopez Work Phone: Plan of Treatment Date Care Activity Detail Author Start: 2043 RSV Immunization aged 60 or older (1 - 1-dose 60+ series) RSV Immunization aged 60 or older (1 - 1-dose 60+ series) [facility] Start: 2033 Zoster Vaccines (1 of 2) Zoster Vaccines (1 of 2) [facility] Start: 01-31-2031 DTaP/Tdap/Td Vaccines (3 - Td or Tdap) DTaP/Tdap/Td Vaccines (3 - Td or Tdap) [facility] Start: 01-31-2031 Urine microalbumin profile DTaP,Tdap,Td Vaccine (3 - Td or Tdap) [facility] Start: 04-07-2025 Influenza vaccination Influenza Vaccine (Season Ended) [facility] Start: 01-30-2025 Hemorrhoidectomy Hemorrhoidectomy (Not Applicable) [facility] Start: 01-30-2025 Ambulation without limitation [facility] Start: 01-30-2025 Verification routine [facility] Start: 01-30-2025 Admission procedure [facility] Start: 01-30-2025 Hospital admission, emergency, from emergency room, medical nature [facility] Start: 01-22-2025 End: 01-22-2025 Patient encounter procedure 01/22/2025 11:10 AM EDT Office Visit OB/Gynecology [address] [place] [address] Manolo Harrington MD [address] [place] [address] follow up from [facility] ER ovarian cyst OB/Gynecology Comment on above: follow up from [facility] ER ovarian cyst Start: 01-20-2025 [facility] Start: 12-22-2024 [facility] Start: 07-23-2024 HPV TESTING HPV TESTING [facility] Start: 07-23-2024 PAP TESTING PAP TESTING [facility] Start: 07-23-2024 Screening for malignant neoplasm of cervix Cervical Cancer Screening [facility] Start: 04-07-2024 Covid-19 Vaccine ( season) Covid-19 Vaccine ( season) [facility] Start: 04-07-2024 Influenza vaccination [facility] Start: 03-15-2024 End: 03-14-2025 XR Ankle - left 3 Views XR ankle 3+ views left Imaging Routine Closed displaced trimalleolar fracture of left ankle, initial encounter Expected: 03/15/2024, Expires: 03/14/2025 [facility] Work Phone: Comment on above: Expected: 03/15/2024, Expires: Start: 03-15-2024 End: 03-15-2024 Patient encounter procedure 03/15/2024 10:00 AM EDT Office Visit [facility] [address] [place] [address] Melvin Bucio MD [address] [place] [address] [facility] Start: 12-15-2023 End: 12-15-2023 Patient encounter procedure 12/15/2023 3:15 PM EDT Office Visit [facility] [address] [place] [id number] Melvin Bucio MD [address] [place] [address] [facility] Start: 12-15-2023 End: 12-14-2024 XR Ankle - left 3 Views [facility] Work Phone: Comment on above: Expected: 12/15/2023, Expires: Start: 11-03-2023 End: 11-03-2023 Patient encounter procedure [facility] Start: 11-03-2023 End: 11-02-2024 XR Ankle - left 3 Views XR ankle 3+ views left Imaging Routine Closed displaced trimalleolar fracture of left ankle, initial encounter Expected: 11/03/2023, Expires: 11/02/2024 [facility] Work Phone: Comment on above: Expected: 11/03/2023, Expires: Start: 10-06-2023 End: 10-05-2024 XR Ankle - left 3 Views [facility] Work Phone: Comment on above: Expected: 10/06/2023, Expires: Start: 09-23-2023 End: 09-23-2023 Open tx trimalleolar ankle fx w/fixj pst lip OPEN REDUCTION INTERNAL FIXATION TRIMALLEOLAR ANKLE FRACTURE WITH FIXATION OF POSTERIOR LIP Closed displaced trimalleolar fracture of left ankle, initial encounter 09/23/2023 9:34 AM EST [facility] Start: 07-29-2023 Urine microalbumin profile DTAP,TDAP,TD (2 - Td or Tdap) [facility] Start: 2023 Screening for malignant neoplasm of breast [facility] Start: 04-07-2023 COVID-19 Vaccine ( season) COVID-19 Vaccine ( season) [facility] Start: 04-07-2023 Influenza vaccination Influenza Vaccine (#1) [facility] Start: 04-07-2022 Influenza vaccination INFLUENZA (#1) [facility] Start: 02-28-2022 [facility] Work Phone: Start: 03-24-2021 COVID-19 VACCINE (3 - Booster for Pfizer series) COVID-19 VACCINE (3 - Booster for Pfizer series) [facility] Start: 2013 Screening for malignant neoplasm of cervix [facility] Start: 2004 Screening for malignant neoplasm of cervix Pap Smear [facility] Start: 2002 Hepatitis B Vaccine (1 of 3 - 19+ 3-dose series) Hepatitis B Vaccine (1 of 3 - 19+ 3-dose series) [facility] Start: 2002 Hepatitis B Vaccines (1 of 3 - 19+ 3-dose series) Hepatitis B Vaccines (1 of 3 - 19+ 3-dose series) [facility] Start: 2001 Anxiety Screening Anxiety Screening [facility] Start: 2001 Depression Screening Depression Screening [facility] Start: 2001 Diabetes mellitus screening Diabetes Screening [facility] Start: 2001 Hepatitis C screening Hepatitis C Screening [facility] Start: 1996 Varicella vaccination Varicella Vaccines (1 of 2 - 13+ 2-dose series) [facility] Start: 1995 Adult depression screening assessment DEPRESSION SCREENING [facility] Start: 1984 MMR Vaccines (1 of 1 - Standard series) MMR Vaccines (1 of 1 - Standard series) [facility] Start: 1984 Varicella vaccination Varicella Vaccines (1 of 2 - 2-dose childhood series) [facility] Start: 1983 HEPATITIS B (1 of 3 - 3-dose series) HEPATITIS B (1 of 3 - 3-dose series) [facility] Start: 1983 Hepatitis B Vaccines (1 of 3 - 3-dose series) Hepatitis B Vaccines (1 of 3 - 3-dose series) [facility] Start: 1983 HIV screening HIV Screening [facility] Start: 1983 Lipid panel Lipid Panel [facility] Start: 1983 Thyroid stimulating hormone measurement TSH Level [facility] Patient Education [facility] Work Phone: Patient referral [facility] Work Phone: Immunizations Immunization Date Immunization Notes Care Provider Fa [facility] 05-26-2021 influenza, injectabl e, quadrivalent, preservative free Melvin Bucio MD Work Phone: [facility] 05-26-2021 influenza virus vaccine, unspecified formulation [facility] 01-31-2021 tetanus toxoid, redu yoshi diphtheria toxoid, and acellular pertussis vaccine, adsorbed Dr. Polly Lopez Work Phone: [facility] Work Phone: 05-15-2020 influenza, injectabl e, quadrivalent, preservative free Melvin Bucio MD Work Phone: [facility] 08-02-2019 influenza, injectabl e, quadrivalent, preservative free Dr. Celso Brewer MD Work Phone: [facility] 08-02-2019 influenza, seasonal, injectable Dr. Polly Lopez Work Phone: [facility] Work Phone: 08-02-2019 influenza, seasonal, injectable, preservative free Melvin Bucio MD Work Phone: [facility] 06-07-[address] Polly Lopez Work Phone: [facility] 06-07-2018 influenza, seasonal, injectable, preservative free Melvin Bucio MD Work Phone: [facility] 07-29-2013 tetanus toxoid, redu yoshi diphtheria toxoid, and acellular pertussis vaccine, adsorbed Marianne Nina APRN.CUTTER GRINDER Work Phone: [facility] 06-03-2013 influenza virus vaccine, unspecified formulation Marianne Nina APRN.CUTTER GRINDER Work Phone: [facility] Work Phone: 08-17-2012 influenza, seasonal, injectable, preservative free Melvin Bucio MD Work Phone: [facility] 07-25-2006 influenza virus vaccine, unspecified formulation Marianne Nina APRN.CUTTER GRINDER Work Phone: [facility] Payers Date Payer Category Payer Self-pay [id number] 2019 Private Health Insurance [employer] PPO [id number] 2019 Unknown [id number] 2019 [id number] 2013 Unknown [id number] Unknown [id number] Unknown [id number] Unknown [id number] Unknown [id number] Social History Date Type Detail Facility [facility] Work Phone: Start: 02-28-2022 End: 02-28-2022 Tobacco smoking status NHIS Unknown if ever smoked [facility] Work Phone: Start: 07-11-2019 None [facility] Start: 01-20-2021 Homeless [facility] Start: 12-10-2020 Non-smoker [facility] Start: 1985 Sex Assigned At Female [facility] Start: 04-27-2022 End: 01-30-2025 Tobacco smoking status NHIS Never smoked tobacco [facility] Work Phone: Start: 04-27-2022 End: 11-03-2023 Tobacco use and exposure Smokeless tobacco non-user [facility] Work Phone: Start: 04-27-2022 End: 01-22-2025 Alcohol intake Current non-drinker of alcohol (finding) [facility] Start: 1985 Sex Assigned At Not on file [facility] Start: 04-17-2022 End: 04-27-2022 Exposure to SARS-CoV-2 (event) Not sure [facility] Work Phone: Start: 09-22-2023 End: 12-18-2023 Alcohol intake Current drinker of alcohol (finding) [facility] Start: 09-22-2023 End: 05-07-2024 History of Social function [facility] Start: 09-22-2023 End: 05-07-2024 Tobacco use panel [facility] Start: 09-22-2023 Alcohol Comment Intoxicated du ring this ED visit [facility] National Score (1-100), lower number is lower risk 60 [facility] NEGATED: Highlighted row Not [facility] Medical Equipment Procedure Code Equipment Code Equipment Origin al Text Equipment Identifier Dates Bunionectomy 2.5 HEADLESS SCREW FDA Star t: 12-17-2020 Bunionectomy 2.5 HEADLESS SCREW FDA Star t: 12-17-2020 Bunionectomy 2.5 HEADLESS SCREW FDA Star t: 12-17-2020 Bunionectomy 2.5 HEADLESS SCREW FDA Star t: 12-17-2020 Bunionectomy 2.5 HEADLESS SCREW FDA Star t: 12-17-2020 Bunionectomy 2.5 HEADLESS SCREW FDA Star t: 12-17-2020 Bunionectomy 2.5 HEADLESS SCREW FDA Star t: 12-17-2020 Bunionectomy 2.5 HEADLESS SCREW FDA Star t: 12-17-2020 Plate Lcp 08/09 Tu b Collar 3h 33 - [id number] Start: 09-23-2023 Screw Crtx 2.7x2 2mm S-T - [id number] Start: 09-23-2023 Screw Crtx 2.7x1 8mm S-T - [id number] Start: 09-23-2023 Screw Crtx 3.5x1 2mm S-T - [id number] Start: 09-23-2023 Screw Canc 4.0x1 6mm Full-Thrd - [id number] Start: 09-23-2023 Screw Crtx 3.5x1 4mm S-T - [id number] Start: 09-23-2023 Screw Canc 4.0x5 0mm Part-Thrd - [id number] Start: 09-23-2023 Functional Status Date Assessment Result Facility 12-23-2013 Are you deaf, or do you have serious difficulty hearing No 12/23/2013 2:45 PM EDT Fide Mehta Ma No [facility] Work Phone: 12-23-2013 Are you blind, or do you have serious difficulty seeing, even when wearing glasses No 12/23/2013 2:45 PM EDT Tyson Wylie Fide No [facility] 12-23-2013 Do you have serious difficulty walking or climbing stairs No 12/23/2013 2:45 PM EDT Fide Mehta Ma No [facility] 12-23-2013 Do you have difficul ty dressing or bathing No 12/23/2013 2:45 PM EDT Fide Mehta Ma [facility] 12-23-2013 Because of a physica l, mental, or emotional condition, do you have difficulty doing errands alone such as visiting a physician's office or shopping No 12/23/2013 2:45 PM EDT Fide Mehta Ma [facility] Mental Status Date Assessment Result Facility 01-30-2025 Cognitive function Level Of Cons ciousness Awake;Alert;Appropriate;Fol lows Commands [facility] Work Phone: 02-28-2022 Cognitive function Voice/Name [facility] Work Phone: 12-23-2013 Because of a physica l, mental, or emotional condition, do you have serious difficulty concentrating, remembering, or making decisions No 12/23/2013 2:45 PM EDT Fide Mehta Ma Liya [facility] Clinical Notes 02-26-2013 to 01-30-2025 Note Date & Type Note Facility 01-30-2025 History and physical note [facility] 01-30-2025 Discharge summary [facility] 01-30-2025 Discharge summary Note Date/Time January 30, 2025 8:03pm [facility] Medical Records Department [address] [place] [address] Emergency Department Summary 01/30/25 MR#: [id number] Acct: [id number] Name: CATRACHITA MURRAY Rep #:[id number] : 1985 39 From: Jakub Jones MD PCP: Dr. Celso Brewer MD Status:REG ER Location: ED HPI History of Present Illness Chief Complaint: Other, Pain/Inj Narrative Narrative: 39-year-old female past medical history of thrombosed hemorrhoids, had incision and drainage at Dr. Canas's office today by the PA. She and her state that they lanced the area twice. Initially, a large clot/clots were expressed. Patient states she went home and took a nap and took a leftover oxycodone that she had previously. However, she started having increasing pressure as well as bleeding. She denies other bleeding diathesis. She returned to the office in the afternoon, and had repeat incision and drainage performed. She presents again after her second incision and drainage of her thrombosed hemorrhoid. Her states that the area is becoming larger. They were supposed to follow-up on Monday to discuss surgery/surgical intervention for full removal of the hemorrhoid. However, she was sent in by Dr. Canas today for reaccumulation of blood of her hemorrhoid. [facility] Medical History History of postoperative nausea and vomiting Alcohol use Depression Anxiety Heartburn Non-smoker Sleep apnea Hypothyroidism Home Medications ?Medication ?Instructions ?Recorded ?Last Taken ?Type duloxetine 60 mg capsule,delayed 60 mg PO QHS anxiety 07/10/19 12/21/24 History release bupropion HCl 150 mg tablet,12 hr 150 mg PO DAILY 12/0512/22/24 History sustained-release clonidine HCl 0.1 mg tablet 0.1 - 0.2 mg PO QHS 12/21/24 History levothyroxine 25 mcg tablet 25 mcg PO DAILY 12/22/24 0 12/22/24 History omeprazole 40 mg capsule,delayed 40 mg PO DAILY PRN he artburn 12/22/24 Unknown History release oxycodone-acetaminophen 5 mg-325 1 tab PO Q6H 2 days # 8 tabs 01/20/25 Unknown Rx mg tablet (Percocet) Hydrocortisone 2.5% / Lidocaine 5% #1 ea 01/30/25 Unkn own Rx ointment (cmpd) losartan 50 mg tablet 50 mg PO QDAY 01/30/25 Unkno wn History Allergy/AdvReac Type Severity Reaction Status Date / Time No Known Allergies Allergy Verified 01/30/25 18:18 Surgical History History of hysterectomy History of appendectomy Social History (Updated 01/30/25 @ 19:33 by Claudia Rebecca) current occupational status: employed Smoking Status: Never smoker substance use type: does not use ROS ROS ED ROS Narrative Review of systems positive for rectal pain, pressure, and bleeding. Denies fevers, chills, nausea and vomiting, or other symptoms. EXAM Physical Exam Narrative Exam Narrative: Afebrile. Vital signs noted. Nontoxic-appearing. Cardiovascular examination reveals mild tachycardia. Lungs are clear to auscultation bilaterally. Abdomensoft and nontender without guarding or rebound. Chaperoned rectal examination on visual inspection does show a large hemorrhoid approximately 2 cm in size that appears fluid-filled. No active hemorrhaging. Const Vital Signs: 01/30/25 18:18 01/30/25 18:38 01/30/25 18:55 Temperature 96.5 F L Temperature Source Temporal Pulse Rate 104 H 92 Respiratory Rate 16 16 Respiratory Effort Normal Respiratory Pattern Normal Blood Pressure 143/98 H 155/66 H Blood Pressure Mean 113 95 Blood Pressure Position Pulse Ox 99 98 Oxygen Delivery Method Room Air Room Air 01/30/25 19:26 01/30/25 19:33 01/30/25 19:35 Temperature 97.9 F Temperature Source Pulse Rate 81 102 H 102 H Respiratory Rate 16 16 Respiratory Effort Respiratory Pattern Blood Pressure 147/86 H 148/91 H 148/91 H Blood Pressure Mean 106 110 110 Blood Pressure Position Supine Pulse Ox 97 98 98 Oxygen Delivery Method Room Air MDM MDM MDM Narrative Medical decision making narrative: I do not feel differential diagnosis is applicable. Plan is for patient to go to the OR so I will obtain preoperative labs and she was administered fentanyl 50 mcg intravenously. I discussed patient with Dr. Canas. Disposition will be ED to the OR. Patient is in stable condition. I reviewed her laboratory work and she does have elevated white count of 16.3 but hemoglobin is normal at 13.7, platelet count normal at 359. BMP is grossly unremarkable except for glucose of 111. Blood type is a positive. She was given an additional dose of 50 mcg intravenously as she will not be taken to theOR until 9 PM per anesthesia because she reportedly ate at 3 PM. History & Record Review Discussion w/independent historian: Patient and Family () Lab Data Attestation: I reviewed the patient's lab results. Labs: Laboratory Results - last 24 hr 01/30/25 18:53 WBC 16.3 H RBC 4.51 Hgb 13.7 Hct 39.8 MCV 88.2 MCH 30.4 MCHC 34.4 RDW Std Deviation 40.7 RDW Coeff of Rupali 12.7 Plt Count 359 MPV 11.5 Immature Gran % (Auto) 0.400 Neut % (Auto) 79.7 H Lymph % (Auto) 13.4 L [place] % (Auto) 5.0 Eos % (Auto) 1.0 Baso % (Auto) 0.5 Absolute Neuts (auto) 13.0 H Absolute Lymphs (auto) 2.18 Nucleated RBC % 0 Sodium 139 Potassium 3.6 Chloride 104 Carbon Dioxide 22.9 Anion Gap 13 BUN 8 Creatinine 0.97 Estim Creat Clear Calc 89.67 Est GFR (MDRD) Non-Af 75 BUN/Creatinine Ratio 8.4 L Glucose 111 H Calcium 9.3 Blood Type A POSITIVE Management Discussion w/another healthcare provider: Primary Care Nurse (Dr. Canas) Discharge Plan Dx/Rx/DC Orders Clinical Impression: Hemorrhoid, Failure of outpatient treatment Disposition Disposition: Acute Care Hospital [facility] What to do if you have Problems For any increased pain, shortness of breath, bleeding, nausea or vomiting, chestpain, or any unexpected problems, contact your Primary Care Provider. Call [facility] ([phone]) or report to the closest Emergency Room. Call 911 if necessary. 01/30/252002 <Electronically signed by Jakub Jones MD> Cosigner Signature (if applicable): CC: Dr. Celso Brewer MD ~ Signed [facility] Work Phone: 1(306) 463-978106-26-2025 Progress note Author Essie Leggett [facility] Note Date/Time January 30, 2025 11:2 0am [facility] [employer] [facility] [place] [address] OFFICE VISIT Date of Service: 01/30/25 MR#: [id number] Acct: [id number] Name: CATRACHITA MURRAY Rep #: [id number] : 1985 Provider: CRISTIAN Leggett Age/Sex: 39/F Location: [facility] Status: Signed Intake Vital Signs 01/20/25 08:34 06/26/25 09:33 Height 5 ft 5 in 5 ft 5 in Weight: 212 lb BMI 35.2 BP 125/88 H Blood Pressure Location Rt brachial Position Sitting Respiration 18 Pulse 75 Pulse Source Monitor Temp 97.2 F L Temp Source Temporal Pulse Oximetry (%) 99 Oxygen Delivery Method room air Intake Visit Reasons: POSSIBLE THROMBOSSED HEMORRHOID Chief Complaint: thrombossed hemorrhoid Is patient in pain?: Yes Allergies No Known Allergies Allergy (Verified 01/30/25 09:33) Medications ?Medication ?Instructions ?Recorded ?Confirmed ?Type duloxetine 60 mg capsule,delayed 60 mg PO QHS anxiety 07/10/19 12/22/24 History release bupropion HCl 150 mg tablet,12 hr 150 mg PO DAILY 12/0512/22/24 History sustained-release clonidine HCl 0.1 mg tablet 0.1 - 0.2 mg PO QHS 12/22/24 History levothyroxine 25 mcg tablet 25 mcg PO DAILY 12/22/24 0 12/22/24 History omeprazole 40 mg capsule,delayed 40 mg PO DAILY PRN he artburn 12/22/24 12/22/24 History release oxycodone-acetaminophen 5 mg-325 1 tab PO Q6H 2 days # 8 tabs 01/20/25 Rx mg tablet (Percocet) losartan 50 mg tablet 50 mg PO QDAY 01/30/2501/30 History PFSH Medical History History of postoperative nausea and vomiting Alcohol use Depression Anxiety Heartburn Non-smoker Sleep apnea Hypothyroidism Surgical History History of hysterectomy History of appendectomy Social History Smoking Status: Never smoker substance use type: does not use HPI HPI HPI: Patient is a 39 y/o F who presents with a 1 day history of worsening rectal pain. She notes a firm, painful lump on the outside of her anus. She notes this is consistent with a thrombosed hemorrhoids as she has recently had an I&E of a thrombosed hemorrhoid [address] Canas. Patient states she was recently on narcotic pain medication for a ruptured ovarian cyst. She notes taking a stool softener with the narcotic pain medication. She states she may have been slightly more constipated, however has not had to strain. She notes being outside yesterday all day doing outside work. She states Dr. Canas had mentioned to her if the thrombosed hemorrhoid becomes a chronic issues, she would recommend a hemorrhoidectomy. Patient notes she was trying sitz bathes, tucks pad and ointment to attempt to resolve the hemorrhoid, which did not work. ROS General General: Yes fatigue Cardio Cardiovascular: Yes high blood pressure Psych Psychiatric: Yes depression and anxiety Gastro Gastrointestinal: Yes blood in stool, Yes acid reflux and Yes hemorrhoids Exam GI Rectal Exam: hemorrhoids (Large, thrombosed anterior hemorrhoid noted) Office Procedures Hemorrhoid Provider Documentation Provider Documentation: Procedure note Procedure: Incision and Evacuation of thrombosed hemorrhoid Permit: Procedure, benefits, risks (include those of bleeding, infection, injury, anesthesia, and allergic reaction), and alternatives explained to the patient who voiced understanding of the information. Their questions were soughtand answered. Patient agreed to proceed with the incision and evacuation of thrombosed hemorrhoid. Permit signed and in chart. Indication: Thrombosed hemorrhoid Physician: Essie Leggett PA-C Nurse: Lisa Ball LPN Description: Patient positioned in the left lateral decubitus on the procedure table. Area prepped with betadine and draped in a sterile fashion. Local anesthetic administered with 6 cc of 0.5% Marcaine and 1% lidocaine. A linear incision was made and a moderate sized clot was removed. Multiple smaller clots were also removed. A counter lateral incision was made and mutliple more clots were removed. Incisions were connected and a small piece of hemorrhoid tissue was excised. Multiple smaller clots continued to be removed. Cavity was probed to break up any pockets. Culture was not obtained. Pressure was held to slow anyoozing that may have occurred. Oozing had completely ceased once pressure was held. Surrounding area was cleansed with normal saline and gauze dressing was placed between at the anus. Patient was also provided a maxi pad to change any additional drainage. Patient tolerated the procedure well. Complications: None Disposition: Patient alert and oriented. Patient tolerated the procedure well. Alert Jeri Alert Billing: Yes Hemorrhoid 34733 Evacuation Procedure Time Out Time Out Informed consent given: Yes Consent signed: Yes Time out checklist: patient, procedure, site marked/identified, positioning of patient, supplies available, allergies confirmed and team agrees on procedure Time out staff in room: Yes Time out verified: Yes Time out date: 01/30/25 Time out time: 10:16 Assessment and Plan Assessment and Plan (1) Thrombosed hemorrhoids: Status: Acute Plan: Patient had a very large thrombosed hemorrhoid. I evacuated multiple moderate sized ad smaller clots and removed a small amount of hemorrhoid tissue, which was not sent for pathology. I did discuss with the patient that approximately 50% chance that this may become rethrombosed. If she notes the hemorrhoid becoming firm and more painful again, she is to contact our office for acute relief. I have recommended at that time she may want to discuss with Dr. Canas a hemorrhoidectomy as the hemorrhoid currently involved was of significant size. Patient was also instructed to complete sitz bathes with Epsomsalts BID-TID for 4 days. She is to also continue her stool softeners. I will make Dr. Canas aware that I have seen you today and that if the hemorrhoid becomes an issues again, I would recommend seeing Dr. Canas to discuss hemorrhoidectomy. Patient is in agreement with this plan. Our office will contact the patient tomorrow for a progress report. Orders: Orders Hemorrhoid Today K64.5 - Perianal venous thrombosis Coding Level of Care Code Attention Radio Announcer Diagnoses Thrombosed hemorrhoids K64.5 CPT Codes Hemorrhoid - Hemorrhoid: 02391 Evacuation (98347) 01/30/25 1120 <Electronically signed by Essie MAX PA-C> Date _ Essie MAX PA-C Cosigner Signature: Date (if applicable) CC: ~ [facility] Work Phone: 1(373) 697-832106-26-2025 Evaluation note* Diagnosis Onset Date Resolution Status Admit Date Thrombosed hemorrhoids acute Ju ne 2024 9:21am [facility] Work Phone: 1(423) 697-417906-26-2025 Evaluation note* Diagnosis Onset Date Resolution Status Admit Date Thrombosed hemorrhoids acute Ju ne 2024 9:21am Failure of outpatient treatment acut e January 30, 2025 8:18pm Hemorrhoid acute January 30 8:18pm Thrombosed hemorrhoids acute Ju 2024 8:18pm [facility] Work Phone: 1(721) 587-370506-26-2025 Progress [facility] [address] [place], [place] [id number] OFFICE VISIT Date of Service: 01/30/25 MR#: [id number] Acct: [id number] Name: CATRACHITA MURRAY Rep #: [id number] : 1985 Provider: CRISTIAN Leggett Age/Sex: 39/F Location: [facility] Status: Signed Intake Vital Signs 01/20/25 08:34 01/30/25 09:33 Height 5 ft 5 in 5 ft 5 in Weight: 212 lb BMI 35.2 BP 125/88 H Blood Pressure Location Rt brachial Position Sitting Respiration 18 Pulse 75 Pulse Source Monitor Temp 97.2 F L Temp Source Temporal Pulse Oximetry (%) 99 Oxygen Delivery Method room air Intake Visit Reasons: POSSIBLE THROMBOSSED HEMORRHOID Chief Complaint: thrombossed hemorrhoid Is patient in pain?: Yes Allergies No Known Allergies Allergy (Verified 01/30/25 09:33) Medications ?Medication ?Instructions ?Recorded ?Confirmed ?Type duloxetine 60 mg capsule,delayed 60 mg PO QHS anxiety 07/10/19 12/22/24 History release bupropion HCl 150 mg tablet,12 hr 150 mg PO DAILY 12/0512/22/24 History sustained-release clonidine HCl 0.1 mg tablet 0.1 - 0.2 mg PO QHS 12/22/24 History levothyroxine 25 mcg tablet 25 mcg PO DAILY 12/22/24 0 12/22/24 History omeprazole 40 mg capsule,delayed 40 mg PO DAILY PRN he artburn 12/22/24 12/22/24 History release oxycodone-acetaminophen 5 mg-325 1 tab PO Q6H 2 days # 8 tabs 01/20/25 Rx mg tablet (Percocet) losartan 50 mg tablet 50 mg PO QDAY 01/30/2501/30 History PFSH Medical History History of postoperative nausea and vomiting Alcohol use Depression Anxiety Heartburn Non-smoker Sleep apnea Hypothyroidism Surgical History History of hysterectomy History of appendectomy Social History Smoking Status: Never smoker substance use type: does not use HPI HPI HPI: Patient is a 39 y/o F who presents with a 1 day history of worsening rectal pain. She notes a firm,painful lump on the outside of her anus. She notes this is consistent with a thrombosed hemorrhoidsas she has recently had an I&E of a thrombosed hemorrhoid [address] Canas. Patient states she was recently on narcotic pain medication for a ruptured ovarian cyst. She notes taking a stool softener with the narcotic pain medication. She states she may have been slightly more constipated, however has not had to strain. She notes being outside yesterday all day doing outside work. She states Dr. Canas had mentioned to her if the thrombosed hemorrhoid becomes a chronic issues, she would recommend a hemorrhoidectomy. Patient notes she was trying sitz bathes, tucks pad and ointment to attempt to resolve the hemorrhoid, which did not work. ROS General General: Yes fatigue Cardio Cardiovascular: Yes high blood pressure Psych Psychiatric: Yes depression and anxiety Gastro Gastrointestinal: Yes blood in stool, Yes acid reflux and Yes hemorrhoids Exam GI Rectal Exam: hemorrhoids (Large, thrombosed anterior hemorrhoid noted) Office Procedures Hemorrhoid Provider Documentation Provider Documentation: Procedure note Procedure: Incision and Evacuation of thrombosed hemorrhoid Permit: Procedure, benefits, risks (include those of bleeding, infection, injury, anesthesia, and allergic reaction), and alternatives explained to the patient who voiced understanding of the information. Their questions were soughtand answered. Patient agreed to proceed with the incision and evacuation of thrombosed hemorrhoid. Permit signed and in chart. Indication: Thrombosed hemorrhoid Physician: Essie Leggett PA-C Nurse: Lisa Ball LPN Description: Patient positioned in the left lateral decubitus on the procedure table. Area prepped with betadine and draped in a sterile fashion. Local anesthetic administered with 6 cc of 0.5% Marcaine and 1% lidocaine. A linear incision was made and a moderate sized clot was removed. Multiple smaller clots were also removed. A counter lateral incision was made and mutliple more clots were removed. Incisions were connected and a small piece of hemorrhoid tissue was excised. Multiple smaller clots continued to be removed. Cavity was probed to break up any pockets. Culture was not obtained. Pressure was held to slow anyoozing that may have occurred. Oozing had completely ceased once pressurewas held. Surrounding area was cleansed with normal saline and gauze dressing was placed between atthe anus. Patient was also provided a maxi pad to change any additional drainage. Patient toleratedthe procedure well. Complications: None Disposition: Patient alert and oriented. Patient tolerated the procedure well. Alert Jeri Alert Billing: Yes Hemorrhoid 97193 Evacuation Procedure Time Out Time Out Informed consent given: Yes Consent signed: Yes Time out checklist: patient, procedure, site marked/identified, positioning of patient, supplies available, allergies confirmed and team agrees on procedure Time out staff in room: Yes Time out verified: Yes Time out date: 01/30/25 Time out time: 10:16 Assessment and Plan Assessment and Plan (1) Thrombosed hemorrhoids: Status: Acute Plan: Patient had a very large thrombosed hemorrhoid. I evacuated multiple moderate sized ad smaller clots and removed a small amount of hemorrhoid tissue, which was not sent for pathology. I did discuss with the patient that approximately 50% chance that this may become rethrombosed. If she notes the hemorrhoid becoming firm and more painful again, she is to contact our office for acute relief. I haverecommended at that time she may want to discuss with Dr. Canas a hemorrhoidectomy as the hemorrhoid currently involved was of significant size. Patient was also instructed to complete sitz batheswith Epsomsalts BID-TID for 4 days. She is to also continue her stool softeners. I will make Dr. Jb julian aware that I have seen you today and that if the hemorrhoid becomes an issues again, I would recommend seeing Dr. Canas to discuss hemorrhoidectomy. Patient is in agreement with this plan. Our office will contact the patient tomorrow for a progress report. Orders: Orders Hemorrhoid Today K64.5 - Perianal venous thrombosis Coding Level of Care Code [place] Pablo Radio Announcer Diagnoses Thrombosed hemorrhoids K64.5 CPT Codes Hemorrhoid - Hemorrhoid: 89241 Evacuation (09063) 01/30/25 1120 th MANSOOR FOSTER> Date _ Essie MAX PA-C Cosigner Signature: Date (if applicable) CC: ~ [facility]2025 NoteHNO ID: [id number] Author: MANOLO HARRINGTON MD Service: ? Author Type: Physician Type: Progress Notes Filed: 01/22/2025 11:31 Note Text: Stratigraphy Teacher offered: Patient accepts, visit chaperoned by Essie Sandoval MA. Catrachita Murray is a 39 year old female who presents for problem visit subsequent to ER visits for painful ovarian cysts/follicles that resolved spontaneously. HPI: as above, DANNA 1999 for fibroids/HMB OB History Gravida3 Para3 Term3 Preterm0 AB0 Living2 SAB0 IAB0 Ectopic0 Multiple0 Live Births1 Health Care Facility Administrator History LMP: 2019 (Exact Date), Hysterectomy Age at Menarche: Age at First : Age at Menopause: Health Care Facility Administrator History Comments: Sexual Activity: Yes; Male Contraception: Condom PAST MEDICAL HISTORY Diagnosis Date Anxiety Hypothyroidism Mild or unspecified pre-eclampsia, unspecified as to episode of care Pre-ecclampsia,MILD PAST SURGICAL HISTORY Procedure Laterality Date APPENDECTOMY laparoscopic D+C 07/2019 VAG HYST 250 GM/< W/RMVL TUBEAND/OVARY Bilateral 08/01/2019 LAVH, bilateral salpingectomy FAMILY HISTORY Problem Relation Age of Onset Melanoma Mother Diabetes Maternal Grandmother Hypertension Maternal Grandmother Breast Cancer Maternal Grandmother Diabetes Maternal Grandfather Hypertension Maternal Grandfather Diabetes Paternal Grandmother Hypertension Paternal Grandmother Hypertension Paternal Grandfather Cancer Maternal Aunt ? TYPE Social History Tobacco Use Smoking status: Never Smokeless tobacco: Never Vaping Use Vaping status: Never Used Substance Use Topics Alcohol use: No Drug use: No Current Outpatient Medications Medication Sig docusate sodium (COLACE ORAL) Take by mouth. ibuprofen (MOTRIN) 600 mg tablet Take 600 mg by mouth every 6 hours as needed. duloxetine HCl (CYMBALTA ORAL) Take by mouth. levothyroxine sodium (LEVOTHYROXINE ORAL) Take by mouth. No current facility-administered medications for this visit. Allergies As of Date: 01/22/2025 (No Known Allergies) Fully Assessed 01/22/2025 REVIEW OF SYSTEMS Abdomen: No bloating, early satiety, indigestion, or increased flatulence. No abdominal pain, nausea, vomiting, diarrhea, or constipation. Bladder: No dysuria, gross hematuria, urinary frequency, urinary urgency, or incontinence. Breast: No breast lumps, nipple d/c, overlying skin changes, redness or skin retraction. Expanded ROS: N/A Allergies and current medication updated:Yes SENSITIVE EXAM: The sensitive examination was discussed with the Patient or Patient's Authorized Veneer Jointer Helper. As applicable, any other physician, advance practice provider, medical student, or other health professional student that will be observing or involved in the sensitive examination for educational or training purposes was discussed with the Patient or Authorized Veneer Jointer Helper. The Patient or Authorized Veneer Jointer Helper has agreed to proceed with the sensitive examination. (Sensitive examination includes inspection and/or palpation of the breasts, pelvis, prostate and anorectal regions). EXAM: BP 110/88 Wt 209 lb (94.8kg) LMP 2019 GENERAL: pleasant, female in no apparent distress PELVIC: external genitalia normal, normal Bartholin's glands, urethra, Bovill's glands, no vulvar lesions, no cervical lesions, good vaginal support, physiologic discharge present, normal appearing perineal body and perianal region, well estrogenized, cervix surgically absent BIMANUAL: no adnexal masses, non-tender, and uterus surgically absent ASSESSMENT AND PLAN: Assessment AND Plan Corpus luteum cyst Nuvaring for ovarian suppression of painful cysts ftft> 30 m Manolo Harrington, [facility]2025 History of Present illness Narrative* Manolo Harrington MD - 01/22/2025 10:54 AM EDT Stratigraphy Teacher offered: Patient accepts, visit chaperoned by Essie Sandoval MA. Catrachita Murray is a 39 year old female who presents for problem visit subsequent to ER visits forpainful ovarian cysts/follicles that resolved spontaneously. HPI: as above, DANNA 1999 for fibroids/HMB OB History Gravida3 Para3 Term3 Preterm0 AB0 Living2 SAB0 IAB0 Ectopic0 Multiple0 Live Births1 Health Care Facility Administrator History LMP: 2019 (Exact Date), Hysterectomy Age at Menarche: Age at First : Age at Menopause: Health Care Facility Administrator History Comments: Sexual Activity: Yes; Male Contraception: Condom PAST MEDICAL HISTORY Diagnosis Date Anxiety Hypothyroidism Mild or unspecified pre-eclampsia, unspecified as to episode of care Pre-ecclampsia,MILD PAST SURGICAL HISTORY Procedure Laterality Date APPENDECTOMY laparoscopic D+C 07/2019 VAG HYST 250 GM/< W/RMVL TUBE&/OVARY Bilateral 08/01/2019 LAVH, bilateral salpingectomy FAMILY HISTORY Problem Relation Age of Onset Melanoma Mother Diabetes Maternal Grandmother Hypertension Maternal Grandmother Breast Cancer Maternal Grandmother Diabetes Maternal Grandfather Hypertension Maternal Grandfather Diabetes Paternal Grandmother Hypertension Paternal Grandmother Hypertension Paternal Grandfather Cancer Maternal Aunt ? TYPE Social History Tobacco Use Smoking status: Never Smokeless tobacco: Never Vaping Use Vaping status: Never Used Substance Use Topics Alcohol use: No Drug use: No Current Outpatient Medications Medication Sig docusate sodium (COLACE ORAL) Take by mouth. ibuprofen (MOTRIN) 600 mg tablet Take 600 mg by mouth every 6 hours as needed. duloxetine HCl (CYMBALTA ORAL) Take by mouth. levothyroxine sodium (LEVOTHYROXINE ORAL) Take by mouth. No current facility-administered medications for this visit. Allergies As of Date: 01/22/2025 (No Known Allergies) Fully Assessed 01/22/2025 REVIEW OF SYSTEMS Abdomen: No bloating, early satiety, indigestion, or increased flatulence. No abdominal pain, nausea, vomiting, diarrhea, or constipation. Bladder: No dysuria, gross hematuria, urinary frequency, urinary urgency, or incontinence. Breast: No breast lumps, nipple d/c, overlying skin changes, redness or skin retraction. Expanded ROS: N/A Allergies and current medication updated:Yes SENSITIVE EXAM: The sensitive examination was discussed with the Patient or Patient's Authorized Veneer Jointer Helper. As applicable, any other physician, advance practice provider, medical student, or other health professional student that will be observing or involved in the sensitive examination for educational or training purposes was discussed with the Patient or Authorized Veneer Jointer Helper. The Patient or Authorized Veneer Jointer Helper has agreed to proceed with the sensitive examination. (Sensitive examination includes inspection and/or palpation of the breasts, pelvis, prostate and anorectal regions). EXAM: BP 110/88 Wt 209 lb (94.8kg) LMP 2019 GENERAL: pleasant, female in no apparent distress PELVIC: external genitalia normal, normal Bartholin's glands, urethra, Bovill's glands, no vulvar lesions, no cervical lesions, good vaginal support, physiologic discharge present, normal appearing perineal body and perianal region, well estrogenized, cervix surgically absent BIMANUAL: no adnexal masses, non-tender, and uterus surgically absent ASSESSMENT AND PLAN: Assessment & Plan Corpus luteum cyst Nuvaring for ovarian suppression of painful cysts ftft> 30 m Manolo Harrington [facility] Telephone encounter Note * Telephone Encounter - Umu Norris RN - 01/21/2025 10:47 AM EDT RR did Pt's hysterectomy 08/01/2019. Pt calls stating she called yesterday d/t severe LLQ pain and went to ER. Pt states still c/o pain to LLQ, stabbing 02/13(with oxycodone. Last taken at 0630 am). Morphine given in ER and fluids. US and CT completed in ER- fluid in abdomen ruptured cyst on left side. Pt states a month ago this happened and this was on the right side. Pt states she was sent home with Oxycodone 5-325mg (has been taking every 6 hours, Pt states takes the edge off but still feels like stabbing sensation) and for Zofran nausea (hasn't needed to take). Pt asking if she can be seen sooner by RR as she does not want to go back to ER. States pain is terrible. Advised Pt that d/t her not being seen in office since 2019, she would be classified as a new patient and unfortunately RR does not have anything available today and that it would be best, if she is agreeable to see AT and he can communicate with RR if she were to need surgical intervention. Advised Pt to take Rx as advised by ER, use heating pad, take hot shower, and go to ER if pain is uncontrolled. Pt voiced understanding. Umu Norris RN [facility]06-17-[facility]25 Miscellaneous Notes* Telephone Encounter - Umu Norris RN - 01/21/2025 10:47 AM EDT RR did Pt's hysterectomy 08/01/2019. Pt calls stating she called yesterday d/t severe LLQ pain and went to ER. Pt states still c/o pain to LLQ, stabbing /10(with oxycodone. Last taken at 0630 am). Morphine given in ER and fluids. US and CT completed in ER- fluid in abdomen ruptured cyst on left side. Pt states a month ago this happened and this was on the right side. Pt states she was sent home with Oxycodone 5-325mg (has been taking every 6 hours, Pt states takes the edge off but still feels like stabbing sensation) and for Zofran nausea (hasn't needed to take). Pt asking if she can be seen sooner by RR as she does not want to go back to ER. States pain is terrible. Advised Pt that d/t her not being seen in office since 2019, she would be classified as a new patient and unfortunately RR does not have anything available today and that it would be best, if she is agreeable to see AT and he can communicate with RR if she were to need surgical intervention. Advised Pt to take Rx as advised by ER, use heating pad, take hot shower, and go to ER if pain is uncontrolled. Pt voiced understanding. Umu Norris RN documented [facility] Discharge summary [facility] Medical Records Department [address] [place] [address] Emergency Department Summary 01/20/25 MR#: [id number] Acct: [id number] Name: CATRACHITA MURRAY Rep #:[id number] : 1985 39 From: Rajan gonzalez DO PCP: Dr. Celso Brewer MD Status:REG ER Location: ED HPI HPI - Female History of Present Illness Chief Complaint: Female C/O Narrative Narrative: Chief complaint and HPI: Left lower extremity pain. 39-year-old female with past medical history ofappendectomy, HTN, hypothyroidism, hysterectomy, ovariancyst presents for evaluation of left lower quadrant abdominal pain. Onset of symptoms this morning. Describes it as sharp/tearing. Fluctuates in intensity. Associated symptom is nausea without emesis. Denies any fever, chills, shortness of breath, chest pain, diarrhea, constipation, dysuria. Patient was seen in December for right lower quadrant abdominal pain, she states that the pain feels similar accepted on the other side. That time she was seen in the emergency department in late in which she had a suspected right ovarian cyst rupture. She follows with [facility] PRACTICING DERMATOLOGIST. She states she called them today and they told her to come to the emergency department. Review of systems: See HPI Medications: As listed on the chart Allergies: As listed on the chart PFSH: Per chart Vital signs: As listed on the chart. Reviewed. Physical exam: Gen: A&O x3 Head: Normocephalic, atraumatic Eyes: No sclera icterus, conjunctiva clear ENT: Moist mucous membranes Neck: Trachea midline, No JVD CV: RRR, no murmurs, no peripheral edema Resp: Lungs CTA BL, no w/r/c GI: Abd soft, non-distended, tender to palpation in the left lower quadrant, no rebound or rigidity : No CVA tenderness Musc: Full ROM, no deformity Skin: Warm, dry Neuro: Alert, oriented, grossly intact, sensation intact Psych: Cooperative, appropriate mood and affect [facility] Medical History History of postoperative nausea and vomiting Alcohol use Depression Anxiety Heartburn Non-smoker Sleep apnea Hypothyroidism Home Medications ?Medication ?Instructions ?Recorded ?Last Taken ?Type duloxetine 60 mg capsule,delayed 60 mg PO QHS anxiety 07/10/19 12/21/24 History release lisinopril 20 mg tablet 20 mg PO QHS blood pressure 12/10/20 12/21/24 History bupropion HCl 150 mg tablet,12 hr 150 mg PO DAILY 12/0512/22/24 History sustained-release clonidine HCl 0.1 mg tablet 0.1 - 0.2 mg PO QHS 12/21/24 History levothyroxine 25 mcg tablet 25 mcg PO DAILY 12/22/24 0 12/22/24 History omeprazole 40 mg capsule,delayed 40 mg PO DAILY PRN he artburn 12/22/24 Unknown History release ondansetron 4 mg disintegrating 4 mg PO Q8H PRN PRN Na usea #10 tabs 12/22/24 Unknown Rx tablet oxycodone-acetaminophen 5 mg-325 1 tab PO Q6H PRN pain 2 days #8 12/22/24 Unknown Rx mg tablet (Percocet) tabs oxycodone-acetaminophen 5 mg-325 1 tab PO Q6H 2 days # 8 tabs 01/20/25 Unknown Rx mg tablet (Percocet) Allergy/AdvReac Type Severity Reaction Status Date / Time No Known Allergies Allergy Verified 01/20/25 08:35 Surgical History History of hysterectomy History of appendectomy Social History Smoking Status: Never smoker substance use type: does not use EXAM Physical Exam Const Vital Signs: 01/20/25 08:34 Temperature 99 F Temperature Source Temporal Pulse Rate 100 Respiratory Rate 16 Blood Pressure 146/106 H Blood Pressure Mean 119 Pulse Ox 98 Oxygen Delivery Method Room Air MDM MDM MDM Narrative Medical decision making narrative: 39-year-old female with past medical history of appendectomy, HTN, hypothyroidism, hysterectomy, ovarian cyst presents for evaluation of left lower quadrant abdominal pain. Onset of symptoms this morning. Differential diagnosis includes but is not limited to ovarian cyst rupture, ovarian torsion, UTI, urolithiasis, diverticulitis. Given patient has a history of ovarian cystsrupture and states this feels similar will start with ultrasound of the pelvis, if this is unremarkable will get CT abdomen pelvis. Morphine, NS bolus, Zofran ordered for symptoms. Abdominal pain workup ordered. Patient has a history of a hysterectomy therefore no chance of . Patient was seen in our emergency department for the same pain in December. At that time I saw her and she had a transvaginal ultrasound thatshowed a 2.3 cm right corpus luteal cyst withnonvisualized left ovary. CT of the abdomen showed a 3mm right ovarian likely hemorrhagic cyst with a small surrounding slightly hypotonic fluid likely secondary to rupture. She had no diverticulosis. She had no urolithiasis. CBCwithout leukocytosis or anemia. CMP relatively unremarkable without significantelectrolyte abnormality or CAT. Lactic acid unremarkable. ALT mildly elevated at 39. Patient not having any right upper quadrant abdominal pain. L ipase unremarkable. UA is negative for UTI. Transvaginal ultrasound shows enlarged left ovary with regression follicle. Presently measures 1.6 cm x 2 cm. Right ovary unremarkable. Normal blood flow to both ovaries. On reevaluation, patient still endorsing left lower quadrant abdominal pain. Will get CT abdomenpelvis. IV Toradol ordered. CT abdomen pelvis shows borderline hepatomegaly and fatty infiltration of the liver. Follicles are seen in the left ovary. Small amount of free fluid is seen inthe cul-de-sac suggestive of a ruptured ovarian cyst. Patient's pain is likely secondary to a ruptured left ovarian cyst. On reevaluation, she states her pain is improved. She is comfortable discharging home. Follow-up with her PRACTICING DERMATOLOGIST. She was educated she can take ibuprofen after 8 hours due to the Toradol. Requesting narcotics for home. Shewas given a small prescription. She was offered Zofran but declined she states has this prescription at home. Return precautions explained. Impression: 1. Left ovarian cyst rupture 2. History of ruptured ovarian cyst 3. Fatty liver on CT Lab Data Labs: Laboratory Results - last 24 hr 01/20/25 01/20/25 08:47 10:05 WBC 9.4 RBC 4.96 Hgb 15.0 Hct 43.1 MCV 86.9 MCH 30.2 MCHC 34.8 RDW Std Deviation 39.2 RDW Coeff of Rupali 12.5 Plt Count 340 MPV 11.0 Immature Gran % (Auto) 0.200 Neut % (Auto) 63.8 Lymph % (Auto) 26.0 [place] % (Auto) 6.7 Eos % (Auto) 2.4 Baso % (Auto) 0.9 Absolute Neuts (auto) 6.0 Absolute Lymphs (auto) 2.44 Nucleated RBC % 0 Sodium 138 Potassium 3.7 Chloride 102 Carbon Dioxide 21.6 Anion Gap 14 BUN 9 Creatinine 0.99 Estim Creat Clear Calc 85.80 Est GFR (MDRD) Non-Af 73 BUN/Creatinine Ratio 8.6 L Glucose 106 H Lactic Acid 1.5 Calcium 9.4 Total Bilirubin 0.40 AST 24 ALT 39 H Alkaline Phosphatase 72 Total Protein 7.7 Albumin 4.6 Globulin 3.0 Albumin/Globulin Ratio 1.5 Lipase 29 Urine Color Yellow Urine Clarity Sl. Cloudy Urine pH 6.5 Ur Specific Angle Inlet 1.010 Urine Protein 15 H Urine Glucose (UA) Normal Urine Ketones Negative Urine Occult Blood Negative Urine Nitrite Negative Urine Bilirubin Negative Urine Urobilinogen Normal Ur Leukocyte Esterase 100 H Urine RBC 0 SEEN Urine WBC 0-5 SEEN Ur Squamous Epith Cells 0-5 SEEN Urine Bacteria 0 SEEN Urine Mucus 0 SEEN Radiography Diagnostic Testing: Clinical Impression(s) from Imaging Studies Transvaginal US 01/20/25 08:41 IMPRESSION: Residual follicle in the left ovary. Status post hysterectomy. Reading Location: [facility] Abdomen/Pelvis CT 01/20/25 10:27 IMPRESSION: Borderline hepatomegaly and fatty infiltration of the liver. Follicles are seen in the left ovary. Small amount of free fluid is seen in [id number] suggestive of ruptured ovarian cyst. Reading Location: [facility] Discharge Plan Triage Chief Complaint: Female C/O ED Provider: Rajan Fay Dx/Rx/DC Orders Clinical Impression: Ovarian cyst rupture Instructions: Treating a Ruptured Ovarian Cyst, Understanding Ovarian Cysts, Treatment for Ovarian Cysts, ED Ovarian Cyst Prescriptions: New oxycodone-acetaminophen [Percocet] 5-325 mg tablet 1 tab PO Q6H 2 Days Qty: 8 0RF No Action duloxetine 60 MG capsule 60 mg PO QHS lisinopril 20 mg tablet 20 mg PO QHS bupropion HCl 150 mg tablet sustained-release 12 hr 150 mg PO DAILY clonidine HCl 0.1 mg tablet 0.1 - 0.2 mg PO QHS levothyroxine 25 mcg tablet 25 mcg PO DAILY omeprazole 40 mg capsule,delayed release(DR/EC) 40 mg PO DAILY PRN (Reason: heartburn) oxycodone-acetaminophen [Percocet] 5-325 mg tablet 1 tab PO Q6H PRN (Reason: pain) 2 Days Qty: 8 0RF ondansetron 4 mg tablet,disintegrating 4 mg PO Q8H PRN PRN (Reason: Nausea) Qty: 10 0RF Primary Care Provider: Celso Brewer Referrals: Celso Brewer MD [Primary Care Provider] - 3-5 Days Agusto Nina MD [Med Staff - Active Staff] - 3-5 Days Activity Restrictions/Additional Instructions: You received Toradol here in the emergency department. No ibuprofen for 8 hours. After that okay for ibuprofen and Tylenol. Be careful as narcotic has Tylenol in it. Follow-up with your PRACTICING DERMATOLOGIST. Return back to the ED if symptoms change or worsen. Print Language: Pakistani Disposition Disposition: Home, Self Care What to do if you have Problems For any increased pain, shortness of breath, bleeding, nausea or vomiting, chestpain, or any unexpected problems, contact your Primary Care Provider. Call [facility] ([phone]) or report tothe closest Emergency Room. Call 911 if necessary. 01/20/25 1141 Cosigner Signature (if applicable): CC: Dr. Celso Brewer MD ~ Signed [facility]06-16-2025 Radiology Diagnostic study note [facility] Imaging Services [address] [place], [place] [id number] Abdomen/Pelvis W IV Cont ONLY MR#: [id number] Acct: [id number] Name: CATRACHITA MURRAY Rep #: [id number] : 1985 F 39 From: Jimi Martinez MD PCP: Dr. Celso Brewer MD Status: REG ER Study:Abdomen/Pelvis W IV Cont ONLY Date of E xam: 01/20/25 Exam# [id number] Ordering Dr: Rajan Larson DO PROCEDURE: ABDOMEN/PELVIS W IV CONT ONLY 01/20/2025 REASON FOR EXAM: LLQ PAIN History of ruptured left ovarian cyst. TECHNIQUE: ABDOMEN/PELVIS W IV CONT ONLY. Coronal and Sagittal reconstruction series were provided. ORAL CONTRAST TYPE: None. CONTRAST: Isovue 3 7 VOLUME: 100 mL One or more dose reduction techniques were used (e.g., Automated exposure control, adjustment of the mA and/or kV according to patient size, use of iterative reconstruction technique. RADIATION DOSE SUMMARY: CTDlvol: 14.4 mGy DLP: 1248.87 mGycm COMPARISON: Prior study dated December 22, 2024 FINDINGS: Lung bases: Unremarkable Liver: Diffuse fatty infiltration. Hepatomegaly. Gallbladder: Unremarkable Spleen: Borderline splenomegaly. Pancreas: Normal size without evidence of mass surrounding inflammation or ductal dilation. Adrenals: Unremarkable Kidneys: Normal renal sizes. No hydronephrosis. Bladder: Unremarkable Reproductive Organs: Prior hysterectomy. Adnexal regions are unremarkable. Follicles are seen in the left ovary. Small amount of free fluid is seen in the pelvis. Bowel: Unremarkable Appendix: Prior appendectomy. Lymph nodes: Unremarkable. Vasculature: Mild diffuse atherosclerotic calcifications are noted. Peritoneum / Retroperitoneum: Unremarkable Bones: Unremarkable CT/Abdomen/Pelvis W IV Cont ONLY IMPRESSION: Borderline hepatomegaly and fatty infiltration of the liver. Follicles are seen in the left ovary. Small amount of free fluid is seen in [id number] suggestive of ruptured ovarian cyst. Reading Location: [facility] CC: Dr. Rajan Fay DO; Dr. Celso Brewer MD ~ Inspector Final Assembly Electrical: Signed [facility]06-16-2025 Radiology Diagnostic study note [facility] Imaging Services [address] [place], [place] [address] Transvaginal Non- MR#: [id number] Acct: [id number] Name: CATRACHITA MURRAY Rep #: [id number] : 1985 F 39 From: Jimi Martinez MD PCP: Dr. Celso Brewer MD Status: REG ER Study:Transvaginal Non- Date of Exam: 01/20/25 Exam# [id number] Ordering Dr: Rajan Larson DO PROCEDURE: TRANSVAGINAL NON- 01/20/2025 REASON FOR EXAM: CONCERN FOR OVARIAN TORSION TECHNIQUE: Transvaginal pelvic ultrasound COMPARISON: Prior study dated December 22, 2024. FINDINGS: Measurements: The patient is status post hysterectomy. Right Ovary: 2.3 cm x 1.7 cm x 1.5 cm with a volume of 20.62 mL. Left Ovary: 5.7 cm x 3.6 cm x 3.8 with a volume of 41.61 mL. Uterus: The uterus is surgically absent. Right ovary: Normal size and echotexture. Left ovary: Enlarged left ovary. Regressing follicle. It presently measures 1.6 cm x 2 cm. Other: No large pelvic mass identified. Normal blood flow to both ovaries. US/Transvaginal Non- IMPRESSION: Residual follicle in the left ovary. Status post hysterectomy. Reading Location: [place] [address] CC: Dr. Rajan Fay DO; Dr. Celso Brewer MD ~ Inspector Final Assembly Electrical: Signed [facility]05-18-2025 Discharge summary [facility] Medical Records Department [address] [place] [id number] Emergency Department Summary 12/22/24 MR#: [id number] Acct: [id number] Name: CATRACHITA MURRAY Rep #:[id number] : 1985 39 From: Rajan gonzalez DO PCP: Dr. Celso Brewer MD Status:REG ER Location: ED HPI History of Present Illness Chief Complaint: Abd Pain Narrative Narrative: Chief complaint and HPI: Right lower quadrant abdominal pain. 39-year-old female with past medical history of appendectomy, HTN, hypothyroidism, hysterectomy, ovarian cysts presents for evaluation ofright lower quadrant abdominal pain. Onset of symptoms this morning and progressively worsening. Fluctuates in intensity. Described as sharp/tearing. Associated symptom is nausea without emesis. Denies any fever, chills, shortness of breath, chest pain, diarrhea, constipation, dysuria. Denies any history of kidney stones. Still has her bilateral ovaries. Review of systems: See HPI Medications: As listed on the chart Allergies: As listed on the chart PFSH: Per chart Vital signs: As listed on the chart. Reviewed. Physical exam: Gen: A&O x3, NAD but uncomfortable secondary to pain Head: Normocephalic, atraumatic Eyes: No sclera icterus, conjunctiva clear ENT: Moist mucous membranes Neck: Trachea midline, No JVD CV: RRR, no murmurs, no peripheral edema Resp: Lungs CTA BL, no w/r/c GI: Abd soft, non-distended, tender to palpation in the right lower quadrant, norebound or rigidity : No CVA tenderness Musc: Full ROM, no deformity Skin: Warm, dry Neuro: Alert, oriented, grossly intact, sensation intact Psych: Cooperative, appropriate mood and affect [facility] Medical History History of postoperative nausea and vomiting Alcohol use Depression Anxiety Heartburn Non-smoker Sleep apnea Hypothyroidism Home Medications ?Medication ?Instructions ?Recorded ?Last Taken ?Type duloxetine 60 mg capsule,delayed 60 mg PO QHS anxiety 07/10/19 12/21/24 History release lisinopril 20 mg tablet 20 mg PO QHS blood pressure 12/10/20 12/21/24 History bupropion HCl 150 mg tablet,12 hr 150 mg PO DAILY 12/0512/22/24 History sustained-release clonidine HCl 0.1 mg tablet 0.1 - 0.2 mg PO QHS 12/21/24 History levothyroxine 25 mcg tablet 25 mcg PO DAILY 12/22/24 0 12/22/24 History omeprazole 40 mg capsule,delayed 40 mg PO DAILY PRN he artburn 12/22/24 Unknown History release Allergy/AdvReac Type Severity Reaction Status Date / Time No Known Allergies Allergy Verified 12/22/24 14:54 Family History no significant family his Surgical History History of hysterectomy History of appendectomy Social History Smoking Status: Never smoker substance use type: does not use EXAM Physical Exam Const Vital Signs: 12/22/24 14:54 12/22/24 16:54 Temperature 97 F L Temperature Source Temporal Pulse Rate 87 93 Respiratory Rate 16 Blood Pressure 153/99 H 146/101 H Blood Pressure Mean 117 116 Pulse Ox 100 98 Oxygen Delivery Method Room Air Room Air MDM MDM MDM Narrative Medical decision making narrative: 39-year-old female with past medical history of appendectomy, HTN, hypothyroidism, hysterectomy, ovarian cysts presents for evaluation of right lower quadrant abdominal pain. Onset of symptoms this morning and progressivelyworsening. Differential diagnosis includes but is not limited to ovarian torsion, ovarian cyst, urolithiasis, colitis, UTI, electrolyte abnormality. NS bolus, Zofran, morphine ordered for symptoms. Abdominal pain workup ordered including CT abdomen pelvis as well as pelvic ultrasound to assess for ovarian torsion. CBC with mild leukocytosis 11.9. No anemia. CMP relatively unremarkable. Lactic unremarkable. Lipase unremarkable. UA negative for UTI. CT abdomen pelvis shows a 19 mm right ovarian likely hemorrhagic cyst with smallsurrounding slightly hyperattenuating fluid,likely secondary to rupture. Transvaginal ultrasound shows a 2.3 cm right corpus luteal cyst, otherw ise normal-appearing right ovary. Nonvisualized left ovary. Patient's pain is likely secondary to her rupturing cyst. On reevaluation, her pain is now controlled. Patient follows with Dr. Nina with PRACTICING DERMATOLOGIST. Therefore [facility] PRACTICING DERMATOLOGIST was contacted and I spoke with Dr. Perez. She agrees with conservative management. Follow-up in their office. Patient was updated on therecommendations and confirmed understanding. She will be given Percocet and Zofran as needed for pain. She will be given a work note for tomorrow off. Return precautions explained. Impression: 1. 2.3 cm right corpus luteal cyst, likely rupture Lab Data Labs: Laboratory Results - last 24 hr 12/22/24 12/22/24 15:15 16:40 WBC 11.9 H RBC 4.81 Hgb 14.7 Hct 42.2 MCV 87.7 MCH 30.6 MCHC 34.8 RDW Std Deviation 40.3 RDW Coeff of Rupali 12.5 Plt Count 363 MPV 10.8 Immature Gran % (Auto) 0.300 Neut % (Auto) 78.4 H Lymph % (Auto) 15.3 L [place] % (Auto) 4.4 Eos % (Auto) 0.9 Baso % (Auto) 0.7 Absolute Neuts (auto) 9.4 H Absolute Lymphs (auto) 1.82 Nucleated RBC % 0 Sodium 139 Potassium 3.7 Chloride 103 Carbon Dioxide 21.9 Anion Gap 14 BUN 9 Creatinine 0.97 Estim Creat Clear Calc 88.01 Est GFR (MDRD) Non-Af 75 BUN/Creatinine Ratio 9.0 L Glucose 129 H Lactic Acid 1.4 Calcium 9.6 Total Bilirubin 0.46 AST 20 ALT 25 Alkaline Phosphatase 67 Total Protein 7.9 Albumin 4.7 Globulin 3.2 Albumin/Globulin Ratio 1.5 Lipase 28 Urine Color Yellow Urine Clarity Clear Urine pH 6.5 Ur Specific Angle Inlet 1.010 Urine Protein 15 H Urine Glucose (UA) Normal Urine Ketones Negative Urine Occult Blood Negative Urine Nitrite Negative Urine Bilirubin Negative Urine Urobilinogen Normal Ur Leukocyte Esterase Negative Urine RBC 0 SEEN Urine WBC 0 SEEN Ur Squamous Epith Cells 0-5 SEEN Urine Bacteria RARE Urine Mucus 0 SEEN Radiography Diagnostic Testing: Clinical Impression(s) from Imaging Studies Transvaginal US 12/22/24 15:09 IMPRESSION: 1. Status post hysterectomy. 2. 2.3 cm right corpus luteal cyst, otherwise normal-appearing right ovary. 3. Nonvisualized left ovary. [facility]Pelvis CT 12/22/24 15:10 IMPRESSION: No acute findings in the abdomen and pelvis. 19 mm right ovarian likely hemorrhagic cyst with small surrounding slightly hyperattenuating fluid,likely secondary to rupture. Reading Location: [facility] Discharge Plan Triage Chief Complaint: Abd Pain ED Provider: Rajan Fay Dx/Rx/DC Orders Prescriptions: No Action duloxetine 60 MG capsule 60 mg PO QHS lisinopril 20 mg tablet 20 mg PO QHS bupropion HCl 150 mg tablet sustained-release 12 hr 150 mg PO DAILY clonidine HCl 0.1 mg tablet 0.1 - 0.2 mg PO QHS levothyroxine 25 mcg tablet 25 mcg PO DAILY omeprazole 40 mg capsule,delayed release(DR/EC) 40 mg PO DAILY PRN (Reason: heartburn) Primary Care Provider: Celso Brewer Referrals: Celso Brewer MD [Primary Care Provider] - Print Language: Pakistani What to do if you have Problems For any increased pain, shortness of breath, bleeding, nausea or vomiting, chestpain, or any unexpected problems, contact your Primary Care Provider. Call [facility] ([phone]) or report tothe closest Emergency Room. Call 911 if necessary. 12/22/24 1736 Cosigner Signature (if applicable): CC: Dr. Celso Brewer MD ~ Signed [facility]05-18-2025 Radiology Diagnostic study note [facility] Imaging Services [address] [place] [address] Transvaginal Non- MR#: [id number] Acct: [id number] Name: CATRACHITA MURRAY Rep #: [id number] : 1985 F 39 From: Lorna Price MD PCP: Dr. Celso Brewer MD Status: [facility] ER Study:Transvaginal Non- Date of Exam: 12/22/24 Exam# [id number] Ordering Dr: Rajan Larson DO PROCEDURE: TRANSVAGINAL NON- 12/22/2024 REASON FOR EXAM: CONCERN FOR OVARIAN TORSION TECHNIQUE: Transabdominal pelvic ultrasound COMPARISON: None FINDINGS: Measurements: Status post hysterectomy Right Ovary: 4.1 x 4.4 x 2.2. 2.3 x 2.2 x 2.0 cm corpus luteal cyst. Left Ovary: Not visualized Uterus: The uterus is surgically absent. Right ovary: Normal size and echotexture. Left ovary: Not visualized. Other: No large pelvic mass identified. US/Transvaginal Non- IMPRESSION: 1. Status post hysterectomy. 2. 2.3 cm right corpus luteal cyst, otherwise normal-appearing right ovary. 3. Nonvisualized left ovary. [facility] CC: Dr. Rajan Fay DO; Dr. Celso Brewer MD ~ Inspector Final Assembly Electrical: Signed [facility]05-18-2025 Radiology Diagnostic study note [facility] Imaging Services [address] [place] [id number] Abdomen/Pelvis W IV Cont ONLY MR#: [id number] Acct: [id number] Name: CATRACHITA MURRAY Rep #: [id number] : 1985 F 39 From: Lorna Price MD PCP: Dr. Celso Brewer MD Status: REG ER Study:Abdomen/Pelvis W IV Cont ONLY Date of E xam: 12/22/24 Exam# [id number] Ordering Dr: Rajan Larson DO PROCEDURE: ABDOMEN/PELVIS W IV CONT ONLY 12/22/2024 REASON FOR EXAM: RLQ PAIN, HISTORY OF APPENDECTOMY TECHNIQUE: Abdomen and pelvis CT with intravenous contrast. Coronal and Sagittal reconstruction series were provided. PATIENT PREPARATION: Per protocol ORAL CONTRAST TYPE: None. AMOUNT: mL CONTRAST: Omnipaque 350 VOLUME: 100 mL Not Provided1 Gauge IV One or more dose reduction techniques were used (e.g., Automated exposure control, adjustment of the mA and/or kV according to patient size, use of iterative reconstruction technique. COMPARISON: CT abdomen and pelvis 07/02/2020 FINDINGS: Lung bases: Mild dependent atelectasis Liver: Hepatic steatosis with focal sparing at the gallbladder fossa. Hepatomegaly, craniocaudal length 20.2 cm. Gallbladder: No ductal dilation. Gallbladder is within normal limits. Spleen: Normal size. Pancreas: Normal size without evidence of mass surrounding inflammation or ductal dilation. Adrenals: Unremarkable Kidneys: Normal renal sizes. No hydronephrosis. Bladder: Urinary bladder is unremarkable. Reproductive Organs: 19 mm right hemorrhagic cyst. Small slightly hyperdense fluid about the cysts,likely secondary to rupture. Bowel: Small hiatal hernia. Stomach is otherwise unremarkable. No bowel dilation or wall thickening. Appendix: Status post appendectomy Lymph nodes: Unremarkable. Vasculature: The abdominal aorta and IVC are normal. Peritoneum / Retroperitoneum: No pneumoperitoneum. Bones: Unremarkable. Soft tissues: No focal soft tissue abnormality. CT/Abdomen/Pelvis W IV Cont ONLY IMPRESSION: No acute findings in the abdomen and pelvis. 19 mm right ovarian likely hemorrhagic cyst with small surrounding slightly hyperattenuating fluid,likely secondary to rupture. Reading Location: [facility] CC: Dr. Rajan Fay DO; Dr. Celso Brewer MD ~ Inspector Final Assembly Electrical: Signed [facility]05-18-2025 Discharge summary Author Rajan Fay [facility] Note Date/Time December 22, 2024 5:36p m [facility] Medical Records Department [address] [place] [address] Emergency Department Summary 12/22/24 MR#: [id number] Acct: [id number] Name: CATRACHITA MURRAY Rep #:[id number] : 1985 39 From: Rajan gonzalez DO PCP: Dr. Celso Brewer MD Status:REG ER Location: ED HPI History of Present Illness Chief Complaint: Abd Pain Narrative Narrative: Chief complaint and HPI: Right lower quadrant abdominal pain. 39-year-old female with past medical history of appendectomy, HTN, hypothyroidism, hysterectomy, ovarian cysts presents for evaluation of right lower quadrant abdominal pain. Onset of symptoms this morning and progressively worsening. Fluctuates in intensity. Described as sharp/tearing. Associated symptom is nausea without emesis. Denies any fever, chills, shortness of breath, chest pain, diarrhea, constipation, dysuria. Denies any history of kidney stones. Still has her bilateral ovaries. Review of systems: See HPI Medications: As listed on the chart Allergies: As listed on the chart PFSH: Per chart Vital signs: As listed on the chart. Reviewed. Physical exam: Gen: A&O x3, NAD but uncomfortable secondary to pain Head: Normocephalic, atraumatic Eyes: No sclera icterus, conjunctiva clear ENT: Moist mucous membranes Neck: Trachea midline, No JVD CV: RRR, no murmurs, no peripheral edema Resp: Lungs CTA BL, no w/r/c GI: Abd soft, non-distended, tender to palpation in the right lower quadrant, norebound or rigidity : No CVA tenderness Musc: Full ROM, no deformity Skin: Warm, dry Neuro: Alert, oriented, grossly intact, sensation intact Psych: Cooperative, appropriate mood and affect [facility] Medical History History of postoperative nausea and vomiting Alcohol use Depression Anxiety Heartburn Non-smoker Sleep apnea Hypothyroidism Home Medications ?Medication ?Instructions ?Recorded ?Last Taken ?Type duloxetine 60 mg capsule,delayed 60 mg PO QHS anxiety 07/10/19 12/21/24 History release lisinopril 20 mg tablet 20 mg PO QHS blood pressure 12/10/20 12/21/24 History bupropion HCl 150 mg tablet,12 hr 150 mg PO DAILY 12/0512/22/24 History sustained-release clonidine HCl 0.1 mg tablet 0.1 - 0.2 mg PO QHS 12/21/24 History levothyroxine 25 mcg tablet 25 mcg PO DAILY 12/22/24 0 12/22/24 History omeprazole 40 mg capsule,delayed 40 mg PO DAILY PRN he artburn 12/22/24 Unknown History release Allergy/AdvReac Type Severity Reaction Status Date / Time No Known Allergies Allergy Verified 12/22/24 14:54 Family History no significant family his Surgical History History of hysterectomy History of appendectomy Social History Smoking Status: Never smoker substance use type: does not use EXAM Physical Exam Const Vital Signs: 12/22/24 14:54 12/22/24 16:54 Temperature 97 F L Temperature Source Temporal Pulse Rate 87 93 Respiratory Rate 16 Blood Pressure 153/99 H 146/101 H Blood Pressure Mean 117 116 Pulse Ox 100 98 Oxygen Delivery Method Room Air Room Air MDM MDM MDM Narrative Medical decision making narrative: 39-year-old female with past medical history of appendectomy, HTN, hypothyroidism, hysterectomy, ovarian cysts presents for evaluation of right lower quadrant abdominal pain. Onset of symptoms this morning and progressivelyworsening. Differential diagnosis includes but is not limited to ovarian torsion, ovarian cyst, urolithiasis, colitis, UTI, electrolyte abnormality. NS bolus, Zofran, morphine ordered for symptoms. Abdominal pain workup ordered including CT abdomen pelvis as well as pelvic ultrasound to assess for ovarian torsion. CBC with mild leukocytosis 11.9. No anemia. CMP relatively unremarkable. Lactic unremarkable. Lipase unremarkable. UA negative for UTI. CT abdomen pelvis shows a 19 mm right ovarian likely hemorrhagic cyst with smallsurrounding slightly hyperattenuating fluid, likely secondary to rupture. Transvaginal ultrasound shows a 2.3 cm right corpus luteal cyst, otherwise normal-appearing right ovary. Nonvisualized left ovary. Patient's pain is likely secondary to her rupturing cyst. On reevaluation, her pain is now controlled. Patient follows with Dr. Nina with PRACTICING DERMATOLOGIST. Therefore [facility] PRACTICING DERMATOLOGIST was contacted and I spoke with Dr. Perez. She agrees with conservative management. Follow-up in their office. Patient was updated on therecommendations and confirmed understanding. She will be given Percocet and Zofran as needed for pain. She will be given a work note for tomorrow off. Return precautions explained. Impression: 1. 2.3 cm right corpus luteal cyst, likely rupture Lab Data Labs: Laboratory Results - last 24 hr 12/22/24 12/22/24 15:15 16:40 WBC 11.9 H RBC 4.81 Hgb 14.7 Hct 42.2 MCV 87.7 MCH 30.6 MCHC 34.8 RDW Std Deviation 40.3 RDW Coeff of Rupali 12.5 Plt Count 363 MPV 10.8 Immature Gran % (Auto) 0.300 Neut % (Auto) 78.4 H Lymph % (Auto) 15.3 L [place] % (Auto) 4.4 Eos % (Auto) 0.9 Baso % (Auto) 0.7 Absolute Neuts (auto) 9.4 H Absolute Lymphs (auto) 1.82 Nucleated RBC % 0 Sodium 139 Potassium 3.7 Chloride 103 Carbon Dioxide 21.9 Anion Gap 14 BUN 9 Creatinine 0.97 Estim Creat Clear Calc 88.01 Est GFR (MDRD) Non-Af 75 BUN/Creatinine Ratio 9.0 L Glucose 129 H Lactic Acid 1.4 Calcium 9.6 Total Bilirubin 0.46 AST 20 ALT 25 Alkaline Phosphatase 67 Total Protein 7.9 Albumin 4.7 Globulin 3.2 Albumin/Globulin Ratio 1.5 Lipase 28 Urine Color Yellow Urine Clarity Clear Urine pH 6.5 Ur Specific Angle Inlet 1.010 Urine Protein 15 H Urine Glucose (UA) Normal Urine Ketones Negative Urine Occult Blood Negative Urine Nitrite Negative Urine Bilirubin Negative Urine Urobilinogen Normal Ur Leukocyte Esterase Negative Urine RBC 0 SEEN Urine WBC 0 SEEN Ur Squamous Epith Cells 0-5 SEEN Urine Bacteria RARE Urine Mucus 0 SEEN Radiography Diagnostic Testing: Clinical Impression(s) from Imaging Studies Transvaginal US 12/22/24 15:09 IMPRESSION: 1. Status post hysterectomy. 2. 2.3 cm right corpus luteal cyst, otherwise normal-appearing right ovary. 3. Nonvisualized left ovary. Reading Location: [facility] Abdomen/Pelvis CT 12/22/24 15:10 IMPRESSION: No acute findings in the abdomen and pelvis. 19 mm right ovarian likely hemorrhagic cyst with small surrounding slightly hyperattenuating fluid, likely secondary to rupture. Reading Location: [facility] Discharge Plan Triage Chief Complaint: Abd Pain ED Provider: Rajan Fay Dx/Rx/DC Orders Prescriptions: No Action duloxetine 60 MG capsule 60 mg PO QHS lisinopril 20 mg tablet 20 mg PO QHS bupropion HCl 150 mg tablet sustained-release 12 hr 150 mg PO DAILY clonidine HCl 0.1 mg tablet 0.1 - 0.2 mg PO QHS levothyroxine 25 mcg tablet 25 mcg PO DAILY omeprazole 40 mg capsule,delayed release(DR/EC) 40 mg PO DAILY PRN (Reason: heartburn) Primary Care Provider: Celso Brewer Referrals: Celso Brewer MD [Primary Care Provider] - Print Language: Pakistani What to do if you have Problems For any increased pain, shortness of breath, bleeding, nausea or vomiting, chestpain, or any unexpected problems, contact your Primary Care Provider. Call [facility] ([phone]) or report to the closest Emergency Room. Call 911 if necessary. 12/22/24 1736 <Electronically signed by Rajan Fay DO> Cosigner Signature (if applicable): CC: Dr. Celso Brewer MD ~ Signed [facility] Work Phone: [phone] 188-387703-17-2025 NoteHNO ID: [id number] Author: RADHA PHILLIPS APRN.C[employer]TER GR[employer]ER Service: ? Author Type: Nurse Practitioner Type: Progress Notes Filed: 10/21/2024 10:50 Note Text: This note was created using PointAcross. Subjective Catrachita Murray is a 39 year old female. HPI Pt had flu a about a week ago. Yesterday she developed a cough, sore throat and left ear pain. No recent fevers. Review of Systems As above Objective BP 144/90 Pulse 102 Temp 36.2 ?C (97.2 ?F) Resp 16 Wt 99 kg (218 lb 4.1 oz) LMP 2019 (Exact Date) SpO2 97% BMI 36.32 kg/m? Physical Exam Vitals and nursing note reviewed. Constitutional: General: She is not in acute distress. Appearance: Normal appearance. She is not ill-appearing. HENT: Head: Normocephalic. Right Ear: Tympanic membrane and ear canal normal. Left Ear: Tympanic membrane and ear canal normal. Mouth/Throat: Mouth: Mucous membranes are moist. Pharynx: No oropharyngeal exudate or posterior oropharyngeal erythema. Eyes: Conjunctiva/sclera: Conjunctivae normal. Cardiovascular: Rate and Rhythm: Normal rate and regular rhythm. Pulmonary: Effort: Pulmonary effort is normal. Breath sounds: Normal breath sounds. Musculoskeletal: General: Normal range of motion. Cervical back: Normal range of motion. Skin: General: Skin is warm and dry. Neurological: General: No focal deficit present. Mental Status: She is alert. Psychiatric: Mood and Affect: Mood normal. Behavior: Behavior normal. Assessment and Plan ASSESSMENT/PLAN: 1. Viral URI - ICD9: 465.9, ICD10: J06.9 -Discussed with patient that symptoms seem more viral in origin and most likely related to her recent episode with influenza A. She will use her home Flonase and Zyrtec for probable mild eustachian tube dysfunction causing that pressure sensation in her left ear. We did discuss possible strep testing and chest x-ray which patient declines at this time as clinically it does not appear to be indicated. She will otherwise get plenty rest and fluids and follow-up with PCP as needed Radha Phillips APRN.[facility]-17-[facility]25 History of Present illness Narrative* Radha Phillips APRN.CNP - 10/21/2024 10:44 AM EDT This note was created using VIDA Software[employer]. Subjective Catrachita Murray is a 39 year old female. HPI Pt had flu a about a week ago. Yesterday she developed a cough, sore throat and left ear pain. No recent fevers. Review of Systems As above Objective BP 144/90 Pulse 102 Temp 36.2 C (97.2 F) Resp 16 Wt 99 kg (218 lb 4.1 oz) LMP 2019 (Exact Date) SpO2 97% BMI 36.32 kg/m Physical Exam Vitals and nursing note reviewed. Constitutional: General: She is not in acute distress. Appearance: Normal appearance. She is not ill-appearing. HENT: Head: Normocephalic. Right Ear: Tympanic membrane and ear canal normal. Left Ear: Tympanic membrane and ear canal normal. Mouth/Throat: Mouth: Mucous membranes are moist. Pharynx: No oropharyngeal exudate or posterior oropharyngeal erythema. Eyes: Conjunctiva/sclera: Conjunctivae normal. Cardiovascular: Rate and Rhythm: Normal rate and regular rhythm. Pulmonary: Effort: Pulmonary effort is normal. Breath sounds: Normal breath sounds. Musculoskeletal: General: Normal range of motion. Cervical back: Normal range of motion. Skin: General: Skin is warm and dry. Neurological: General: No focal deficit present. Mental Status: She is alert. Psychiatric: Mood and Affect: Mood normal. Behavior: Behavior normal. Assessment and Plan ASSESSMENT/PLAN: 1. Viral URI - ICD9: 465.9, ICD10: J06.9 -Discussed with patient that symptoms seem more viral in origin and most likely related to her recent episode with influenza A. She will use her home Flonase and Zyrtec for probable mild eustachian tube dysfunction causing that pressure sensation in her left ear. We did discuss possible strep testing and chest x-ray which patient declines at this time as clinically it does not appear to be indicated. She will otherwise get plenty rest and fluids and follow-up with PCP as needed Radha Phillips APRN.C[employer]TER GR[employer]ER [facility] History of Present illness Narrative* Melvin Bucio MD - 12/15/2023 3:15 PM EDT Subjective: Catrachita is approximately 3 months post opfrom left ORIF trimalleolar ankle fracture with fixation ofposterior lip DOS 09/23/2023. She has mild pain. She notes that her pain is most prevalent at the end of the day when she comes out of her walking boot. She denies new numbness or tingling since surgery. She denies other new complaints. Reports she has been compliant with her HEP and feels that has been beneficial. Review of Systems Objective: There were no vitals taken for this visit. All incisions are healed appropriately. Gait: Normal presents in short walking boot. Ankle ROM: 10 degrees dorsiflexion and 60 degrees plantarflexion. Swelling:mild. Sensation normal to all distal dermatomes. XRAYS: NWB 3v left ankle show the hardware remains in good position. The fracture is well-aligned and healed appropriately. The talus is well-positioned in the mortise. There is no post-traumatic arthritis. Assessment 1. Closed displaced trimalleolar fracture of left ankle, initial encounter Plan Orders Placed This Encounter Procedures XR ankle 3+ views left Catrachita will continue weight bearing as tolerated. We discussed using an [facility] ankle brace for supportprn. We reviewed expectations for recovery and timeline for this. We discussed the option for hardware removal if it becomes more symptomatic. No follow-ups on file.. For any future visits we will obtain WB 3v ankle. Melvin Bucio MD Orthopaedic Sports Medicine [facility] Department of Orthopaedics and Sports Medicine documented in this [facility]03-29-2024 History of Present illness Narrative* Melvin Bucio MD - 11/03/2023 3:15 PM EDT [facility] ORTHOPEDICS [facility] SPORTS MEDICINE [address] [place] [id number] Dept: [phone] Dept Catrachita Tankred 1985 [id number] 11/03/2023 HISTORY OF PRESENT ILLNESS: Catrachita is here for her 6 week(s) postoperative visit s/p left ORIF trimalleolar ankle fracture withfixation of posterior lip. Catrachita reports that her pain has decreased since the surgery/last visit Catrachita reports that her swelling has been minimal Catrachita had been instructed to be nonweight bearing on the left lower extremity. Catrachita has been compliant with her weight bearing restrictions Catrachita has been working on her home exercise program and it is going well Catrachita denies fevers and chills and has not had calf pain or shortness of breath In general Catrachita feels that she is doing better than the her last visit Other issues or concerns that Catrachita would like addressed at this visit: Review of Systems Neurological: Positive for weakness. Negative for numbness. PAST MEDICAL HISTORY: Past Medical History: Diagnosis Date Anxiety Hypertension Allergies Allergen Reactions Lactose PHYSICAL EXAM: This is an age appropriate appearing female who is alert and oriented x 3. The patient appears wellnourished. The patient is able to verbalize normally and seems to have a good understanding of her situation. Normocephalic and atraumatic Respiratory: No shortness of breath The left lower extremity is examined. Skin: warm and dry Lymphatic: Minimal swelling of the ankle Vascular: Capillary refill in the foot/toes is brisk Neurologic: Sensation is intact except over the surgical incision site(s) Musculoskeletal: The calf is nontender to palpation. The patient is able to actively move the ankle/foot/toes The medial and lateral incisions are healed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 Recent Labs 09/23/23 0631 INR <0.9* No results for input(s): SEDRATE, CRP in the last 72 hours. No results for input(s): HCG in the last 72 hours. Assessment Catrachita is a 38 y.o.female s/p L ankle ORIF 09/23 Plan -Operative plans: No further plans for surgery this admission -Weight bearing: RLE: WBAT LLE: NWB RUE: WBAT LUE: WBAT -Range of motion parameters: No ROM of ankle, ok for ROM knee/hip -Immobilization: Splint to LLE. Keep clean, dry, and intact. -Antibiotics: 24 hours of post op antibiotics. -Diet: no restrictions from ortho standpoint -Labs: No further labs needed from ortho standpoint. -PT/OT -PT recommended outpatient/post discharge?: No formal PT is needed -Medical management, dvt ppx and pain control per primary -DVT ppx recommended?: No DVT ppx is indicated from ortho standpoint -Follow-up with Dr Bucio in 2 weeks -Ortho to sign off. Patient appropriate for discharge from ortho perspetcive Jc Soria MD Orthopaedic Surgery PGY-4 *[id number] * Ham Caruso MD - 09/23/2023 11:49 AM EST Post op plan -Operative plans: No further plans for surgery this admission -Weight bearing: RLE: WBAT LLE: NWB RUE: WBAT LUE: WBAT -Range of motion parameters: No ROM of ankle, ok for ROM knee/hip -Immobilization: Splint to LLE. Keep clean, dry, and intact. -Antibiotics: 24 hours of post op antibiotics. -Diet: no restrictions from ortho standpoint -Labs: No further labs needed from ortho standpoint. -PT/OT -PT recommended outpatient/post discharge?: No formal PT is needed -Medical management, dvt ppx and pain control per primary -DVT ppx recommended?: No DVT ppx is indicated from ortho standpoint -Follow-up with Dr Bucio in 2 weeks -Ortho to follow. documented in this [facility]02-18-2024 NoteHospitalist Progress Note 09/24/2023 Subjective: Admit Date: 09/22/2023 PCP: POLLY LOPEZ Room#: H-6104/H-6104 A Brief Hospital course: Catrachita is a 38 y.o. female with past medical history of HTN, anxiety who presented with chief complaint of left ankle pain. She reports that she went out drinking (states had two margaritas) and slipped when attempting to get out of SUV. She reports ankle was twisted abnormally. She was unable to ambulate and had sharp, severe pain in her ankle. Found on imaging to have ankle fracture Interval History: 09/24: underwent ORIF and ankle fracture repair. Pain controlled, no fevers, tolerating diet. Adult diet Regular 24HR INTAKE/OUTPUT: No intake or output data in the 24 hours ending 09/24/23 1203 Past Medical History: Past Medical History: Diagnosis Date Anxiety Hypertension LABS: CBC: Recent Labs 09/23/23 0631 WBC 11.4* RBC 4.34 HGB 13.2 HCT 38.5 MCV 88.6 RDW 13.9 PLT 332 BMP: Recent Labs 09/23/23 0631 NA 139 K 3.8 CL 105 CO2 26 BUN 7 CREATININE 0.81 GLUCOSE 117* CALCIUM 8.5 ANIONGAP 8 LIVER PROFILE:No results for input(s): AST, ALT, BILITOT, ALKPHOS, PROT in the last 72 hours. No lab exists for component: LABALBU PT/INR: Recent Labs 09/23/23 0631 PROTIME 9.9 INR <0.9* CARDIAC ENZYMES: No results for input(s): TROPONINI in the last 72 hours. Procalcitonin: No results found for: PROCAL COVID-19 PCR: No results for input(s): COVID19 in the last 72 hours. Objective: Vitals: BP 130/83 Pulse 92 Temp (!) 35.6 ?C (96 ?F) (Temporal) Resp 16 Ht 5' 6 (1.676 m) Wt 207 lb (93.9 kg) SpO2 94% BMI 33.41 kg/m? Pulse Ox: SpO2 Av.5 % Min: 93 % Max: 97 % Supplemental O2: O2 Flow Rate (L/min): 3 L/min Physical Exam Constitutional: Appearance: Normal appearance. HENT: Head: Normocephalic and atraumatic. Cardiovascular: Rate and Rhythm: Normal rate and regular rhythm. Pulses: Normal pulses. Heart sounds: Normal heart sounds. Pulmonary: Effort: Pulmonary effort is normal. Breath sounds: Normal breath sounds. Abdominal: General: Abdomen is flat. Palpations: Abdomen is soft. Musculoskeletal: Comments: LLE casted Neurological: Mental Status: She is alert. Medications: DULoxetine, 20 mg, Oral, Daily Assessment Acute, acute on chronic, unstable/uncontrolled chronic problems/diagnoses: Left ankle fracture Stable chronic problems affecting care, new non-acute diagnoses: HTN Obesity Anx Leukocytosis Plan As a result of the above findings & factors, the following mgmt was pursued: - primary postop mgmt per surgical service -pain control PT/OT eval -resume home meds -bowel regimen with pain meds -anticipate home today - am labs, replace lytes prn - PT/OT/CM/SW - delirium precautions: increase activity and avoid anticholinergic meds, benzos, etc - DVT prophylaxis: encourage ambulation Advance Directive: Full Code Anticipated Discharge - Date - 0-1 day - Location - Home with Home Health Care - Pending the following - PT/OT eval Extended Emergency Contact Information Primary Emergency Contact: Ted Murray Mobile Relation: Spouse Manolo Connolly MD Division of Hospitalist Medicine [facility]02-18-2024 NoteOrthopedic Progress Note Name: Catrachita Murray Date:09/24/2023 Attending:Manolo Connolly MD Subjective No events o/n.Patient doing well. Reports minimal pain in the left lower extremity this am. Objective Vitals: Vitals: 09/23/23 1630 09/23/23 2042 09/24/23 0014 09/24/23 0412 BP: 125/89 108/69 106/77 124/76 BP Location: Left arm Left arm Left arm Patient Position: Lying Lying Lying Pulse: 120 120 107 98 Resp: 16 16 16 16 Temp: 36.6 ?C (97.9 ?F) 37.3 ?C (99.1 ?F) 36.4 ?C (97.6 ?F) 36.8 ?C (98.2 ?F) TempSrc: Temporal Temporal Temporal Temporal SpO2: 95% 93% 94% 97% Weight: Height: Physical Exam: General: NAD LLE Dressing/Skin: Splint Clean/Dry/Intact SILT: Sensation to toes intact Motor: Able to wiggle toes Pulses: BCR to toes LABS: Recent Labs 09/23/23 0631 WBC 11.4* HGB 13.2 HCT 38.5 PLT 332 Recent Labs 09/23/23 0631 NA 139 K 3.8 CL 105 CO2 26 BUN 7 CREATININE 0.81 CALCIUM 8.5 Recent Labs 09/23/23 0631 INR <0.9* No results for input(s): SEDRATE, CRP in the last 72 hours. No results for input(s): HCG in the last 72 hours. Assessment Catrachita is a 38 y.o.female s/p L ankle ORIF 09/23 Plan -Operative plans: No further plans for surgery this admission -Weight bearing: RLE: WBAT LLE: NWB RUE: WBAT LUE: WBAT -Range of motion parameters: No ROM of ankle, ok for ROM knee/hip -Immobilization: Splint to LLE. Keep clean, dry, and intact. -Antibiotics: 24 hours of post op antibiotics. -Diet: no restrictions from ortho standpoint -Labs: No further labs needed from ortho standpoint. -PT/OT -PT recommended outpatient/post discharge?: No formal PT is needed -Medical management, dvt ppx and pain control per primary -DVT ppx recommended?: No DVT ppx is indicated from ortho standpoint -Follow-up with Dr Bucio in 2 weeks -Ortho to sign off. Patient appropriate for discharge from ortho perspetcive Jc Soria MD Orthopaedic Surgery PGY-4 *[address] [place], [place] [id number] Plan of care note* Care Plan - Tiffany Norris RN - 09/23/2023 10:43 PM EST Problem: Knowledge Deficit Goal: Patient/family/caregiver demonstrates understanding of disease process, treatment plan, medications, and discharge instructions Outcome: Progressing Problem: Potential for Compromised Skin Integrity Goal: Skin Integrity is Maintained or Improved Outcome: Progressing Goal: Nutritional status is improving Outcome: Progressing Problem: Urinary Incontinence Goal: Perineal skin integrity is maintained or improved Outcome: Progressing [id number] Miscellaneous Notes* Care Plan - Tiffany Norris RN - 09/23/2023 10:43 PM EST Problem: Knowledge Deficit Goal: Patient/family/caregiver demonstrates understanding of disease process, treatment plan, medications, and discharge instructions Outcome: Progressing Problem: Potential for Compromised Skin Integrity Goal: Skin Integrity is Maintained or Improved Outcome: Progressing Goal: Nutritional status is improving Outcome: Progressing Problem: Urinary Incontinence Goal: Perineal skin integrity is maintained or improved Outcome: Progressing * Perioperative Nursing Note - Dino Pizarro RN - 09/23/2023 1:11 PM EST Pt sleeping well in recovery after prn medication given prior. VSS on 3L NC. Report called in for transport. * Perioperative Nursing Note - Dino Pizarro RN - 09/23/2023 12:27 PM EST Updated over phone, given room assignment * Op Note - Melvin Bucio MD - 09/23/2023 9:30 AM EST [facility] MAIN OR [address] [facility] [address] Dept: [phone] Loc: [phone] Operative Report Patient Name: Catrachita Murray Date of : 1985 Date of Surgery: 09/23/23 Pre-operative diagnosis: Left bimalleolar ankle fracture Post-operative diagnosis: Same Procedure(s): Open reduction internal fixation of left trimalleolar ankle fracture Stress exam of left ankle under fluoroscopy Surgeon: Melvin Bucio MD Endoscopy Registered Nurse(s): Ham Caruso M.D. and Jazmyn Valenzuela M.D. Anesthesia: General EBL: 5 cc IVF: Crystalloid Medications: Ancef 2 grams IV Implants: Synthes small frag Clinical History/Indication for Surgery The patient is a 38 y.o. year old female who was presents for operative fixation of a displaced ankle fracture. Typical indications for surgery were reviewed and operative fixation was recommended. Risks of fracture surgery in general were reviewed including, but not limited to, infection, non-union, need for additional procedures, painful or prominent hardware which could require removal, failure of fixation which would require revision, damage to normal structures as well as medical complications such as FL, stroke, PE, DVT, and even . Pt was given opportunity to ask questions and consider her options. She ultimately elected to proceed with surgery. No guarantees were given or implied. Operative Narration The patient was identified in the pre-operative holding area. The surgical site was identified and marked. Informed consent was obtained. The patient was then brought to the operating room and placedsupine on the operating table. Anesthesia was administered and care of the head, neck, and airway was maintained by the anesthesia staff throughout the entire procedure. All bony prominences were identified and padded. A tourniquet was applied to the thigh of the operative extremity. The leg was prepped and draped in the usual sterile fashion. A surgical timeout was performed. Antibiotics were confirmed to have been given. After exsanguination the tourniquet was inflated. The medial malleolus was approached through a direct medial incision dividing skin and subcutaneoustissues down to the periosteum. The periosteum was reflected only along the margin of the fracture to allow for reduction but was otherwise left intact. Hematoma was cleaned from the fracture site and it was irrigated. The fracture was clamped anatomically and fixed with a single partially [id number] cancellous screw which achieved good purchase. The fibula was approached through a direct lateral approach dividing skin and subcutaneous tissues down to the periosteum. The superficial peroneal nerve was not visualized during the procedure. The periosteum was reflected only along the margin of the fracture to allow for reduction but was otherwise left intact. Hematoma was cleaned from the fracture site and it was irrigated. The fracture was clamped and fixed initially with a 2.7mm lag screw. A neutralization plate was applied laterally andfixed using cortical screws proximal and cancellous screws distal to the fracture. Fluoroscopic imaging confirmed an excellent overall reduction and appropriate placement of all hardware. A live external rotation stress test of the ankle under fluoroscopy was performed which showedno evidence of ankle or syndesmosis instability. Wounds were copiously irrigated with sterile saline and closed in a layered fashion using 2-0 vicryl and 3-0 nylon. A sterile compressive dressing was applied followed by a well-padded posterior splint with the ankle in neutral dorsiflexion. Once the patient was awakened from anesthesia, they were t ransported to the PACU in stable condition, having tolerated surgery well with no obvious complications. Postoperative Plan Non-weight bearing in splint Follow-up 2wks with repeat xrays This operative report was prepared and signed by Melvin Bucio MD at 09/23/23, 11:06 AM documented in this [facility]02-17-2024 NotePatient: Catrachita Murray Procedure Summary Date: 09/23/23 Room / Location: [address] Operating Room Anesthesia Start: 934 Anesthesia Stop: 1136 Procedure: OPEN REDUCTION INTERNAL FIXATION TRIMALLEOLAR ANKLE FRACTURE WITH FIXATION OF POSTERIOR LIP (Left: Ankle) Diagnosis: Closed displaced trimalleolar fracture of left ankle, initial encounter (Closed displaced trimalleolar fracture of left ankle, initial encounter [S82.852A]) Surgeons: Melvin Bucio MD Responsible Provider: Elias Troncoso MD Anesthesia Type: general, regional ASA Status: 2 Anesthesia Type: general, regional Vitals Value Taken Time BP 121/72 09/23/23 1315 Temp 36.7 ?C (98 ?F) 09/23/23 1230 Pulse 116 09/23/23 1316 Resp 16 09/23/23 1315 SpO2 97 % 09/23/23 1316 Vitals shown include unfiled device data. Anesthesia Post Evaluation Patient location during evaluation: PACU Patient participation: complete - patient participated Level of consciousness: awake and alert Pain management: satisfactory to patient Airway patency: patent Dental Injury: no Cardiovascular status: acceptable, blood pressure returned to baseline and hemodynamically stable Respiratory status: acceptable and spontaneous ventilation Hydration status: euvolemic Nausea/Vomiting: controlled No notable events documented. Patient can be discharged once all PACU criteria has been met.[facility]02-17-2024 Emergency department Note* Flora Velez RN - 09/23/2023 2:00 AM EST Pt was advised that as she is going by private vehicle Dr. Gooden is not comfortable giving more pain medication. Pt pivot transferred to wheelchair from ED cot with assistance. IV site to right a/c wrapped with coban. Pt to restroom by wheelchair with assistance, again pivot transferring, voided, then back to wheelchair. Pt c/o feeling dizzy with movement but denies nausea. Pt to car, passenger rear, warm blanket provided to pt as she did not have a coat with her. Transfer papers with pt. Flora Velez RN 09/23/23209 Flora Velez RN 09/23/23210 [facility] NotePatient: Catrachita Murray Procedure Summary Date: 09/23/23 Room / Location: [address] Operating Room Anesthesia Start: 934 Anesthesia Stop: 1136 Procedure: OPEN REDUCTION INTERNAL FIXATION TRIMALLEOLAR ANKLE FRACTURE WITH FIXATION OF POSTERIOR LIP (Left: Ankle) Diagnosis: Closed displaced trimalleolar fracture of left ankle, initial encounter (Closed displaced trimalleolar fracture of left ankle, initial encounter [S82.852A]) Surgeons: Melvin Bucio MD Responsible Provider: Elias Troncoso MD Anesthesia Type: general, regional ASA Status: 2 Anesthesia Type: general, regional Vitals Value Taken Time BP 126/76 09/23/23 1143 Temp 97f 09/23/23 1143 Pulse 105 09/23/23 1143 Resp 16 09/23/23 1143 SpO2 97 09/23/23 1143 Anesthesia Post Evaluation Patient location during evaluation: PACU Patient participation: waiting for patient participation Level of consciousness: responsive to light touch Pain management: adequate Multimodal analgesia pain management approach Airway patency: patent Two or more strategies used to mitigate risk of obstructive sleep apnea Cardiovascular status: acceptable and hemodynamically stable Respiratory status: acceptable and face mask Hydration status: acceptable No notable events documented. MIPS #430 PONV Patient received an inhalational anesthetic (4554F) Patient exhibits three or more risk factors for PONV (4556F) Patient received at leaset 2 prophylactic Rx PONV anti-emtic agents of different classes preop and/or intraop (G9775) MIPS # 424 Perioperative Temperature Management Anesthesia time was 60 minutes or longer (4255F) Anesthesai administered was General (inhalational or TIVA) or Neuraxial block (X0424) At least one body temperature greater than 95.8F/35.5C achieved within the 30 mins immediately prior to or the 15 minutes immediately following anesthesia end time (G9771) MIPS #477 Multimodal Pain Management Not emergent case Patient was administered multimodal pain management (two or more drugs and/or interventions excluding systemic opioids) in the periopeartive period occurring at some time between 6 hours prior to anesthesia start time until discharged from PACU (G2148) MIPS #404 Anesthesiology Smoking Abstinence The patient is not a current smoker (e.g. cigarette, cigar, pipe, e-cigarette/vaping/marijuana) If no stop here (XX404) I completed my handoff to the receiving clinician during which we: 1. Identified the patient 2. Identified the responsible provider 3. Reviewed the pertinent medical history 4. Discussed the surgical course 5. Reviewed intra-op anesthesia management and issues during anesthesia 6. Set expectations for post-procedure period 7. Allowed opportunity for questions and acknowledgement of understanding.[facility]02-17-2024 Note* Perioperative Nursing Note - Dino Pizarro RN - 09/23/2023 1:11 PM EST Pt sleeping well in recovery after prn medication given prior. VSS on 3L NC. Report called in for transport. [id number] Note* Perioperative Nursing Note - Dino Pizarro RN - 09/23/2023 1:11 PM EST Pt sleeping well in recovery after prn medication given prior. VSS on 3L NC. Report called in for transport. [place] [id number] Note* Perioperative Nursing Note - Dino Pizarro RN - 09/23/2023 12:27 PM EST Updated over phone, given room assignment [address]17-2024 Note* Perioperative Nursing Note - Dino Pizarro RN - 09/23/2023 12:27 PM EST Updated over phone, given room assignment [address]17-2024 NoteAirway Date/Time: 09/23/2023 9:37 AM Urgency: scheduled General Information and Staff Patient location during procedure: Procedural Resident/PUTTYING AND CALKING SUPERVISOR: Sascha Perez APRN - PUTTYING AND CALKING SUPERVISOR Performed: PUTTYING AND CALKING SUPERVISOR Indications and Patient Condition Indications for airway management: anesthesia Sedation level: Asleep Preoxygenated: yes Patient position: sniffing Mask difficulty assessment: 1 - vent by mask Final Airway Details Final airway type: supraglottic airway Successful airway: Igel Size 4 Number of attempts at approach: [address] [place], [place] [address]02-17-2024 Note Peripheral Block Time Out: 09/23/2023 9:17 AM Patient location during procedure: pre-op Start time: 09/23/2023 9:17 AM End time: 09/23/2023 9:17 AM Reason for block: at surgeon's request and post-op pain management Staffing Performed: anesthesiologist Anesthesiologist: Elias Troncoso MD Preanesthetic Checklist Completed: patient identified, IV checked, site marked, risks and benefits discussed, surgical consent, pre-op evaluation and timeout performed Region: Lower Extremities Primary: Popliteal Secondary: Adductor Canal Peripheral Block Patient position: supine Prep: ChloraPrep Patient monitoring: heart rate and continuous pulse ox O2: Face Mask Laterality: left Injection technique: single-shot Guidance: ultrasound guided -image retained in chart, tip of the needle identified by ultraound during injection. Local infiltration: lidocaine 2% Dose: 4 mL Needle Needle: 22G X 80 mm Additional Notes 09/23/2023 9:17 AMMedication group details: 80 mg Propofol. Assessment Injection assessment: negative aspiration for heme, no paresthesia on injection, incremental injection, local visualized surrounding nerve on ultrasound and transient paresthesias Heart rate change: no Slow fractionated injection: yes Required Documentation: Relevant anatomy identified (Nerves, Vessels, Muscles), Negative for blood on aspiration, Local anesthetic injected incrementally with intermittent aspiration every 5 mL, Normal resistance with injection, No EKG changes noted, No symptoms of toxicity and No paresthesias reported by patient during injectionMedications Medication group details: 80 mg Propofol.mywXKYEYdvwvw-qzxcnlhneoh-zozhfrgsssx (TAP) syringe, 60 [facility]LA[facility]-17-2024 NotePatient: Catrachita Murray Procedure Information Date/Time: 09/23/23 0920 Procedure: OPEN REDUCTION INTERNAL FIXATION TRIMALLEOLAR ANKLE FRACTURE WITH FIXATION OF POSTERIOR LIP (Left: Ankle) - Pull Morris ankle ORIF card Location: [address] Operating Room Surgeons: Melvin Bucio MD Relevant Problems No relevant active problems Past Medical History: Past Medical History: No date: Anxiety No date: Hypertension Past Surgical History: Past Surgical History: No date: TOE SURGERY Social History: TOBACCO: reports that she has never smoked. She does not have any smokeless tobacco history on file. ETOH: reports current alcohol use. Social History Substance and Sexual Activity Drug Use Not Currently Family History: No family history on file. Screening: unknown Clinical information reviewed: Allergies Meds Med Hx Surg Hx Fam Hx Soc Hx Physical Exam Airway Mallampati: II TM distance: >3 FB Neck ROM: full Cardiovascular Dental Pulmonary Abdominal Anesthesia Plan patient is NPO appropriate Any family history or previous problems with anesthesia no ASA 2 general and regional Any family history or previous problems with anesthesia no The patient is not a current smoker. Anesthetic plan and risks discussed with patient. CHELI Screening Labs: Lab Results Component Value Date WBC 11.4 (H) 09/23/2023 HGB 13.2 09/23/2023 HCT 38.5 09/23/2023 MCV 88.6 09/23/2023 PLT 332 09/23/2023 Lab Results Component Value Date NA 139 09/23/2023 K 3.8 09/23/2023 CL 105 09/23/2023 CO2 26 09/23/2023 BUN 7 09/23/2023 CREATININE 0.81 09/23/2023 GLUCOSE 117 (H) 09/23/2023 CALCIUM 8.5 09/23/2023 EGFR >90.0 09/23/2023 Pain Score: 10 - Worst possible pain No echocardiogram results found for the past 14 days 09/22/23 ECG 12-LEAD (Preliminary) This result has not been signed. Information might be incomplete. Impression Sinus rhythm Prolonged [place] interval Low voltage, precordial leads Consider anterior [facility]02-17-2024 NoteAttending History and Physical Admit Date: 09/22/2023 PCP: POLLY LOPEZ CHIEF COMPLAINT: Left ankle pain Reason for Admission: Ankle pain, inability to ambulate History Obtained From: patient HISTORY OF PRESENT ILLNESS: Catrachita is a 38 y.o. female with past medical history of HTN, anxiety who presented with chief complaint of left ankle pain. She reports that she went out drinking (states had two margaritas) and slipped when attempting to get out of SUV. She reports ankle was twisted abnormally. She was unable to ambulate and had sharp, severe pain in her ankle. +tingling in foot. Denies fever, chills, CP, dyspnea, abd pain, N/V. Discussed with ER provider Betsey and will admit for further evaluation and management. Discussed with ortho that she is medically optimized for surgery. Labs reviewed, imaging reviewed. Chest x-ray shows no acute process. EKG shows sinus rhythm and poor R wave progression (no anterior infarct) Past Medical History: Past Medical History: Diagnosis Date Anxiety Hypertension Past Surgical History: Past Surgical History: Procedure Laterality Date TOE SURGERY Appendectomy Social History: Social History Socioeconomic History Marital status: Spouse name: Not on file Number of children: Not on file Years of education: Not on file Highest education level: Not on file Occupational History Not on file Tobacco Use Smoking status: Never Smokeless tobacco: Not on file Substance and Sexual Activity Alcohol use: Yes Comment: Intoxicated during this ED visit Drug use: Not Currently Sexual activity: Not on file Other Topics Concern Not on file Social History Narrative Not on file Social Determinants of Health Financial Resource Strain: Not on file Food Insecurity: Not on file Transportation Needs: Not on file Physical Activity: Not on file Stress: Not on file Social Connections: Not on file Intimate Partner Violence: Not on file Housing Stability: Not on file Family History: No family history on file. CAD, DM, skin cancer Medications Prior to Admission: No current facility-administered medications on file prior to encounter. Current Outpatient Medications on File Prior to Encounter Medication Sig Dispense Refill DULOXETINE HCL PO Take by mouth. LOSARTAN POTASSIUM PO Take by mouth. Allergies: Allergies Allergen Reactions Lactose REVIEW OF SYSTEMS: +nausea (known to get after anesthesia); otherwise see HPI: all other 10 pt ROS negative Vitals: BP 114/86 Pulse 96 Temp (!) 35.2 ?C (95.4 ?F) (Temporal) Resp 19 Ht 5' 6 (1.676 m) Wt 207 lb (93.9 kg) SpO2 97% BMI 33.41 kg/m? BMI Classification: Obese (BMI 30.0-39.9) Pulse Ox: SpO2 Av.7 % Min: 97 % Max: 100 % Supplemental O2: PHYSICAL EXAM: Physical Exam Constitutional: General: She is not in acute distress. Appearance: She is obese. Comments: +tired-appearing HENT: Head: Normocephalic and atraumatic. Mouth/Throat: Mouth: Mucous membranes are moist. Cardiovascular: Rate and Rhythm: Normal rate and regular rhythm. Pulmonary: Effort: Pulmonary effort is normal. Breath sounds: Normal breath sounds. Abdominal: General: There is no distension. Palpations: Abdomen is soft. Tenderness: There is no abdominal tenderness. Musculoskeletal: Comments: Left ankle wrapped and not examined; neurovascularly intact Skin: General: Skin is warm and dry. Neurological: General: No focal deficit present. Mental Status: She is alert and oriented to person, place, and time. Psychiatric: Mood and Affect: Mood normal. Judgment: Judgment normal. DATA: CBC: Recent Labs 09/23/23 0631 WBC 11.4* RBC 4.34 HGB 13.2 HCT 38.5 MCV 88.6 RDW 13.9 PLT 332 BMP: Recent Labs 09/23/23 0631 NA 139 K 3.8 CL 105 CO2 26 BUN 7 CREATININE 0.81 GLUCOSE 117* CALCIUM 8.5 ANIONGAP 8 LIVER PROFILE:No results for input(s): AST, ALT, BILITOT, ALKPHOS, PROT in the last 72 hours. No lab exists for component: LABALBU PT/INR: Recent Labs 09/23/23 0631 PROTIME 9.9 INR <0.9* CARDIAC ENZYMES: No results for input(s): TROPONINI in the last 72 hours. Procalcitonin: No results found for: PROCAL Urine Culture: No results found for this or any previous visit. COVID-19 PCR: No results for input(s): COVID19 in the last 72 hours. I reviewed: [x] laboratory results [x] radiographic results At the time of today's encounter. Pt was advised of the results. Assessment Plan Ankle pain - due to trimalleolar fracture; going to OR per ortho; patient is low risk based on Revised Cardiac Risk Index HTN - hold losartan in anticipation of surgery Obesity - lifestyle modifications Anxiety - continue duloxetine Hypotension - ?related to pain medication; resolved Leukocytosis - suspect reactive; no signs of overt infection DVT prophylaxis - no lovenox in anticipation of surgery; resum (more content not included)...[facility]02-17-2024 Note* Op Note - Melvin Bucio MD - 09/23/2023 9:30 AM EST [facility] [address] [facility] [address] Dept: [phone] Loc: [phone] Operative Report Patient Name: Catrachita Murray Date of : 1985 Date of Surgery: 09/23/23 Pre-operative diagnosis: Left bimalleolar ankle fracture Post-operative diagnosis: Same Procedure(s): Open reduction internal fixation of left trimalleolar ankle fracture Stress exam of left ankle under fluoroscopy Surgeon: Melvin Bucio MD Endoscopy Registered Nurse(s): Ham Caruso M.D. and Jazmyn Valenzuela M.D. Anesthesia: General EBL: 5 cc IVF: Crystalloid Medications: Ancef 2 grams IV Implants: Synthes small frag Clinical History/Indication for Surgery The patient is a 38 y.o. year old female who was presents for operative fixation of a displaced ankle fracture. Typical indications for surgery were reviewed and operative fixation was recommended. Risks of fracture surgery in general were reviewed including, but not limited to, infection, non-union, need for additional procedures, painful or prominent hardware which could require removal, failure of fixation which would require revision, damage to normal structures as well as medical complications such as FL, stroke, PE, DVT, and even . Pt was given opportunity to ask questions and consider her options. She ultimately elected to proceed with surgery. No guarantees were given or implied. Operative Narration The patient was identified in the pre-operative holding area. The surgical site was identified and marked. Informed consent was obtained. The patient was then brought to the operating room and placedsupine on the operating table. Anesthesia was administered and care of the head, neck, and airway was maintained by the anesthesia staff throughout the entire procedure. All bony prominences were identified and padded. A tourniquet was applied to the thigh of the operative extremity. The leg was prepped and draped in the usual sterile fashion. A surgical timeout was performed. Antibiotics were confirmed to have been given. After exsanguination the tourniquet was inflated. The medial malleolus was approached through a direct medial incision dividing skin and subcutaneoustissues down to the periosteum. The periosteum was reflected only along the margin of the fracture to allow for reduction but was otherwise left intact. Hematoma was cleaned from the fracture site and it was irrigated. The fracture was clamped anatomically and fixed with a single partially [id number] cancellous screw which achieved good purchase. The fibula was approached through a direct lateral approach dividing skin and subcutaneous tissues down to the periosteum. The superficial peroneal nerve was not visualized during the procedure. The periosteum was reflected only along the margin of the fracture to allow for reduction but was otherwise left intact. Hematoma was cleaned from the fracture site and it was irrigated. The fracture was clamped and fixed initially with a 2.7mm lag screw. A neutralization plate was applied laterally andfixed using cortical screws proximal and cancellous screws distal to the fracture. Fluoroscopic imaging confirmed an excellent overall reduction and appropriate placement of all hardware. A live external rotation stress test of the ankle under fluoroscopy was performed which showedno evidence of ankle or syndesmosis instability. Wounds were copiously irrigated with sterile saline and closed in a layered fashion using 2-0 vicryl and 3-0 nylon. A sterile compressive dressing was applied followed by a well-padded posterior splint with the ankle in neutral dorsiflexion. Once the patient was awakened from anesthesia, they were t ransported to the PACU in stable condition, having tolerated surgery well with no obvious complications. Postoperative Plan Non-weight bearing in splint Follow-up 2wks with repeat xrays This operative report was prepared and signed by Melvin Bucio MD at 09/23/23, 11:06 AM [facility] [employer] Phone: [phone] 420-146202-17-2024 Note* Op Note - Melvin Bucio MD - 09/23/2023 9:30 AM EST [facility] [address] [facility] [address] Dept: [phone] Loc: [phone] Operative Report Patient Name: Catrachita Murray Date of : 1985 Date of Surgery: 09/23/23 Pre-operative diagnosis: Left bimalleolar ankle fracture Post-operative diagnosis: Same Procedure(s): Open reduction internal fixation of left trimalleolar ankle fracture Stress exam of left ankle under fluoroscopy Surgeon: Melvin Bucio MD Endoscopy Registered Nurse(s): Ham Caruso M.D. and Jazmyn Valenzuela M.D. Anesthesia: General EBL: 5 cc IVF: Crystalloid Medications: Ancef 2 grams IV Implants: Synthes small frag Clinical History/Indication for Surgery The patient is a 38 y.o. year old female who was presents for operative fixation of a displaced ankle fracture. Typical indications for surgery were reviewed and operative fixation was recommended. Risks of fracture surgery in general were reviewed including, but not limited to, infection, non-union, need for additional procedures, painful or prominent hardware which could require removal, failure of fixation which would require revision, damage to normal structures as well as medical complications such as FL, stroke, PE, DVT, and even . Pt was given opportunity to ask questions and consider her options. She ultimately elected to proceed with surgery. No guarantees were given or implied. Operative Narration The patient was identified in the pre-operative holding area. The surgical site was identified and marked. Informed consent was obtained. The patient was then brought to the operating room and placedsupine on the operating table. Anesthesia was administered and care of the head, neck, and airway was maintained by the anesthesia staff throughout the entire procedure. All bony prominences were identified and padded. A tourniquet was applied to the thigh of the operative extremity. The leg was prepped and draped in the usual sterile fashion. A surgical timeout was performed. Antibiotics were confirmed to have been given. After exsanguination the tourniquet was inflated. The medial malleolus was approached through a direct medial incision dividing skin and subcutaneoustissues down to the periosteum. The periosteum was reflected only along the margin of the fracture to allow for reduction but was otherwise left intact. Hematoma was cleaned from the fracture site and it was irrigated. The fracture was clamped anatomically and fixed with a single partially [id number] cancellous screw which achieved good purchase. The fibula was approached through a direct lateral approach dividing skin and subcutaneous tissues down to the periosteum. The superficial peroneal nerve was not visualized during the procedure. The periosteum was reflected only along the margin of the fracture to allow for reduction but was otherwise left intact. Hematoma was cleaned from the fracture site and it was irrigated. The fracture was clamped and fixed initially with a 2.7mm lag screw. A neutralization plate was applied laterally andfixed using cortical screws proximal and cancellous screws distal to the fracture. Fluoroscopic imaging confirmed an excellent overall reduction and appropriate placement of all hardware. A live external rotation stress test of the ankle under fluoroscopy was performed which showedno evidence of ankle or syndesmosis instability. Wounds were copiously irrigated with sterile saline and closed in a layered fashion using 2-0 vicryl and 3-0 nylon. A sterile compressive dressing was applied followed by a well-padded posterior splint with the ankle in neutral dorsiflexion. Once the patient was awakened from anesthesia, they were t ransported to the PACU in stable condition, having tolerated surgery well with no obvious complications. Postoperative Plan Non-weight bearing in splint Follow-up 2wks with repeat xrays This operative report was prepared and signed by Melvin Bucio MD at 09/23/23, 11:06 AM [employer] Phone: [phone] 620-773602-17-2024 History and physical note* Christoph Gotti, DO - 09/23/2023 8:13 AM EST Images from the original note were not included. Attending History and Physical Admit Date: 09/22/2023 PCP: POLLY LOPEZ CHIEF COMPLAINT: Left ankle pain Reason for Admission: Ankle pain, inability to ambulate History Obtained From: patient HISTORY OF PRESENT ILLNESS: Catrachita is a 38 y.o. female with past medical history of HTN, anxiety who presented with chief complaint of left ankle pain. She reports that she went out drinking (states had two margaritas) and slipped when attempting to get out of SUV. She reports ankle was twisted abnormally. She was unable to ambulate and had sharp, severe pain in her ankle. +tingling in foot. Denies fever, chills, CP, dyspnea, abd pain, N/V. Discussed with ER provider Betsey and will admit for further evaluation and management. Discussed with ortho that she is medically optimized for surgery. Labs reviewed, imaging reviewed. Chest x-ray shows no acute process. EKG shows sinus rhythm and poor R wave progression (no anteriorinfarct) Past Medical History: Past Medical History: Diagnosis Date Anxiety Hypertension Past Surgical History: Past Surgical History: Procedure Laterality Date TOE SURGERY Appendectomy Social History: Social History Socioeconomic History Marital status: Spouse name: Not on file Number of children: Not on file Years of education: Not on file Highest education level: Not on file Occupational History Not on file Tobacco Use Smoking status: Never Smokeless tobacco: Not on file Substance and Sexual Activity Alcohol use: Yes Comment: Intoxicated during this ED visit Drug use: Not Currently Sexual activity: Not on file Other Topics Concern Not on file Social History Narrative Not on file Social Determinants of Health Financial Resource Strain: Not on file Food Insecurity: Not on file Transportation Needs: Not on file Physical Activity: Not on file Stress: Not on file Social Connections: Not on file Intimate Partner Violence: Not on file Housing Stability: Not on file Family History: No family history on file. CAD, DM, skin cancer Medications Prior to Admission: No current facility-administered medications on file prior to encounter. Current Outpatient Medications on File Prior to Encounter Medication Sig Dispense Refill DULOXETINE HCL PO Take by mouth. LOSARTAN POTASSIUM PO Take by mouth. Allergies: Allergies Allergen Reactions Lactose REVIEW OF SYSTEMS: +nausea (known to get after anesthesia); otherwise see HPI: all other 10 pt ROS negative Vitals: BP 114/86 Pulse 96 Temp (!) 35.2 C (95.4 F) (Temporal) Resp 19 Ht 5' 6 (1.676 m) Wt 207 lb (93.9 kg) SpO2 97% BMI 33.41 kg/m BMI Classification: Obese (BMI 30.0-39.9) Pulse Ox: SpO2 Av.7 % Min: 97 % Max: 100 % Supplemental O2: PHYSICAL EXAM: Physical Exam Constitutional: General: She is not in acute distress. Appearance: She is obese. Comments: +tired-appearing HENT: Head: Normocephalic and atraumatic. Mouth/Throat: Mouth: Mucous membranes are moist. Cardiovascular: Rate and Rhythm: Normal rate and regular rhythm. Pulmonary: Effort: Pulmonary effort is normal. Breath sounds: Normal breath sounds. Abdominal: General: There is no distension. Palpations: Abdomen is soft. Tenderness: There is no abdominal tenderness. Musculoskeletal: Comments: Left ankle wrapped and not examined; neurovascularly intact Skin: General: Skin is warm and dry. Neurological: General: No focal deficit present. Mental Status: She is alert and oriented to person, place, and time. Psychiatric: Mood and Affect: Mood normal. Judgment: Judgment normal. DATA: CBC: Recent Labs 09/23/23 0631 WBC 11.4* RBC 4.34 HGB 13.2 HCT 38.5 MCV 88.6 RDW 13.9 PLT 332 BMP: Recent Labs 09/23/23 0631 NA 139 K 3.8 CL 105 CO2 26 BUN 7 CREATININE 0.81 GLUCOSE 117* CALCIUM 8.5 ANIONGAP 8 LIVER PROFILE:No results for input(s): AST, ALT, BILITOT, ALKPHOS, PROT in the last 72 hours. No lab exists for component: LABALBU PT/INR: Recent Labs 09/23/23 0631 PROTIME 9.9 INR <0.9* CARDIAC ENZYMES: No results for input(s): TROPONINI in the last 72 hours. Procalcitonin: No results found for: PROCAL Urine Culture: No results found for this or any previous visit. COVID-19 PCR: No results for input(s): COVID19 in the last 72 hours. I reviewed: [x] laboratory results [x] radiographic results At the time of today's encounter. Pt was advised of the results. Assessment Plan Ankle pain - due to trimalleolar fracture; going to OR per ortho; patient is low risk based on Revised Cardiac Risk Index HTN - hold losartan in anticipation of surgery Obesity - lifestyle modifications Anxiety - continue duloxetine Hypotension - ?related to pain medication; resolved Leukocytosis - suspect reactive; no signs of overt infection DVT prophylaxis - no lovenox in anticipation of surgery; resume when safe by ortho Advance Directive: No Order Anticipated Discharge - Date - 1-2 days pending clinical improvement No emergency contact information on file. Christoph Gotti DO Division of Hospitalist Medicine [facility] [employer] Phone: 1(152) 412-548802-17-2024 History and physical note* Christoph Gotti DO - 09/23/2023 8:13 AM EST Images from the original note were not included. Attending History and Physical Admit Date: 09/22/2023 PCP: POLLY LOPEZ CHIEF COMPLAINT: Left ankle pain Reason for Admission: Ankle pain, inability to ambulate History Obtained From: patient HISTORY OF PRESENT ILLNESS: Catrachita is a 38 y.o. female with past medical history of HTN, anxiety who presented with chief complaint of left ankle pain. She reports that she went out drinking (states had two margaritas) and slipped when attempting to get out of SUV. She reports ankle was twisted abnormally. She was unable to ambulate and had sharp, severe pain in her ankle. +tingling in foot. Denies fever, chills, CP, dyspnea, abd pain, N/V. Discussed with ER provider Betsey and will admit for further evaluation and management. Discussed with ortho that she is medically optimized for surgery. Labs reviewed, imaging reviewed. Chest x-ray shows no acute process. EKG shows sinus rhythm and poor R wave progression (no anteriorinfarct) Past Medical History: Past Medical History: Diagnosis Date Anxiety Hypertension Past Surgical History: Past Surgical History: Procedure Laterality Date TOE SURGERY Appendectomy Social History: Social History Socioeconomic History Marital status: Spouse name: Not on file Number of children: Not on file Years of education: Not on file Highest education level: Not on file Occupational History Not on file Tobacco Use Smoking status: Never Smokeless tobacco: Not on file Substance and Sexual Activity Alcohol use: Yes Comment: Intoxicated during this ED visit Drug use: Not Currently Sexual activity: Not on file Other Topics Concern Not on file Social History Narrative Not on file Social Determinants of Health Financial Resource Strain: Not on file Food Insecurity: Not on file Transportation Needs: Not on file Physical Activity: Not on file Stress: Not on file Social Connections: Not on file Intimate Partner Violence: Not on file Housing Stability: Not on file Family History: No family history on file. CAD, DM, skin cancer Medications Prior to Admission: No current facility-administered medications on file prior to encounter. Current Outpatient Medications on File Prior to Encounter Medication Sig Dispense Refill DULOXETINE HCL PO Take by mouth. LOSARTAN POTASSIUM PO Take by mouth. Allergies: Allergies Allergen Reactions Lactose REVIEW OF SYSTEMS: +nausea (known to get after anesthesia); otherwise see HPI: all other 10 pt ROS negative Vitals: BP 114/86 Pulse 96 Temp (!) 35.2 C (95.4 F) (Temporal) Resp 19 Ht 5' 6 (1.676 m) Wt 207 lb (93.9 kg) SpO2 97% BMI 33.41 kg/m BMI Classification: Obese (BMI 30.0-39.9) Pulse Ox: SpO2 Av.7 % Min: 97 % Max: 100 % Supplemental O2: PHYSICAL EXAM: Physical Exam Constitutional: General: She is not in acute distress. Appearance: She is obese. Comments: +tired-appearing HENT: Head: Normocephalic and atraumatic. Mouth/Throat: Mouth: Mucous membranes are moist. Cardiovascular: Rate and Rhythm: Normal rate and regular rhythm. Pulmonary: Effort: Pulmonary effort is normal. Breath sounds: Normal breath sounds. Abdominal: General: There is no distension. Palpations: Abdomen is soft. Tenderness: There is no abdominal tenderness. Musculoskeletal: Comments: Left ankle wrapped and not examined; neurovascularly intact Skin: General: Skin is warm and dry. Neurological: General: No focal deficit present. Mental Status: She is alert and oriented to person, place, and time. Psychiatric: Mood and Affect: Mood normal. Judgment: Judgment normal. DATA: CBC: Recent Labs 09/23/23 0631 WBC 11.4* RBC 4.34 HGB 13.2 HCT 38.5 MCV 88.6 RDW 13.9 PLT 332 BMP: Recent Labs 09/23/23 0631 NA 139 K 3.8 CL 105 CO2 26 BUN 7 CREATININE 0.81 GLUCOSE 117* CALCIUM 8.5 ANIONGAP 8 LIVER PROFILE:No results for input(s): AST, ALT, BILITOT, ALKPHOS, PROT in the last 72 hours. No lab exists for component: LABALBU PT/INR: Recent Labs 09/23/23 0631 PROTIME 9.9 INR <0.9* CARDIAC ENZYMES: No results for input(s): TROPONINI in the last 72 hours. Procalcitonin: No results found for: PROCAL Urine Culture: No results found for this or any previous visit. COVID-19 PCR: No results for input(s): COVID19 in the last 72 hours. I reviewed: [x] laboratory results [x] radiographic results At the time of today's encounter. Pt was advised of the results. Assessment Plan Ankle pain - due to trimalleolar fracture; going to OR per ortho; patient is low risk based on Revised Cardiac Risk Index HTN - hold losartan in anticipation of surgery Obesity - lifestyle modifications Anxiety - continue duloxetine Hypotension - ?related to pain medication; resolved Leukocytosis - suspect reactive; no signs of overt infection DVT prophylaxis - no lovenox in anticipation of surgery; resume when safe by ortho Advance Directive: No Order Anticipated Discharge - Date - 1-2 days pending clinical improvement No emergency contact information on file. Christoph Gotti DO Division of Hospitalist Medicine [facility] documented in this [facility]02-17-2024 Hospital Discharge instructions* Discharge Instructions* Ham Caruso MD - 09/23/2023 5:17 AM EST Images from the original note were not included. General Orthopedic Discharge Instructions The following instructions have been prepared to help you when you leave the hospital. These guidelines are for the post surgery period. -Activity & Weightbearing: -Non weight bearing to your left leg. Meaning no walking on the leg, will have to use crutches/walker/scooter/wheelchair to assist. -Do not move your injured ankle. Ok for full range of motion of your hip and knee which is encouraged along with frequent stretching to prevent stiffness. -Ease into normal activity as tolerated. Avoid heavy lifting/pulling/otherwise strenuous activity. -Immobilization Keep splint on, do not remove it. Keep it clean and dry. Make sure to not get the splint wet or it will be ruined. -Pain Control: -Pain control: Alternate Tylenol (acetaminophen) and Ibuprofen every 4 hours. For example, take Tylenol at 7am and Ibuprofen at 11am. Then take Tylenol at 3pm and Ibuprofen at 7pm. Take narcotic medicine (oxycodone, hydrocodone, vicodin, norco, percocet, tramadol, etc.) for breakthrough pain only. Make sure to double check that narcotic pain medicine does not also contain acetaminophen as exceeding greater than 3000mg a day is unsafe. -Elevate your injured extremity (meaning above the level of your heart) to reduce swelling. Use iceas needed to help reduce pain and swelling. Do not put ice directly on the skin. Do not leave ice on for more than 30 minutes at a time. -Medications: -See medication instructions. Please be sure to read and understand the information provided by your pharmacy. Ask your Pharmacist if you have any questions. -Precautions: call your doctor or return to the emergency department IF: -You develop signs of infection including but not limited to: increasing pain, redness, swelling, purulent drainage, and/or a fever -You develop excessive bleeding from your incision -Anesthesia Precautions: -Do Not operate any vehicle (automobile, bicycle, motorcycle) or power tools for 24 hours. Do Not drink alcoholic beverages for 24 hours. As precaution to prevent post-operative nausea and vomiting, start your diet with liquids, then progress to light foods. If tolerated, resume normal diet. -Follow up visit: -Follow-up in clinic with Dr. Bucio for a visit 2 weeks after the date of your surgery. The office contact information is provided in your paperwork. * Discharge Instr - Activity* Manolo Connolly MD - 09/24/2023 12:01 PM EST [facility] * Discharge Instr - Diet* Manolo Connolly MD - 09/24/2023 12:01 PM EST Resume usual documented in this [facility]02-17-2024 Consult note* Camryn Marquez MD - 09/23/2023 2:54 AM ESTAssociated Order(s): IP CONSULT TO ORTHOPAEDIC SURGERY Ortho Consult Patient: Catrachita Murray Date of : 1985 Acct: [id number] PCP: POLLY LOPEZ Date of Admission: 09/22/2023 Date of Service: Pt seen/examined on 09/23/2023 Chief Complaint: Left ankle pain History Of Present Illness: 38 y.o. female who presents with left ankle pain after a fall from standing while walking outside after having 2 margaritas. Denies head trauma or loss of consciousness. Denies significant pain other than the ankle. Denies numbness and tingling in the affected extremity.Patient originally presented to an outside hospital and had her left ankle fracture dislocation reduced and splinted and sent to [facility] for skin check and resplinting. Patient denies neck and back pain. Patient denies seeing any orthopedic surgery history other than a bunionectomy on her left foot with a surgeon at an outside hospital PMH of anxiety and hypertension. Non-smoker, social drinker, denies drug use Patient ambulation status: no difficulty. Antiplatelets/Anticoagulation includes: none. Hx from chart and/or Pt. Past Medical History: Past Medical History: Diagnosis Date Anxiety Hypertension Past Surgical History: Past Surgical History: Procedure Laterality Date TOE SURGERY Home Medications: Prior to Admission medications Medication Sig Start Date End Date Taking? Authorizing Provider DULOXETINE HCL PO Take by mouth. Historical Provider, LOSARTAN POTASSIUM PO Take by mouth. Historical Provider, Current Hospital Medications: Current Facility-Administered Medications: lidocaine (Xylocaine) 1 % injection 20 mL, 20 mL, Injection, Once, Madelyn Aj MD Current Outpatient Medications: DULOXETINE HCL PO, Take by mouth., Disp: , Rfl: LOSARTAN POTASSIUM PO, Take by mouth., Disp: , Rfl: Allergies: Lactose Social History: Social History Socioeconomic History Marital status: Spouse name: Not on file Number of children: Not on file Years of education: Not on file Highest education level: Not on file Occupational History Not on file Tobacco Use Smoking status: Never Smokeless tobacco: Not on file Substance and Sexual Activity Alcohol use: Yes Comment: Intoxicated during this ED visit Drug use: Not Currently Sexual activity: Not on file Other Topics Concern Not on file Social History Narrative Not on file Social Determinants of Health Financial Resource Strain: Not on file Food Insecurity: Not on file Transportation Needs: Not on file Physical Activity: Not on file Stress: Not on file Social Connections: Not on file Intimate Partner Violence: Not on file Housing Stability: Not on file Family History: @[email or web address]@ [facility] Family History is noncontributory to this injury. REVIEW OF SYSTEMS: Review of Systems - General ROS: negative for - chills, fatigue, fever, malaise or night sweats Psychological ROS: negative Ophthalmic ROS: negative ENT ROS: negative for - headaches or sore throat Hematological and Lymphatic ROS: negative for - bleeding problems or blood clots Respiratory ROS: no cough, shortness of breath, or wheezing Cardiovascular ROS: no chest pain or dyspnea on exertion Gastrointestinal ROS: negative Musculoskeletal ROS: See HPI Neurological ROS: negative for - bowel and bladder control changes, gait disturbance or numbness/tingling All other systems reviewed and are negative PHYSICAL EXAM: BP 126/86 Pulse 93 Temp 36.7 C (98.1 F) (Oral) Resp 16 Wt 93.9 kg (207 lb) SpO2 99% GENERAL APPEARANCE: Awake and oriented x3. No acute distress, except appropriate to injury. MOOD AND AFFECT: Calm appropriate to situation GAIT AND STATION: Patient is in bed and unable to ambulate secondary to known injury. COORDINATION and BALANCE: Patient is grossly coordinated unable to ambulate secondary to known injury. Lymphadenopathy: none on examination of the affected extremity(s) Right Upper Extremity: -No obvious pain or deformity to inspection with normal joint range of motion, stability, and muscle strength except noted below -No TTP over clavicle, shoulder, humerus, elbow, forearm, wrist, hand, or fingers -TTP: nontender throughout extremity -Radial pulse palpable -SILT in radial/median/ ulnar nerve distributions -Motor + AIN/PIN/ulnar nerve functions -No Lymphedema -Skin intact except where noted below -Painless pROM at shoulder/elbow/wrist Atraumatic Left Upper Extremity: -No obvious pain or deformity to inspection with normal joint range of motion, stability, and muscle strength except noted below -No TTP over clavicle, shoulder, humerus, elbow, forearm, wrist, hand, or fingers -TTP: nontender throughout extremity -Radial pulse palpable -SILT in radial/median/ ulnar nerve distributions -Motor + AIN/PIN/ulnar nerve functions -No Lymphedema -Skin intact except where noted below -Painless pROM at shoulder/elbow/wrist Atraumatic Left Lower Extremity: -No obvious pain or deformity to inspection with normal joint range of motion, stability, and muscle strength except noted below -No TTP over pelvis, hip, thigh, knee, calc, midfoot, forefoot -TTP: tibia, medial mal, and lateral mal -Pulse: DP Palpable, PT Palpable -SILT in the superficial peroneal, deep peroneal, tibial, sural, saphenous nerve distributions -Motor exam deferred due to pain, +toe wiggle -No Lymphedema -Skin intact except where noted below -Painless pROM at hip/knee No obvious deformity to the ankle, but with ecchymosis and swelling. + wrinkle sign. No open wounds, pokeholes, or threatened skin. Sensory intact as above. Patient reports tenderness palpation of the proximal fibula. Right Lower Extremity: -No obvious pain or deformity to inspection with normal joint range of motion, stability, and muscle strength except noted below -No TTP over pelvis, hip, thigh, knee, tibia, lateral mal, medial mal, calc, midfoot, forefoot -TTP: Nontender throughout extremity -Pulse: DP Palpable, PT Palpable -SILT in the superficial peroneal, deep peroneal, tibial, sural, saphenous nerve distributions -Motor function of quad, tibialis anterior, extensor hallucis longus, and gactrocsoleus complex intact -No Lymphedema -Skin intact except where noted below -Painless pROM at hip/knee/ankle Atraumatic Labs: CBC: No results found for: WBC, RBC, HEMOGLOBIN BMP:No results found for: GLUCOSE, SODIUM, POTASSIUM, CHLORIDE, CO2, BUN, CREATININE,CALCIUM PT/INR: No results found for: PT, INR, APTT Type and Screen: No results found for: RH, LABANTI CRP: No results found for: CRP ESR: No results found for: SEDRATE HgBA1c: No components found for: LABA1C The above labs were reviewed by me. Radiology: The below images were independently reviewed and interpreted with pertinent findings noted below. XR: 09/22/2023 Left ankle prereduction: Posterior lateral ankle fracture dislocation characterized by a Sweeney B fibula fracture, and a medial malleolus fracture, a posterior malleolar fracture Left ankle postreduction outside hospital: Reduced ankle fracture dislocation with fracture characteristics as above Left ankle postreduction at [facility]: Reduced ankle fracture dislocation with fracture characteristics as above Left tib-fib: Ankle fracture as above, no additional fractures or dislocations proximally CT: 09/23/2023 Left ankle: pending Radiology report reviewed. Procedure Note: Splinting of left ankle Fx. No reduction performed Verbal consent was obtained prior to reduction. The ankle was cleaned with alcohol wipes and 10cc of 1% lidocaine without epinephrine was infiltrated into the ankle between the interval of the medialmalleolus and the anterior tibialis to provide analgesia. Splinted. Post reduction films were collected and showed improved alignment. Patient tolerated the procedure well. Repeat exam, +wiggles toes, SILT distally. BCR toes less than 2 sec. ASSESSMENT: 38 y.o. female with left trimalleolar ankle fracture/dislocation status post closed reduction on 09/23 PLAN: -D/w Dr. Bucio -Plan for OR today 09/23/23 for ORIF L ankle -Consented and added -NPO/NAC -Clear and labs pending -Does not require hcg, had hysterectomy -Keep splint c/d/i -NWB LLE -Activity as tolerated -Ice & elevate -Neurovascular checks -Skin checks -Ortho to follow Melvin Arita MD Orthopaedic Surgery, PGY-2 09/23/2023 5:25 AM I independently evaluated this patient. I agree with the consult note and any pertinent changes to the assessment and plan have been documented. Camryn Marquez MD PGY3 Orthopaedic Surgery 09/23/2023 7:22 AM Associated attestation - Melvin Bucio MD - 09/23/2023 11:16 AM EST Attestation: The patient was seen, examined and all relevant radiographs/lab results were reviewed.I agree with what is documented above with any changes noted. The plan of care was discussed with the evaluating resident. The risks and benefits of the surgery (improved pain and function vs nonunion, malunion, damage to surrounding neurovascular structures, need for repeat surgery, infection, etc) vs non operative management were discussed with the patient along with possible anesthesia complications (DVT, stroke, FL, and even ). They would like to move forward with surgery. Electronically signed by Melvin Bucio M.D. 09/23/2023 at 11:16 AM. [id number] Consult [facility]* Camryn Marquez MD - 09/23/2023 2:54 AM EST Associated Order(s): IP CONSULT TO ORTHOPAEDIC SURGERY Ortho Consult Patient: Catrachita Murray Date of : 1985 Acct: [id number] PCP: POLLY LOPEZ Date of Admission: 09/22/2023 Date of Service: Pt seen/examined on 09/23/2023 Chief Complaint: Left ankle pain History Of Present Illness: 38 y.o. female who presents with left ankle pain after a fall from standing while walking outside after having 2 margaritas. Denies head trauma or loss of consciousness. Denies significant pain other than the ankle. Denies numbness and tingling in the affected extremity.Patient originally presented to an outside hospital and had her left ankle fracture dislocation reduced and splinted and sent to [facility] for skin check and resplinting. Patient denies neck and back pain. Patient denies seeing any orthopedic surgery history other than a bunionectomy on her left foot with a surgeon at an outside hospital PMH of anxiety and hypertension. Non-smoker, social drinker, denies drug use Patient ambulation status: no difficulty. Antiplatelets/Anticoagulation includes: none. Hx from chart and/or Pt. Past Medical History: Past Medical History: Diagnosis Date Anxiety Hypertension Past Surgical History: Past Surgical History: Procedure Laterality Date TOE SURGERY Home Medications: Prior to Admission medications Medication Sig Start Date End Date Taking? Authorizing Provider DULOXETINE HCL PO Take by mouth. Historical Provider, LOSARTAN POTASSIUM PO Take by mouth. Historical Provider, Current Hospital Medications: Current Facility-Administered Medications: lidocaine (Xylocaine) 1 % injection 20 mL, 20 mL, Injection, Once, Madelyn Aj MD Current Outpatient Medications: DULOXETINE HCL PO, Take by mouth., Disp: , Rfl: LOSARTAN POTASSIUM PO, Take by mouth., Disp: , Rfl: Allergies: Lactose Social History: Social History Socioeconomic History Marital status: Spouse name: Not on file Number of children: Not on file Years of education: Not on file Highest education level: Not on file Occupational History Not on file Tobacco Use Smoking status: Never Smokeless tobacco: Not on file Substance and Sexual Activity Alcohol use: Yes Comment: Intoxicated during this ED visit Drug use: Not Currently Sexual activity: Not on file Other Topics Concern Not on file Social History Narrative Not on file Social Determinants of Health Financial Resource Strain: Not on file Food Insecurity: Not on file Transportation Needs: Not on file Physical Activity: Not on file Stress: Not on file Social Connections: Not on file Intimate Partner Violence: Not on file Housing Stability: Not on file Family History: @[email or web address]@ [facility] Family History is noncontributory to this injury. REVIEW OF SYSTEMS: Review of Systems - General ROS: negative for - chills, fatigue, fever, malaise or night sweats Psychological ROS: negative Ophthalmic ROS: negative ENT ROS: negative for - headaches or sore throat Hematological and Lymphatic ROS: negative for - bleeding problems or blood clots Respiratory ROS: no cough, shortness of breath, or wheezing Cardiovascular ROS: no chest pain or dyspnea on exertion Gastrointestinal ROS: negative Musculoskeletal ROS: See HPI Neurological ROS: negative for - bowel and bladder control changes, gait disturbance or numbness/tingling All other systems reviewed and are negative PHYSICAL EXAM: BP 126/86 Pulse 93 Temp 36.7 C (98.1 F) (Oral) Resp 16 Wt 93.9 kg (207 lb) SpO2 99% GENERAL APPEARANCE: Awake and oriented x3. No acute distress, except appropriate to injury. MOOD AND AFFECT: Calm appropriate to situation GAIT AND STATION: Patient is in bed and unable to ambulate secondary to known injury. COORDINATION and BALANCE: Patient is grossly coordinated unable to ambulate secondary to known injury. Lymphadenopathy: none on examination of the affected extremity(s) Right Upper Extremity: -No obvious pain or deformity to inspection with normal joint range of motion, stability, and muscle strength except noted below -No TTP over clavicle, shoulder, humerus, elbow, forearm, wrist, hand, or fingers -TTP: nontender throughout extremity -Radial pulse palpable -SILT in radial/median/ ulnar nerve distributions -Motor + AIN/PIN/ulnar nerve functions -No Lymphedema -Skin intact except where noted below -Painless pROM at shoulder/elbow/wrist Atraumatic Left Upper Extremity: -No obvious pain or deformity to inspection with normal joint range of motion, stability, and muscle strength except noted below -No TTP over clavicle, shoulder, humerus, elbow, forearm, wrist, hand, or fingers -TTP: nontender throughout extremity -Radial pulse palpable -SILT in radial/median/ ulnar nerve distributions -Motor + AIN/PIN/ulnar nerve functions -No Lymphedema -Skin intact except where noted below -Painless pROM at shoulder/elbow/wrist Atraumatic Left Lower Extremity: -No obvious pain or deformity to inspection with normal joint range of motion, stability, and muscle strength except noted below -No TTP over pelvis, hip, thigh, knee, calc, midfoot, forefoot -TTP: tibia, medial mal, and lateral mal -Pulse: DP Palpable, PT Palpable -SILT in the superficial peroneal, deep peroneal, tibial, sural, saphenous nerve distributions -Motor exam deferred due to pain, +toe wiggle -No Lymphedema -Skin intact except where noted below -Painless pROM at hip/knee No obvious deformity to the ankle, but with ecchymosis and swelling. + wrinkle sign. No open wounds, pokeholes, or threatened skin. Sensory intact as above. Patient reports tenderness palpation of the proximal fibula. Right Lower Extremity: -No obvious pain or deformity to inspection with normal joint range of motion, stability, and muscle strength except noted below -No TTP over pelvis, hip, thigh, knee, tibia, lateral mal, medial mal, calc, midfoot, forefoot -TTP: Nontender throughout extremity -Pulse: DP Palpable, PT Palpable -SILT in the superficial peroneal, deep peroneal, tibial, sural, saphenous nerve distributions -Motor function of quad, tibialis anterior, extensor hallucis longus, and gactrocsoleus complex intact -No Lymphedema -Skin intact except where noted below -Painless pROM at hip/knee/ankle Atraumatic Labs: CBC: No results found for: WBC, RBC, HEMOGLOBIN BMP:No results found for: GLUCOSE, SODIUM, POTASSIUM, CHLORIDE, CO2, BUN, CREATININE,CALCIUM PT/INR: No results found for: PT, INR, APTT Type and Screen: No results found for: RH, LABANTI CRP: No results found for: CRP ESR: No results found for: SEDRATE HgBA1c: No components found for: LABA1C The above labs were reviewed by me. Radiology: The below images were independently reviewed and interpreted with pertinent findings noted below. XR: 09/22/2023 Left ankle prereduction: Posterior lateral ankle fracture dislocation characterized by a Sweeney B fibula fracture, and a medial malleolus fracture, a posterior malleolar fracture Left ankle postreduction outside hospital: Reduced ankle fracture dislocation with fracture characteristics as above Left ankle postreduction at [facility]: Reduced ankle fracture dislocation with fracture characteristics as above Left tib-fib: Ankle fracture as above, no additional fractures or dislocations proximally CT: 09/23/2023 Left ankle: pending Radiology report reviewed. Procedure Note: Splinting of left ankle Fx. No reduction performed Verbal consent was obtained prior to reduction. The ankle was cleaned with alcohol wipes and 10cc of 1% lidocaine without epinephrine was infiltrated into the ankle between the interval of the medialmalleolus and the anterior tibialis to provide analgesia. Splinted. Post reduction films were collected and showed improved alignment. Patient tolerated the procedure well. Repeat exam, +wiggles toes, SILT distally. BCR toes less than 2 sec. ASSESSMENT: 38 y.o. female with left trimalleolar ankle fracture/dislocation status post closed reduction on 09/23 PLAN: -D/w Dr. Bucio -Plan for OR today 09/23/23 for ORIF L ankle -Consented and added -NPO/NAC -Clear and labs pending -Does not require hcg, had hysterectomy -Keep splint c/d/i -NWB LLE -Activity as tolerated -Ice & elevate -Neurovascular checks -Skin checks -Ortho to follow Melvin Arita MD Orthopaedic Surgery, PGY-2 09/23/2023 5:25 AM I independently evaluated this patient. I agree with the consult note and any pertinent changes to the assessment and plan have been documented. Camryn Marquez MD PGY3 Orthopaedic Surgery 09/23/2023 7:22 AM Associated attestation - Melvin Bucio MD - 09/23/2023 11:16 AM EST Attestation: The patient was seen, examined and all relevant radiographs/lab results were reviewed.I agree with what is documented above with any changes noted. The plan of care was discussed with the evaluating resident. The risks and benefits of the surgery (improved pain and function vs nonunion, malunion, damage to surrounding neurovascular structures, need for repeat surgery, infection, etc) vs non operative management were discussed with the patient along with possible anesthesia complications (DVT, stroke, FL, and even ). They would like to move forward with surgery. Electronically signed by Melvin Bucio M.D. 09/23/2023 at 11:16 AM. documented in this [facility]02-17-2024 Emergency department Note* Flora Velez RN - 09/23/2023 2:00 AM EST Pt was advised that as she is going by private vehicle Dr. Gooden is not comfortable giving more pain medication. Pt pivot transferred to wheelchair from ED cot with assistance. IV site to right a/c wrapped with coban. Pt to restroom by wheelchair with assistance, again pivot transferring, voided, then back to wheelchair. Pt c/o feeling dizzy with movement but denies nausea. Pt to car, passenger rear, warm blanket provided to pt as she did not have a coat with her. Transfer papers with pt. Flora Velez RN 09/23/23209 Flora Velez RN 09/23/23210 * Flora Velez RN - 09/23/2023 1:42 AM EST Pts friends had been in waiting room. Upon their arrival back to room the pts call light immediately went off. Madelyn JENKINS informed pt and friends of delayed ETA and they now wish to take her by private car. Pt also states she needs to use the restroom and is requesting more pain medication again. Dr. Gooden updated; aware that pt was just medicated less than 90minutes ago with 3rd dose of Dilaudid. Flora Velez RN 09/23/23 0144 * Flora Velez RN - 09/23/2023 1:25 AM EST Call placed to [facility] to inquire on status of transport. Staff member answering phone states that there is a crew assigned but they have another trip first, they will be there in 90 to 2(hrs). Advised staff member that they were supposed to be here 10 minutes ago. Staff member states that they have had delays due to other transports and due to the weather and we want to keep our crews safe etc. Staff member was advised that this still does not explain why they do not call to inform us of said delays. Flora Velez RN 09/23/23 0131 * Flora Velze RN - 09/22/2023 11:23 PM EST Updated pt and visitors on ETA of transport. Flora Velez RN 09/22/23 2323 * Flora Velez RN - 09/22/2023 11:[address] Gooden the pt will be transported to [facility] ED by friends, then friend came to nurses station saying pt instead wishes to go by squad to [facility]. Flora Velez RN 09/23/23 0132 * Radha Sutherland RN - 09/22/2023 10:47 PM EST Called Tangela at [facility] and requested call back from Dr. Bucio at [facility] ortho Radha Sutherland RN 09/22/23 [id number] * Flora Velez RN - 09/22/2023 10:35 PM EST Xray completed at bedside, pt requesting more pain medication, physician notified. Flora Velez RN 09/22/232234 * Flora Velez RN - 09/22/2023 9:53 PM EST Visitor to nurses station requesting pillow for pts head. 3 visitors at bedside, blanket roll placed behind pts head. Call light is in reach of one of the visitors. Flora Velez RN 09/22/232153 * Flora Velez RN - 09/22/2023 9:45 PM EST Assisted auto radiator specialist with pts xrays. Pt remains very anxious and tearful. 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 Pt was able to pivot transfer independently on arrival to room. Physician to bedside to assess pt. Pt stating she cannot move her toes on left foot but +movement. +pain on palpation by physician to left knee. +obvious deformity to left ankle. 2 pillows provided for pt to elevated LLE. Pt restless and crying, very anxious, +hx anxiety. +ETOH intoxication and inappropriately tearful. Pt is A&Ox3, skin warm and dry. * Marc Gooden MD - 09/22/2023 8:54 PM EST Emergency Department Encounter [facility] ED Patient: Catrachita Murray : 1985 Date of Evaluation: 09/22/2023 ED Provider: Marc Gooden MD Note: I wore an N95 mask and gloves during this encounter. CHIEF COMPLAINT: Left ankle injury Chief Complaint Patient presents with Ankle Pain Fall Leg Pain HPI: Catrachita Murray is a 38 y.o. female with PMH reports history of prior left foot surgery, presents concern for left ankle injury. Patient reports this evening she slipped getting in/out of car, injuredher left ankle with deformity, reports pain in the proximal tib-fib as well, denies pain or injury elsewhere including head or neck, chest admitted pelvis, back, extremities otherwise, denies numbness or weakness, reports pain is severe, denies other symptoms or concerns. Patient reports she has had several margaritas this evening. REVIEW OF SYSTEMS: Pertinent positives and negatives as per HPI. HISTORIES: PAST MEDICAL HISTORY: as per HPI SOCIAL HISTORY: Speaks [place] MEDICATIONS: Nursing notes and EMR reviewed ALLERGIES: Nursing notes and EMR reviewed PHYSICAL EXAM: Vital signs: reviewed General: Acute distress secondary to pain, anxious appearing, moderately intoxicated Eyes: no conjunctival injection, eyes tracking HEENT: airway patent, mucous membranes moist, no scalp contusion or tenderness Neck: No nuchal rigidity, no limitation range of motion including flexion and extension, no neck tenderness Cardiovascular: regular rhythm, normal rate, left DP pulse palpable, left foot warm and well-perfused with cap refill less than 2 seconds throughout including the distal toes Respiratory: non-labored breathing, breath sounds clear, no wheezing crackles or rhonchi Gastrointestinal: soft, non-distended, non-tender to palpation throughout Extremities: Left ankle swelling diffuse tenderness and deformity without skin tenting or wound, mild tenderness to palpation proximal tib-fib without deformity, no swelling tenderness or deformity elsewhere through the left lower extremity including the knee femur, foot, no swelling tenderness or deformity throughout the right lower extremity or bilateral upper extremities Back: No tenderness to palpation throughout the back Integumentary: warm, dry Neurologic: alert, no obvious neurologic deficits, wiggles left toes, sensation intact left foot, nonslurred speech, answering questions appropriately, follows commands Procedure: closed reduction of ankle fracture/dislocation Performed by: Marc Gooden MD Neurovascular status intact prior to procedure, see physical exam Affected lower extremity was flexed at the hip and knee, inline traction was applied at the great toe, resulting in improvement of deformity Procedure was well-tolerated Neurovascular and motor function intact following procedure Procedure: splint placement Performed by: Marc Gooden MD Indication: injury stabilization A short leg posterior slab, as well as a sugar tong splint was placed on affected lower extremity, patient did not tolerate rolling into supine position limiting ability to place in dorsiflexion Neurovascular status intact following splint placement MEDICAL DECISION MAKING: Medications HYDROmorphone (Dilaudid) injection 1 mg (1 mg IntraVENous Given 09/22/232118) HYDROmorphone (Dilaudid) injection 0.5 mg (0.5 mg IntraVENous Given 09/22/232237) HYDROmorphone (Dilaudid) injection 0.5 mg (0.5 mg IntraVENous Given 09/23/2318) Catrachita Murray is a 38 y.o. female who presents as above, isolated left ankle injury with deformity, denies pain or injury elsewhere, she is neurovascular intact, no skin tenting or wound to suggest open fracture, presentation concerning for ankle dislocation/closed fracture, will treat with Dilaudid, obtain x-rays of left foot ankle and tib-fib. Patient is clinically moderately intoxicated with alcohol. Left tib/fib, ankle, foot x-ray obtained, reviewed by myself, interpreted per radiologist trimalleolar fracture left ankle with posterior lateral dislocation of tibiotalar joint Discussed further management, patient agrees to bedside reduction, given moderate alcohol intoxication, patient agrees to attempted reduction without conscious sedation, please see procedure note above, repeat ankle x-ray obtained demonstrates improved alignment, discussed with on-call orthopedic surgery Dr. Bucio including history patient's history, exam, and reviewed imaging, recommends ER to [facility] for orthopedic surgery consult for further management including improved alignment and splinting, discussed with patient who is in agreement with plan, discussed with EM resident Dr. Veronica on behalf of accepting EM attending Dr. Austin, stable for transfer. Discussed mode of transfer with patient, patient refuses transfer by ambulance, elects to be transferred by personal vehicle, I discussed the risk of potential decompensation during transfer and thatimmediate presentation is required, I recommend strict nonweightbearing left lower extremity, patient expresses understanding and agreement, elects to be transferred by personal vehicle-her friend will drive her, stable for transfer at this time. DIAGNOSIS: Closed displaced trimalleolar fracture of the left ankle DISPOSITION: Transfer to [facility] emergency department for orthopedic surgery consult. PRESCRIPTIONS: New Prescriptions No medications on file Comment: Please note this report has been produced using speech recognition software and may contain errors related to that system including errors in grammar, punctuation, and spelling, as well as words and phrases that may be inappropriate. If there are any questions or concerns please feel free to contact the dictating provider for clarification. Marc Gooden MD Acute Care [facility] Marc Gooden MD 09/23/23 0209 * Adrien Leggett PA-C - 09/22/2023 8:54 PM EST Emergency Department Encounter [facility] EMERGENCY DEPT Patient: Catrachita Murray : 1985 Date of Evaluation: 09/22/2023 ED [facility] Provider: Adrien Leggett PA-C EDcare was supervised by Dr. Mon who independently examined and evaluated the patient. Please see their attestation note for further details. Chief Complaint Chief Complaint Patient presents with Ankle Pain Fall Leg Pain WILTON I was wearing a N95, Surgical mask for the entirety of this encounter. Catrachita Murray is a 38 y.o. female who presents to the emergency department for left ankle injury. Patient injured her left ankle this evening when she was getting out of a car. Patient was transferred from [place] ED due to trimalleolar fracture and orthopedic evaluation. Limitations to history: None Outside historians: EMR Past History Past Medical History: Diagnosis Date Anxiety Hypertension Past Surgical History: Procedure Laterality Date TOE SURGERY Social History Socioeconomic History Marital status: Tobacco Use Smoking status: Never Substance and Sexual Activity Alcohol use: Yes Comment: Intoxicated during this ED visit Drug use: Not Currently Medications/Allergies Current Discharge Medication List CONTINUE these medications which have NOT CHANGED Details !! DULoxetine (Cymbalta) [address] capsule hydrocortisone (Anusol-HC) 2.5 % rectal cream 1 APPLIC RECTALLY 2 TO 4 TIMES PER DAY NEEDED FOR HEMORRHOIDS ibuprofen 600 MG tablet Take 600 mg by mouth every 6 hours as needed. !! losartan (Cozaar) 50 MG tablet Take 50 mg by mouth daily. nitrofurantoin, macrocrystal-monohydrate, (Macrobid) 100 MG capsule Take 100 mg by mouth 2 times daily. !! DULOXETINE HCL PO Take by mouth. !! LOSARTAN POTASSIUM PO Take by mouth. !! - Potential duplicate medications found. Please discuss with provider. Allergies Allergen Reactions Lactose Physical Exam BP 125/89 Pulse 120 Temp 36.6 C (97.9 F) (Temporal) Resp 16 Ht 1.676 m (5' 6) Wt 93.9 kg(207 lb) SpO2 95% BMI 33.41 kg/m Physical Exam GENERAL APPEARANCE: Awake and alert. Cooperative. HEENT: Normocephalic. Atraumatic. Sclera anicteric. Tolerates saliva. No trismus. NECK: Supple. Trachea midline. CARDIO: Tachycardic initially. Radial pulses symmetrical and palpable LUNGS: Respirations unlabored. CTAB. ABDOMEN: Soft. Non-distended. Non-tender throughout. MUSCULOSKELETAL: Left leg in splint. SKIN: Warm and dry. NEUROLOGICAL: No gross facial drooping. SCREENINGS D Labs: Results for orders placed or performed during the hospital encounter of 09/22/23 Basic metabolic panel Result Value Ref Range SODIUM 139 135 - 145 mmol/L POTASSIUM 3.8 3.5 - 5.1 mmol/L CHLORIDE 105 98 - 107 mmol/L CARBON DIOXIDE 26 22 - 30 mmol/L UREA NITROGEN 7 7 - 17 mg/dL CREATININE 0.81 0.52 - 1.04 mg/dL GLUCOSE 117 (H) 70 - 100 mg/dL CALCIUM 8.5 8.4 - 10.4 mg/dL ANION GAP 8 3 - 13 mmol/L eGFR >90.0 >60.0 mL/min/1.73m*2 CBC Result Value Ref Range Auto WBC 11.4 (H) 3.6 - 10.7 10*3/uL RBC 4.34 3.8 - 5.20 10*6/uL Hemoglobin 13.2 11.7 - 16.0 g/dL Hematocrit 38.5 35.0 - 47.0 % MCV 88.6 80.0 - 98.0 fL MCH 30.4 26.0 - 34.0 pg MCHC 34.3 32.0 - 36.0 % RDW 13.9 11.5 - 14.5 % Platelets 332 140 - 440 10*3/uL MPV 9.2 7.4 - 12.4 fL Protime-INR Result Value Ref Range PROTHROMBIN TIME 9.9 9.0 - 12.0 s INR <0.9 (L) 0.9 - 1.1 Type and Screen Result Value Ref Range ABO Grouping A Antibody Screen NEG Rh Type POS Confirmatory ABO/Rh Result Value Ref Range ABO Grouping A Rh Type POS POCT glucose meter Result Value Ref Range Glucose 126 (H) 70 - 100 mg/dL ECG 12 lead Result Value Ref Range Heart Rate 96 bpm QRSD Interval 112 ms QT Interval 372 ms QTC Interval 469 ms P [place] 37 degrees QRS [place] -21 degrees T Wave [place] 36 degrees [place] Interval 208 ms Radiographs: FL GUIDANCE OR USE ONLY - NON RESULTABLE Final Result XR chest 1 view Final Result No focal consolidation or pulmonary edema. Report Dictated on Electronically Signed By: Bello Oh MD Electronically Signed Date/Time: 09/23/2023 6:[address] ankle left wo IV contrast Final Result Trimalleolar fracture as described above. Report Dictated on Electronically Signed By: Bello Oh MD Electronically Signed Date/Time: 09/23/2023 5:53 AM EST XR ankle 3+ views left Final Result XR tibia fibula 2 views left Final Result FL guidance non-resultable joint reduction Final Result XR ankle 3+ views left Final Result FINDINGS/IMPRESSION: Interval improvement in alignment of the patient's previously described trimalleolar fracture status post casting. Diffuse soft tissue swelling. No radiopaque foreign body. Report Dictated on Electronically Signed By: Elpidio Wynn MD Electronically Signed Date/Time: 09/22/2023 11:19 PM EST XR tibia fibula 2 views left Final Result 1. Trimalleolar fracture left ankle, with posterolateral dislocation of tibiotalar joint. Report Dictated on Electronically Signed By: Hal Martinez MD Electronically Signed Date/Time: 09/22/2023 9:56 PM EST XR ankle 2 views left Final Result 1. Trimalleolar fracture left ankle, with posterolateral dislocation of tibiotalar joint. Report Dictated on Electronically Signed By: Hal Martinez MD Electronically Signed Date/Time: 09/22/2023 9:56 PM EST XR foot 1 or 2 views left Final Result 1. Trimalleolar fracture left ankle, with posterolateral dislocation of tibiotalar joint. Report Dictated on Electronically Signed By: Hal Martinez MD Electronically Signed Date/Time: 09/22/2023 9:56 PM EST : EKG: All EKG's areinterpreted by the Emergency Department Physician in the absence of a director of medical review. see their note for interpretation of EKG. EMERGENCY DEPARTMENT COURSE and DIFFERENTIAL DIAGNOSIS/MDM: External Records Review: Reviewed workup from [facility] ED. Social Determinants of Health: none. Catrachita Murray is a 38 y.o. female who presented to the emergency department for evaluation of trimalleolar fracture. Patient was transferred from [place] ED for orthopedic evaluation. Patient given Dilaudid at [place] ED. Patient had x-rays at [place] ED. Left foot/ankle/tibia/fibula xray asinterpreted by me and confirmed by radiologist showed trimalleolar fracture left ankle, with posterolateral dislocation of tibiotalar joint. Reduction was attempted at [facility] ED. Postreduction film showed interval improvement in alignment of the patient's previously described trimalleolar fracture status post casting. Diffuse soft tissue swelling. No radiopaque foreign body. Will consult orthop edics. Orthopedics evaluated the patient. Patient was pale and hypotensive on arrival. Patient given IV fluids. Blood sugar 126. Pts vitals improved after fluids. Orthopedics did bedside reduction. Orthopedics recommended medical admission and they will take the patient to the OR today. Please see orthopedic note for additional details. Patient admitted to medicine team. Alanna Leggett PA-C am the trade show specialist of record. Final Diagnosis: 1. Closed displaced trimalleolar fracture of left ankle, initial encounter Medications DULoxetine (Cymbalta) DR capsule 20 mg (20 mg Oral Given 09/23/231728) acetaminophen (Tylenol) tablet 650 mg (650 mg Oral Given 09/23/231728) Or acetaminophen (Tylenol) suppository 650 mg ( Rectal See Alternative 09/23/23 1729) ondansetron ODT (Zofran-ODT) disintegrating tablet 4 mg (has no administration in time range) Or ondansetron (Zofran) injection 4 mg (has no administration in time range) polyethylene glycol (PEG) 3350 (Miralax) packet 17 g (has no administration in time range) sodium chloride 0.9 % infusion (100 mL/hr IntraVENous New Bag 09/23/23 1730) ceFAZolin in dextrose 4% (Ancef) IVPB 2,000 mg (0 mg IntraVENous Stopped 09/23/23 175) oxyCODONE (Roxicodone) immediate release tablet 2.5 mg ( Oral See Alternative 09/23/23 172) Or oxyCODONE (Roxicodone) immediate release tablet 5 mg (5 mg Oral Given 09/23/23 172) naloxone (Narcan) injection 0.4 mg (has no administration in time range) HYDROmorphone (Dilaudid) injection 1 mg (1 mg IntraVENous Given 09/22/23 211) HYDROmorphone (Dilaudid) injection 0.5 mg (0.5 mg IntraVENous Given 09/22/23 2238) HYDROmorphone (Dilaudid) injection 0.5 mg (0.5 mg IntraVENous Given 09/23/23 0019) lidocaine (Xylocaine) 1 % injection 20 mL (20 mL Injection Given by Other 09/23/23 0535) HYDROmorphone (Dilaudid) injection 0.5 mg (0.5 mg IntraVENous Given 09/23/23 0346) sodium chloride 0.9 % bolus 1,000 mL (0 mL IntraVENous Stopped 09/23/23 0625) HYDROmorphone (Dilaudid) injection 0.5 mg (0.5 mg IntraVENous Given 09/23/23 0750) LORazepam (Ativan) injection 0.5 mg (0.5 mg IntraVENous Given 09/23/23 1223) CONSULTS: IP CONSULT TO ORTHOPAEDIC SURGERY PROCEDURES: Unless otherwise noted below, none Procedures DISPOSITION/PLAN Admit 09/23/2023 07:21:40 AM (Please note: Portions of this note were completed with a voice recognition program. Efforts were made to edit the dictations but occasionally words and phrases are mis-transcribed.) Form [id number] Adrien Leggett PA-C [employer] Adrien Leggett PA-C 09/23/231958 * Carmita Mon DO - 09/22/2023 8:54 PM EST Emergency Department Encounter [facility] EMERGENCY DEPT Patient: Catrachita Murray : 1985 Date of Evaluation: 09/22/2023 ED Supervising Physician: Carmita Mon DO I personally evaluated Catrachita Murray and made/approved the management plan and take responsibilityfor the patient management. This will serve as my Supervisory note and shared attestation. I did perform a substantive portion of the visit including all aspects of the Medical Decision Making. Patient was initially seen by at [facility], please see his note I wore appropriate PPE for the entirety of this encounter. In brief, Catrachita Murray is a 38 y.o. that presents to the emergency department as a transfer from [facility] for left trimalleolar ankle fracture with posterior lateral dislocation. Patient transferred for further management per orthopedic surgery. Focused exam: General: Appears well, nontoxic, no distress Skin: no rash visible on exposed skin HEENT: Pupils equal and round, EOMI Cardiovascular: Extremities appear well perfused, no swelling in exposed extremities Respiratory: No dyspnea, equal chest rise and fall Gastrointestinal: Nondistended Musculoskeletal: Left ankle is in a splint. Sensation, motor, capillary refill intact to toes on left. Neurological: Alert and oriented, moving all extremities spontaneously Psychiatric: Appropriate mood and affect for condition, normal behavior Brief ED course/MDM: Patient is a 38-year-old female presenting to the emergency department for evaluation of left anklefracture Review of records: I reviewed outpatient note and imaging from outside facility Consults: Orthopedic surgery Orthopedic surgery saw and evaluated the patient. They placed a new splint on the patient. Decisionwas made to proceed with OR for ORIF of the left ankle. Orthopedic surgery recommending admission to medicine, and they will be on consult. Patient admitted to medicine for further management of leftankle fracture Diagnostics interpreted by me: I personally discussed the patient's management with other clinicians: All diagnostic, treatment, and disposition decisions were made by myself in conjunction with the [facility]. For all further details of the patient's emergency department visit, please see their documentation. (Comment: Please note this report has been produced using speech recognition software and may contain errors related to that system including errors in grammar, punctuation, and spelling, as well as words and phrases that may be inappropriate. If there are any questions or concerns please feel freeto contact the dictating provider for clarification.) Carmita Mon DO Acute [facility] Carmita Mon DO 09/24/23 0107 documented in this [facility]02-17-2024 Emergency department Note* Flora Velez RN - 09/23/2023 1:42 AM EST Pts friends had been in waiting room. Upon their arrival back to room the pts call light immediately went off. Madelyn JENKINS informed pt and friends of delayed ETA and they now wish to take her by private car. Pt also states she needs to use the restroom and is requesting more pain medication again. Dr. Gooden updated; aware that pt was just medicated less than 90minutes ago with 3rd dose of Dilaudid. Flora Velez RN 09/23/23 [facility]144 [id number]* Flora Velez RN - 09/23/2023 1:25 AM EST Call placed to [facility] to inquire on status of transport. Staff member answering phone states that there is a crew assigned but they have another trip first, they will be there in 90 to 2(hrs). Advised staff member that they were supposed to be here 10 minutes ago. Staff member states that they have had delays due to other transports and due to the weather and we want to keep our crews safe etc. Staff member was advised that this still does not explain why they do not call to inform us of said delays. Flora Velez RN 09/23/[address]16-2024 Emergency department Note* Flora Velez RN - 09/22/2023 11:23 PM EST Updated pt and visitors on ETA of transport. Flora Velez RN 09/22/[address]16-2024 Emergency department Note* Flora Velez RN - 09/22/2023 11:[address] Gooden the pt will be transported to [facility] by friends, then friend came to nurses station saying pt instead wishes to go by squad to [facility]. Flora Velez RN 09/23/[address]16-2024 Emergency department Note* Radha Sutherland RN - 09/22/2023 10:47 PM EST Called Tangela at [facility] and requested call back from Dr. Bucio at [facility] ortho Radha Sutherland RN 09/22/[address]16-2024 Emergency department Note* Flora Velez RN - 09/22/2023 10:35 PM EST Xray completed at bedside, pt requesting more pain medication, physician notified. Flora Velez RN 09/22/[address]16-2024 Emergency department Note* Flora Velez RN - 09/22/2023 9:53 PM EST Visitor to nurses station requesting pillow for pts head. 3 visitors at bedside, blanket roll placed behind pts head. Call light is in reach of one of the visitors. Flora Velez RN 09/22/232153 [address]16-2024 Emergency department Note* Flora Velez RN - 09/22/2023 9:45 PM EST Assisted auto radiator specialist with pts xrays. Pt remains very anxious and tearful. 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 Pt was able to pivot transfer independently on arrival to room. Physician to bedside to assess pt. Pt stating she cannot move her toes on left foot but +movement. +pain on palpation by physician to left knee. +obvious deformity to left ankle. 2 pillows provided for pt to elevated LLE. Pt restless and crying, very anxious, +hx anxiety. +ETOH intoxication and inappropriately tearful. Pt is A&Ox3, skin warm and dry. [address]16-2024 Physician Emergency department Note* Marc Gooden MD - 09/22/2023 8:54 PM EST Emergency Department Encounter [facility] ED Patient: Catrachita Murray : 1985 Date of Evaluation: 09/22/2023 ED Provider: Marc Gooden MD Note: I wore an N95 mask and gloves during this encounter. CHIEF COMPLAINT: Left ankle injury Chief Complaint Patient presents with Ankle Pain Fall Leg Pain HPI: Catrachita Murray is a 38 y.o. female with PMH reports history of prior left foot surgery, presents concern for left ankle injury. Patient reports this evening she slipped getting in/out of car, injuredher left ankle with deformity, reports pain in the proximal tib-fib as well, denies pain or injury elsewhere including head or neck, chest admitted pelvis, back, extremities otherwise, denies numbness or weakness, reports pain is severe, denies other symptoms or concerns. Patient reports she has had several margaritas this evening. REVIEW OF SYSTEMS: Pertinent positives and negatives as per HPI. HISTORIES: PAST MEDICAL HISTORY: as per HPI SOCIAL HISTORY: Speaks Pakistani MEDICATIONS: Nursing notes and EMR reviewed ALLERGIES: Nursing notes and EMR reviewed PHYSICAL EXAM: Vital signs: reviewed General: Acute distress secondary to pain, anxious appearing, moderately intoxicated Eyes: no conjunctival injection, eyes tracking HEENT: airway patent, mucous membranes moist, no scalp contusion or tenderness Neck: No nuchal rigidity, no limitation range of motion including flexion and extension, no neck tenderness Cardiovascular: regular rhythm, normal rate, left DP pulse palpable, left foot warm and well-perfused with cap refill less than 2 seconds throughout including the distal toes Respiratory: non-labored breathing, breath sounds clear, no wheezing crackles or rhonchi Gastrointestinal: soft, non-distended, non-tender to palpation throughout Extremities: Left ankle swelling diffuse tenderness and deformity without skin tenting or wound, mild tenderness to palpation proximal tib-fib without deformity, no swelling tenderness or deformity elsewhere through the left lower extremity including the knee femur, foot, no swelling tenderness or deformity throughout the right lower extremity or bilateral upper extremities Back: No tenderness to palpation throughout the back Integumentary: warm, dry Neurologic: alert, no obvious neurologic deficits, wiggles left toes, sensation intact left foot, nonslurred speech, answering questions appropriately, follows commands Procedure: closed reduction of ankle fracture/dislocation Performed by: Marc Gooden MD Neurovascular status intact prior to procedure, see physical exam Affected lower extremity was flexed at the hip and knee, inline traction was applied at the great toe, resulting in improvement of deformity Procedure was well-tolerated Neurovascular and motor function intact following procedure Procedure: splint placement Performed by: Marc Gooden MD Indication: injury stabilization A short leg posterior slab, as well as a sugar tong splint was placed on affected lower extremity, patient did not tolerate rolling into supine position limiting ability to place in dorsiflexion Neurovascular status intact following splint placement MEDICAL DECISION MAKING: Medications HYDROmorphone (Dilaudid) injection 1 mg (1 mg IntraVENous Given 09/22/232118) HYDROmorphone (Dilaudid) injection 0.5 mg (0.5 mg IntraVENous Given 09/22/232237) HYDROmorphone (Dilaudid) injection 0.5 mg (0.5 mg IntraVENous Given 09/23/23 0019) Catrachita Murray is a 38 y.o. female who presents as above, isolated left ankle injury with deformity, denies pain or injury elsewhere, she is neurovascular intact, no skin tenting or wound to suggest open fracture, presentation concerning for ankle dislocation/closed fracture, will treat with Dilaudid, obtain x-rays of left foot ankle and tib-fib. Patient is clinically moderately intoxicated with alcohol. Left tib/fib, ankle, foot x-ray obtained, reviewed by myself, interpreted per radiologist trimalleolar fracture left ankle with posterior lateral dislocation of tibiotalar joint Discussed further management, patient agrees to bedside reduction, given moderate alcohol intoxication, patient agrees to attempted reduction without conscious sedation, please see procedure note above, repeat ankle x-ray obtained demonstrates improved alignment, discussed with on-call orthopedic surgery Dr. Bucio including history patient's history, exam, and reviewed imaging, recommends ER to [facility] to [facility] for orthopedic surgery consult for further management including improved alignment and splinting, discussed with patient who is in agreement with plan, discussed with EM resident Dr. Veronica on behalf of accepting EM attending Dr. Austin, stable for transfer. Discussed mode of transfer with patient, patient refuses transfer by ambulance, elects to be transferred by personal vehicle, I discussed the risk of potential decompensation during transfer and thatimmediate presentation is required, I recommend strict nonweightbearing left lower extremity, patient expresses understanding and agreement, elects to be transferred by personal vehicle-her friend will drive her, stable for transfer at this time. DIAGNOSIS: Closed displaced trimalleolar fracture of the left ankle DISPOSITION: Transfer to [facility] emergency department for orthopedic surgery consult. PRESCRIPTIONS: New Prescriptions No medications on file Comment: Please note this report has been produced using speech recognition software and may contain errors related to that system including errors in grammar, punctuation, and spelling, as well as words and phrases that may be inappropriate. If there are any questions or concerns please feel free to contact the dictating provider for clarification. Marc Gooden MD Acute Care [facility] Marc oGoden MD 09/23/23 0209 [facility]02-16-2024 Physician Emergency department Note* Adrien Leggett PA-C - 09/22/2023 8:54 PM EST Emergency Department Encounter [facility] EMERGENCY DEPT Patient: Catrachita Murray : 1985 Date of Evaluation: 09/22/2023 ED [facility] Provider: Adrien Leggett PA-C EDcare was supervised by Dr. Mon who independently examined and evaluated the patient. Please see their attestation note for further details. Chief Complaint Chief Complaint Patient presents with Ankle Pain Fall Leg Pain WILTON I was wearing a N95, Surgical mask for the entirety of this encounter. Catrachita Murray is a 38 y.o. female who presents to the emergency department for left ankle injury. Patient injured her left ankle this evening when she was getting out of a car. Patient was transferred from [place] ED due to trimalleolar fracture and orthopedic evaluation. Limitations to history: None Outside historians: EMR Past History Past Medical History: Diagnosis Date Anxiety Hypertension Past Surgical History: Procedure Laterality Date TOE SURGERY Social History Socioeconomic History Marital status: Tobacco Use Smoking status: Never Substance and Sexual Activity Alcohol use: Yes Comment: Intoxicated during this ED visit Drug use: Not Currently Medications/Allergies Current Discharge Medication List CONTINUE these medications which have NOT CHANGED Details !! DULoxetine (Cymbalta) [address] capsule hydrocortisone (Anusol-HC) 2.5 % rectal cream 1 APPLIC RECTALLY 2 TO 4 TIMES PER DAY NEEDED FOR HEMORRHOIDS ibuprofen 600 MG tablet Take 600 mg by mouth every 6 hours as needed. !! losartan (Cozaar) 50 MG tablet Take 50 mg by mouth daily. nitrofurantoin, macrocrystal-monohydrate, (Macrobid) 100 MG capsule Take 100 mg by mouth 2 times daily. !! DULOXETINE HCL PO Take by mouth. !! LOSARTAN POTASSIUM PO Take by mouth. !! - Potential duplicate medications found. Please discuss with provider. Allergies Allergen Reactions Lactose Physical Exam BP 125/89 Pulse 120 Temp 36.6 C (97.9 F) (Temporal) Resp 16 Ht 1.676 m (5' 6) Wt 93.9 kg(207 lb) SpO2 95% BMI 33.41 kg/m Physical Exam GENERAL APPEARANCE: Awake and alert. Cooperative. HEENT: Normocephalic. Atraumatic. Sclera anicteric. Tolerates saliva. No trismus. NECK: Supple. Trachea midline. CARDIO: Tachycardic initially. Radial pulses symmetrical and palpable LUNGS: Respirations unlabored. CTAB. ABDOMEN: Soft. Non-distended. Non-tender throughout. MUSCULOSKELETAL: Left leg in splint. SKIN: Warm and dry. NEUROLOGICAL: No gross facial drooping. SCREENINGS D Labs: Results for orders placed or performed during the hospital encounter of 09/22/23 Basic metabolic panel Result Value Ref Range SODIUM 139 135 - 145 mmol/L POTASSIUM 3.8 3.5 - 5.1 mmol/L CHLORIDE 105 98 - 107 mmol/L CARBON DIOXIDE 26 22 - 30 mmol/L UREA NITROGEN 7 7 - 17 mg/dL CREATININE 0.81 0.52 - 1.04 mg/dL GLUCOSE 117 (H) 70 - 100 mg/dL CALCIUM 8.5 8.4 - 10.4 mg/dL ANION GAP 8 3 - 13 mmol/L eGFR >90.0 >60.0 mL/min/1.73m*2 CBC Result Value Ref Range Auto WBC 11.4 (H) 3.6 - 10.7 10*3/uL RBC 4.34 3.8 - 5.20 10*6/uL Hemoglobin 13.2 11.7 - 16.0 g/dL Hematocrit 38.5 35.0 - 47.0 % MCV 88.6 80.0 - 98.0 fL MCH 30.4 26.0 - 34.0 pg MCHC 34.3 32.0 - 36.0 % RDW 13.9 11.5 - 14.5 % Platelets 332 140 - 440 10*3/uL MPV 9.2 7.4 - 12.4 fL Protime-INR Result Value Ref Range PROTHROMBIN TIME 9.9 9.0 - 12.0 s INR <0.9 (L) 0.9 - 1.1 Type and Screen Result Value Ref Range ABO Grouping A Antibody Screen NEG Rh Type POS Confirmatory ABO/Rh Result Value Ref Range ABO Grouping A Rh Type POS POCT glucose meter Result Value Ref Range Glucose 126 (H) 70 - 100 mg/dL ECG 12 lead Result Value Ref Range Heart Rate 96 bpm QRSD Interval 112 ms QT Interval 372 ms QTC Interval 469 ms P [place] 37 degrees QRS [place] -21 degrees T Wave [place] 36 degrees [place] Interval 208 ms Radiographs: FL GUIDANCE OR USE ONLY - NON RESULTABLE Final Result XR chest 1 view Final Result No focal consolidation or pulmonary edema. Report Dictated on Electronically Signed By: Bello Oh MD Electronically Signed Date/Time: 09/23/2023 6:[address] ankle left wo IV contrast Final Result Trimalleolar fracture as described above. Report Dictated on Electronically Signed By: Bello Oh MD Electronically Signed Date/Time: 09/23/2023 5:53 AM EST XR ankle 3+ views left Final Result XR tibia fibula 2 views left Final Result FL guidance non-resultable joint reduction Final Result XR ankle 3+ views left Final Result FINDINGS/IMPRESSION: Interval improvement in alignment of the patient's previously described trimalleolar fracture status post casting. Diffuse soft tissue swelling. No radiopaque foreign body. Report Dictated on Electronically Signed By: Elpidio Wynn MD Electronically Signed Date/Time: 09/22/2023 11:19 PM EST XR tibia fibula 2 views left Final Result 1. Trimalleolar fracture left ankle, with posterolateral dislocation of tibiotalar joint. Report Dictated on Electronically Signed By: Hal Martinez MD Electronically Signed Date/Time: 09/22/2023 9:56 PM EST XR ankle 2 views left Final Result 1. Trimalleolar fracture left ankle, with posterolateral dislocation of tibiotalar joint. Report Dictated on Electronically Signed By: Hal Martinez MD Electronically Signed Date/Time: 09/22/2023 9:56 PM EST XR foot 1 or 2 views left Final Result 1. Trimalleolar fracture left ankle, with posterolateral dislocation of tibiotalar joint. Report Dictated on Electronically Signed By: Hal Martinez MD Electronically Signed Date/Time: 09/22/2023 9:56 PM EST : EKG: All EKG's areinterpreted by the Emergency Department Physician in the absence of a director of medical review. see their note for interpretation of EKG. EMERGENCY DEPARTMENT COURSE and DIFFERENTIAL DIAGNOSIS/MDM: External Records Review: Reviewed workup from [facility]. Social Determinants of Health: none. Catrachita Murray is a 38 y.o. female who presented to the emergency department for evaluation of trimalleolar fracture. Patient was transferred from [facility] ED for orthopedic evaluation. Patient given Dilaudid at [facility]. Patient had x-rays at [facility]. Left foot/ankle/tibia/fibula xray asinterpreted by me and confirmed by radiologist showed trimalleolar fracture left ankle, with posterolateral dislocation of tibiotalar joint. Reduction was attempted at [facility]. Postreduction film showed interval improvement in alignment of the patient's previously described trimalleolar fracture status post casting. Diffuse soft tissue swelling. No radiopaque foreign body. Will consult orthop edics. Orthopedics evaluated the patient. Patient was pale and hypotensive on arrival. Patient given IV fluids. Blood sugar 126. Pts vitals improved after fluids. Orthopedics did bedside reduction. Orthopedics recommended medical admission and they will take the patient to the OR today. Please see orthopedic note for additional details. Patient admitted to medicine team. Alanna Leggett PA-C am the trade show specialist of record. Final Diagnosis: 1. Closed displaced trimalleolar fracture of left ankle, initial encounter Medications DULoxetine (Cymbalta) DR capsule 20 mg (20 mg Oral Given 09/23/231728) acetaminophen (Tylenol) tablet 650 mg (650 mg Oral Given 09/23/231728) Or acetaminophen (Tylenol) suppository 650 mg ( Rectal See Alternative 09/23/231728) ondansetron ODT (Zofran-ODT) disintegrating tablet 4 mg (has no administration in time range) Or ondansetron (Zofran) injection 4 mg (has no administration in time range) polyethylene glycol (PEG) 3350 (Miralax) packet 17 g (has no administration in time range) sodium chloride 0.9 % infusion (100 mL/hr IntraVENous New Bag 09/23/23 1730) ceFAZolin in dextrose 4% (Ancef) IVPB 2,000 mg (0 mg IntraVENous Stopped 09/23/23 1759) oxyCODONE (Roxicodone) immediate release tablet 2.5 mg ( Oral See Alternative 09/23/23 172) Or oxyCODONE (Roxicodone) immediate release tablet 5 mg (5 mg Oral Given 09/23/23 172) naloxone (Narcan) injection 0.4 mg (has no administration in time range) HYDROmorphone (Dilaudid) injection 1 mg (1 mg IntraVENous Given 09/22/23 211) HYDROmorphone (Dilaudid) injection 0.5 mg (0.5 mg IntraVENous Given 09/22/23 2238) HYDROmorphone (Dilaudid) injection 0.5 mg (0.5 mg IntraVENous Given 09/23/23 0019) lidocaine (Xylocaine) 1 % injection 20 mL (20 mL Injection Given by Other 09/23/23 0535) HYDROmorphone (Dilaudid) injection 0.5 mg (0.5 mg IntraVENous Given 09/23/23 0346) sodium chloride 0.9 % bolus 1,000 mL (0 mL IntraVENous Stopped 09/23/23 0625) HYDROmorphone (Dilaudid) injection 0.5 mg (0.5 mg IntraVENous Given 09/23/23 0750) LORazepam (Ativan) injection 0.5 mg (0.5 mg IntraVENous Given 09/23/23 1223) CONSULTS: IP CONSULT TO ORTHOPAEDIC SURGERY PROCEDURES: Unless otherwise noted below, none Procedures DISPOSITION/PLAN Admit 09/23/2023 07:21:40 AM (Please note: Portions of this note were completed with a voice recognition program. Efforts were made to edit the dictations but occasionally words and phrases are mis-transcribed.) Form [id number] Adrien Leggett PA-C [employer] Adrien Leggett PA-C 09/23/231958 [facility] [place]02-16-2024 Physician Emergency department Note* Carmita Mon DO - 09/22/2023 8:54 PM EST Emergency Department Encounter [facility] EMERGENCY DEPT Patient: Catrachita Murray : 1985 Date of Evaluation: 09/22/2023 ED Supervising Physician: Carmita Mon DO I personally evaluated Catrachita Murray and made/approved the management plan and take responsibilityfor the patient management. This will serve as my Supervisory note and shared attestation. I did perform a substantive portion of the visit including all aspects of the Medical Decision Making. Patient was initially seen by at [facility], please see his note I wore appropriate PPE for the entirety of this encounter. In brief, Catrachita Murray is a 38 y.o. that presents to the emergency department as a transfer from [facility] for left trimalleolar ankle fracture with posterior lateral dislocation. Patient transferred for further management per orthopedic surgery. Focused exam: General: Appears well, nontoxic, no distress Skin: no rash visible on exposed skin HEENT: Pupils equal and round, EOMI Cardiovascular: Extremities appear well perfused, no swelling in exposed extremities Respiratory: No dyspnea, equal chest rise and fall Gastrointestinal: Nondistended Musculoskeletal: Left ankle is in a splint. Sensation, motor, capillary refill intact to toes on left. Neurological: Alert and oriented, moving all extremities spontaneously Psychiatric: Appropriate mood and affect for condition, normal behavior Brief ED course/MDM: Patient is a 38-year-old female presenting to the emergency department for evaluation of left anklefracture Review of records: I reviewed outpatient note and imaging from outside facility Consults: Orthopedic surgery Orthopedic surgery saw and evaluated the patient. They placed a new splint on the patient. Decisionwas made to proceed with OR for ORIF of the left ankle. Orthopedic surgery recommending admission to medicine, and they will be on consult. Patient admitted to medicine for further management of leftankle fracture Diagnostics interpreted by me: I personally discussed the patient's management with other clinicians: All diagnostic, treatment, and disposition decisions were made by myself in conjunction with the [facility]. For all further details of the patient's emergency department visit, please see their documentation. (Comment: Please note this report has been produced using speech recognition software and may contain errors related to that system including errors in grammar, punctuation, and spelling, as well as words and phrases that may be inappropriate. If there are any questions or concerns please feel freeto contact the dictating provider for clarification.) Carmita Mon DO [facility] Carmita Mon DO 09/24/23 0107 [employer] Phone: [phone]) 844-400109-21-2022 History of Present illness Narrative* Marianne Nina APRN.LOLY - 04/27/2022 9:10 AM EDT Patient came in with complaints of right eye pain. Patient does not think it is the actual eyeball however you cannot even shine light without her having extreme pain in the eyeball. Patient says thevision is not blurry and less she feels like there is discharge over it. Due to sensitivity patientis having and complaints of pain she is being referred to an eye doctor. She is headed to the [facility] now. [facility] History of Past illness Narrative* Problem Noted Date Resolved Date Nausea/vomiting in 02/26/201308/2018 Hx of preeclampsia, prior , currently p regnant 02/16/2013 06/07/2019 Overview: 02/16/2013Shjose was induced due to mild pre-eclampsia with her first . TKRN History of shoulder dystocia in prior , currently 02/16/2013 06/07/2019 Overview: 06/03/13 - discussed R/B/A of vs , plan for growth u/s at term, will discuss further - KJ 02/16/2013Angelica has a history of moderate shoulder dystocia with her last . That baby weighed 9 lbs. 5 oz. TKRN History of macrosomia in inf ant in prior , currently 02/16/2013 06/07/2019 Blood type, Rh positive 02/16/2013 06/07/20 19 Overview: 02/16/2013 Patient had anti-Ce antibodies noted from [facility] blood bank with her last . Discussed with Dr. Ludy Thorpe. Blood type, Rh, and antibody screen ordered today by Dr. Thrope. TKRN Threatened premature labor, antepartum(644.03) 0 02/11/2010 06/07/2019 Supervision of other normal 08/14/2009 06/07/2019 Overview: Girl on us- chris Supervision of normal first 02/16/2006 07/28/2008 documented as of this encounter (statuses as of 04/27/2022) [facility] Author Rajan Fay [facility] Note Date/Time January 20, 2025 11:4 1am [facility] Medical Records Department [address] [place] [address] Emergency Department Summary 01/20/25 MR#: [id number] Acct: [id number] Name: CATRACHITA MURRAY Rep #:[id number] : 1985 39 From: Rajan gonzalez DO PCP: Dr. Celso Brewer MD Status:REG ER Location: ED HPI HPI - Female History of Present Illness Chief Complaint: Female C/O Narrative Narrative: Chief complaint and HPI: Left lower extremity pain. 39-year-old female with past medical history of appendectomy, HTN, hypothyroidism, hysterectomy, ovariancyst presents for evaluation of left lower quadrant abdominal pain. Onset of symptoms this morning. Describes it as sharp/tearing. Fluctuates in intensity. Associated symptom is nausea without emesis. Denies any fever, chills, shortness of breath, chest pain, diarrhea, constipation, dysuria. Patient was seen in December for right lower quadrant abdominal pain, she states that the pain feels similar accepted on the other side. That time she was seen in the emergency department in late in which she had a suspected right ovarian cyst rupture. She follows with [facility] PRACTICING DERMATOLOGIST. She states she called them today and they told her to come to the emergency department. Review of systems: See HPI Medications: As listed on the chart Allergies: As listed on the chart PFSH: Per chart Vital signs: As listed on the chart. Reviewed. Physical exam: Gen: A&O x3 Head: Normocephalic, atraumatic Eyes: No sclera icterus, conjunctiva clear ENT: Moist mucous membranes Neck: Trachea midline, No JVD CV: RRR, no murmurs, no peripheral edema Resp: Lungs CTA BL, no w/r/c GI: Abd soft, non-distended, tender to palpation in the left lower quadrant, no rebound or rigidity : No CVA tenderness Musc: Full ROM, no deformity Skin: Warm, dry Neuro: Alert, oriented, grossly intact, sensation intact Psych: Cooperative, appropriate mood and affect [facility] Medical History History of postoperative nausea and vomiting Alcohol use Depression Anxiety Heartburn Non-smoker Sleep apnea Hypothyroidism Home Medications ?Medication ?Instructions ?Recorded ?Last Taken ?Type duloxetine 60 mg capsule,delayed 60 mg PO QHS anxiety 07/10/19 12/21/24 History release lisinopril 20 mg tablet 20 mg PO QHS blood pressure 12/10/20 12/21/24 History bupropion HCl 150 mg tablet,12 hr 150 mg PO DAILY 12/0512/22/24 History sustained-release clonidine HCl 0.1 mg tablet 0.1 - 0.2 mg PO QHS 12/21/24 History levothyroxine 25 mcg tablet 25 mcg PO DAILY 12/22/24 0 12/22/24 History omeprazole 40 mg capsule,delayed 40 mg PO DAILY PRN he artburn 12/22/24 Unknown History release ondansetron 4 mg disintegrating 4 mg PO Q8H PRN PRN Na usea #10 tabs 12/22/24 Unknown Rx tablet oxycodone-acetaminophen 5 mg-325 1 tab PO Q6H PRN pain 2 days #8 12/22/24 Unknown Rx mg tablet (Percocet) tabs oxycodone-acetaminophen 5 mg-325 1 tab PO Q6H 2 days # 8 tabs 06/16/25 Unknown Rx mg tablet (Percocet) Allergy/AdvReac Type Severity Reaction Status Date / Time No Known Allergies Allergy Verified 01/20/25 08:35 Surgical History History of hysterectomy History of appendectomy Social History Smoking Status: Never smoker substance use type: does not use EXAM Physical Exam Const Vital Signs: 01/20/25 08:34 Temperature 99 F Temperature Source Temporal Pulse Rate 100 Respiratory Rate 16 Blood Pressure 146/106 H Blood Pressure Mean 119 Pulse Ox 98 Oxygen Delivery Method Room Air MDM MDM MDM Narrative Medical decision making narrative: 39-year-old female with past medical history of appendectomy, HTN, hypothyroidism, hysterectomy, ovarian cyst presents for evaluation of left lower quadrant abdominal pain. Onset of symptoms this morning. Differential diagnosis includes but is not limited to ovarian cyst rupture, ovarian torsion, UTI, urolithiasis, diverticulitis. Given patient has a history of ovarian cystsrupture and states this feels similar will start with ultrasound of the pelvis, if this is unremarkable will get CT abdomen pelvis. Morphine, NS bolus, Zofran ordered for symptoms. Abdominal pain workup ordered. Patient has a history of a hysterectomy therefore no chance of . Patient was seen in our emergency department for the same pain in December. At that time I saw her and she had a transvaginal ultrasound that showed a 2.3 cm right corpus luteal cyst withnonvisualized left ovary. CT of the abdomen showed a 3 mm right ovarian likely hemorrhagic cyst with a small surrounding slightly hypotonic fluid likely secondary to rupture. She had no diverticulosis. She had no urolithiasis. CBCwithout leukocytosis or anemia. CMP relatively unremarkable without significantelectrolyte abnormality or CAT. Lactic acid unremarkable. ALT mildly elevated at 39. Patient not having any right upper quadrant abdominal pain. Lipase unremarkable. UA is negative for UTI. Transvaginal ultrasound shows enlarged left ovary with regression follicle. Presently measures 1.6 cm x 2 cm. Right ovary unremarkable. Normal blood flow to both ovaries. On reevaluation, patient still endorsing left lower quadrant abdominal pain. Will get CT abdomenpelvis. IV Toradol ordered. CT abdomen pelvis shows borderline hepatomegaly and fatty infiltration of the liver. Follicles are seen in the left ovary. Small amount of free fluid is seen in the cul-de-sac suggestive of a ruptured ovarian cyst. Patient's pain is likely secondary to a ruptured left ovarian cyst. On reevaluation, she states her pain is improved. She is comfortable discharging home. Follow-up with her PRACTICING DERMATOLOGIST. She was educated she can take ibuprofen after 8 hours due to the Toradol. Requesting narcotics for home. Shewas given a small prescription. She was offered Zofran but declined she states has this prescription at home. Return precautions explained. Impression: 1. Left ovarian cyst rupture 2. History of ruptured ovarian cyst 3. Fatty liver on CT Lab Data Labs: Laboratory Results - last 24 hr 01/20/25 01/20/25 08:47 10:05 WBC 9.4 RBC 4.96 Hgb 15.0 Hct 43.1 MCV 86.9 MCH 30.2 MCHC 34.8 RDW Std Deviation 39.2 RDW Coeff of Rupali 12.5 Plt Count 340 MPV 11.0 Immature Gran % (Auto) 0.200 Neut % (Auto) 63.8 Lymph % (Auto) 26.0 [place] % (Auto) 6.7 Eos % (Auto) 2.4 Baso % (Auto) 0.9 Absolute Neuts (auto) 6.0 Absolute Lymphs (auto) 2.44 Nucleated RBC % 0 Sodium 138 Potassium 3.7 Chloride 102 Carbon Dioxide 21.6 Anion Gap 14 BUN 9 Creatinine 0.99 Estim Creat Clear Calc 85.80 Est GFR (MDRD) Non-Af 73 BUN/Creatinine Ratio 8.6 L Glucose 106 H Lactic Acid 1.5 Calcium 9.4 Total Bilirubin 0.40 AST 24 ALT 39 H Alkaline Phosphatase 72 Total Protein 7.7 Albumin 4.6 Globulin 3.0 Albumin/Globulin Ratio 1.5 Lipase 29 Urine Color Yellow Urine Clarity Sl. Cloudy Urine pH 6.5 Ur Specific Angle Inlet 1.010 Urine Protein 15 H Urine Glucose (UA) Normal Urine Ketones Negative Urine Occult Blood Negative Urine Nitrite Negative Urine Bilirubin Negative Urine Urobilinogen Normal Ur Leukocyte Esterase 100 H Urine RBC 0 SEEN Urine WBC 0-5 SEEN Ur Squamous Epith Cells 0-5 SEEN Urine Bacteria 0 SEEN Urine Mucus 0 SEEN Radiography Diagnostic Testing: Clinical Impression(s) from Imaging Studies Transvaginal US 01/20/25 08:41 IMPRESSION: Residual follicle in the left ovary. Status post hysterectomy. Reading Location: [facility]1 Abdomen/Pelvis CT 01/20/25 10:27 IMPRESSION: Borderline hepatomegaly and fatty infiltration of the liver. Follicles are seen in the left ovary. Small amount of free fluid is seen in [id number] suggestive of ruptured ovarian cyst. Reading Location: [facility] Discharge Plan Triage Chief Complaint: Female C/O ED Provider: Rajan Fay Dx/Rx/DC Orders Clinical Impression: Ovarian cyst rupture Instructions: Treating a Ruptured Ovarian Cyst, Understanding Ovarian Cysts, Treatment for Ovarian Cysts, ED Ovarian Cyst Prescriptions: New oxycodone-acetaminophen [Percocet] 5-325 mg tablet 1 tab PO Q6H 2 Days Qty: 8 0RF No Action duloxetine 60 MG capsule 60 mg PO QHS lisinopril 20 mg tablet 20 mg PO QHS bupropion HCl 150 mg tablet sustained-release 12 hr 150 mg PO DAILY clonidine HCl 0.1 mg tablet 0.1 - 0.2 mg PO QHS levothyroxine 25 mcg tablet 25 mcg PO DAILY omeprazole 40 mg capsule,delayed release(DR/EC) 40 mg PO DAILY PRN (Reason: heartburn) oxycodone-acetaminophen [Percocet] 5-325 mg tablet 1 tab PO Q6H PRN (Reason: pain) 2 Days Qty: 8 0RF ondansetron 4 mg tablet,disintegrating 4 mg PO Q8H PRN PRN (Reason: Nausea) Qty: 10 0RF Primary Care Provider: Celso rBewer Referrals: Celso Brewer MD [Primary Care Provider] - 3-5 Days Agusto Nina MD [Med Staff - Active Staff] - 3-5 Days Activity Restrictions/Additional Instructions: You received Toradol here in the emergency department. No ibuprofen for 8 hours. After that okay for ibuprofen and Tylenol. Be careful as narcotic has Tylenol in it. Follow-up with your PRACTICING DERMATOLOGIST. Return back to the ED if symptoms change or worsen. Print Language: Pakistani Disposition Disposition: Home, Self Care What to do if you have Problems For any increased pain, shortness of breath, bleeding, nausea or vomiting, chestpain, or any unexpected problems, contact your Primary Care Provider. Call [facility] ([phone]) or report to the closest Emergency Room. Call 911 if necessary. 01/20/25 1141 <Electronically signed by Rajan Fay DO> Cosigner Signature (if applicable): CC: Dr. Celso Brewer MD ~ Signed [facility] Work Phone: Evaluation noteNo assessment information available [facility] Work Phone: Evaluation note* Diagnosis Pain of right eye- Primary Pain in or around eye [facility]* Diagnosis Closed displaced trimalleolar fracture of left ankle, initial encounter Closed displaced trimalleolar fracture of left ankle, initial encounter documented in this encounter [facility] note* Diagnosis Closed displaced trimalleolar fracture of left ankle, initial encounter- Primary documented in this encounter [facility] note* Diagnosis Closed displaced trimalleolar fracture of left ankle, initial encounter- Primary documented in this encounter [facility] note* Diagnosis Closed displaced trimalleolar fracture of left ankle, initial encounter [facility]* Diagnosis Closed displaced trimalleolar fracture of left ankle, initial encounter documented in this encounter [facility] note* Diagnosis Closed displaced trimalleolar fracture of left ankle, initial encounter- Primary documented in this encounter [facility] note* Diagnosis Closed displaced trimalleolar fracture of left ankle, initial encounter- Primary documented in this encounter [facility] note* Diagnosis Viral URI- Primary Acute upper respiratory infections of unspecified site [facility]* Diagnosis Corpus luteum cyst- Primary Corpus luteum cyst or hematoma documented in this encounter [facility] note* Diagnosis Onset Date Resolution Status Admit Date Thrombosed hemorrhoids acute Ju ne 2024 9:21am [facility] Work Phone: History and physical note Author Kelsey Canas [facility] Note Date/Time January 30, 2025 8:45 pm [facility] Medical Records Department [address] [place] [id number] H&P Exam - Surgical 01/30/252042 MR#: [id number] Acct: [id number] Name: CATRACHITA MURRAY Rep #:[id number] : 1985 39 From: Kelsey Canas MD PCP: Dr. Celso Brewer MD Status:[facility] Location: [facility] [place] HPI - General General Date of Service: 01/30/25 HPI Narrative CATRACHITA MURRAY, is a 39 F who presents to the ER due to recurrent thrombosed hemorrhoid. Patient did have this incised twice in the office today however didcome back each time with swelling and pain. Patient previously did have excision of thrombosed hemorrhoid in office which did not recur at that time. Patient has not had a bowel movement a couple days. [facility] Medical History History of postoperative nausea and vomiting Alcohol use Depression Anxiety Heartburn Non-smoker Sleep apnea Hypothyroidism Home Medications ?Medication ?Instructions ?Recorded ?Last Taken ?Type duloxetine 60 mg capsule,delayed 60 mg PO QHS anxiety 07/10/19 12/21/24 History release bupropion HCl 150 mg tablet,12 hr 150 mg PO DAILY 12/0512/22/24 History sustained-release clonidine HCl 0.1 mg tablet 0.1 - 0.2 mg PO QHS 12/21/24 History levothyroxine 25 mcg tablet 25 mcg PO DAILY 12/22/24 0 12/22/24 History omeprazole 40 mg capsule,delayed 40 mg PO DAILY PRN he artburn 12/22/24 Unknown History release oxycodone-acetaminophen 5 mg-325 1 tab PO Q6H 2 days # 8 tabs 01/20/25 Unknown Rx mg tablet (Percocet) Hydrocortisone 2.5% / Lidocaine 5% #1 ea 01/30/25 Unkn own Rx ointment (cmpd) losartan 50 mg tablet 50 mg PO QDAY 01/30/25 Unkno wn History Allergy/AdvReac Type Severity Reaction Status Date / Time No Known Allergies Allergy Verified 01/30/25 18:18 Surgical History History of hysterectomy History of appendectomy Social History (Updated 01/30/25 @ 19:33 by Claudia Fernandez) current occupational status: employed Smoking Status: Never smoker substance use type: does not use Vital Signs Vital Signs Vital Signs: 01/30/25 18:18 01/30/25 18:38 01/30/25 18:55 Temperature 96.5 F L Temperature Source Temporal Pulse Rate 104 H 92 Respiratory Rate 16 16 Respiratory Effort Normal Respiratory Pattern Normal Blood Pressure 143/98 H 155/66 H Blood Pressure Mean 113 95 Blood Pressure Position Pulse Ox 99 98 Oxygen Delivery Method Room Air Room Air 01/30/25 19:26 01/30/25 19:33 01/30/25 19:35 Temperature 97.9 F Temperature Source Pulse Rate 81 102 H 102 H Respiratory Rate 16 16 Respiratory Effort Respiratory Pattern Blood Pressure 147/86 H 148/91 H 148/91 H Blood Pressure Mean 106 110 110 Blood Pressure Position Supine Pulse Ox 97 98 98 Oxygen Delivery Method Room Air 01/30/25 20:00 Temperature Temperature Source Pulse Rate 79 Respiratory Rate 14 Respiratory Effort Respiratory Pattern Blood Pressure 136/88 H Blood Pressure Mean 104 Blood Pressure Position Pulse Ox 100 Oxygen Delivery Method Weight Weight: 214 lb 1.102 oz Body Mass Index (BMI) 34.5 Physical Exam Const oriented x3 Resp normal respiratory effort Cardio regular rate GI soft to palpation and non-tender GI Narrative: Thrombosed hemorrhoid with bleeding Results Lab / Micro Data 01/30/25 18:53 01/30/25 18:53 Labs: Laboratory Results - last 24 hr 01/30/25 18:53: WBC 16.3 H, RBC 4.51, Hgb 13.7, Hct 39.8, MCV 88.2, MCH 30.4, MCHC 34.4, RDW Std Deviation 40.7, RDW Coeff of Rupali 12.7, Plt Count 359, MPV 11.5, Immature Gran % (Auto) 0.400, Neut % (Auto) 79.7 H, Lymph % (Auto) 13.4 L,Coosa % (Auto) 5.0, Eos % (Auto) 1.0, Baso % (Auto) 0.5, Absolute Neuts (auto) 13.0 H, Absolute Lymphs (auto) 2.18, Nucleated RBC % 0, Sodium 139, Potassium 3.6, Chloride 104, Carbon Dioxide 22.9, Anion Gap 13, BUN 8, Creatinine 0.97, Estim Creat Clear Calc 89.67, Est GFR (MDRD) Non-Af 75, BUN/Creatinine Ratio 8.4L, Glucose 111 H, Calcium 9.3, Blood Type A POSITIVE, Antibody Screen NEGATIVE Assessment & Plan Assessment/Plan (1) Thrombosed hemorrhoids: (2) Failure of outpatient treatment: PLAN: Plan Plan for exam under anesthesia, excision of thrombosed hemorrhoid, hemorrhoidectomy. Discussed with patient and her risk including not limited to bleeding, infection, need for further surgery. Patient and her no further questions time. Kelsey Canas M.D. Pager: [phone] [facility] [address] [place] [address], Outpatient Pavilion, [address] [place] [address] Office: [phone] 01/30/252044 <Electronically signed by Kelsey Canas MD> Cosigner Signature (if applicable): CC: Dr. Celso Brewer MD; Dr. Kelsey Canas MD~ Signed [facility] Work Phone: Hospital Discharge instructions Additional Instructions Your cardiac work-up negative. Ultrasounds of your legs are negative. D-dimer negative. Chest x-ray negative. Prescription omeprazole sent to your pharmacy. Follow-up with your doctor for further testing. Return if any worsening symptoms.[facility] Work Phone: Hospital Discharge instructions Additional Instructions Follow-up with PRACTICING DERMATOLOGIST. Return back to the ED if symptoms change or worsen. Okay for Tylenol and ibuprofen. Narcotics for severe pain. Monitor Tylenol intake as there is Tylenol in the narcotic. Zofran as needed for nausea.[facility] Work Phone: Hospital Discharge instructions Additional Instructions You received Toradol here in the emergency department. No ibuprofen for 8 hours. After that okay for ibuprofen and Tylenol. Be careful as narcotic has Tylenol in it. Follow-up with your PRACTICING DERMATOLOGIST. Return back to the ED if symptoms change or worsen.[facility] Work Phone: Reason for referral (narrative)No reason for referral information availableWSt. Vincent Hospital Work Phone: Chief Complaint and Reason for Visit Chief Complaint cp Chief Complaint Admit Date ABD PAIN December 22, 2024 2:53p m Chief Complaint Admit Date ABD PAIN December 22, 2024 2:53p m OVARIAN CYST January 20, 2025 8:34 am Chief Complaint Admit Date ABD PAIN December 22, 2024 2:53p m OVARIAN CYST January 20, 2025 8:34 am POSSIBLE THROMBOSSED HEMORRHOID January 9:21am Reason for Visit Admit Date Thrombosed hemorrhoids January 30, 2025 9 :21am Chief Complaint Admit Date ABD PAIN December 22, 2024 2:53p m OVARIAN CYST January 20, 2025 8:34 am POSSIBLE THROMBOSSED HEMORRHOID January 9:21am HEMRRHOIDS January 30, 2025 8:18 pm HEMRRHOIDS January 30, 2025 8:43 pm Reason for Visit Admit Date Thrombosed hemorrhoids January 30, 2025 9 :21am Failure of outpatient treatment January 8:18pm Hemorrhoid January 30, 2025 8:18 pm Thrombosed hemorrhoids January 30, 2025 8 :18pm Advance Directives Advance Directive Response Recorded Date/ Time Living Will No February 28, 2022 8:45am Power of Truck Supervisor No February 28 8:45am Advance Directive Response Recorded Date/ Time Living Will No February 28, 2022 7:45am Power of Truck Supervisor No February 28 7:45am Latest Code Status on File Code Status Date Activated Date Inactivated Comments Full Code 09/23/2023 1:39 PM 09/24/2023 5:03 PM Latest Code Status on File Code Status Date Activated Date Inactivated Comments Full Code 09/23/2023 1:39 PM 09/24/2023 5:03 PM Date Activated Date Inactivated Comments 09/23/2023 1:39 PM 09/24/2023 5:03 PM Advance Directive Response Recorded Date/ Time Do you have a Healthcare Power of Truck Supervisor? No December 22, 2024 3:29pm Advance Directive Response Recorded Date/ Time Do you have a Healthcare Power of Truck Supervisor? No December 22, 2024 3:29pm Do you have a Healthcare Power of Truck Supervisor? No January 20, 2025 8:34am Advance Directive Response Recorded Date/ Time Do you have a Healthcare Power of Truck Supervisor? No December 22, 2024 3:29pm Do you have a Healthcare Power of Truck Supervisor? No January 30, 2025 6:38pm Do you have a Healthcare Power of Truck Supervisor? No January 20, 2025 8:34am Reason for Referral Specialty Diagnoses / Procedures Referred By Contac t Referred To Contact Diagnoses Closed displaced trimalleolar fracture of left ankle, initial encounter Melvin Bucio MD [address] [address], [address] [place] [address] Referral ID Status Reason Start Date Expiration Date Visits Re quested Visits Authorized [id number] Closed 1 1 Specialty Diagnoses / Procedures Referred By Contajith t Referred To Contact Physical Therapy Diagnoses Closed displaced trimalleolar fracture of left ankle, initial encounter Procedures [place] OFFICE/OUTPATIENT [facility] 60 MINUTES Melvin Bucio MD [address] [facility] [address] [place] [address] Referral ID Status Reason Start Date Expiration Date Visits Requested Visits Authorized [id number] Pending Review Eval and Treat 12/15/2023 06/12/2024 99 99 Scheduling Instructions left ORIF trimalleolar ankle fracture with fixation of posterior lip DOS Summary Purpose Family History No Family History Records FoundNo Family History Records FoundNo Family History Records Found Additional Source Comments Goals (unrecognized section and content) Goals may be documented in a n alternate sectionGoals may be documented in an alternate sectionGoals may be documented in an alternate sectionGoals may be documented in an alternate sectionGoals may be documented in an alternate sectionGoals may be documented in an alternate sectionGoals may be documented in an alternate sectionGoals may be documented in an alternate section Source Comments (unrecognize d section and content) In the event this informatio n is protected by the Federal Confidentiality of Alcohol and Drug Abuse Patient Records regulations: The Federal rules restrict any use of the information to criminally investigate or prosecute any alcohol or drug abuse patient.[facility] the event this information is protected by the Federal Confidentiality of Alcohol and Drug Abuse Patient Records regulations: The Federal rules restrict any use of the information to criminally investigate or prosecute any alcohol or drug abuse patient.[facility] the event this information is protected by the Federal Confidentiality of Alcohol and Drug Abuse Patient Records regulations: The Federal rules restrict any use of the information to criminally investigate or prosecute any alcohol or drug abuse patient.[facility] the event this information is protected by the Federal Confidentiality of Alcohol and Drug Abuse Patient Records regulations: The Federal rules restrict any use of the information to criminally investigate or prosecute any alcohol or drug abuse patient.[facility] Reason for Visit (unrecogniz ed section and content) Reason Comments Sinus Problem drainage x monday, r ight eye red and pressure x last night Reason Comments Ankle Pain Fall Leg Pain Specialty Diagnoses / Procedures Referred By Contac t Referred To Contact Diagnoses Closed displaced trimalleolar fracture of left ankle, initial encounter Procedures . Yusuf, Christoph, DO [address] [place] [address] [facility] [address] [place] [phone] Referral ID Status Reason Start Date Expiration Date Visits Re quested Visits Authorized [id number] 1 1 Reason Onset Date Comments Med Refill 09/28/2023 Reason Comments Post-op Reason Comments Post-op Left ankle ORIF; DOS : 09/23/23 Reason Comments Post-op left ORIF trimalleol ar ankle fracture with fixation of posterior lip, DOS 09/23/2023 Reason Comments Ear Pain left, cough, headach e and sore throat x 1 day, + flu A x 10 days ago Reason Comments New Patient ER follow-up Ovarian Cyst Care Teams (unrecognized sec tion and content) Sewer Inspector Relationship Specialty Start Date End Date Polly Lopez PCP - General 02/13/06 Sewer Inspector Relationship Specialty Start Date End Date Polly Lopez [address] [place] [phone] PCP - General Family Medicine 09/22/23 Sewer Inspector Relationship Specialty Start Date End Date Polly Lopez [address] [place] [phone] PCP - General Family Medicine 09/22/23 Sewer Inspector Relationship Specialty Start Date End Date Polly Lopez [address] [place] [phone] PCP - General Family Medicine 09/22/23 Sewer Inspector Relationship Specialty Start Date End Date Polly Lopez [address] [place] [phone] PCP - General Family Medicine 09/22/23 Sewer Inspector Relationship Specialty Start Date End Date Polly Lopez [address] [place] [address] PCP - General Family Medicine 09/22/23 Sewer Inspector Relationship Specialty Start Date End Date Polly Lopez [address] [place] [address] PCP - General Family Medicine 09/22/23 Sewer Inspector Relationship Specialty Start Date End Date Polly Lopez [address] [place] [address] PCP - General Family Medicine 09/22/23 Sewer Inspector Relationship Specialty Start Date End Date Polly Lopez [address] [place] [phone] PCP - General Family Medicine 09/22/23 Sewer Inspector Relationship Specialty Start Date End Date Polly Lopez PCP - General 02/13/06 Team Status: Active Member Role Status Dates Dr. Polly Lopez MD Family Provider Active Dr. Celso Brewer MD Primary Care Provider Active Team Status: Inactive Member Role Status Dates Dr. Celso Brewer MD Primary Care Provider Active Start: December 10, 2024 End: December 10, 2024 Dr. Celso Brewer MD Attending Provider Active St art: December 10, 2024 End: December 10, 2024 Dr. Celso Brewer MD Referring Provider Active St art: December 10, 2024 End: December 10, 2024 Team Status: Active Member Role Status Dates Dr. Celso Brewer MD Primary Care Provider Active Team Status: Inactive Member Role Status Dates Dr. Celso Brewer MD Primary Care Provider Active Start: December 22, 2024 End: December 22, 2024 Dr. Rajan Fay , DO Emergency Provider Activ e Start: December 22, 2024 End: December 22, 2024 Team Status: Inactive Member Role Status Dates Dr. Celso Brewer MD Primary Care Provider Active Start: December 22, 2024 End: December 22, 2024 Dr. Rajan Fay , DO Attending Provider Activ e Start: December 22, 2024 End: December 22, 2024 Dr. Rajan Fay , DO Emergency Provider Activ e Start: December 22, 2024 End: December 22, 2024 Team Status: Inactive Member Role Status Dates Dr. Celso Brewer MD Primary Care Provider Active Start: January 20, 2025 End: January 20, 2025 Dr. Rajan Fay , DO Emergency Provider Activ e Start: January 20, 2025 End: January 20, 2025 Sewer Inspector Relationship Specialty Start Date End Date Polly Lopez PCP - General 02/13/06 Sewer Inspector Relationship Specialty Start Date End Date Polly Lopez PCP - General 02/13/06 Team Status: Inactive Member Role Status Dates Dr. Celso Brewer MD Primary Care Provider Active Start: January 20, 2025 End: January 20, 2025 Dr. Rajan Fay , DO Attending Provider Activ e Start: January 20, 2025 End: January 20, 2025 Dr. Rajan Fay , DO Emergency Provider Activ e Start: January 20, 2025 End: January 20, 2025 Team Status: Inactive Member Role Status Dates Dr. Celso Brewer MD Primary Care Provider Active Start: January 30, 2025 End: January 30, 2025 Dr. Celso Brewer MD Referring Provider Active St art: January 30, 2025 End: January 30, 2025 Essie MAX PA-C Attending Provider Active Start: January 30, 2025 End: January 30, 2025 Team Status: Active Member Role Status Dates Dr. Celso Brewer MD Primary Care Provider Active Start: January 30, 2025 Jakub Jones MD Referring Provider Active Star t: January 30, 2025 Jakub Jones MD Emergency Provider Active Star t: January 30, 2025 Dr. Kelsey Canas MD Attending Provider Active Start: January 30, 2025 Team Status: Active Member Role Status Dates Dr. Celso Brewer MD Primary Care Provider Active Start: January 30, 2025 Jakub Jones MD Referring Provider Active Star t: January 30, 2025 Jakub Jones MD Emergency Provider Active Star t: January 30, 2025 Dr. Kelsey Canas MD Attending Provider Active Start: January 30, 2025 Dr. Kelsey Canas MD Other Provider Active S tart: January 30, 2025 Scheduled Active and Recently Administ ered Medications (unrecognized section and content) Medication Order 09/22/2023 09/23/2023 09/24/2023 ceFAZolin in dextrose 4% (Ancef) IVPB 2,000 mg (COMPLETED) 2,000 mg, IntraVENous, Administer over 30 Minutes, Every 8 hours, First dose on 09/23/23 at 1800, For 24 hours, Recovery & On Unit, premix bag, Suspected Indication (Select all that apply): Surgical Prophylaxis 1729 (New Bag - Provider: Carla Lora RN)1759 (Stopped - Provider: Carla Lora, GREGORY) 0136 (New Bag - Provider: Tiffany Norris, GREGORY)0206 (Stopped - Provider: Tiffany Norris RN)0918 (New Bag - Provider: Carla Lora, GREGORY)0948 (Stopped - Provider: Carla Lora, RN) DULoxetine (Cymbalta) DR capsule 20 mg 20 mg, Oral, Daily, First dose on 09/23/23 at 1345, Do not crush or chew. 1729 (Given - Provider: Carla Lora RN) 0918 (Given - Provider: Carla Lora, RN) HYDROmorphone (Dilaudid) injection 0.5 mg (COMPLETED) 0.5 mg, IntraVENous, Once, On Mon09/22/23 at 2235, For 1 dose 2238 (Given - Provider: Flora Velez RN) HYDROmorphone (Dilaudid) injection 0.5 mg (COMPLETED) 0.5 mg, IntraVENous, Once, On 09/23/23 at 0005, For 1 dose, If oral and IV narcotics ordered, use oral first and only use IV if oral is ineffective or cannot take oral. Do Not give oral and IV within 1 hour of each other unless specifically ordered. 0019 (Given - Provider: Flora Velez RN) HYDROmorphone (Dilaudid) injection 0.5 mg (COMPLETED) 0.5 mg, IntraVENous, Once, On 09/23/23 at 0330, For 1 dose, If oral and IV narcotics ordered, use oral first and only use IV if oral is ineffective or cannot take oral. Do Not give oral and IV within 1 hour of each other unless specifically ordered. 0346 (Given - Provider: Lobo Armando RN) HYDROmorphone (Dilaudid) injection 0.5 mg (COMPLETED) 0.5 mg, IntraVENous, Once, On 09/23/23 at 0725, For 1 dose, If oral and IV narcotics ordered, use oral first and only use IV if oral is ineffective or cannot take oral. Do Not give oral and IV within 1 hour of each other unless specifically ordered. 0750 (Given - Provider: Rene Almonte RN) HYDROmorphone (Dilaudid) injection 1 mg (COMPLETED) 1 mg, IntraVENous, Once, On Mon09/22/23 at 2105, For 1 dose 2118 (Given - Provider: Flora Velez RN) hydrOXYzine HCl (Atarax) tablet 10 mg (COMPLETED) 10 mg, Oral, Once, On 09/23/23 at 2115, For 1 dose 2117 (Given - Provider: Tiffany Norris RN) lidocaine (Xylocaine) 1 % injection 20 mL (COMPLETED) 20 mL, Injection, Once, On 09/23/23 at 0255, For 1 dose, Deliver to bedside for procedure 0535 (Given by Other - Provider: Lobo Armando RN - Reason: Administered by Other (Comment Required) - Comment: Given by ortho. Scanned once procedure was done) LORazepam (Ativan) injection 0.5 mg (COMPLETED) 0.5 mg, IntraVENous, Once, On 09/23/23 at 1230, For 1 dose, Recovery (only), Severe pain 7-10 in recovery only For IV doses dilute dose with 1ml NS. 1223 (Given - Provider: Dino Pizarro RN) sodium chloride 0.9 % bolus 1,000 mL (COMPLETED) 1,000 mL, IntraVENous, at 2,000 mL/hr, Administer over 0.5 Hours, Once, On 09/23/23 at 0350, For 1 dose 0347 (New Bag - Provider: Lobo Armando, GREGORY)0625 (Stopped - Provider: Lobo Armando RN) Continuous Medication Order 09/22/2023 09/23/2023 09/24/2023 sodium chloride 0.9 % infusion (CANCELED) 100 mL/hr, IntraVENous, Continuous, Starting on 09/23/23 at 1345 1730 (New Bag - Provider: Carla Lora RN) 0721 (Stopped - Provider: Carla Lora RN) PRN Medication Order 09/22/2023 09/23/2023 09/24/2023 acetaminophen (Tylenol) suppository 650 mg(Linked Group 1) 650 mg, Rectal, Every 6 hours PRN, mild pain (1-3), fever, For temp greater than 100.4 F (38 C), Starting on 09/23/23 at 1339, Administer if oral route cannot be used. Maximum dose of acetaminophen is 4000 mg from all sources in 24 hours. 1729 (See Alternative - Provider: Carla Lora RN) 1215 (See Alternative - Provider: Carla Lora RN) acetaminophen (Tylenol) tablet 650 mg(Linked Group 1) 650 mg, Oral, Every 6 hours PRN, mild pain (1-3), fever, For temp greater than 100.4 F (38 C), Starting on 09/23/23 at 1339, Maximum dose of acetaminophen is 4000 mg from all sources in 24 hours. 1729 (Given - Provider: Carla Lora RN) 1215 (Given - Provider: Carla Lora RN) HYDROmorphone (Dilaudid) injection 0.5 mg (CANCELED)(Linked Group 2) 0.5 mg, IntraVENous, Every 10 min PRN, severe pain (7-10), Starting on 09/23/23 at 1201, For 4 doses, Recovery (only), If oral and IV narcotics ordered, use oral first and only use IV if oral is ineffective or cannot take oral. Do Not give oral and IV within 1 hour of each other unless specifically ordered. 1215 (Given - Provider: Dino Pizarro, GREGORY) naloxone (Narcan) injection 0.4 mg 0.4 mg, IntraVENous, Every 5 min PRN, opioid reversal, respiratory depression, Starting on 09/23/23 at 1551, +++ For RR <10, pinpoint pupils, over sedation for opioid reversal - MUST notify healthcare consulting manager provider immediately after first dose, may give IM or SQ if no IV access +++ ondansetron (Zofran) injection 4 mg(Linked Group 3) 4 mg, IntraVENous, Every 6 hours PRN, nausea, vomiting, Starting on 09/23/23 at 1339, 1st Line. Give IV if patient is unable to take orally. If inadequate response within 60 minutes, proceed to next-line agent or contact provider if no further options ordered. ondansetron ODT (Zofran-ODT) disintegrating tablet 4 mg(Linked Group 3) 4 mg, Oral, Every 8 hours PRN, nausea, vomiting, Starting on 09/23/23 at 1339, 1st Line. If inadequate response within 60 minutes, proceed to next-line agent or contact provider if no further options ordered. Patient should allow tablet to dissolve on tongue. Do not remove from blister pack until just before administering. oxyCODONE (Roxicodone) immediate release tablet 2.5 mg(Linked Group 4) 2.5 mg, Oral, Every 4 hours PRN, moderate pain (4-6), Starting on 09/23/23 at 1550 1729 (See Alternative - Provider: Carla Lora RN)2118 (See Alternative - Provider: Tiffany Norris, GREGORY) 0138 (See Alternative - Provider: Tiffany Norris, GREGORY)0918 (See Alternative - Provider: Carla Lora, GREGORY)1343 (See Alternative - Provider: Carla Lora RN) oxyCODONE (Roxicodone) immediate release tablet 5 mg(Linked Group 4) 5 mg, Oral, Every 4 hours PRN, severe pain (7-10), Starting on 09/23/23 at 1550 1729 (Given - Provider: Carla Lora, GREGORY)2118 (Given - Provider: Tiffany Norris, GREGORY) 0138 (Given - Provider: Tiffany Norris, RN)0918 (Given - Provider: Carla Lora, RN)1343 (Given - Provider: Carla Lora, GREGORY) polyethylene glycol (PEG) 3350 (Miralax) packet 17 g 17 g, Oral, Daily PRN, constipation, Starting on 09/23/23 at 1339, 1st line for treatment of constipation - give scheduled if no bowel movement in past 24 hours. sodium chloride 0.9 % irrigation solution (CANCELED) As needed, Starting on 09/23/23 at 1001, Intraprocedure 1001 (Given - Provider: Melvin Bucio MD) Linked Groups Order Group 1: acetaminophen (Tylenol) tablet 650 mgJump to med 650 mg, Oral, Every 6 hours PRN, mild pain (1-3), fever, For temp greater than 100.4 F (38 C), Starting on 09/23/23 at 1339, Maximum dose of acetaminophen is 4000 mg from all sources in 24 hours. Or acetaminophen (Tylenol) suppository 650 mgJump to med 650 mg, Rectal, Every 6 hours PRN, mild pain (1-3), fever, For temp greater than 100.4 F (38 C), Starting on 09/23/23 at 1339, Administer if oral route cannot be used. Maximum dose of acetaminophen is 4000 mg from all sources in 24 hours. Group 2: HYDROmorphone (Dilaudid) injection 0.25 mg (CANCELED) 0.25 mg, IntraVENous, Every 10 min PRN, moderate pain (4-6), Starting on 09/23/23 at 1201, For 4 doses, Recovery (only), If oral and IV narcotics ordered, use oral first and only use IV if oral is ineffective or cannot take oral. Do Not give oral and IV within 1 hour of each other unless specifically ordered. Or HYDROmorphone (Dilaudid) injection 0.5 mg (CANCELED)Jump to med 0.5 mg, IntraVENous, Every 10 min PRN, severe pain (7-10), Starting on 09/23/23 at 1201, For 4 doses, Recovery (only), If oral and IV narcotics ordered, use oral first and only use IV if oral is ineffective or cannot take oral. Do Not give oral and IV within 1 hour of each other unless specifically ordered. Group 3: ondansetron ODT (Zofran-ODT) disintegrating tablet 4 mgJump to med 4 mg, Oral, Every 8 hours PRN, nausea, vomiting, Starting on 09/23/23 at 1339, 1st Line. If inadequate response within 60 minutes, proceed to next-line agent or contact provider if no further options ordered. Patient should allow tablet to dissolve on tongue. Do not remove from blister pack until just before administering. Or ondansetron (Zofran) injection 4 mgJump to med 4 mg, IntraVENous, Every 6 hours PRN, nausea, vomiting, Starting on 09/23/23 at 1339, 1st Line. Give IV if patient is unable to take orally. If inadequate response within 60 minutes, proceed to next-line agent or contact provider if no further options ordered. Group 4: oxyCODONE (Roxicodone) immediate release tablet 2.5 mgJump to med 2.5 mg, Oral, Every 4 hours PRN, moderate pain (4-6), Starting on 09/23/23 at 1550 Or oxyCODONE (Roxicodone) immediate release tablet 5 mgJump to med 5 mg, Oral, Every 4 hours PRN, severe pain (7-10), Starting on 09/23/23 at 1550 INFORMATION SOURCE (unrecogn ized section and content) DATE CREATED AUTHOR 12/20/2023 [facility] DATE CREATED AUTHOR AUTHOR'S ORGANIZ ATION 01/24/2025 [facility] DATE CREATED AUTHOR AUTHOR'S ORGANIZ ATION 01/27/2025 [facility] FOR RECORDS PERTAINING TO PATIENTS WHO ARE OR HAVE BEEN ENROLLED IN A CHEMICAL DEPENDENCY/SUBSTANCEABUSE PROGRAM, SOME INFORMATION MAY BE OMITTED. This clinical summary was aggregated from multiple sources. Caution should be exercised in using it in the provision of clinical care. This summary normalizes information from multiple sources, and as a consequence, information in this document may materially change the coding, format and clinical context of patient data. In addition, data may be omitted in some cases. CLINICAL DECISIONS SHOULD BE BASED ON THE PRIMARY CLINICAL RECORDS. [facility] provides no warranty or guarantee of the accuracy or completeness of information in this document.
--- OUTSIDE RECORDS SUMMARY | 2025-01-30 22:14 | XMS RPT_ITS | CCD ---
Author Organization [facility] Care Team Providers Care Health Navigator Name Role Phone Dr. Polly Lopez Primary Care Provider Dr. Elias Ford Attending Provider Polly Lopez Primary Care Provider [phone] Dr. Polly Lopez Primary Care Provider Dr. Elias Ford Attending Provider Dr. Sylvester Yoder Referring Provider Polly Lopez Primary Care Provider OGORZOLKA, LUDY Referring Unavailable JOLLIFF, POLLY Primary [...] Provider Osman PAZ, Dr. Houston Attending Provider [phone] Dr. Celso Brewer MD Referring Provider Dr. Rajan Fay DO Emergency Provider Dr. [...] Referring Unavailable Essie Leggett PA-C Attending Provider [phone] Jakub Jones MD Referring Provider [phone] Jakub Jones MD Emergency Provider [phone] Missael PAZ, Dr. Cole Attending Provider Dr. Kelsey Canas MD Other Provider [phone] Allergies Allergy Classification Reported Allergen(s) Allergy Type Date of Onset Reaction(s) Facility (17 sources) Lactose (non-medical use) Propensity to adverse reactions 09-22-2023 [facility] Medications Current Medications Medication Drug Class(es) [...] daily. 01/18/2023 Active 21 day ethinyl estradiol 0.988669 mg/hr / etonogestrel 0.005 mg/hr vaginal system [...] chew. Start: 07-10-2019 take 1 capsule by [facility] at bedtime Duloxetine 60 MG capsule [...] July 24, 2019 1:10am polyethylene glycol 3350 01438 mg powder for oral solution (5 sources) [...] Auto (Unsp spec) [#/Vol] 2.18 10*3/uL 0.83-4.51 [facility] Absolute neutrophil countOrd ered By: Jakub Jones on 01-30-2025 Neutrophils (Bld) [#/Vol] 13.0 10*3/uL High 2.0-7.7 [facility] Anion gap in Serum or Plasma Ordered By: Jakub Jones on 01-30-2025 Anion gap [Moles/Vol] 13 mmol/L 5-15 [facility] Automated lymphocyte count a s percentage of total leukocytesOrdered By: Jakub Jones on 01-30-2025 Lymphocytes/100 WBC Auto (Unsp spec) 13.4 % Low 19-41 [facility] BUN/creatinine ratioOrdered By: Jakub Jones on 01-30-2025 Urea nitrogen/Creatinine [Mass ratio] 8.4 mg/mg Low 10-20 [facility] Basophil percentageOrdered B y: Jakub Jones on 01-30-2025 Basophils/100 WBC (Bld) 0.5 % 0-1 [facility] Carbon dioxide, total [Moles /volume] in Central venous bloodOrdered By: Jakub Jones on 01-30-2025 CO2 [Moles/Vol] 22.9 mmol/L 21.0-32.0 [facility] Chloride assayOrdered By: Oral Jones on 01-30-2025 Chloride [Moles/Vol] 104 mmol/L 98-108 [facility] Eosinophil percentageOrdered By: Jakub Jones on 01-30-2025 Eosinophils/100 WBC (Bld) 1.0 % 0-5 [facility] Erythrocyte distribution wid th ratioOrdered By: Jakub Jones on 01-30-2025 Erythrocyte distribution width (RBC) [Ratio] 12.7 % 11.6-14.6 [facility] Erythrocyte distribution wid th standard deviationOrdered By: Jakub Jones on 01-30-2025 Erythrocyte distribution width (RBC) [Ratio] 40.7 fl 35.1-43.9 [facility] Glomerular filtration rate ( GFR) estimation/1.73 sq m using serum, plasma, or whole bOrdered By: Jakub Jones on 01-30-2025 GFR/1.73 sq M.predicted among non-blacks MDRD (S/P/Bld) [Vol rate/Area] 75 mL/min/{1.73_m2} >60 [facility] Comment on above: mL/min/1.73m2 CKD-EP I Creatinine Equation (2020) Hematocrit Auto (Bld) [Volum e fraction]Ordered By: Jakub Jones on 01-30-2025 Hematocrit (Bld) [Volume fraction] 39.8 % 37-47 [facility] Hemoglobin measurementOrdere d By: Jakub Jones on 01-30-2025 Hemoglobin (Bld) [Mass/Vol] 13.7 g/dL 12.0-15.0 [facility] Immature granulocytes/100 WB C Auto (Bld)Ordered By: Jakub Jones on 01-30-2025 Immature granulocytes/100 WBC (Bld) 0.400 % 0.0-0.9 [facility] Comment on above: IG% - Immature Granu locytes (promyelocytes, myelocytes and metamyelocytes) > 1% indicates that a LEFT SHIFT is Present. MCV (mean corpuscular volume ) determinationOrdered By: Jakub Jones on 01-30-2025 MCV (RBC) [Entitic vol] 88.2 fL 81-99 [facility] Mean corpuscular hemoglobin (MCH) determinationOrdered By: Jakub Jones on 01-30-2025 MCH (RBC) [Entitic mass] 30.4 pg 27.0-32.0 [facility] Mean corpuscular hemoglobin concentration (MCHC) determinationOrdered By: Jakub Jones on 01-30-2025 MCHC (RBC) [Mass/Vol] 34.4 g/dL 32-36 [facility] Mean platelet volume determi nationOrdered By: Jakub Jones on 01-30-2025 Platelet mean volume (Bld) [Entitic vol] 11.5 fL 6.2-12.0 [facility] Monocyte percentageOrdered B y: Jakub Jones on 01-30-2025 Monocytes/100 WBC (Bld) 5.0 % 0-10 [facility] Neutrophil percentageOrdered By: Jakub Jones on 01-30-2025 Neutrophils/100 WBC (Bld) 79.7 % High 47-70 [facility] Nucleated red blood cell per centageOrdered By: Jakub Jones on 01-30-2025 Nucleated RBC/100 WBC (Bld) [Ratio] 0 % 0-5 [facility] Platelet countOrdered By: Oral Jones on 01-30-2025 Platelets (Bld) [#/Vol] 359 10*3/uL 150-450 [facility] Potassium measurement (mass/ volume)Ordered By: Jakub Jones on 01-30-2025 Potassium (Unsp spec) [Mass/Vol] 3.6 mmol/L 3.3-5.1 [facility] RBC Auto (Bld) [#/Vol]Ordere d By: Jakub Jones on 01-30-2025 RBC (Bld) [#/Vol] 4.51 10*6/uL 4.2-5.4 [facility] Serum creatinine measurement (mass/volume)Ordered By: Jakub Jones on 01-30-2025 Creatinine [Mass/Vol] 0.97 mg/dL 0.70-1.20 [facility] Serum glucose measurement (m ass/volume)Ordered By: Jakub Jones on 01-30-2025 Glucose [Mass/Vol] 111 mg/dL High 70-99 [facility] Serum or plasma calcium jami urement (mass/volume)Ordered By: Jakub Jones on 01-30-2025 Calcium [Mass/Vol] 9.3 mg/dL 7.6-11.0 [facility] Serum or plasma urea nitroge n measurement (mass/volume)Ordered By: Jakub Jones on 01-30-2025 Urea nitrogen [Mass/Vol] 8 mg/dL 4-19 [facility] Sodium levelOrdered By: Jakub Jones on 01-30-2025 Sodium [Moles/Vol] 139 mmol/L 133-145 [facility] White blood cell (WBC) count Ordered By: Jakub Jones on 01-30-2025 WBC (Bld) [#/Vol] 16.3 10*3/uL High 4.4-11.0 [facility] CNOVon 01-22-2025 CNOV Office Visit (OBGYWM) CATRACHITA MURRAY ([id number]) 1985 F Date Time Provider Department 01/22/25 11:10 AM MANOLO HARRINGTON OBSELENA During your visit today, we recorded the following information about you: Blood pressure Weight 110/88 94.8 kg Manolo Harrington MD 01/22/2025 11:31 AM Signed [employer] Supervisor offered: Patient accepts, visit chaperoned by Essie Sandoval MA. Catrachita Murray is a 39 year old female who presents for problem visit subsequent to ER visits for painful ovarian cysts/follicles that resolved spontaneously. HPI: as above, DANNA 2000 for fibroids/HMB OB History Gravida3 Para3 Term3 Preterm0 AB0 Living2 SAB0 IAB0 Ectopic0 Multiple0 Live Births1 All Source Analyst History LMP: 2019 (Exact Date), Hysterectomy Age at Menarche: Age at First : Age at Menopause: All Source Analyst History Comments: Sexual Activity: Yes; Male Contraception: [...] discussed with the Patient or Patient's Authorized Veterinary Poultry Inspector. As applicable, any other physician, advance practice provider, medical student, or other health professional student that will be observing or involved in the sensitive examination for educational or training purposes was discussed with the Patient or Authorized Veterinary Poultry Inspector. The Patient or Authorized Veterinary Poultry Inspector has agreed to proceed with the sensitive examination. (Sensitive examination includes inspection and/or palpation of the breasts, pelvis, prostate and anorectal regions). EXAM: BP 110/88 Wt 209 lb (94.8kg) LMP 2019 GENERAL: pleasant, female in no apparent distress PELVIC: external genitalia normal, normal Bartholin's glands, urethra, [place]'s glands, no vulvar lesions, no cervical lesions, [...] as of (more content not included)... [facility] (OBGYWM[facility] CATRACHITA MURRAY ([id number]) 1985 F Date Time Provider Department 01/21/25 [...] Date Reviewed: 10/21/2024 Reviewed by: Radha Phillips, KATHRYN.REFORMATORY ATTENDANT - Fully Assessed Prescriptions as of 01/21/2025 [...] Status:Closed by [facility] NORRIS on 01/21/25 Normal [facility] Abdomen/Pelvis W IV Cont ONL Yon 01-20-2025 Abdomen/Pelvis W IV Cont ONLY [facility] Imaging Services [address] [place] [address] Abdomen/Pelvis W IV Cont ONLY MR#: [id number] Acct: [id number] Name: CATRACHITA MURRAY Rep #: [id number] : 1985 F 39 From: Jimenez dobson MD PCP: Dr. Celso Brewer MD Status: [facility] ER Study: Abdomen/Pelvis W IV Cont ONLY Date of Exam: Exam# [id number] Ordering Dr: Rajan Fay DO PROCEDURE: ABDOMEN/PELVIS [...] suggestive of ruptured ovarian cyst. Reading Location: [place] [address] CC: Dr. Rajan Fay DO; Dr. Celso Brewer MD Licensed Professional Counselor: Signed Normal [facility] Absolute lymphocyte countOrd ered By: Rajanmaggie Fay on 01-20-2025 Lymphocytes Auto (Unsp spec) [#/Vol] 2.44 10*3/uL 0.83-4.51 [facility] Absolute neutrophil countOrd ered By: [place] Sumeet on 01-20-2025 Neutrophils (Bld) [#/Vol] 6.0 10*3/uL 2.0-7.7 [facility] Anion gap in Serum or Plasma Ordered By: Rajanmaggie Fay on 01-20-2025 Anion gap [Moles/Vol] 14 mmol/L 5-15 [facility] Automated lymphocyte count a s percentage of total leukocytesOrdered By: Rajanmaggie Fay on 01-20-2025 Lymphocytes/100 WBC Auto (Unsp spec) 26.0 % 19-41 [facility] BUN/creatinine ratioOrdered By: [place] Jon Sumeet on 01-20-2025 Urea nitrogen/Creatinine [Mass ratio] 8.6 mg/mg Low 10-20 [facility] Basophil percentageOrdered B y: Rajan Fay on 01-20-2025 Basophils/100 WBC (Bld) 0.9 % 0-1 [facility] Bilirubin Test strip Ql (U)O rdered By: Rajanmaggie Fay on 01-20-2025 Bilirubin Ql (U) Negative Negative [facility] Bilirubin, totalOrdered By: San Jon Sumeet on 01-20-2025 Bilirubin [Mass/Vol] 0.40 mg/dL 0.00-1.30 [facility] CBC W/Diff, Automatedon 01-05 Absolute Lymph 2.44 X10 3/uL Normal 0.83-4.51 [facility] Comment on above: Performed By: #### L 100.0100 ####[facility] [address] [place], [place], [id number] Absolute Neut 6.0 X10 3/uL Normal 2.0-7.7 [facility] Comment on above: Performed By: #### L 100.0100 ####[facility] [address] [place], [address] Basophils/100 WBC (Bld) 0.9 % Normal 0-1 [facility] Comment on above: Performed By: #### L 100.0100 ####[facility] [address] [place], [address] Eosinophils/100 WBC (Bld) 2.4 % Normal 0-5 [facility] Comment on above: Performed By: #### L 100.0100 ####[facility] [address] [place], [address] Erythrocyte distribution width (RBC) [Ratio] 12.5 % Normal 11.6-14.6 [facility] Comment on above: Performed By: #### L 100.0100 ####[facility] [address] [place], [address] Hematocrit (Bld) [Volume fraction] 43.1 % Normal 37-47 [facility] Comment on above: Performed By: #### L 100.0100 ####[facility] [address] [place], [address] Hemoglobin (Bld) [Mass/Vol] 15.0 g/dL Normal 12.0-15.0 [facility] Comment on above: Performed By: #### L 100.0100 ####[facility] [address] [place], [address] IG% 0.200 Normal 0.0-0.9 [facility] Comment on above: Result Comment: IG% - Immature Granulocytes (promyelocytes, myelocytes and metamyelocytes) > 1% indicates that a LEFT SHIFT is Present. Performed By: #### L 100.0100 ####[facility] [address] [place], [address] Lymphocytes/100 WBC (Bld) 26.0 % Normal 19-41 [facility] Comment on above: Performed By: #### L 100.0100 ####[facility] [address] [place], [address] MCH (RBC) [Entitic mass] 30.2 pg Normal 27.0-32.0 [facility] Comment on above: Performed By: #### L 100.0100 ####[facility] [address] [place], [address] MCHC (RBC) [Mass/Vol] 34.8 g/dL Normal 32-36 [facility] Comment on above: Performed By: #### L 100.0100 ####[facility] [address] [place], [address] MCV (RBC) [Entitic vol] 86.9 fL Normal 81-99 [facility] Comment on above: Performed By: #### L 100.0100 ####[facility] [address] [place], [address] Monocytes/100 WBC (Bld) 6.7 % Normal 0-10 [facility] Comment on above: Performed By: #### L 100.0100 ####[facility] [address] [place], [address] Neutrophils/100 WBC (Bld) 63.8 % Normal 47-70 [facility] Comment on above: Performed By: #### L 100.0100 ####[facility] [address] [place], [address] Nucleated RBC (Bld) [#/Vol] 0 10*3/uL Normal 0-5 [facility] Comment on above: Performed By: #### L 100.0100 ####[facility] [address] [place], [address] Platelet mean volume (Bld) [Entitic vol] 11.0 fL Normal 6.2-12.0 [facility] Comment on above: Performed By: #### L 100.0100 ####[facility] [address] [place], [address] Platelets (Bld) [#/Vol] 340 10*3/uL Normal 150-450 [facility] Comment on above: Performed By: #### L 100.0100 ####[facility] [address] [place], [address] RBC (Bld) [#/Vol] 4.96 10*6/uL Normal 4.2-5.4 [facility] Comment on above: Performed By: #### L 100.0100 ####[facility] [address] [place], [address] RDW SD 39.2 fl Normal 35.1-43.9 [facility] Comment on above: Performed By: #### L 100.0100 ####[facility] [address] [place], [address] WBC (Bld) [#/Vol] 9.4 10*3/uL Normal 4.4-11.0 [facility] Comment on above: Performed By: #### L 100.0100 ####[facility] [address] [place], [address] Carbon dioxide, total [Moles /volume] in Central venous bloodOrdered By: Rajan Fay on 01-20-2025 CO2 [Moles/Vol] 21.6 mmol/L 21.0-32.0 [facility] Chloride assayOrdered By: Eldon Fay on 01-20-2025 Chloride [Moles/Vol] 102 mmol/L 98-108 [facility] Comprehensive Metabolic Prof ilon 01-20-2025 Albumin [Mass/Vol] 4.6 g/dL Normal 3.5-5.0 [facility] Comment on above: Performed By: #### L 503.6005, L500.4050, L501.2450, L700.6800 #### [facility] [address], [address] Albumin/Globulin [Mass ratio] 1.5 {ratio} Normal 0.9-2.4 [facility] Comment on above: Performed By: #### L 503.6005, L500.4050, L501.2450, L700.6800 #### [facility] [address] [place] [place], [address] ALK PHOS 72 U/L Normal 35-104 [facility] Comment on above: Performed By: #### L 503.6005, L500.4050, L501.2450, L700.6800 #### [facility] [address] [place], [address] ALT [Catalytic activity/Vol] 39 U/L High <=34 [facility] Comment on above: Performed By: #### L 503.6005, L500.4050, L501.2450, L700.6800 #### [facility] [address] [place], [address] AST [Catalytic activity/Vol] 24 U/L Normal <=31 [facility] Comment on above: Performed By: #### L 503.6005, L500.4050, L501.2450, L700.6800 #### [facility] [address] [place], [address] Bilirubin [Mass/Vol] 0.40 mg/dL Normal 0.00-1.30 [facility] Comment on above: Performed By: #### L 503.6005, L500.4050, L501.2450, L700.6800 #### [facility] [address] [place], [address] BUN/CRE 8.6 RATIO Low 10-20 [facility] Comment on above: Performed By: #### L 503.6005, L500.4050, L501.2450, L700.6800 #### [facility] [address] [place], [address] Calcium [Mass/Vol] 9.4 mg/dL Normal 7.6-11.0 [facility] Comment on above: Performed By: #### L 503.6005, L500.4050, L501.2450, L700.6800 #### [facility] [address] [place], [address] Chloride [Moles/Vol] 102 mmol/L Normal 98-108 [facility] Comment on above: Performed By: #### L 503.6005, L500.4050, L501.2450, L700.6800 #### [facility] [address] [place], [address] CO2 [Moles/Vol] 21.6 mmol/L Normal 21.0-32.0 [facility] Comment on above: Performed By: #### L 503.6005, L500.4050, L501.2450, L700.6800 #### [facility] [address] [place], [address] Creatinine [Mass/Vol] 0.99 mg/dL Normal 0.70-1.20 [facility] Comment on above: Performed By: #### L 503.6005, L500.4050, L501.2450, L700.6800 #### [facility] [address] [place], [address] ECRCL 85.80 ml/min Normal 50-250 [facility] Comment on above: Performed By: #### L 503.6005, L500.4050, L501.2450, L700.6800 #### [facility] [address] [place], [address] GAP 14 Normal 5-15 [facility] Comment on above: Performed By: #### L 503.6005, L500.4050, L501.2450, L700.6800 #### [facility] [address] [place], [address] GFR/1.73 sq M.predicted among non-blacks MDRD (S/P/Bld) [Vol rate/Area] 73 mL/min/{1.73_m2} Normal >60 [facility] Comment on above: Result Comment: mL/m in/1.73m2 CKD-EPI Creatinine Equation (2020) Performed By: #### L 503.6005, L500.4050, L501.2450, L700.6800 #### [facility] [address] [place], [address] Globulin (S) [Mass/Vol] 3.0 g/dL Normal 2.2-4.2 [facility] Comment on above: Performed By: #### L 503.6005, L500.4050, L501.2450, L700.6800 #### [facility] [address] [place], [address] Glucose [Mass/Vol] 106 mg/dL High 70-99 [facility] Comment on above: Performed By: #### L 503.6005, L500.4050, L501.2450, L700.6800 #### [facility] [address] [place], [address] Potassium [Moles/Vol] 3.7 mmol/L Normal 3.3-5.1 [facility] Comment on above: Performed By: #### L 503.6005, L500.4050, L501.2450, L700.6800 #### [facility] [address] [place], [address] Sodium [Moles/Vol] 138 mmol/L Normal 133-145 [facility] Comment on above: Performed By: #### L 503.6005, L500.4050, L501.2450, L700.6800 #### [facility] [address], [address] T PROT 7.7 g/dL Normal 5.9-8.4 [facility] Comment on above: Performed By: #### L 503.6005, L500.4050, L501.2450, L700.6800 #### [facility] [address] [place], [address] Urea nitrogen [Mass/Vol] 9 mg/dL Normal 4-19 [facility] Comment on above: Performed By: #### L 503.6005, L500.4050, L501.2450, L700.6800 #### [facility] [address] [place], [address] Emergency Department Summary on 01-20-2025 Emergency Department Summary [facility] Medical Records Department [address] [place] [address] Emergency Department Summary 01/20/25 MR#: [id number] Acct: [id number] Name: CATRACHITA MURRAY Rep #: [id number] : 1985 39 From: Rajan Fay DO [...] right ovarian cyst rupture. She follows with [facility] PHYSICIAN EXTENDER. She states she called them today and [...] intact Psych: Cooperative, appropriate mood and affect [facility] Medical History History of postoperative nausea and [...] hypotonic flu (more content not included)... Normal [facility] Eosinophil percentageOrdered By: Rajan Fay on 01-20-2025 Eosinophils/100 WBC (Bld) 2.4 % 0-5 [facility] Erythrocyte distribution wid th ratioOrdered By: Rajan Fay on 01-20-2025 Erythrocyte distribution width (RBC) [Ratio] 12.5 % 11.6-14.6 [facility] Erythrocyte distribution wid th standard deviationOrdered By: Rajan Emanuel on 01-20-2025 Erythrocyte distribution width (RBC) [Ratio] 39.2 fl 35.1-43.9 [facility] Glomerular filtration rate ( GFR) estimation/1.73 sq m using serum, plasma, or whole bOrdered By: Rajan Fay on 01-20-2025 GFR/1.73 sq M.predicted among non-blacks MDRD (S/P/Bld) [Vol rate/Area] 73 mL/min/{1.73_m2} >60 [facility] Comment on above: mL/min/1.73m2 CKD-EP I Creatinine Equation (2020) Hematocrit Auto (Bld) [Volum e fraction]Ordered By: [facility] 01-[facility]-2025 Hematocrit (Bld) [Volume fraction] 43.1 % 37-47 [facility] Hemoglobin measurementOrdere d By: Rajanmaggie Fay on 01-20-2025 Hemoglobin (Bld) [Mass/Vol] 15.0 g/dL 12.0-15.0 [facility] Immature granulocytes/100 WB C Auto (Bld)Ordered By: Rajanmaggie Fay on 01-20-2025 Immature granulocytes/100 WBC (Bld) 0.200 % 0.0-0.9 [facility] Comment on above: IG% - Immature Granu locytes (promyelocytes, myelocytes and metamyelocytes) > 1% indicates that a LEFT SHIFT is Present. Ketones Test strip Ql (U)Ord ered By: Rajanmaggie Fay on 01-20-2025 Ketones Ql (U) Negative Negative [facility] - Chemistry and C hemistry - challengeOrdered By: Rajan Fay on 01-20-2025 AST [Catalytic activity/Vol] 24 U/L <32 [facility] Lactic Acidon 01-20-2025 Lactate [Moles/Vol] 1.5 mmol/L Normal 0.0-2.0 [facility] Comment on above: Order Comment: Y Performed By: #### L 503.6002, L500.4050, L501.2450, L700.2840 #### [facility] [address] [place], [address] Lactic acid measurementOrder ed By: Rajan Fay on 01-20-2025 Lactate [Moles/Vol] 1.5 mmol/L 0.0-2.0 [facility] Lipaseon 01-20-2025 Lipase [Catalytic activity/Vol] 29 U/L Normal 13-75 [facility] Comment on above: Result Comment: Kassandra zaragoza note: LIPASE revised reference range effective 22. New Lipase methodology. Expected to produce lower values than the previous assay method. NEW Reference Range: 13 - 75 U/L Performed By: #### L 503.6005, L500.4050, L501.2450, L700.6800 #### [facility] [address] [place], [address] Lipase measurementOrdered By : Rajan Fay on 01-20-2025 Lipase [Catalytic activity/Vol] 29 U/L - [facility] Comment on above: Please note:LIPASE r evised reference range effective 22. New Lipase methodology. Expected to produce lower values than the previous assay method. NEW Reference Range: 13 - 75 U/L MCV (mean corpuscular volume ) determinationOrdered By: Rajan Fay on 01-20-2025 MCV (RBC) [Entitic vol] 86.9 fL 81-99 [facility] Mean corpuscular hemoglobin (MCH) determinationOrdered By: Rajan Fay on 01-20-2025 MCH (RBC) [Entitic mass] 30.2 pg 27.0-32.0 [facility] Mean corpuscular hemoglobin concentration (MCHC) determinationOrdered By: Rajan Fay on 01-20-2025 MCHC (RBC) [Mass/Vol] 34.8 g/dL 32-36 [facility] Mean platelet volume determi nationOrdered By: Rajan Fay on 01-20-2025 Platelet mean volume (Bld) [Entitic vol] 11.0 fL 6.2-12.0 [facility] Microscopic analysis of urin e for red blood cells (RBC)Ordered By: Rajan Fay on 01-20-2025 Microscopic analysis of urine for red blood cells (RBC) 0 SEEN /hpf 0-5 [facility] Monocyte percentageOrdered B y: Rajan Fay on 01-20-2025 Monocytes/100 WBC (Bld) 6.7 % 0-10 [facility] Mucus LM Ql (Urine sed)Order ed By: Rajan Fay on 01-20-2025 Mucus Ql (Urine sed) 0 SEEN /hpf [facility] Neutrophil percentageOrdered By: Rajan Fay on 01-20-2025 Neutrophils/100 WBC (Bld) 63.8 % 47-70 [facility] Nitrite Test strip Ql (U)Ord ered By: Rajan Fay on 01-20-2025 Nitrite Ql (U) Negative Negative [facility] Nucleated red blood cell per centageOrdered By: Rajan Fay on 01-20-2025 Nucleated RBC/100 WBC (Bld) [Ratio] 0 % 0-5 [facility] Platelet countOrdered By: Eldon Fay on 01-20-2025 Platelets (Bld) [#/Vol] 340 10*3/uL 150-450 [facility] Potassium measurement (mass/ volume)Ordered By: Rajan Fay on 01-20-2025 Potassium (Unsp spec) [Mass/Vol] 3.7 mmol/L 3.3-5.1 [facility] ,Serum,hCG Quali.on 01-20-2025 HCG, SERUM QUAL Normal [facility] Comment on above: Result Comment: Canc elled via OM: Ordered Performed By: #### L 503.6005, L500.4050, L501.2450, L700.6800 #### [facility] [address] [place], [address] INTERNAL QC OK? Normal [facility] Comment on above: Result Comment: Canc danteed via OM: Ordered Performed By: #### L 503.6005, L500.4050, L501.2450, L700.6800 #### [facility] [address] [place], [place], [address] RECORD KIT LOT# Normal [facility] Comment on above: Result Comment: Hannah driver via OM: MD Ordered Performed By: #### L 503.6005, L500.4050, L501.2450, L700.6800 #### [facility] [address] [place], [address] Protein Test strip Ql (U)Ord ered By: Rajan Fay on 01-20-2025 Protein Ql (U) 15 mg/dl High Negative [facility] RBC Auto (Bld) [#/Vol]Ordere d By: Rajan Fay on 01-20-2025 RBC (Bld) [#/Vol] 4.96 10*6/uL 4.2-5.4 [facility] Serum creatinine measurement (mass/volume)Ordered By: Rajan Fay on 01-20-2025 Creatinine [Mass/Vol] 0.99 mg/dL 0.70-1.20 [facility] Serum globulin measurementOr dered By: Rajan Fay on 01-20-2025 Globulin (S) [Mass/Vol] 3.0 g/dL 2.2-4.2 [facility] Serum glucose measurement (m ass/volume)Ordered By: Rajan Fay on 01-20-2025 Glucose [Mass/Vol] 106 mg/dL High 70-99 [facility] Serum or plasma alanine mike otransferase (ALT) measurementOrdered By: Rajan Fay on 01-20-2025 ALT [Catalytic activity/Vol] 39 U/L High <35 [facility] Serum or plasma albumin jami urement (mass/volume)Ordered By: Rajan Emanuel on 01-20-2025 Albumin [Mass/Vol] 4.6 g/dL 3.5-5.0 [facility] Serum or plasma albumin/glob ulin mass ratioOrdered By: Rajan Fay on 01-20-2025 Albumin/Globulin [Mass ratio] 1.5 {ratio} 0.9-2.4 [facility] Serum or plasma alkaline cassia sphatase measurementOrdered By: Rajan Fay on 01-20-2025 ALP [Catalytic activity/Vol] 72 U/L 35-104 [facility] Serum or plasma calcium jami urement (mass/volume)Ordered By: Rajan Emanuel on 01-20-2025 Calcium [Mass/Vol] 9.4 mg/dL 7.6-11.0 [facility] Serum or plasma urea nitroge n measurement (mass/volume)Ordered By: Rajan Fay on 01-20-2025 Urea nitrogen [Mass/Vol] 9 mg/dL 4-19 [facility] Sodium levelOrdered By: Rayo Fay on 01-20-2025 Sodium [Moles/Vol] 138 mmol/L 133-145 [facility] Squamous epithelial cells de tection in urine sediment by light microscopyOrdered By: Rajan Fay on 01-20-2025 Epithelial cells.squamous LM Ql (Urine sed) 0-5 SEEN /hpf 5-10 [facility] Total proteinOrdered By: Keshawn Fay on 01-20-2025 Protein [Mass/Vol] 7.7 g/dL 5.9-8.4 [facility] Transvaginal Non-on 01-20-2025 Transvaginal Non- [facility] Imaging Services [address] [place] [address] Transvaginal Non- MR#: [id number] Acct: [id number] Name: CATRACHITA MURRAY Rep #: [id number] : 1985 F 39 From: Jimenez dobson MD PCP: Dr. Celso Brewer MD Status: REG ER Study: Transvaginal Non- Date of Exam: Exam# [id number] Ordering Dr: Rajan Fay DO PROCEDURE: TRANSVAGINAL [...] left ovary. Status post hysterectomy. Reading Location: [place] [address] CC: Dr. Rajan Fay DO; Dr. Celso Brewer MD Licensed Professional Counselor: Signed Normal [facility] Urinalysis, Completeon 01-20 EPI,SQUAMOUS 0-5 SEEN Normal 5-10 [facility] Comment on above: Order Comment: CLEAN CATCH Performed By: #### L 400.0001 ####[facility] [address] [place], [address] WBC 0-5 SEEN Normal 0-5 [facility] Comment on above: Order Comment: CLEAN CATCH Performed By: #### L 400.0001 ####[facility] [address] [facility] [address] BACTERIA 0 SEEN Normal None Seen [facility] Comment on above: Order Comment: CLEAN CATCH Performed By: #### L 400.0001 ####[facility] [address] [place], [address] Mucus Ql (Urine sed) 0 SEEN Normal [facility] Comment on above: Order Comment: CLEAN CATCH Performed By: #### L 400.0001 ####[facility] [address] [place], [address] RBC 0 SEEN Normal 0-5 [facility] Comment on above: Order Comment: CLEAN CATCH Performed By: #### L 400.0001 ####[facility] [address] [place], [address] Urine clarityOrdered By: Keshawn Fay on 01-20-2025 Clarity (U) Sl. Cloudy Clear [facility] Urine color determinationOrd ered By: Rajan Fay on 01-20-2025 Color (U) Yellow Yellow [facility] Urine glucose detectionOrder ed By: Rajan Fay on 01-20-2025 Glucose Ql (U) Normal mg/dl Normal [facility] Urine leukocyte esterase det ection by dipstickOrdered By: Rajan Fay on 01-20-2025 Leukocyte esterase Test strip Ql (U) 100 /ul High Negative [facility] Urine pHOrdered By: Rajan Sal on 01-20-2025 pH (U) 6.5 [pH] 5.0 - 8.0 [facility] Urine sediment bacteria coun t by microscopy (number/high power field)Ordered By: Rajan Fay on 01-20-2025 Bacteria LM.HPF (Urine sed) [#/Area] 0 /[HPF] None Seen [facility] Urine specific gravity measu rementOrdered By: Rajan Fay on 01-20-2025 Specific gravity (U) [Rel density] 1.010 1.002-1.030 [facility] Urine urobilinogen measureme ntOrdered By: Rajan Fay on 01-20-2025 Urobilinogen Ql (U) Normal mg/dl Normal [facility] White blood cell (WBC) count Ordered By: Rajan Fay on 01-20-2025 WBC (Bld) [#/Vol] 9.4 10*3/uL 4.4-11.0 [facility] White blood cell countOrdere d By: Rajan Fay on 01-20-2025 White blood cell count 0-5 SEEN /hpf 0-5 [facility] Abdomen/Pelvis W IV Cont ONL Yon 12-22-2024 Abdomen/Pelvis W IV Cont ONLY [facility] Imaging Services [address] [place] [address] Abdomen/Pelvis W IV Cont ONLY MR#: [id number] Acct: [id number] Name: CATRACHITA MURRAY Rep #: [id number] : 1985 F 39 From: Aki garcia MD PCP: Dr. Celso Brewer MD Status: REG ER Study: Abdomen/Pelvis W IV Cont ONLY Date of Exam: Exam# [id number] Ordering Dr: Rajan Fay DO PROCEDURE: ABDOMEN/PELVIS [...] fluid, likely secondary to rupture. [facility] CC: Dr. Rajan Fay, DO; Dr. Celso Brewer MD Licensed Professional Counselor: Signed Normal [facility] Absolute lymphocyte countOrd ered By: Rajan Fay on 12-22-2024 Lymphocytes Auto (Unsp spec) [#/Vol] 1.82 10*3/uL 0.83-4.51 [facility] Absolute neutrophil countOrd ered By: Rajan Fay on 12-22-2024 Neutrophils (Bld) [#/Vol] 9.4 10*3/uL High 2.0-7.7 [facility] Anion gap in Serum or Plasma Ordered By: Rajan Fay on 12-22-2024 Anion gap [Moles/Vol] 14 mmol/L 5-15 [facility] Automated lymphocyte count a s percentage of total leukocytesOrdered By: Rajan Fay on 12-22-2024 Lymphocytes/100 WBC Auto (Unsp spec) 15.3 % Low 19-41 [facility] BUN/creatinine ratioOrdered By: Rajan Fay on 12-22-2024 Urea nitrogen/Creatinine [Mass ratio] 9.0 mg/mg Low 10-20 [facility] Basophil percentageOrdered B y: Rajan Fay on 12-22-2024 Basophils/100 WBC (Bld) 0.7 % 0-1 [facility] Bilirubin Test strip Ql (U)O rdered By: Rajan Fay on 12-22-2024 Bilirubin Ql (U) Negative Negative [facility] Bilirubin, totalOrdered By: Rajan Fay on 12-22-2024 Bilirubin [Mass/Vol] 0.46 mg/dL 0.00-1.30 [facility] CBC W/Diff, Automatedon 12-05 Absolute Lymph 1.82 X10 3/uL Normal 0.83-4.51 [facility] Comment on above: Performed By: #### L 503.6005, L100.0100, L500.4050, L501.2450 ####[facility] [address] [place], [address] Absolute Neut 9.4 X10 3/uL High 2.0-7.7 [facility] Comment on above: Performed By: #### L 503.6005, L100.0100, L500.4050, L501.2450 ####[facility] [address] [place], [address] Basophils/100 WBC (Bld) 0.7 % Normal 0-1 [facility] Comment on above: Performed By: #### L 503.6005, L100.0100, L500.4050, L501.2450 ####[facility] [address] [place], [address] Eosinophils/100 WBC (Bld) 0.9 % Normal 0-5 [facility] Comment on above: Performed By: #### L 503.6005, L100.0100, L500.4050, L501.2450 ####[facility] [address] [place], [address] Erythrocyte distribution width (RBC) [Ratio] 12.5 % Normal 11.6-14.6 [facility] Comment on above: Performed By: #### L 503.6005, L100.0100, L500.4050, L501.2450 ####[facility] [address] [place], [address] Hematocrit (Bld) [Volume fraction] 42.2 % Normal 37-47 [facility] Comment on above: Performed By: #### L 503.6005, L100.0100, L500.4050, L501.2450 ####[facility] [address] [place], [address] Hemoglobin (Bld) [Mass/Vol] 14.7 g/dL Normal 12.0-15.0 [facility] Comment on above: Performed By: #### L 503.6005, L100.0100, L500.4050, L501.2450 ####[facility] [address] [place], [address] IG% 0.300 Normal 0.0-0.9 [facility] Comment on above: Result Comment: IG% - Immature Granulocytes (promyelocytes, myelocytes and metamyelocytes) > 1% indicates that a LEFT SHIFT is Present. Performed By: #### L 503.6005, L100.0100, L500.4050, L501.2450 ####[facility] [address] [place], [address] Lymphocytes/100 WBC (Bld) 15.3 % Low 19-41 [facility] Comment on above: Performed By: #### L 503.6005, L100.0100, L500.4050, L501.2450 ####[facility] [address] [place], [address] MCH (RBC) [Entitic mass] 30.6 pg Normal 27.0-32.0 [facility] Comment on above: Performed By: #### L 503.6005, L100.0100, L500.4050, L501.2450 ####[facility] [address] [place], [address] MCHC (RBC) [Mass/Vol] 34.8 g/dL Normal 32-36 [facility] Comment on above: Performed By: #### L 503.6005, L100.0100, L500.4050, L501.2450 ####[facility] [address] [place], [address] MCV (RBC) [Entitic vol] 87.7 fL Normal 81-99 [facility] Comment on above: Performed By: #### L 503.6005, L100.0100, L500.4050, L501.2450 ####[facility] [address] [place], [address] Monocytes/100 WBC (Bld) 4.4 % Normal 0-10 [facility] Comment on above: Performed By: #### L 503.6005, L100.0100, L500.4050, L501.2450 ####[facility] [address] [place], [address] Neutrophils/100 WBC (Bld) 78.4 % High 47-70 [facility] Comment on above: Performed By: #### L 503.6005, L100.0100, L500.4050, L501.2450 ####[facility] [address] [place], [address] Nucleated RBC (Bld) [#/Vol] 0 10*3/uL Normal 0-5 [facility] Comment on above: Performed By: #### L 503.6005, L100.0100, L500.4050, L501.2450 ####[facility] [address] [place], [address] Platelet mean volume (Bld) [Entitic vol] 10.8 fL Normal 6.2-12.0 [facility] Comment on above: Performed By: #### L 503.6005, L100.0100, L500.4050, L501.2450 ####[facility] [address] [place], [address] Platelets (Bld) [#/Vol] 363 10*3/uL Normal 150-450 [facility] Comment on above: Performed By: #### L 503.6005, L100.0100, L500.4050, L501.2450 ####[facility] [address] [place], [address] RBC (Bld) [#/Vol] 4.81 10*6/uL Normal 4.2-5.4 [facility] Comment on above: Performed By: #### L 503.6005, L100.0100, L500.4050, L501.2450 ####[facility] [address] [place], [address] RDW SD 40.3 fl Normal 35.1-43.9 [facility] Comment on above: Performed By: #### L 503.6005, L100.0100, L500.4050, L501.2450 ####[facility] [address] [place], [address] WBC (Bld) [#/Vol] 11.9 10*3/uL High 4.4-11.0 [facility] Comment on above: Performed By: #### L 503.6005, L100.0100, L500.4050, L501.2450 ####[facility] [address] [place], [address] Carbon dioxide, total [Moles /volume] in Central venous bloodOrdered By: Rajan Fay on 12-22-2024 CO2 [Moles/Vol] 21.9 mmol/L 21.0-32.0 [facility] Chloride assayOrdered By: Eldon Fay on 12-22-2024 Chloride [Moles/Vol] 103 mmol/L 98-108 [facility] Comprehensive Metabolic Prof ilon 12-22-2024 Albumin [Mass/Vol] 4.7 g/dL Normal 3.5-5.0 [facility] Comment on above: Performed By: #### L 503.6005, L100.0100, L500.4050, L501.2450 ####[facility] [address] [place], [address] Albumin/Globulin [Mass ratio] 1.5 {ratio} Normal 0.9-2.4 [facility] Comment on above: Performed By: #### L 503.6005, L100.0100, L500.4050, L501.2450 ####[facility] [address], [address] ALK PHOS 67 U/L Normal 35-104 [facility] Comment on above: Performed By: #### L 503.6005, L100.0100, L500.4050, L501.2450 ####[facility] [address], [address] ALT [Catalytic activity/Vol] 25 U/L Normal <=34 [facility] Comment on above: Performed By: #### L 503.6005, L100.0100, L500.4050, L501.2450 ####[facility] [address] [place], [address] AST [Catalytic activity/Vol] 20 U/L Normal <=31 [facility] Comment on above: Performed By: #### L 503.6005, L100.0100, L500.4050, L501.2450 ####[facility] [address], [address] Bilirubin [Mass/Vol] 0.46 mg/dL Normal 0.00-1.30 [facility] Comment on above: Performed By: #### L 503.6005, L100.0100, L500.4050, L501.2450 ####[facility] [address] [place], [address] BUN/CRE 9.0 RATIO Low 10-20 [facility] Comment on above: Performed By: #### L 503.6005, L100.0100, L500.4050, L501.2450 ####[facility] [address] [place], [address] Calcium [Mass/Vol] 9.6 mg/dL Normal 7.6-11.0 [facility] Comment on above: Performed By: #### L 503.6005, L100.0100, L500.4050, L501.2450 ####[facility] [address] [place], [address] Chloride [Moles/Vol] 103 mmol/L Normal 98-108 [facility] Comment on above: Performed By: #### L 503.6005, L100.0100, L500.4050, L501.2450 ####[facility] [address] [place], [address] CO2 [Moles/Vol] 21.9 mmol/L Normal 21.0-32.0 [facility] Comment on above: Performed By: #### L 503.6005, L100.0100, L500.4050, L501.2450 ####[facility] [address] [place], [address] Creatinine [Mass/Vol] 0.97 mg/dL Normal 0.70-1.20 [facility] Comment on above: Performed By: #### L 503.6005, L100.0100, L500.4050, L501.2450 ####[facility] [address] [place], [address] ECRCL 88.01 ml/min Normal 50-250 [facility] Comment on above: Performed By: #### L 503.6005, L100.0100, L500.4050, L501.2450 ####[facility] [address] [place], [address] GAP 14 Normal 5-15 [facility] Comment on above: Performed By: #### L 503.6005, L100.0100, L500.4050, L501.2450 ####[facility] [address] [place], [address] GFR/1.73 sq M.predicted among non-blacks MDRD (S/P/Bld) [Vol rate/Area] 75 mL/min/{1.73_m2} Normal >60 [facility] Comment on above: Result Comment: mL/m in/1.73m2 CKD-EPI Creatinine Equation (2020) Performed By: #### L 503.6005, L100.0100, L500.4050, L501.2450 ####[facility] [address] [place], [address] Globulin (S) [Mass/Vol] 3.2 g/dL Normal 2.2-4.2 [facility] Comment on above: Performed By: #### L 503.6005, L100.0100, L500.4050, L501.2450 ####[facility] [address] [place], [address] Glucose [Mass/Vol] 129 mg/dL High 70-99 [facility] Comment on above: Performed By: #### L 503.6005, L100.0100, L500.4050, L501.2450 ####[facility] [address] [place], [address] Potassium [Moles/Vol] 3.7 mmol/L Normal 3.3-5.1 [facility] Comment on above: Performed By: #### L 503.6005, L100.0100, L500.4050, L501.2450 ####[facility] [address] [place], [address] Sodium [Moles/Vol] 139 mmol/L Normal 133-145 [facility] Comment on above: Performed By: #### L 503.6005, L100.0100, L500.4050, L501.2450 ####[facility] [address] [place], [address] T PROT 7.9 g/dL Normal 5.9-8.4 [facility] Comment on above: Performed By: #### L 503.6005, L100.0100, L500.4050, L501.2450 ####[facility] [address] [place], [address] Urea nitrogen [Mass/Vol] 9 mg/dL Normal 4-19 [facility] Comment on above: Performed By: #### L 503.6005, L100.0100, L500.4050, L501.2450 ####[facility] [address] [place], [address] Emergency Department Summary on 12-22-2024 Emergency Department Summary [facility] Medical Records Department [address] [place] [address] Emergency Department Summary 12/22/24 MR#: [id number] Acct: [id number] Name: CATRACHITA MURRAY Rep #: [id number] : 1985 39 From: Rajan Fay DO [...] controlled. Patient follows with Dr. Nina with [facility]. Therefore [facility] was contacted and I spoke with Dr. Perez. She agrees with conservative management. Follow-up in their office. Patient was updated on the recommendations and confirmed understanding. She will be given Percocet and Zofran as needed for pain. She will be given a work note for tomorrow off. Return precautions explained. Impression: (more content not included)... Normal [facility] Eosinophil percentageOrdered By: Rajan Fay on 12-22-2024 Eosinophils/100 WBC (Bld) 0.9 % 0-5 [facility] Erythrocyte distribution wid th ratioOrdered By: Rajan Sumeet on 12-22-2024 Erythrocyte distribution width (RBC) [Ratio] 12.5 % 11.6-14.6 [facility] Erythrocyte distribution wid th standard deviationOrdered By: Rajan Emanuel on 12-22-2024 Erythrocyte distribution width (RBC) [Ratio] 40.3 fl 35.1-43.9 [facility] Glomerular filtration rate ( GFR) estimation/1.73 sq m using serum, plasma, or whole bOrdered By: Rajan Fay on 12-22-2024 GFR/1.73 sq M.predicted among non-blacks MDRD (S/P/Bld) [Vol rate/Area] 75 mL/min/{1.73_m2} >60 [facility] Comment on above: mL/min/1.73m2 CKD-EP I Creatinine Equation (2020) Hematocrit Auto (Bld) [Volum e fraction]Ordered By: Rajan Fay on 12-22-2024 Hematocrit (Bld) [Volume fraction] 42.2 % 37-47 [facility] Hemoglobin measurementOrdere d By: Rajan Fay on 12-22-2024 Hemoglobin (Bld) [Mass/Vol] 14.7 g/dL 12.0-15.0 [facility] Immature granulocytes/100 WB C Auto (Bld)Ordered By: Rajan Doron on 12-22-2024 Immature granulocytes/100 WBC (Bld) 0.300 % 0.0-0.9 [facility] Comment on above: IG% - Immature Granu locytes (promyelocytes, myelocytes and metamyelocytes) > 1% indicates that a LEFT SHIFT is Present. Ketones Test strip Ql (U)Ord ered By: Rajan Fay on 12-22-2024 Ketones Ql (U) Negative Negative [facility] Laboratory - Chemistry and C hemistry - challengeOrdered By: Rajanmaggie Fay on 12-22-2024 AST [Catalytic activity/Vol] 20 U/L <32 [facility] Lactic Acidon 12-22-2024 Lactate [Moles/Vol] 1.4 mmol/L Normal 0.0-2.0 [facility] Comment on above: Order Comment: Y Performed By: #### L 503.6005, L100.0100, L500.4050, L501.2450 ####[facility] [address] [place], [address] Lactic acid measurementOrder ed By: Rajan Fay on 12-22-2024 Lactate [Moles/Vol] 1.4 mmol/L 0.0-2.0 [facility] Lipaseon 12-22-2024 Lipase [Catalytic activity/Vol] 28 U/L Normal 13-75 [facility] Comment on above: Result Comment: Kassandra zaragoza note: LIPASE revised reference range effective 22. New Lipase methodology. Expected to produce lower values than the previous assay method. NEW Reference Range: 13 - 75 U/L Performed By: #### L 503.6005, L100.0100, L500.4050, L501.2450 ####[facility] [address] [place], [address] Lipase measurementOrdered By : Rajan Fay on 12-22-2024 Lipase [Catalytic activity/Vol] 28 U/L 13-75 [facility] Comment on above: Please note:LIPASE r evised reference range effective 22. New Lipase methodology. Expected to produce lower values than the previous assay method. NEW Reference Range: 13 - 75 U/L MCV (mean corpuscular volume ) determinationOrdered By: Rajan Fay on 12-22-2024 MCV (RBC) [Entitic vol] 87.7 fL 81-99 [facility] Mean corpuscular hemoglobin (MCH) determinationOrdered By: Rajan Sumeet on 12-22-2024 MCH (RBC) [Entitic mass] 30.6 pg 27.0-32.0 [facility] Mean corpuscular hemoglobin concentration (MCHC) determinationOrdered By: Rajanmaggie Fay on 12-22-2024 MCHC (RBC) [Mass/Vol] 34.8 g/dL 32-36 [facility] Mean platelet volume determi nationOrdered By: Rajan Fay on 12-22-2024 Platelet mean volume (Bld) [Entitic vol] 10.8 fL 6.2-12.0 [facility] Microscopic analysis of urin e for red blood cells (RBC)Ordered By: Rajan Fay on 12-22-2024 Microscopic analysis of urine for red blood cells (RBC) 0 SEEN /hpf 0-5 [facility] Monocyte percentageOrdered B y: Rajan Fay on 12-22-2024 Monocytes/100 WBC (Bld) 4.4 % 0-10 [facility] Mucus LM Ql (Urine sed)Order ed By: Rajan Fay on 12-22-2024 Mucus Ql (Urine sed) 0 SEEN /hpf [facility] Neutrophil percentageOrdered By: Rajan Fay on 12-22-2024 Neutrophils/100 WBC (Bld) 78.4 % High 47-70 [facility] Nitrite Test strip Ql (U)Ord ered By: Rajan Fay on 12-22-2024 Nitrite Ql (U) Negative Negative [facility] Nucleated red blood cell per centageOrdered By: Rajan Fay on 12-22-2024 Nucleated RBC/100 WBC (Bld) [Ratio] 0 % 0-5 [facility] Platelet countOrdered By: Eldon Fay on 12-22-2024 Platelets (Bld) [#/Vol] 363 10*3/uL 150-450 [facility] Potassium measurement (mass/ volume)Ordered By: Rajan Fay on 12-22-2024 Potassium (Unsp spec) [Mass/Vol] 3.7 mmol/L 3.3-5.1 [facility] Protein Test strip Ql (U)Ord ered By: Rajan Fay on 12-22-2024 Protein Ql (U) 15 mg/dl High Negative [facility] RBC Auto (Bld) [#/Vol]Ordere d By: Rajan Fay on 12-22-2024 RBC (Bld) [#/Vol] 4.81 10*6/uL 4.2-5.4 [facility] Serum creatinine measurement (mass/volume)Ordered By: Rajan Fay on 12-22-2024 Creatinine [Mass/Vol] 0.97 mg/dL 0.70-1.20 [facility] Serum globulin measurementOr dered By: Rajan Fay on 12-22-2024 Globulin (S) [Mass/Vol] 3.2 g/dL 2.2-4.2 [facility] Serum glucose measurement (m ass/volume)Ordered By: Rajan Fay on 12-22-2024 Glucose [Mass/Vol] 129 mg/dL High 70-99 [facility] Serum or plasma alanine mike otransferase (ALT) measurementOrdered By: Rajan Fay on 12-22-2024 ALT [Catalytic activity/Vol] 25 U/L <35 [facility] Serum or plasma albumin jami urement (mass/volume)Ordered By: Rajan Emanuel on 12-22-2024 Albumin [Mass/Vol] 4.7 g/dL 3.5-5.0 [facility] Serum or plasma albumin/glob ulin mass ratioOrdered By: Rajanmaggie GarrisonMarisel on 12-22-2024 Albumin/Globulin [Mass ratio] 1.5 {ratio} 0.9-2.4 [facility] Serum or plasma alkaline cassia sphatase measurementOrdered By: Rajan Fay on 12-22-2024 ALP [Catalytic activity/Vol] 67 U/L 35-104 [facility] Serum or plasma calcium jami urement (mass/volume)Ordered By: Rajan Emanuel on 12-22-2024 Calcium [Mass/Vol] 9.6 mg/dL 7.6-11.0 [facility] Serum or plasma urea nitroge n measurement (mass/volume)Ordered By: Rajan Fay on 12-22-2024 Urea nitrogen [Mass/Vol] 9 mg/dL 4-19 [facility] Sodium levelOrdered By: Rayo Fay on 12-22-2024 Sodium [Moles/Vol] 139 mmol/L 133-145 [facility] Squamous epithelial cells de tection in urine sediment by light microscopyOrdered By: Rajan Fay on 12-22-2024 Epithelial cells.squamous LM Ql (Urine sed) 0-5 SEEN /hpf 5-10 [facility] Total proteinOrdered By: Keshawn Fay on 12-22-2024 Protein [Mass/Vol] 7.9 g/dL 5.9-8.4 [facility] Transvaginal Non-on 12-22-2024 Transvaginal Non- [facility] Imaging Services [address] [place] [address] Transvaginal Non- MR#: [id number] Acct: [id number] Name: CATRACHITA MURRYA Rep #: [id number] : 1985 F 39 From: Aki garcia MD PCP: Dr. Celso Brewer MD Status: REG ER Study: Transvaginal Non- Date of Exam: Exam# [id number] Ordering Dr: Rajan Fay DO PROCEDURE: TRANSVAGINAL [...] ovary. 3. Nonvisualized left ovary. [facility]: Dr. Rajan Fay DO; Dr. Celso Brewer MD Licensed Professional Counselor: Signed Normal [facility] Urinalysis, Completeon 12-22 BACTERIA RARE Normal None Seen [facility] Comment on above: Order Comment: CLEAN CATCH Performed By: #### L 400.0001 #### [facility] [address] [place], [address] EPI,SQUAMOUS 0-5 SEEN Normal 5-10 [facility] Comment on above: Order Comment: CLEAN CATCH Performed By: #### L 400.0001 #### [facility] [address] [place], [address] Mucus Ql (Urine sed) 0 SEEN Normal [facility] Comment on above: Order Comment: CLEAN CATCH Performed By: #### L 400.0001 #### [facility] [address] [place], [place], [address] RBC 0 SEEN Normal 0-5 [facility] Comment on above: Order Comment: CLEAN CATCH Performed By: #### L 400.0001 #### [facility] [address] [place], [place], [address] WBC 0 SEEN Normal 0-5 [facility] Comment on above: Order Comment: CLEAN CATCH Performed By: #### L 400.0001 #### [facility] [address] [place], [place], [address] Urine clarityOrdered By: Keshawn Fay on 12-22-2024 Clarity (U) Clear Clear [facility] Urine color determinationOrd ered By: Rajan Fay on 12-22-2024 Color (U) Yellow Yellow [facility] Urine glucose detectionOrder ed By: Rajan Fay on 12-22-2024 Glucose Ql (U) Normal mg/dl Normal [facility] Urine leukocyte esterase det ection by dipstickOrdered By: Rajan Fay on 12-22-2024 Leukocyte esterase Test strip Ql (U) Negative Negative [facility] Urine pHOrdered By: Rajan Sal on 12-22-2024 pH (U) 6.5 [pH] 5.0 - 8.0 [facility] Urine sediment bacteria coun t by microscopy (number/high power field)Ordered By: Rajan Fay on 12-22-2024 Bacteria LM.HPF (Urine sed) [#/Area] RARE /hpf None Seen [facility] Urine specific gravity measu rementOrdered By: Rajan Fay on 12-22-2024 Specific gravity (U) [Rel density] 1.010 1.002-1.030 [facility] Urine urobilinogen measureme ntOrdered By: Rajan Fay on 12-22-2024 Urobilinogen Ql (U) Normal mg/dl Normal [facility] White blood cell (WBC) count Ordered By: Rajan Fay on 12-22-2024 WBC (Bld) [#/Vol] 11.9 10*3/uL High 4.4-11.0 [facility] White blood cell countOrdere d By: Rajan Fay on 12-22-2024 White blood cell count 0 SEEN /hpf 0-5 [facility] Absolute lymphocyte countOrd ered By: Celso Brewer on 12-10-2024 Lymphocytes Auto (Unsp spec) [#/Vol] 2.73 10*3/uL 0.83-4.51 [facility] Absolute neutrophil countOrd ered By: Celso Brewer on 12-10-2024 Neutrophils (Bld) [#/Vol] 5.7 10*3/uL 2.0-7.7 [facility] Anion gap in Serum or Plasma Ordered By: Celso Brewer on 12-10-2024 Anion gap [Moles/Vol] 14 mmol/L 5-15 [facility] Automated lymphocyte count a s percentage of total leukocytesOrdered By: Celso Brewer on 12-10-2024 Lymphocytes/100 WBC Auto (Unsp spec) 29.5 % 19-41 [facility] BUN/creatinine ratioOrdered By: Celso Brewer on 12-10-2024 Urea nitrogen/Creatinine [Mass ratio] 8.2 mg/mg Low 10-20 [facility] Basophil percentageOrdered B y: Celso Brewer on 12-10-2024 Basophils/100 WBC (Bld) 1.1 % High 0-1 [facility] Bilirubin, totalOrdered By: Celso Brewer on 12-10-2024 Bilirubin [Mass/Vol] 0.23 mg/dL 0.00-1.30 [facility] CBC W/Diff, Automatedon Absolute Lymph 2.73 X10 3/uL Normal 0.83-4.51 [facility] Comment on above: Order Comment: Order Date: 12/10/24 Order Info: 0184-1 - CBCD Performed By: #### L 506.0400, L501.9520, L500.4050, L100.0100 #### [facility] [address] [place], [address] Absolute Neut 5.7 X10 3/uL Normal 2.0-7.7 [facility] Comment on above: Order Comment: Order Date: 12/10/24 Order Info: 0184-1 - CBCD Performed By: #### L 506.0400, L501.9520, L500.4050, L100.0100 #### [facility] [address] [place], [address] Basophils/100 WBC (Bld) 1.1 % High 0-1 [facility] Comment on above: Order Comment: Order Date: 12/10/24 Order Info: 0184-1 - CBCD Performed By: #### L 506.0400, L501.9520, L500.4050, L100.0100 #### [facility] [address] [place], [address] Eosinophils/100 WBC (Bld) 1.7 % Normal 0-5 [facility] Comment on above: Order Comment: Order Date: 12/10/24 Order Info: 0184-1 - CBCD Performed By: #### L 506.0400, L501.9520, L500.4050, L100.0100 #### [facility] [address] [place], [address] Erythrocyte distribution width (RBC) [Ratio] 12.5 % Normal 11.6-14.6 [facility] Comment on above: Order Comment: Order Date: 12/10/24 Order Info: 0184-1 - CBCD Performed By: #### L 506.0400, L501.9520, L500.4050, L100.0100 #### [facility] [address] [place], [address] Hematocrit (Bld) [Volume fraction] 42.4 % Normal 37-47 [facility] Comment on above: Order Comment: Order Date: 12/10/24 Order Info: 0184-1 - CBCD Performed By: #### L 506.0400, L501.9520, L500.4050, L100.0100 #### [facility] [address] [place], [address] Hemoglobin (Bld) [Mass/Vol] 14.5 g/dL Normal 12.0-15.0 [facility] Comment on above: Order Comment: Order Date: 12/10/24 Order Info: 0184- - CBCD Performed By: #### L 506.0400, L501.9520, L500.4050, L100.0100 #### [facility] [address] [place], [address] IG% 0.500 Normal 0.0-0.9 [facility] Comment on above: Order Comment: Order Date: 12/10/24 Order Info: 018- - CBCD Result Comment: IG% - Immature Granulocytes (promyelocytes, myelocytes and metamyelocytes) > 1% indicates that a LEFT SHIFT is Present. Performed By: #### L 506.0400, L501.9520, L500.4050, L100.0100 #### [facility] [address] [place], [address] Lymphocytes/100 WBC (Bld) 29.5 % Normal 19-41 [facility] Comment on above: Order Comment: Order Date: 12/10/24 Order Info: 0184- - CBCD Performed By: #### L 506.0400, L501.9520, L500.4050, L100.0100 #### [facility] [address] [place], [address] MCH (RBC) [Entitic mass] 30.7 pg Normal 27.0-32.0 [facility] Comment on above: Order Comment: Order Date: 12/10/24 Order Info: 0184- - CBCD Performed By: #### L 506.0400, L501.9520, L500.4050, L100.0100 #### [facility] [address] [place], [address] MCHC (RBC) [Mass/Vol] 34.2 g/dL Normal 32-36 [facility] Comment on above: Order Comment: Order Date: 12/10/24 Order Info: 0184-1 - CBCD Performed By: #### L 506.0400, L501.9520, L500.4050, L100.0100 #### [facility] [address] [place], [address] MCV (RBC) [Entitic vol] 89.6 fL Normal 81-99 [facility] Comment on above: Order Comment: Order Date: 12/10/24 Order Info: 0184-1 - CBCD Performed By: #### L 506.0400, L501.9520, L500.4050, L100.0100 #### [facility] [address] [place], [address] Monocytes/100 WBC (Bld) 5.6 % Normal 0-10 [facility] Comment on above: Order Comment: Order Date: 12/10/24 Order Info: 0184-1 - CBCD Performed By: #### L 506.0400, L501.9520, L500.4050, L100.0100 #### [facility] [address] [place], [address] Neutrophils/100 WBC (Bld) 61.6 % Normal 47-70 [facility] Comment on above: Order Comment: Order Date: 12/10/24 Order Info: 0184-1 - CBCD Performed By: #### L 506.0400, L501.9520, L500.4050, L100.0100 #### [facility] [address] [place], [address] Nucleated RBC (Bld) [#/Vol] 0 10*3/uL Normal 0-5 [facility] Comment on above: Order Comment: Order Date: 12/10/24 Order Info: 0184-1 - CBCD Performed By: #### L 506.0400, L501.9520, L500.4050, L100.0100 #### [facility] [address] [place], [address] Platelet mean volume (Bld) [Entitic vol] 11.5 fL Normal 6.2-12.0 [facility] Comment on above: Order Comment: Order Date: 12/10/24 Order Info: 0184-1 - CBCD Performed By: #### L 506.0400, L501.9520, L500.4050, L100.0100 #### [facility] [address] [place], [address] Platelets (Bld) [#/Vol] 389 10*3/uL Normal 150-450 [facility] Comment on above: Order Comment: Order Date: 12/10/24 Order Info: 0184-1 - CBCD Performed By: #### L 506.0400, L501.9520, L500.4050, L100.0100 #### [facility] [address] [place], [address] RBC (Bld) [#/Vol] 4.73 10*6/uL Normal 4.2-5.4 [facility] Comment on above: Order Comment: Order Date: 12/10/24 Order Info: 0184-1 - CBCD Performed By: #### L 506.0400, L501.9520, L500.4050, L100.0100 #### [facility] [address] [place], [address] RDW SD 41.3 fl Normal 35.1-43.9 [facility] Comment on above: Order Comment: Order Date: 12/10/24 Order Info: 0184-1 - CBCD Performed By: #### L 506.0400, L501.9520, L500.4050, L100.0100 #### [facility] [address] [place], [address] WBC (Bld) [#/Vol] 9.3 10*3/uL Normal 4.4-11.0 [facility] Comment on above: Order Comment: Order Date: 12/10/24 Order Info: 0184-1 - CBCD Performed By: #### L 506.0400, L501.9520, L500.4050, L100.0100 #### [facility] [address] [place], [address] Carbon dioxide, total [Moles /volume] in Central venous bloodOrdered By: Celso Brewer on 12-10-2024 CO2 [Moles/Vol] 23.3 mmol/L 21.0-32.0 [facility] Chloride assayOrdered By: Reese Brewer on 12-10-2024 Chloride [Moles/Vol] 102 mmol/L 98-108 [facility] Comprehensive Metabolic Prof ilon 12-10-2024 Albumin [Mass/Vol] 4.6 g/dL Normal 3.5-5.0 [facility] Comment on above: Order Comment: Order Date: 12/10/24Order Info: 0786-1 - CMPOrder Info: [id number] - TSHOrder Info: 302-7 - T1IQzqoa Info: 0553-1 - FSHLH Performed By: #### L 506.0400, L501.9520, L500.4050, L100.0100 ####[facility] [address] [place], [address] Albumin/Globulin [Mass ratio] 1.5 {ratio} Normal 0.9-2.4 [facility] Comment on above: Order Comment: Order Date: 12/10/24Order Info: 0786-1 - CMPOrder Info: 3015-3 - TSHOrder Info: 302-7 - M3XLefyt Info: 0553-1 - FSHLH Performed By: #### L 506.0400, L501.9520, L500.4050, L100.0100 ####[facility] [address] [place], [address] ALK PHOS 65 U/L Normal 35-104 [facility] Comment on above: Order Comment: Order Date: 12/10/24Order Info: 0786-1 - CMPOrder Info: 3 - TSHOrder Info: 3024-02 - R8PQezkf Info: 53-1 - FSHLH Performed By: #### L 506.0400, L501.9520, L500.4050, L100.0100 ####[facility] [address] [place], [address] ALT [Catalytic activity/Vol] 27 U/L Normal <=34 [facility] Comment on above: Order Comment: Order Date: 12/10/24Order Info: 785- - CMPOrder Info: 3015-10 - TSHOrder Info: 3024-02 - W3HKbaaz Info: 53-1 - FSHLH Performed By: #### L 506.0400, L501.9520, L500.4050, L100.0100 ####[facility] [address] [place], [address] AST [Catalytic activity/Vol] 21 U/L Normal <=31 [facility] Comment on above: Order Comment: Order Date: 12/10/24Order Info: 07-1 - CMPOrder Info: 3015-10 - TSHOrder Info: 3024-02 - O5WJoebb Info: 0553-1 - FSHLH Performed By: #### L 506.0400, L501.9520, L500.4050, L100.0100 ####[facility] [address] [place], [address] Bilirubin [Mass/Vol] 0.23 mg/dL Normal 0.00-1.30 [facility] Comment on above: Order Comment: Order Date: 12/10/24Order Info: 0786-1 - CMPOrder Info: 3015-10 - TSHOrder Info: 3024-02 - W6RIwtny Info: 0553-1 - FSHLH Performed By: #### L 506.0400, L501.9520, L500.4050, L100.0100 ####[facility] [address] [place], [address] BUN/CRE 8.2 RATIO Low 10-20 [facility] Comment on above: Order Comment: Order Date: 12/10/24Order Info: 0786-1 - CMPOrder Info: 6-3 - TSHOrder Info: 3024-7 - L3LGaxuf Info: 0553-1 - FSHLH Performed By: #### L 506.0400, L501.9520, L500.4050, L100.0100 ####[facility] [address] [place], [address] Calcium [Mass/Vol] 9.7 mg/dL Normal 7.6-11.0 [facility] Comment on above: Order Comment: Order Date: 12/10/24Order Info: 0786-1 - CMPOrder Info: 3015-3 - TSHOrder Info: 3024-7 - I3VXhnqx Info: 0553-1 - FSHLH Performed By: #### L 506.0400, L501.9520, L500.4050, L100.0100 ####[facility] [address] [place], [address] Chloride [Moles/Vol] 102 mmol/L Normal 98-108 [facility] Comment on above: Order Comment: Order Date: 12/10/24Order Info: 0786-1 - CMPOrder Info: 6-3 - TSHOrder Info: 3024-7 - Q9JMdvfi Info: 0553-1 - FSHLH Performed By: #### L 506.0400, L501.9520, L500.4050, L100.0100 ####[facility] [address] [place], [address] CO2 [Moles/Vol] 23.3 mmol/L Normal 21.0-32.0 [facility] Comment on above: Order Comment: Order Date: 12/10/24Order Info: 0786-1 - CMPOrder Info: 3 - TSHOrder Info: 7 - H3FEfemt Info: 53- - FSHLH Performed By: #### L 506.0400, L501.9520, L500.4050, L100.0100 ####[facility] [address] [place], [address] Creatinine [Mass/Vol] 0.85 mg/dL Normal 0.70-1.20 [facility] Comment on above: Order Comment: Order Date: 12/10/24Order Info: 785- - CMPOrder Info: 3015-10 - TSHOrder Info: 3024-02 - X9ARwslq Info: 552-08 - FSHLH Performed By: #### L 506.0400, L501.9520, L500.4050, L100.0100 ####[facility] [address] [place], [address] GAP 14 Normal 5-15 [facility] Comment on above: Order Comment: Order Date: 12/10/24Order Info: 07 - CMPOrder Info: 3015-10 - TSHOrder Info: 3024-02 - M3EYnvsf Info: 552-08 - FSHLH Performed By: #### L 506.0400, L501.9520, L500.4050, L100.0100 ####[facility] [address] [place], [place], [address] GFR/1.73 sq M.predicted among non-blacks MDRD (S/P/Bld) [Vol rate/Area] 88 mL/min/{1.73_m2} Normal >60 [facility] Comment on above: Order Comment: Order Date: 12/10/24Order Info: 0786-1 - CMPOrder Info: 3 - TSHOrder Info: 3027 - I9XDjczr Info: 0553-1 - FSHLH Result Comment: mL/m in/1.73m2 CKD-EPI Creatinine Equation (2020) Performed By: #### L 506.0400, L501.9520, L500.4050, L100.0100 ####[facility] [address] [place], [address] Globulin (S) [Mass/Vol] 3.1 g/dL Normal 2.2-4.2 [facility] Comment on above: Order Comment: Order Date: 12/10/24Order Info: 86-1 - CMPOrder Info: 3015-3 - TSHOrder Info: 4-7 - S1NDhnpz Info: 53-1 - FSHLH Performed By: #### L 506.0400, L501.9520, L500.4050, L100.0100 ####[facility] [address] [place], [address] Glucose [Mass/Vol] 88 mg/dL Normal 70-99 [facility] Comment on above: Order Comment: Order Date: 12/10/24Order Info: 785-1 - CMPOrder Info: 3015-10 - TSHOrder Info: 7 - T9OVmnki Info: 53-1 - FSHLH Performed By: #### L 506.0400, L501.9520, L500.4050, L100.0100 ####[facility] [address] [place], [address] Potassium [Moles/Vol] 3.8 mmol/L Normal 3.3-5.1 [facility] Comment on above: Order Comment: Order Date: 12/10/24Order Info: 0786-1 - CMPOrder Info: 3 - TSHOrder Info: 3024-7 - A3AZilbc Info: 0553-1 - FSHLH Performed By: #### L 506.0400, L501.9520, L500.4050, L100.0100 ####[facility] [address] [place], [address] Sodium [Moles/Vol] 139 mmol/L Normal 133-145 [facility] Comment on above: Order Comment: Order Date: 12/10/24Order Info: 0786-1 - CMPOrder Info: 3015-10 - TSHOrder Info: 3024-02 - Z6KGjdnd Info: 552-08 - FSHLH Performed By: #### L 506.0400, L501.9520, L500.4050, L100.0100 ####[facility] [address] [place], [place], [address] T PROT 7.7 g/dL Normal 5.9-8.4 [facility] Comment on above: Order Comment: Order Date: 12/10/24Order Info: 07- - CMPOrder Info: 3015-10 - TSHOrder Info: 3024-02 - N3TQeknw Info: 552-08 - FSHLH Performed By: #### L 506.0400, L501.9520, L500.4050, L100.0100 ####[facility] [address] [place], [place], [address] Urea nitrogen [Mass/Vol] 7 mg/dL Normal 4-19 [facility] Comment on above: Order Comment: Order Date: 12/10/24Order Info: 0786- - CMPOrder Info: 3015-10 - TSHOrder Info: 3024-02 - V7XDhjdx Info: 552-08 - FSHLH Performed By: #### L 506.0400, L501.9520, L500.4050, L100.0100 ####[facility] [address] [place], [place], [address] Eosinophil percentageOrdered By: Celso Brewer on 12-10-2024 Eosinophils/100 WBC (Bld) 1.7 % 0-5 [facility] Erythrocyte distribution wid th ratioOrdered By: Celso Brewer on 12-10-2024 Erythrocyte distribution width (RBC) [Ratio] 12.5 % 11.6-14.6 [facility] Erythrocyte distribution wid th standard deviationOrdered By: Celso Brewer on 12-10-2024 Erythrocyte distribution width (RBC) [Ratio] 41.3 fl 35.1-43.9 [facility] FSH and LHon 12-10-2024 FSH 4.6 mIU/mL Normal [facility] Comment on above: Order Comment: Order Date: 12/10/24Order Info: 0786-1 - CMPOrder Info: 3 - TSHOrder Info: 3024-02 - T8LUrxzj Info: 0553-1 - FSHLH Result Comment: FEMA [...] 10.8 mIU/mL Performed By: #### L 3100.5055 ####[facility] [address] [place], [address] LH 11.3 mIU/mL Normal [facility] Comment on above: Order Comment: Order Date: 12/10/24Order Info: 0786-1 - CMPOrder Info: 3016-3 - TSHOrder Info: 3027 - U9IHmqfv Info: 0553- - FSHLH Result Comment: FEMA LE: Follicular: 1.9-12.5 mIU/mL Midcycle: 8.7-76.3 mIU/mL Luteal: 0.5-16.9 mIU/mL Post Menopause: 15.9-54.0 mIU/mL MALE: 20-70 Years: 1.5-9.3 mIU/mL >70 Years: 3.1-34.6 mIU/mL Performed By: #### L 3100.5055 ####[facility] [address] [place], [address] Glomerular filtration rate ( GFR) estimation/1.73 sq m using serum, plasma, or whole bOrdered By: Celso Brewer on 12-10-2024 GFR/1.73 sq M.predicted among non-blacks MDRD (S/P/Bld) [Vol rate/Area] 88 mL/min/{1.73_m2} >60 [facility] Comment on above: mL/min/1.73m2 CKD-EP I Creatinine Equation (2020) Hematocrit Auto (Bld) [Volum e fraction]Ordered By: Celso Brewer on 12-10-2024 Hematocrit (Bld) [Volume fraction] 42.4 % 37-47 [facility] Hemoglobin measurementOrdere d By: Celso Brewer on 12-10-2024 Hemoglobin (Bld) [Mass/Vol] 14.5 g/dL 12.0-15.0 [facility] Immature granulocytes/100 WB C Auto (Bld)Ordered By: Celso Brewer on 12-10-2024 Immature granulocytes/100 WBC (Bld) 0.500 % 0.0-0.9 [facility] Comment on above: IG% - Immature Granu locytes (promyelocytes, myelocytes and metamyelocytes) > 1% indicates that a LEFT SHIFT is Present. Laboratory - Chemistry and C hemistry - challengeOrdered By: Celso Brewer on 12-10-2024 AST [Catalytic activity/Vol] 21 U/L <32 [facility] MCV (mean corpuscular volume ) determinationOrdered By: Celso Brewer on 12-10-2024 MCV (RBC) [Entitic vol] 89.6 fL 81-99 [facility] Mean corpuscular hemoglobin (MCH) determinationOrdered By: Celso Brewer on 12-10-2024 MCH (RBC) [Entitic mass] 30.7 pg 27.0-32.0 [facility] Mean corpuscular hemoglobin concentration (MCHC) determinationOrdered By: Celso Brewer on 12-10-2024 MCHC (RBC) [Mass/Vol] 34.2 g/dL 32-36 [facility] Mean platelet volume determi nationOrdered By: Celso Brewer on 12-10-2024 Platelet mean volume (Bld) [Entitic vol] 11.5 fL 6.2-12.0 [facility] Monocyte percentageOrdered B y: Celso Brewer on 12-10-2024 Monocytes/100 WBC (Bld) 5.6 % 0-10 [facility] Neutrophil percentageOrdered By: Celso Brewer on 12-10-2024 Neutrophils/100 WBC (Bld) 61.6 % 47-70 [facility] Nucleated red blood cell per centageOrdered By: Celso Brewer on 12-10-2024 Nucleated RBC/100 WBC (Bld) [Ratio] 0 % 0-5 [facility] Platelet countOrdered By: Reese Brewer on 12-10-2024 Platelets (Bld) [#/Vol] 389 10*3/uL 150-450 [facility] Potassium measurement (mass/ volume)Ordered By: Celso Brewer on 12-10-2024 Potassium (Unsp spec) [Mass/Vol] 3.8 mmol/L 3.3-5.1 [facility] RBC Auto (Bld) [#/Vol]Ordere d By: Celso Brewer on 12-10-2024 RBC (Bld) [#/Vol] 4.73 10*6/uL 4.2-5.4 [facility] Serum creatinine measurement (mass/volume)Ordered By: Celso Brewer on 12-10-2024 Creatinine [Mass/Vol] 0.85 mg/dL 0.70-1.20 [facility] Serum globulin measurementOr dered By: Celso Brewer on 12-10-2024 Globulin (S) [Mass/Vol] 3.1 g/dL 2.2-4.2 [facility] Serum glucose measurement (m ass/volume)Ordered By: Celso Brewer on 12-10-2024 Glucose [Mass/Vol] 88 mg/dL 70-99 [facility] Serum or plasma alanine mike otransferase (ALT) measurementOrdered By: Celso Brewer on 12-10-2024 ALT [Catalytic activity/Vol] 27 U/L <35 [facility] Serum or plasma albumin jami urement (mass/volume)Ordered By: Celso Brewer on 12-10-2024 Albumin [Mass/Vol] 4.6 g/dL 3.5-5.0 [facility] Serum or plasma albumin/glob ulin mass ratioOrdered By: Celso Brewer on 05-06-2025 Albumin/Globulin [Mass ratio] 1.5 {ratio} 0.9-2.4 [facility] Serum or plasma alkaline cassia sphatase measurementOrdered By: Celso Brewer on 12-10-2024 ALP [Catalytic activity/Vol] 65 U/L 35-104 [facility] Serum or plasma calcium jami urement (mass/volume)Ordered By: Celso Brewer on 12-10-2024 Calcium [Mass/Vol] 9.7 mg/dL 7.6-11.0 [facility] Serum or plasma urea nitroge n measurement (mass/volume)Ordered By: Celso Brewer on 12-10-2024 Urea nitrogen [Mass/Vol] 7 mg/dL 4-19 [facility] Sodium levelOrdered By: Celso Brewer on 12-10-2024 Sodium [Moles/Vol] 139 mmol/L 133-145 [facility] T4 Free Directon 12-10-2024 T4 FREE DIRECT 0.80 ng/dL Normal 0.76-1.46 [facility] Comment on above: Order Comment: Order Date: 12/10/24Order Info: [id number] - CMPOrder Info: [id number] - TSHOrder Info: [id number] - [id number] Info: [id number] - FSHLH Performed By: #### L 506.0400, L501.9520, L500.4050, L100.0100 ####[facility] [id number] [place], [address] T4 freeOrdered By: Celso venegas on 12-10-2024 Free T4 [Mass/Vol] 0.80 ng/dL 0.76-1.46 [facility] TSH DL <= 0.005 mIU/L QnOrde red By: Celso Brewer on 12-10-2024 TSH Qn 7.090 uIU/mL High 0.300-4.200 [facility] Thyroid Stim Hormone (TSH)on 12-10-2024 TSH 7.090 uIU/mL High 0.300-4.200 [facility] Comment on above: Order Comment: Order Date: 12/10/24Order Info: [id number] - CMPOrder Info: [id number] - TSHOrder Info: [id number] - [id number] Info: [id number] - FSHLH Performed By: #### L 506.0400, L501.9520, L500.4050, L100.0100 ####[facility] [address] [place], [address] Total proteinOrdered By: Buffy Brewer on 12-10-2024 Protein [Mass/Vol] 7.7 g/dL 5.9-8.4 [facility] White blood cell (WBC) count Ordered By: Celso Brewer on 12-10-2024 WBC (Bld) [#/Vol] 9.3 10*3/uL 4.4-11.0 [facility] CNOVon 10-21-2024 CNOV Office Visit (UCWSTR) CATRACHITA MURRAY ([id number]) 1985 F Date Time Provider Department 10/21/24 10:45 AM RADHA PHILLIPS [facility] During your visit today, we recorded the following information about you: Temperature Pulse Respiration Blood pressure 97.2 degrees 102/minute 16/minute 144/90 Weight 99 kg Radha Phillips APRN.REFORMATORY ATTENDANT 10/21/2024 10:50 AM Signed This note was [...] follow-up with PCP as needed Radha Phillips APRN.REFORMATORY ATTENDANT Allergies As of Date: 10/21/2024 (No Known Allergies) Date Reviewed: 10/21/2024 Reviewed by: Radha Phillips APRN.REFORMATORY ATTENDANT - Fully Assessed Reason for Visit: Ear [...] Status:Closed by RADHA PHILLIPS on 10/21/24 Normal [facility] Emergency Department Summary on 03-11-2024 Emergency Department Summary [facility] Medical Records Department [address] [facility] [facility] [place] [address] Emergency Department Summary 03/11/24 MR#: [id number] Acct: [id number] Name: CATRACHITA MURRAY Rep #: [id number] : 1985 38 From: Andrea Castellanos MD [...] in this area for a long time. [facility] Medical History History of postoperative nausea and [...] hydrocortisone 2.5 % topical cream 1 applic [place] BID-QID PRN 07/07/23 Unknown Rx with perineal [...] face and (more content not included)... Normal [facility] Office Visiton 12-15-2023 Follow-up visit [id number] Catrachita Murray 1985 F Date Provider Department Center 12/15/2023 21538-KAVKMELVIN BUCIO [facility] [place] None No family history on file Level of Service:32832 [place] POSTOP FOLLOW UP VISIT RELATED TO ORIGINAL PX Reason for Visit and Comments: Post-op [483] - left ORIF trimalleolar ankle fracture with fixation of posterior lip, DOS 09/23/2023 Normal [facility] Progress Noteon 12-15-2023 Progress Note Subjective: [...] bearing as tolerated. We discussed using an [facility] ankle brace for support prn. We reviewed expectations for recovery and timeline for this. We discussed the option for hardware removal if it becomes more symptomatic. No follow-ups on file.. For any future visits we will obtain WB 3v ankle. Melvin Bucio MD Orthopaedic Sports Medicine [facility] Department of Orthopaedics and Sports Medicine [facility] Office Visiton 11-03-2023 Follow-up visit [id number] Catrachita Murray 1985 F Date Provider Department Center 11/03/2023 47599-MWMMMELVIN BUCIO [facility] [place] None No family history on file Level of Service:00849 [place] POSTOP FOLLOW UP VISIT RELATED TO ORIGINAL PX Reason for Visit and Comments: Post-op [483] - Left ankle ORIF; DOS: 09/23/23 [facility] Progress Noteon 11-03-2023 Progress Note [facility] [address] [place] [address] [place] [id number] Dept: [phone] Dept Catrachita Murray 1985 [id number] 11/03/2023 HISTORY OF PRESENT ILLNESS: Catrachita is [...] 12/15/2023). Melvin Bucio MD Orthopaedic Sports Medicine [facility] Department of Orthopaedics and Sports Medicine 11/03/2023 3:51 PM Voice recognition was used for portions of this note and although it was reviewed prior to signing some incorrect words or phrases could be present. [facility] Office Visiton 10-06-2023 Follow-up visit [id number] Catrachita Murray 1985 F Date Provider Department Center 10/06/2023 01884-DSSBMELVIN NAYLOR [facility] [place] None No family history on file Level of Service:48122 [place] POSTOP FOLLOW UP VISIT RELATED TO ORIGINAL PX Reason for Visit and Comments: Post-op [483] [facility] Progress Noteon 10-06-2023 Progress Note Subjective: Catrachita [...] boot. Melvin Bucio MD Orthopaedic Sports Medicine [facility] Department of Orthopaedics and Sports Medicine [facility] XR ANKLE 3+ VIEWS LEFTon XR ANKLE 3+ VIEWS LEFT XRAYS: 3v left an kle show the hardware remains in good position. The fracture is well-aligned and healingappropriately . The talus is well-positioned in the mortise. [facility] 36on 09-28-2023 36 New oxycodone order placed [facility] 36 DOS 09/23/2023- ORIF left trimalleolar ankle fracture; stress exam of left ankle under fluouroscopy Please see request below regarding refill. Last Rx of Oxycodone (Roxicodone) 5mg- 09/24/2023 (15 tablets) [facility] 36 Oxycodone refill request. Down to 1 pill. Pharmacy correct on file. DOS 09/23/2023 - ORIF LT trimal ankle fx IPO scheduled 10/06/2023 [facility] 36on 09-26-2023 36 Scheduled [place] [address]on 09-25-2023 36 Name of Caller: Catrachita Contact Reason for Appointment: Patient called wants to schedule IPO. Please call to schedule teams message sent. Office Name: Ortho [facility] IDNon 09-24-2023 IDN Problem: Knowledge Deficit Goal: Patient/family/careg iver demonstrates understanding of disease process, treatment plan, medications, and discharge instructions Outcome: Progressing Problem: Potential for Compromised Skin Integrity Goal: Skin Integrity is Maintained or Improved Outcome: Progressing Goal: Nutritional status is improving Outcome: Progressing Problem: Urinary Incontinence Goal: Perineal skin integrity is maintained or improved Outcome: Progressing [facility] Nursing Noteon 09-24-2023 Nursing Note Removed PIV, ensured catheter intact, dry dressing placed. Reviewed AVS with Pt, answered all questions, Pt verbalized understanding and voiced no concerns. Pt being discharged at this time to home with all belongings. [facility] Progress Noteon 09-24-2023 Progress Note Nutrition rescreen completed. Chart reviewed. Patient to be monitored and followed by the diet hazardous waste material technician. YASMEEN Ding [facility] ABO and Rh group Confirm Nom (Bld)on 09-23-2023 ABO group Nom (Bld) A [facility] D Ag Ql (RBC) Positive [facility] BASIC METABOLIC PANELon 09-07 Anion gap [Moles/Vol] 8 mmol/L Normal 3-13 [facility] Comment on above: Performed By: #### L AB15 ####Rope Cleaner: POLLY RILEY ([id number])[facility] ([facility])[address] [place] [address] Calcium [Mass/Vol] 8.5 mg/dL Normal 8.4-10.4 [facility] Comment on above: Performed By: #### L AB15 ####Rope Cleaner: POLLY RILEY ([id number])[facility] ([facility])[address] [place] [address] Chloride [Moles/Vol] 105 mmol/L Normal 98-107 [facility] Comment on above: Performed By: #### L AB15 ####Rope Cleaner: POLLY RILEY ([id number])[facility] ([facility])[address] [place] [address] CO2 [Moles/Vol] 26 mmol/L Normal 22-30 [facility] Comment on above: Performed By: #### L AB15 ####Rope Cleaner: POLLY RILEY ([id number])[facility] ([facility])[address] [place] [address] Creatinine [Mass/Vol] 0.81 mg/dL Normal 0.52-1.04 [facility] Comment on above: Performed By: #### L AB15 ####Rope Cleaner: POLLY RILEY ([id number])[facility] ([facility])[address] [place] [address] GLOMERULAR FILTRATION RATE ML/MIN/1.73 SQ M.PREDICTED >90.0 Normal >60.0 [facility] Comment on above: Result Comment: Calc ulation based on the Chronic Kidney Disease Epidemiology Collaboration (CKD-EPI) equation refit without adjustment for race Performed By: #### L AB15 ####Rope Cleaner: POLLY RILEY ([id number])[facility] ([facility])[address] [place] [address] Glucose [Mass/Vol] 117 mg/dL High 70-100 [facility] Comment on above: Performed By: #### L AB15 ####Rope Cleaner: POLLY RILEY ([id number])[facility] ([facility])[address] [place] [address] Potassium [Moles/Vol] 3.8 mmol/L Normal 3.5-5.1 [facility] Comment on above: Performed By: #### L AB15 ####Rope Cleaner: POLLY RILEY ([id number])[facility] ([facility])[address] [place] [address] Sodium [Moles/Vol] 139 mmol/L Normal 135-145 [facility] Comment on above: Performed By: #### L AB15 ####Rope Cleaner: POLLY RILEY ([id number])[facility])[address] [place] [address] Urea nitrogen [Mass/Vol] 7 mg/dL Normal 7-17 [facility] Comment on above: Performed By: #### L AB15 ####Rope Cleaner: POLLY RILEY ([id number])[facility])[address] [place] [address] BLOOD TYPE AND SCREEN GELon 09-23-2023 ABO GROUPING A Normal [facility] Comment on above: Performed By: #### L [id number] ####Rope Cleaner: POLLY RILEY ([id number])[facility]OD [facility] ([facility])[address] [place] [address] RH TYPE IN BLOOD Positive Normal [facility] Comment on above: Performed By: #### L [id number] ####Rope Cleaner: POLLY RILEY ([id number])[facility] ([facility])[address] [place] [address] Basic metabolic 1998 panelon 09-23-2023 Anion gap [Moles/Vol] 8 mmol/L 3 - 13 mmol/L [facility] Calcium [Mass/Vol] 8.5 mg/dL 8.4 - 10. 4 mg/dL [facility] Chloride [Moles/Vol] 105 mmol/L 98 - 10 7 mmol/L [facility] CO2 [Moles/Vol] 26 mmol/L 22 - 30 mmol/L [facility] Creatinine [Mass/Vol] 0.81 mg/dL 0.52 - 1.04 mg/dL [facility] GFR/1.73 sq M.predicted MDRD (S/P/Bld) [Vol rate/Area] - PINF [facility] Comment on above: Calculation based on the Chronic Kidney Disease Epidemiology Collaboration (CKD-EPI) equation refit without adjustment for race Glucose [Mass/Vol] 117 mg/dL High 70 - 100 mg/dL [facility] Interpretation and review of laboratory results Abnormal [facility] Potassium [Moles/Vol] 3.8 mmol/L 3.5 - 5.1 mmol/L [facility] Sodium [Moles/Vol] 139 mmol/L 135 - 145 mmol/L [facility] Urea nitrogen [Mass/Vol] 7 mg/dL 7 - 17 mg/d L [facility] Blood type and Crossmatch pa ethan (Bld)on 09-23-2023 ABO group Nom (Bld) A [facility] Blood group antibody screen GEL Ql Negative [facility] D Ag Ql (RBC) Positive [facility] CBC (HEMOGRAM)on 09-23-2023 Erythrocyte distribution width (RBC) [Ratio] 13.9 % Normal 11.5-14.5 [facility] Comment on above: Performed By: #### L [id number] ####Rope Cleaner: POLLY RILEY ([id number])[address] ERYTHROCYTE MEAN CORPUSCULAR HEMOGLOBIN CONCENTRATION (G/DL) BY AUTOMATED 34.3 % Normal 32.0-36.0 [facility] Comment on above: Performed By: #### L [id number] ####Rope Cleaner: POLLY RILEY ([id number])[address] Hematocrit (Bld) [Volume fraction] 38.5 % Normal 35.0-47.0 [facility] Comment on above: Performed By: #### L [id number] ####Rope Cleaner: POLLY RILEY ([id number])[facility])[address] [place] [address] Hemoglobin (Bld) [Mass/Vol] 13.2 g/dL Normal 11.7-16.0 [facility] Comment on above: Performed By: #### L [id number] ####Rope Cleaner: POLLY RILEY ([id number])[facility])[address] [place] [address] MCH (RBC) [Entitic mass] 30.4 pg Normal 26.0-34.0 [facility] Comment on above: Performed By: #### L AB294 ####Rope Cleaner: POLLY RILEY ([id number])[facility])[address] [place] [address] MCV (RBC) [Entitic vol] 88.6 fL Normal 80.0-98.0 [facility] Comment on above: Performed By: #### L [id number] ####Rope Cleaner: POLLY RILEY ([id number])[facility])[address] [place] [address] Platelet mean volume (Bld) [Entitic vol] 9.2 fL Normal 7.4-12.4 [facility] Comment on above: Performed By: #### L [id number] ####Rope Cleaner: POLLY RILEY ([id number])[facility])[address] [place] [address] [place] Platelets (Bld) [#/Vol] 332 10*3/uL Normal 140-440 [facility] Comment on above: Performed By: #### L [id number] ####Rope Cleaner: POLLY RILEY ([id number])[facility])[address] [place] [address] RBC (Bld) [#/Vol] 4.34 10*6/uL Normal 3.8-5.20 [facility] Comment on above: Performed By: #### L [id number] ####Rope Cleaner: POLLY RILEY ([id number])[facility] ([facility])[address] [place] [address] WBC (Bld) [#/Vol] 11.4 10*3/uL High 3.6-10.7 [facility] Comment on above: Performed By: #### L [id number] ####Rope Cleaner: POLLY RILEY ([id number])[facility] [place] [address] CBC panel Auto (Bld)Ordered By: Dg Newton on 09-23-2023 Erythrocyte distribution width (RBC) [Ratio] 13.9 % 11.5 - 14.5 % [facility] Hematocrit (Bld) [Volume fraction] 38.5 % 35.0 - 47.0 % [facility] Hemoglobin (Bld) [Mass/Vol] 13.2 g/dL 11.7 - 16.0 g/dL [facility] Interpretation and review of laboratory results Abnormal [facility] MCH (RBC) [Entitic mass] 30.4 pg 26. 0 - 34.0 pg [facility] MCHC (RBC) [Mass/Vol] 34.3 % 32.0 - 36.0 % [facility] MCV (RBC) [Entitic vol] 88.6 fL 80.0 - 98.0 fL [facility] Platelet mean volume (Bld) [Entitic vol] 9.2 fL 7.4 - 12.4 fL [facility] Platelets (Bld) [#/Vol] 332 10*3/uL 140 - 440 10*3/uL [facility] RBC (Bld) [#/Vol] 4.34 10*6/uL 3.8 - 5.20 10*6/uL [facility] WBC (Bld) [#/Vol] 11.4 10*3/uL High 3.6 - 10.7 10*3/uL [facility] CT ANKLE LEFT WO IV CONTRAST on [...] EST Ankle Pain Fall Leg Pain Normal [facility] CT Ankle - left WO contrasto n 09-23-2023 Trimalleolar fracture as described above. Report Dictated on Electronically Signed By: Bello Oh MD Electronically Signed Date/Time: 09/23/2023 5:53 AM [facility] CAT[facility]ACH[facility] 1985 [id number] Exam Date/Time: 09/23/2023 05:42 Procedure: CT ANKLE [...] soft tissue swelling about the left ankle. [facility] Bello Oh MD - 09/23/2023 Patient Name: CATRACHITA MURARY : 1985 [id number] Exam Date/Time: 09/23/2023 05:42 Procedure: CT ANKLE [...] Electronically Signed Date/Time: 09/23/2023 5:53 AM EST [facility] Radiology Study observation (narrative) [facility] Consult Attestation signed [...] along with possible anesthesia complications (DVT, stroke, TN, and even ). They would like to move forward with surgery. Electronically signed by Melvin Bucio M.D. 09/23/2023 at 11:16 AM. Ortho Consult Patient: Catrachita Murray Date of : 1985 Acct: [id number] PCP: POLLY LOPEZ Date of Admission: 09/22/2023 [...] reduced and splinted and sent to [facility] for skin check and resplinting. Patient denies [...] Housing Stability: Not on file Family History: @[facility] Family History is noncontributory to this [...] motion, stability, (more content not included)... Normal [facility] ECG 12-LEADon 09-23-2023 ECG 12-LEAD IMPRESSION: Sinus rhythm Prolonged IA interval Low voltage, precordial leads No ST segment elevations Electronically Signed On 09-23-2023 16:07:43 EST by Dg Carey [facility] ED Nursing Noteon 09-23-2023 ED Nursing Note [...] 09/23/23 0210 Flora Velez RN 09/23/23 0211 [facility] ED Nursing Note Pts friends had been [...] of Dilaudid. Flora Velez RN 09/23/23 0144 [facility] ED Nursing Note Call placed to Physician's [...] said delays. Flora Velez RN 09/23/23 013 [facility] ED Nursing Note Updated pt and visitors on ETA of transport. Flora Velez RN 09/22/23 2323 [facility] ED Nursing Note Per Dr. Gooden the pt will be transported to [facility] ED by friends, then friend came to nurses station saying pt instead wishes to go by squad to [facility]. Flora Velez RN 09/23/23 0132 [facility] ED Nursing Note Called Tangela at [facility] and requested call back from Dr. Bucio at [facility] ortho Radha Sutherland RN 09/22/23 2242 [facility] ED Nursing Note Xray completed at bedside, pt requesting more pain medication, physician notified. Flora Velez RN 09/22/23 1214 [facility] Laboratory - Chemistry and C hemistry - challengeon 09-23-2023 Glucose [Mass/Vol] 126 mg/dL High 70 - 100 mg/dL [facility] Laboratory - CoagulationOrde red By: Manolo Mendiola on 09-23-2023 PT Coag (Bld) [Time] 9.9 s 9.0 - 12.0 s [facility] No Panel InformationOrdered By: Dg Carey on 09-23-2023 P [place] 37 degrees [facility] [employer] Work Phone: IA Interval 208 ms [facility] [employer] Work Phone: QRS [place] -21 degrees [facility] [employer] Work Phone: QRSD Interval 112 ms [facility] [employer] Work Phone: [phone] QT Interval 372 ms [facility] [employer] Work Phone: [phone] QTC Interval 469 ms [employer] Work Phone: T Wave [place] 36 degrees [employer] Work Phone: [employer] Phone: No Panel Informationon 09-23 Sinus rhythm Prolonged IA interval Low voltage, precordial leads No ST segment elevations Electronically Signed On 09-23-2023 16:07:43 EST by Dg Cobos MD - 09/23/2023 IMPRESSION: Sinus rhythm Prolonged IA interval Low voltage, precordial leads No ST segment elevations Electronically Signed On 09-23-2023 16:07:43 EST by Dg Carey [facility] There is no interpretation needed for this exam. IMAGING Interpretation and review of laboratory results Abnormal [facility] Performed by: [facility], [address] [place] [address] CLIA ID: [id number] [facility] Radiology Study observation (narrative) [facility] No Panel InformationOrdered By: Bello Oh on 09-23-2023 [facility] Node1 Phone: Nursing Noteon 09-23-2023 Nursing Note Pt sleeping well in recovery after prn medication given prior. VSS on 3L NC. Report called in for transport. Normal [facility] Nursing Note Updated over phone, given room assignment Normal [facility] Op Noteon 09-23-2023 Op Note [facility] MA[facility] OR [address] [facility] [address] Dept: [phone] Loc: [phone] Operative Report Patient Name: Catrachita Murray Date of : 1985 Date of Surgery: 09/23/23 Pre-operative diagnosis: Left bimalleolar ankle fracture Post-operative diagnosis: Same Procedure(s): Open reduction internal fixation of left trimalleolar ankle fracture Stress exam of left ankle under fluoroscopy Surgeon: Melvin Bucio MD Catering Chef(s): Ham Caruso M.D. and Jazmyn Valenzuela M.D. [...] as well as medical complications such as TN, stroke, PE, DVT, and even . Pt [...] Bucio MD at 09/23/23, 11:06 AM Normal [facility] PROTHROMBIN TIMEon INR Coag (PPP) [Relative time] {INR} Low 0.9-1.1 [facility] Comment on above: Result Comment: Gregg [...] chart. Performed By: #### L [id number] #### Rope Cleaner: POLLY RILEY ([id number]) [facility] ([facility]) [address] [place] [address] PT Coag (PPP) [Time] 9.9 s Normal 9.0-12.0 [facility] Comment on above: Performed By: #### L [id number] #### Rope Cleaner: POLLY RILEY ([id number]) [facility] [address] [place] [address] PT Coag (Bld) [Time]Ordered By: Manolo Mendiola on 09-23-2023 INR Coag (PPP) [Relative time] Low 0.9 - 1.1 [facility] Comment on above: Recommended Anticoag ulant [...] Interpretation and review of laboratory results Abnormal [facility] Progress Noteon 09-23-2023 Progress Note Post op [...] in 2 weeks -Ortho to follow. [facility] Vital signsOrdered By: Dg Carey on 09-23-2023 Heart rate 96 /min bpm [facility] [employer] Work Phone: XR Ankle - left 3 Viewson Patient Name: CATRACHITA MURRAY : 1985 [id number] Exam Date/Time: 09/23/2023 05:17 Procedure: XR ANKLE [...] MD Electronically Signed Date/Time: 09/23/2023 5:25 AM [facility] Bello Oh MD - 09/23/2023 [...] MD Electronically Signed Date/Time: 09/23/2023 5:25 AM [facility] Radiology Study observation (narrative) [facility] XR Chest Single viewon 09-23 No focal consolidation or pulmonary edema. Report Dictated on Electronically Signed By: Bello Oh MD Electronically Signed Date/Time: 09/23/2023 6:37 AM [facility] Patient Name: CATRACHITA MURRAY : 1985 Exam Date/Time: 09/23/2023 06:36 Procedure: XR CHEST 1 VIEW Ordering Provider: GOODEN NICHOLAS Reason For Exam: preop PORTABLE CHEST CLINICAL INDICATION: preop TECHNIQUE: Portable AP COMPARISON: None FINDINGS: No focal consolidation or pulmonary edema. No pleural effusions or pneumothorax. The cardiac and mediastinal silhouettes are normal. The osseous structures are unremarkable. [facility] Bello Oh MD - 09/23/2023 [...] MD Electronically Signed Date/Time: 09/23/2023 6:37 AM [facility] Radiology Study observation (narrative) [facility] XR Tibia and Fibula - left 2 [...] MD Electronically Signed Date/Time: 09/23/2023 5:25 AM [facility] Bello Oh MD - 09/23/2023 [...] Electronically Signed Date/Time: 09/23/2023 5:25 AM EST [facility] Radiology Study observation (narrative) [facility] ED Nursing Noteon 09-22-2023 ED Nursing Note Visitor to nurses station requesting pillow for pts head. 3 visitors at bedside, blanket roll placed behind pts head. Call light is in reach of one of the visitors. Flora Velez RN 09/22/23 4260 Normal [facility] ED Nursing Note Assisted chemical radiation technician with pts xrays. Pt remains very anxious and tearful. 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 Pt was able to pivot transfer independently [...] is A&Ox3, skin warm and dry. Normal [facility] ED Provider Noteon 4 ED Provider Note Emergency Department Encounter [facility] ED Patient: Catrachita Murray : 1985 Date [...] HISTORY: as per HPI SOCIAL HISTORY: Speaks [place] MEDICATIONS: Nursing notes and EMR reviewed ALLERGIES: [...] recommends ER to ER transfer to [facility] for orthopedic surgery consult for further management including improved alignment and splinting, discussed with patient who is in agreement with plan, discussed with EM resident Dr. Veronica on behalf of accepting EM attending Dr. Austin, stable for transfer. Discussed mode of transfer with patient, patient refuses transfer by ambulance, elects to be transferred by persona (more content not included)... Normal [facility] ED Provider Note Emergency Department Encounter [facility] EMERGENCY DEPT Patient: Catrachita Murray : 1985 Date of Evaluation: 09/22/2023 ED BRIGIDA Provider: Adrien Leggett PA-C EDcare was supervised by Dr. Mon who independently examined and evaluated the patient. Please see their attestation note for further details. Chief Complaint Chief Complaint Patient presents with Ankle Pain Fall Leg Pain BILL [employer] SLOUGH I was wearing a N95, Surgical mask for the entirety of this encounter. Catrachita Murray is a 38 y.o. female who presents to the emergency department for left ankle injury. Patient injured her left ankle this evening when she was getting out of a car. Patient was transferred from [place] ED due to trimalleolar fracture and orthopedic [...] 372 ms QTC Interval 469 ms P [place] 37 degrees QRS [place] -21 degrees T Wave [place] 36 degrees IA Interval 208 ms Radiographs: FL GUIDANCE OR [...] 09/22/2023 11:19 (more content not included)... Normal [facility] ED Provider Note Emergency Department Encounter [facility] EMERGENCY DEPT Patient: Catrachita Murray : 1985 [...] was initially seen by Dr. Gooden at [facility], please see his note I wore appropriate PPE for the entirety of this encounter. In brief, Catrachita Murray is a 38 y.o. that presents to the emergency department as a transfer from [facility] for left trimalleolar ankle fracture with posterior [...] for clarification.) Carmita Mon DO Acute Care [facility] Carmita Mon DO 09/24/23 0107 Normal [facility] No Panel Informationon 09-22 1. Trimalleolar fracture left ankle, with posterolateral dislocation of tibiotalar joint. Report Dictated on Electronically Signed By: Hal Martinez MD Electronically Signed Date/Time: 09/22/2023 9:56 PM [facility] Radiology Study observation (narrative) [facility] No Panel InformationOrdered By: Hal Martinez on 09-22-2023 [facility] [employer] Work Phone: XR Ankle - left 2 Viewson Patient Name: CATRACHITA MURRAY : 1985 [facility]#: [id number] Exam Date/Time: 09/22/2023 21:50 Procedure: XR ANKLE [...] osseous and soft tissue structures grossly unremarkable. [facility] Hal Martinez MD - 09/22/2023 [...] Electronically Signed Date/Time: 09/22/2023 9:56 PM EST [facility] XR Ankle - left 3 Viewson FINDINGS/IMPRESSION: Interval improvement in alignment of the patient's previously described trimalleolar fracture status post casting. Diffuse soft tissue swelling. No radiopaque foreign body. Report Dictated on Electronically Signed By: Elpidio Wynn MD Electronically Signed Date/Time: 09/22/2023 11:19 PM [facility] Patient Name: CATRACHITA MURRAY : 1985 Exam Date/Time: 09/22/2023 22:35 Procedure: XR ANKLE 3+ VIEWS LEFT Ordering Provider: GOODEN NICHOLAS Reason For Exam: left ankle trimal fx, post bedside reduction LEFT ANKLE: CLINICAL INDICATION: Fracture. TECHNIQUE: AP, Lat, Oblique COMPARISON: 09/22/2023 [facility] Elpidio Wynn MD - 09/22/2023 [...] Electronically Signed Date/Time: 09/22/2023 11:19 PM EST [facility] Radiology Study observation (narrative) [facility] XR Ankle - left 3 ViewsOrder ed By: Elpidio Wynn on 09-22-2023 [facility] Work Phone: XR Foot - left [...] osseous and soft tissue structures grossly unremarkable. [facility] Hal Martinez MD - 09/22/2023 [...] Electronically Signed Date/Time: 09/22/2023 9:56 PM EST [facility] XR Tibia and Fibula - left 2 [...] osseous and soft tissue structures grossly unremarkable. [facility] Hal Martinez MD - 09/22/2023 [...] MD Electronically Signed Date/Time: 09/22/2023 9:56 PM [facility] Absolute lymphocyte counton 02-28-2022 Lymphocytes Auto (Unsp spec) [#/Vol] 1.97 10*3/uL 0.83-4.51 [facility] Work Phone: Basophil percentageon 2021 Basophils/100 WBC (Bld) 1.0 % 0-1 [facility] Work Phone: Chloride [Moles/Vol] 105 mmol/L 98-107 [facility] Work Phone: [phone] Eosinophils/100 WBC (Bld) 2.1 % 0-5 [facility] Work Phone: Glucose [Mass/Vol] 115 mg/dL 74-106 [facility] Work Phone: Comment on above: Fasting Glucose resu lt from 100 to 125 mg/dL suggests IMPAIRED HOMEOSTASIS per A.D.A. criteria. Neutrophils (Bld) [#/Vol] 4.1 10*3/uL 2.0-7.7 [facility] Work Phone: [phone] Neutrophils/100 WBC (Bld) 60.4 % 47-70 [facility] Work Phone: [phone] Potassium [Moles/Vol] 4.1 mmol/L 3.5-5.1 [facility] Work Phone: [phone] Comment on above: Slight Hemolysis, Re sult may be falsely increased. Sodium [Moles/Vol] 138 mmol/L 136-145 [facility] Work Phone: [phone] WBC (Bld) [#/Vol] 6.8 10*3/uL 4.4-11.0 [facility] Work Phone: Beta hCG serum qualon 2021 Beta HCG ( test) Ql Negative [facility] Work Phone: Blood erythrocytes count (nu mber/volume)on 02-28-2022 RBC (Bld) [#/Vol] 4.84 10*6/uL 4.2-5.4 [facility] Work Phone: Blood hemoglobin measurement (mass/volume)on 02-28-2022 Hemoglobin (Bld) [Mass/Vol] 14.8 g/dL 12.0-15.0 [facility] Work Phone: Blood lymphocytes/100 leukoc yteson 02-28-2022 Lymphocytes/100 WBC (Bld) 29.0 % 19-41 [facility] Work Phone: Blood monocytes/100 leukocyt eson 02-28-2022 Monocytes/100 WBC (Bld) 7.2 % 0-10 [facility] Work Phone: Blood platelet mean volumeon 02-28-2022 Platelet mean volume (Bld) [Entitic vol] 11.4 fL 6.2-12.0 [facility] Work Phone: Determination of erythrocyte mean corpuscular volume (MCV)on 02-28-2022 MCV (RBC) [Entitic vol] 89.3 fL 81-99 [facility] Work Phone: Hematocrit Auto (Bld) [Volum e fraction]on 02-28-2022 Hematocrit (Bld) [Volume fraction] 43.2 % 37-47 [facility] Work Phone: INR in Blood by Coagulation assayon 02-28-2022 INR Coag (Bld) [Relative time] 0.9 {INR} [facility] Work Phone: Laboratory - Chemistry and C hemistry - challengeon 02-28-2022 CO2 [Moles/Vol] 25.0 mmol/L 21.0-32.0 [facility] Work Phone: Urea nitrogen/Creatinine [Mass ratio] 7.2 mg/mg 10-20 [facility] Work Phone: Laboratory - Coagulationon 0 02-28-2022 aPTT Coag (Bld) [Time] 29.4 s 24.1-36.2 [facility] Work Phone: PT Coag (PPP) [Time] 11.6 s 11.7-14.9 [facility] Work Phone: Laboratory - Hematology and Cell countson 02-28-2022 Erythrocyte distribution width (RBC) [Entitic vol] 42.5 fL 35.1-43.9 [facility] Work Phone: Erythrocyte distribution width (RBC) [Ratio] 13.1 % 11.6-14.6 [facility] Work Phone: Immature granulocytes/100 WBC (Bld) 0.300 % 0.0-0.9 [facility] Work Phone: Comment on above: IG% - Immature Granu locytes (promyelocytes, myelocytes and metamyelocytes) > 1% indicates that a LEFT SHIFT is Present. MCH (RBC) [Entitic mass] 30.6 pg 27.0-32.0 [facility] Work Phone: Nucleated RBC/100 WBC (Bld) [Ratio] 0 % 0-5 [facility] Work Phone: MCHC Auto (RBC) [Mass/Vol]on 02-28-2022 MCHC (RBC) [Mass/Vol] 34.3 g/dL 32-36 [facility] Work Phone: No Panel Informationon 02-28 Troponin I High Sensitivity < 3 pg/mL 3.0-54.0 [facility] Work Phone: Comment on above: Please Note: New Radhika t Units and Gender Specific Reference Ranges. For more information see Policy Stat Procedure [place] High Sensitivity Troponin (TNIH) and attachments. D-Dimer Quantitative (PE/DVT) < 0.27 FEU/ug/m 0.27-0.49 [facility] Work Phone: Comment on above: NORMAL D-Dimer level (<0.50) indicates no DVT or PE. Estimated Creatinine Clearance Calc 73.62 ml/min [facility] Work Phone: Estimated GFR (MDRD) Amer 83 mL/min >60 [facility] Work Phone: Comment on above: GFR Calc Estimated GFR (MDRD) Non-Af Amer 68 mL/min >60 [facility] Work Phone: Comment on above: Non- GFR Calc Platelets bldon 02-28-2022 Platelets (Bld) [#/Vol] 343 10*3/uL 150-450 [facility] Work Phone: Serum or plasma calcium jami urement (mass/volume)on 02-28-2022 Calcium [Mass/Vol] 9.3 mg/dL 8.5-10.1 [facility] Work Phone: Serum or plasma creatinine m easurement (mass/volume)on 02-28-2022 Creatinine [Mass/Vol] 0.97 mg/dL 0.55-1.02 [facility] Work Phone: Comment on above: The validity of the calculated GFR & GFRAA in patients over 70 years has not been determined. Clinical correlation is essential. Serum or plasma urea nitroge n measurement (mass/volume)on 02-28-2022 Urea nitrogen [Mass/Vol] 7 mg/dL 7-18 [facility] Work Phone: Thin prep Papanicolaou smear with manual screeningon 02-28-2022 Thin prep Papanicolaou smear with manual screening 8 5-15 [facility] Work Phone: Vital Signs Date Time Vital Sign Value Performing Clinician Facility 01-30-2025 20:00-0400 Heart rate 79 /min Dr. Celso Brewer MD Work Phone: [facility] 01-30-2025 20:00-0400 Respiratory rate 14 /min Dr. Celso Brewer MD Work Phone: [facility] 01-30-2025 20:00-0400 SaO2% (BldA) [Mass fraction] 100 % Dr. Celso Brewer MD Work Phone: [facility] 01-30-2025 20:00-0400 Systolic blood pressure 136 mm[Hg] Dr. Celso Brewer MD Work Phone: [facility] 01-30-2025 19:35-0400 Body temperature 97.9 [degF] Dr. Celso Brewer MD Work Phone: [phone] [place] [address] 01-30-2025 19:33-0400 Body height 167.[address] Celso Brewer MD Work Phone: [phone] [place] [address] 01-30-2025 19:33-0400 Body mass index (BMI) [Ratio] 34.5 kg/m2 Dr. Celso Brewer MD Work Phone: [phone])367-017301 [place] [address] 01-30-2025 19:33-0400 Body weight 97.[address] Celso Brewer MD Work Phone: [phone] [place] [address] 01-30-2025 09:33-0400 Body height 165.[address] Celso Brewer MD Work Phone: [phone] [place] [address] 01-30-2025 09:33-0400 Body mass index (BMI) [Ratio] 35.2 kg/m2 Dr. Celso Brewer MD Work Phone: [phone])876-717201 [place] [address] 01-30-2025 09:33-0400 Body temperature 97.2 [degF] Dr. Celso Brewer MD Work Phone: 1(255)221-150701 [place] [address] 01-30-2025 09:33-0400 Body weight 96.[address] Celso Brewer MD Work Phone: [phone])240-993001 [place] [address] 01-30-2025 09:33-0400 Diastolic blood pressure 88 mm[Hg] Dr. Celso Brewer MD Work Phone: [phone])108-662801 [place] [address] 01-30-2025 09:33-0400 Heart rate 75 /min Dr. Celso Brewer MD Work Phone: 0(774)130-929601 [place] [address] 01-30-2025 09:33-0400 Respiratory rate 18 /min Dr. Celso Brewer MD Work Phone: [phone] [place] [address] 01-30-2025 09:33-0400 SaO2% (BldA) [Mass fraction] 99 % Dr. Celso Brewer MD Work Phone: [phone])201-668501 [place] [address] 01-30-2025 09:33-0400 Systolic blood pressure 125 mm[Hg] Dr. Celso Brewer MD Work Phone: [facility] 01-22-2025 11:00-0400 Body mass index (BMI) [Ratio] 34.78 kg/m2 Manolo Harrington MD Work Phone: [facility] 01-22-2025 11:00-0400 Body weight 94.8 kg Manolo Harrington MD Work Phone: [facility] 01-22-2025 11:00-0400 Diastolic blood pressure 88 mm[Hg] Manolo Harrington MD Work Phone: [facility] 01-22-2025 11:00-0400 Systolic blood pressure 110 mm[Hg] Manolo Harrington MD Work Phone: [facility] 01-20-2025 11:46-0400 Body temperature 97.5 [degF] Dr. Celso Brewer MD Work Phone: [facility] 01-20-2025 11:46-0400 Diastolic blood pressure 94 mm[Hg] Dr. Celso Brewer MD Work Phone: [facility] 01-20-2025 11:46-0400 Heart rate 79 /min Dr. Celso Brewer MD Work Phone: [facility] 01-20-2025 11:46-0400 Respiratory rate 18 /min Dr. Celso Brewer MD Work Phone: [facility] 01-20-2025 11:46-0400 SaO2% (BldA) [Mass fraction] 98 % Dr. Celso Brewer MD Work Phone: [facility] 01-20-2025 11:46-0400 Systolic blood pressure 136 mm[Hg] Dr. Celso Brewer MD Work Phone: [facility] 01-20-2025 08:34-0400 Body height 165.[address] Celso Brewer MD Work Phone: [facility] 01-20-2025 08:34-0400 Body mass index (BMI) [Ratio] 35.2 kg/m2 Dr. Celso Brewer MD Work Phone: [facility] 01-20-2025 08:34-0400 Body weight 96.[address] Celso Brewer MD Work Phone: [facility] 12-22-2024 17:34-0400 Body temperature 97 [degF] Dr. Celso Brewer MD Work Phone: [facility] 12-22-2024 17:34-0400 Diastolic blood pressure 97 mm[Hg] Dr. Celso Brewer MD Work Phone: [phone] [place] [address] 12-22-2024 17:34-0400 Heart rate 89 /min Dr. Celso Brewer MD Work Phone: [facility] 12-22-2024 17:34-0400 Respiratory rate 14 /min Dr. Celso Brewer MD Work Phone: [facility] 12-22-2024 17:34-0400 SaO2% (BldA) [Mass fraction] 97 % Dr. Celso Brewer MD Work Phone: [facility] 12-22-2024 17:34-0400 Systolic blood pressure 144 mm[Hg] Dr. Celso Brewer MD Work Phone: [facility] 12-22-2024 14:54-0400 Body height 165.[address] Celso Brewer MD Work Phone: [facility] 12-22-2024 14:54-0400 Body mass index (BMI) [Ratio] 35.6 kg/m2 Dr. Celso Brewer MD Work Phone: [facility] 12-22-2024 14:54-0400 Body weight 97.[address] Celso Brewer MD Work Phone: [facility] 10-21-2024 10:42-0400 Body mass index (BMI) [Ratio] 36.32 kg/m2 Radha Phillips APRN.CNP Work Phone: [facility] 10-21-2024 10:42-0400 Body temperature 97.2 [degF] Radha Moomaw SUPPLY CONTROLLER.REFORMATORY ATTENDANT Work Phone: [facility] 10-21-2024 10:42-0400 Body weight 99 kg Radha Moomaw SUPPLY CONTROLLER.REFORMATORY ATTENDANT Work Phone: [facility] 10-21-2024 10:42-0400 Diastolic blood pressure 90 mm[Hg] Radha Moomaw SUPPLY CONTROLLER.REFORMATORY ATTENDANT Work Phone: [facility] 10-21-2024 10:42-0400 Heart rate 102 /min Radha Moomaw SUPPLY CONTROLLER.REFORMATORY ATTENDANT Work Phone: [facility] 10-21-2024 10:42-0400 Respiratory rate 16 /min Radha Moomaw SUPPLY CONTROLLER.REFORMATORY ATTENDANT Work Phone: [facility] 10-21-2024 10:42-0400 SaO2% (BldA) [Mass fraction] 97 % Radha Moomaw SUPPLY CONTROLLER.REFORMATORY ATTENDANT Work Phone: [facility] 10-21-2024 10:42-0400 Systolic blood pressure 144 mm[Hg] Radha Moomaw SUPPLY CONTROLLER.REFORMATORY ATTENDANT Work Phone: [facility] 12-15-2023 15:20-0400 Body height 167.6 cm Melvin Bucio MD Work Phone: [facility] [employer] 12-15-2023 15:20-0400 Body mass index (BMI) [Ratio] 33.41 kg/m2 Melvin Bucio MD Work Phone: [facility] [employer] 12-15-2023 15:20-0400 Body weight 93.89 kg Melvin Bucio MD Work Phone: [facility] [employer] 11-03-2023 15:16-0400 Body height 167.6 cm Melvin Bucio MD Work Phone: [facility] [employer] 11-03-2023 15:16-0400 Body mass index (BMI) [Ratio] 33.41 kg/m2 Melvin Bucio MD Work Phone: [facility] [employer] 11-03-2023 15:16-0400 Body weight 93.89 kg Melvin Bucio MD Work Phone: [employer] 10-06-2023 12:00-0500 Body height 167.6 cm Melvin Bucio MD Work Phone: [facility] [employer] 10-06-2023 12:00-0500 Body mass index (BMI) [Ratio] 33.41 kg/m2 Melvin Bucio MD Work Phone: [employer] 10-06-2023 12:00-0500 Body weight 93.89 kg Melvin Bucio MD Work Phone: [employer] 10-06-2023 12:00-0500 Diastolic blood pressure 84 mm[Hg] Melvin Bucio MD Work Phone: [employer] 10-06-2023 12:00-0500 Systolic blood pressure 128 mm[Hg] Melvin Bucio MD Work Phone: [facility] [employer] 09-24-2023 08:06-0500 Body temperature 96.01 [degF] Marc Gooden MD Work Phone: [facility] [employer] 09-24-2023 08:06-0500 Diastolic blood pressure 83 mm[Hg] Marc Gooden MD Work Phone: [facility] [employer] 09-24-2023 08:06-0500 Heart rate 92 /min Marc Gooden MD Work Phone: [facility] [employer] 09-24-2023 08:06-0500 SaO2% (BldA) [Mass fraction] 94 % Marc Gooden MD Work Phone: [employer] [facility] 09-24-2023 08:06-0500 Systolic blood pressure 130 mm[Hg] Marc Gooden MD Work Phone: [employer] [facility] 09-24-2023 04:12-0500 Respiratory rate 16 /min Marc Gooden MD Work Phone: [employer] 09-23-2023 06:26-0500 Body height 167.6 cm Marc Gooden MD Work Phone: [facility] 09-22-2023 21:00-0500 Body mass index (BMI) [Ratio] 33.41 kg/m2 Marc Gooden MD Work Phone: [facility] 09-22-2023 21:00-0500 Body weight 93.89 kg Marc Gooden MD Work Phone: [facility] 04-27-2022 09:01-0400 Body temperature 96.91 [degF] Marianne Nina APRN.REFORMATORY ATTENDANT Work Phone: [facility] 04-27-2022 09:01-0400 Body weight 100.7 kg Marianne Nina APRN.REFORMATORY ATTENDANT Work Phone: [facility] 04-27-2022 09:01-0400 Diastolic blood pressure 80 mm[Hg] Marianne Nina APRN.REFORMATORY ATTENDANT Work Phone: [facility] 04-27-2022 09:01-0400 Heart rate 94 /min Marianne Nina APRN.REFORMATORY ATTENDANT Work Phone: [facility] 04-27-2022 09:01-0400 Respiratory rate 16 /min Marianne Nina APRN.REFORMATORY ATTENDANT Work Phone: [facility] 04-27-2022 09:01-0400 SaO2% (BldA) [Mass fraction] 99 % Marianne Nina APRN.REFORMATORY ATTENDANT Work Phone: [facility] 04-27-2022 09:01-0400 Systolic blood pressure 122 mm[Hg] Marianne Nina APRN.REFORMATORY ATTENDANT Work Phone: [facility] 02-28-2022 12:03-0400 Diastolic blood pressure 107 mm[Hg] Dr. Polly Lopez Work Phone: [facility] Work Phone: 02-28-2022 12:03-0400 Heart rate 88 /min Dr. Polly Lopez Work Phone: [facility] Work Phone: 02-28-2022 12:03-0400 Respiratory rate 14 /min Dr. Polly Lopez Work Phone: [facility] Work Phone: 02-28-2022 12:03-0400 SaO2% (BldA) [Mass fraction] 95 % Dr. Polly Lopez Work Phone: [facility] Work Phone: 02-28-2022 12:03-0400 Systolic blood pressure 158 mm[Hg] Dr. Polly Lopez Work Phone: [facility] Work Phone: 02-28-2022 08:41-0400 Body height 167.[address] Polly Lopez Work Phone: [facility] Work Phone: 02-28-2022 08:41-0400 Body mass index (BMI) [Ratio] 33 kg/m2 Dr. Polly Lopez Work Phone: [facility] Work Phone: 02-28-2022 08:41-0400 Body temperature 97.8 [degF] Dr. Polly Lopez Work Phone: [facility] Work Phone: 02-28-2022 08:41-0400 Body weight 92.[address] Polly Lopez Work Phone: [facility] Work Phone: Encounters Encounter Date Encounter Type Care Provider Facility Start: 01-30-2025 Non-patient / Non-visit Dr. Jose Carlos Canas MD -[facility] Start: 01-30-2025 Admission to [facility] Dr. Kelsey Canas MD -[facility] Start: 01-30-[address] Celso Brewer MD Work Phone: [facility] Work Phone: Start: 01-30-2025 End: 01-30-[address] Celso Brewer MD Work Phone: [facility] Work Phone: Start: 01-30-2025 End: 01-30-2025 Patient encounter procedure Essie Leggett PA-C -[facility] Work Phone: Start: 01-22-2025 End: 01-22-2025 Patient encounter procedure Manolo Harrington MD Work Phone: OB/Gynecology Comment on above: Corpus luteum cyst ( Primary Dx) Start: 01-22-2025 End: 01-22-2025 ambulatory MANOLO HARRINGTON Facility:[facility] Start: 01-21-2025 End: 01-21-2025 Telephone encounter Camila Villasenor MD Work Phone: OB/Gynecology Start: 01-20-2025 End: 01-20-2025 Emergency department patient visit Dr. Celso Brewer MD Work Phone: -Emergency Department Work Phone: Start: 12-22-2024 End: 12-22-2024 Emergency department patient visit Dr. Celso Brewer MD Work Phone: -Emergency Department Work Phone: Start: 12-10-2024 End: 12-10-[address] Celso Brewer MD Work Phone: [facility] Work Phone: Start: 12-10-2024 End: 12-10-[address] Celso Brewer MD -Laboratory, [facility] Start: 12-10-2024 End: 12-10-2024 ambulatory Celso Brewer Facility:[facility] Start: 10-21-2024 End: 10-21-2024 ambulatory POLLY LOPEZ Facility:[facility] Start: 10-21-2024 End: 10-21-2024 Patient encounter procedure Radha Phillips APRN.CNP Work Phone: [facility] Comment on above: Viral URI (Primary D x) Start: 03-14-2024 End: 03-14-2024 Orders Only Ludy Vila PA-C Work Phone: [facility] Comment on above: Closed displaced tri malleolar fracture of left ankle, initial encounter (Primary Dx) Start: 03-11-2024 End: 03-11-2024 Emergency department patient visit Andrea Castellanos Facility:[facility] Start: 12-15-2023 End: 12-16-2023 ambulatory LUDY VILA [facility] Start: 12-15-2023 End: 12-15-2023 Postop follow up visit related to original px Melvin Bucio MD Work Phone: [facility] Comment on above: Closed displaced tri malleolar fracture of left ankle, initial encounter (Primary Dx) Start: 11-03-2023 End: 11-03-2023 Postop follow up visit related to original px Melvin Bucio MD Work Phone: [facility] Comment on above: Closed displaced tri malleolar fracture of left ankle, initial encounter Start: 11-03-2023 End: 11-03-2023 Orders Only Ludy Vila PA-C Work Phone: [facility] Comment on above: Closed displaced tri malleolar fracture of left ankle, initial encounter (Primary Dx) Start: 10-06-2023 End: 10-06-2023 Orders Only Ludy Vila PA-C Work Phone: [facility] Comment on above: Closed displaced tri malleolar fracture of left ankle, initial encounter (Primary Dx) Start: 10-06-2023 End: 10-06-2023 Postop follow up visit related to original px Melvin Bucio MD Work Phone: [facility] Comment on above: Closed displaced tri malleolar fracture of left ankle, initial encounter Start: 09-28-2023 Telephone encounter Melvin garcia MD Work Phone: [facility] Comment on above: Med Refill Start: 09-23-2023 End: 09-23-2023 Emergency department patient visit M[facility] Start: 09-22-2023 End: 09-23-2023 Emergency department patient visit MARC [facility] Start: 09-22-2023 End: 09-24-2023 Evaluation and management of inpatient POLLY LOPEZ [facility] Start: 09-22-2023 End: 09-22-2023 Subsequent hospital visit by physician [facility] Radiology Comment on above: Arrived Start: 09-22-2023 End: 09-22-2023 Subsequent hospital visit by physician [facility] Radiology Comment on above: Arrived Start: 09-22-2023 End: 09-24-2023 Evaluation and management of inpatient Marc B Taisha PAZ Work Phone: [facility] Surgical Progressive Care Unit PCU H6 Comment on above: Closed displaced tri malleolar fracture of left ankle, initial encounter (Primary Dx) Start: 04-27-2022 End: 04-27-2022 Patient encounter procedure Marianne Nina APRN.CNP Work Phone: [facility] Comment on above: Pain of right eye (P rimary Dx) Start: 02-28-2022 Non-patient / Non-visit Dr. Brayan Lopez Work Phone: [facility] Start: 02-28-2022 End: 02-28-2022 Emergency department patient visit Dr. Polly Lopez Work Phone: [facility]-Emergency Department Procedures Date Procedure Procedure Detail [...] on above: Performed By: #### L [id number] ####Rope Cleaner: POLLY RILEY ([phone])[facility] ([facility])[address] [place] [address] Start: 09-23-2023 Radiologic exam ches t single [...] or older (1 - 1-dose 60+ series) [facility] Start: 2033 Zoster Vaccines (1 of 2) Zoster Vaccines (1 of 2) [facility] Start: 01-31-2031 DTaP/Tdap/Td Vaccines (3 - Td or Tdap) DTaP/Tdap/Td Vaccines (3 - Td or Tdap) [facility] Start: 01-31-2031 Urine microalbumin profile DTaP,Tdap,Td Vaccine (3 - Td or Tdap) [facility] Start: 04-07-2025 Influenza vaccination Influenza Vaccine (Season Ended) [facility] Start: 01-30-2025 Hemorrhoidectomy Hemorrhoidectomy (Not Applicable) [facility] Start: 01-30-2025 Ambulation without limitation [facility] Start: 01-30-2025 Verification routine [facility] Start: 01-30-2025 Admission procedure [facility] Start: 01-30-2025 Hospital admission, emergency, from emergency room, medical nature [facility] Start: 01-22-2025 End: 01-22-2025 Patient encounter procedure 01/22/2025 11:10 AM EDT Office Visit OB/Gynecology [address] [place] [address] Manolo Harrington MD [address] [place] [address] follow up from [facility] ER ovarian cyst OB/Gynecology Comment on above: follow up from [facility] ER ovarian cyst Start: 01-20-2025 [facility] Start: 12-22-2024 [facility] Start: 07-23-2024 HPV TESTING HPV TESTING [facility] Start: 07-23-2024 PAP TESTING PAP TESTING [facility] Start: 07-23-2024 Screening for malignant neoplasm of cervix Cervical Cancer Screening [facility] Start: 04-07-2024 Covid-19 Vaccine ( season) Covid-19 Vaccine ( season) [facility] Start: 04-07-2024 Influenza vaccination [facility] Start: 03-15-2024 End: 03-14-2025 XR Ankle - left 3 Views XR ankle 3+ views left Imaging Routine Closed displaced trimalleolar fracture of left ankle, initial encounter Expected: 03/15/2024, Expires: 03/14/2025 [facility] Work Phone: Comment on above: Expected: 03/15/2024, Expires: Start: 03-15-2024 End: 03-15-2024 Patient encounter procedure 03/15/2024 10:00 AM EDT Office Visit [facility] [address] [place] [address] Melvin Bucio MD [address] [place] [address] [facility] Start: 12-15-2023 End: 12-15-2023 Patient encounter procedure 12/15/2023 3:15 PM EDT Office Visit [facility] [address] [place] [id number] Melvin Bucio MD [address] [place] [address] [facility] Start: 12-15-2023 End: 12-14-2024 XR Ankle - left 3 Views [facility] Work Phone: Comment on above: Expected: 12/15/2023, Expires: Start: 11-03-2023 End: 11-03-2023 Patient encounter procedure [facility] Start: 11-03-2023 End: 11-02-2024 XR Ankle - left 3 Views XR ankle 3+ views left Imaging Routine Closed displaced trimalleolar fracture of left ankle, initial encounter Expected: 11/03/2023, Expires: 11/02/2024 [facility] Work Phone: Comment on above: Expected: 11/03/2023, Expires: Start: 10-06-2023 End: 10-05-2024 XR Ankle - left 3 Views [facility] Work Phone: Comment on above: Expected: 10/06/2023, Expires: Start: 09-23-2023 End: 09-23-2023 Open tx trimalleolar ankle fx w/fixj pst lip OPEN REDUCTION INTERNAL FIXATION TRIMALLEOLAR ANKLE FRACTURE WITH FIXATION OF POSTERIOR LIP Closed displaced trimalleolar fracture of left ankle, initial encounter 09/23/2023 9:34 AM EST [facility] Start: 07-29-2023 Urine microalbumin profile DTAP,TDAP,TD (2 - Td or Tdap) [facility] Start: 2023 Screening for malignant neoplasm of breast [facility] Start: 04-07-2023 COVID-19 Vaccine ( season) COVID-19 Vaccine ( season) [facility] Start: 04-07-2023 Influenza vaccination Influenza Vaccine (#1) [facility] Start: 04-07-2022 Influenza vaccination INFLUENZA (#1) [facility] Start: 02-28-2022 [facility] Work Phone: Start: 03-24-2021 COVID-19 VACCINE (3 - Booster for Pfizer series) COVID-19 VACCINE (3 - Booster for Pfizer series) [facility] Start: 2013 Screening for malignant neoplasm of cervix [facility] Start: 2004 Screening for malignant neoplasm of cervix Pap Smear [facility] Start: 2002 Hepatitis B Vaccine (1 of 3 - 19+ 3-dose series) Hepatitis B Vaccine (1 of 3 - 19+ 3-dose series) [facility] Start: 2002 Hepatitis B Vaccines (1 of 3 - 19+ 3-dose series) Hepatitis B Vaccines (1 of 3 - 19+ 3-dose series) [facility] Start: 2001 Anxiety Screening Anxiety Screening [facility] Start: 2001 Depression Screening Depression Screening [facility] Start: 2001 Diabetes mellitus screening Diabetes Screening [facility] Start: 2001 Hepatitis C screening Hepatitis C Screening [facility] Start: 1996 Varicella vaccination Varicella Vaccines (1 of 2 - 13+ 2-dose series) [facility] Start: 1995 Adult depression screening assessment DEPRESSION SCREENING [facility] Start: 1984 MMR Vaccines (1 of 1 - Standard series) MMR Vaccines (1 of 1 - Standard series) [facility] Start: 1984 Varicella vaccination Varicella Vaccines (1 of 2 - 2-dose childhood series) [facility] Start: 1983 HEPATITIS B (1 of 3 - 3-dose series) HEPATITIS B (1 of 3 - 3-dose series) [facility] Start: 1983 Hepatitis B Vaccines (1 of 3 - 3-dose series) Hepatitis B Vaccines (1 of 3 - 3-dose series) [facility] Start: 1983 HIV screening HIV Screening [facility] Start: 1983 Lipid panel Lipid Panel [facility] Start: 1983 Thyroid stimulating hormone measurement TSH Level [facility] Patient Education [facility] Work Phone: Patient referral [facility] Work Phone: Immunizations Immunization Date Immunization Notes Care Provider Fa [facility] 05-26-2021 influenza, injectabl e, quadrivalent, preservative free Melvin Bucio MD Work Phone: [facility] 05-26-2021 influenza virus vaccine, unspecified formulation [facility] 01-31-2021 tetanus toxoid, redu yoshi diphtheria toxoid, and acellular pertussis vaccine, adsorbed Dr. Polly Lopez Work Phone: [facility] Work Phone: 05-15-2020 influenza, injectabl e, quadrivalent, preservative free Melvin Bucio MD Work Phone: [facility] 08-02-2019 influenza, injectabl e, quadrivalent, preservative free Dr. Celso Brewer MD Work Phone: [facility] 08-02-2019 influenza, seasonal, injectable Dr. Polly Lopez Work Phone: [facility] Work Phone: 08-02-2019 influenza, seasonal, injectable, preservative free Melvin Bucio MD Work Phone: [facility] 06-07-[address] Polly Lopez Work Phone: [facility] 06-07-2018 influenza, seasonal, injectable, preservative free Melvin Bucio MD Work Phone: [facility] 07-29-2013 tetanus toxoid, redu yoshi diphtheria toxoid, and acellular pertussis vaccine, adsorbed Marianne Nina APRN.REFORMATORY ATTENDANT Work Phone: [facility] 06-03-2013 influenza virus vaccine, unspecified formulation Marianne Nina APRN.REFORMATORY ATTENDANT Work Phone: [facility] Work Phone: 08-17-2012 influenza, seasonal, injectable, preservative free Melvin Bucio MD Work Phone: [facility] 07-25-2006 influenza virus vaccine, unspecified formulation Marianne Nina APRN.REFORMATORY ATTENDANT Work Phone: [facility] Payers Date Payer Category Payer Self-pay [id number] 2019 Private Health Insurance MMO SU[employer] PPO [id number] 2019 Unknown [id number] 2019 [id number] 2013 Unknown [id number] Unknown [id number] Unknown [id number] Unknown [id number] Unknown [id number] Social History Date Type Detail Facility [facility] Work Phone: Start: 02-28-2022 End: 02-28-2022 Tobacco smoking status NHIS Unknown if ever smoked [facility] Work Phone: Start: 07-11-2019 None [facility] Start: 01-20-2021 Homeless [facility] Start: 12-10-2020 Non-smoker [facility] Start: 1985 Sex Assigned At Female [facility] Start: 04-27-2022 End: 01-30-2025 Tobacco smoking status NHIS Never smoked tobacco [facility] Work Phone: Start: 04-27-2022 End: 11-03-2023 Tobacco use and exposure Smokeless tobacco non-user [facility] Work Phone: Start: 04-27-2022 End: 01-22-2025 Alcohol intake Current non-drinker of alcohol (finding) [facility] Start: 1985 Sex Assigned At Not on file [facility] Start: 04-17-2022 End: 04-27-2022 Exposure to SARS-CoV-2 (event) Not sure [facility] Work Phone: Start: 09-22-2023 End: 12-18-2023 Alcohol intake Current drinker of alcohol (finding) [facility] Start: 09-22-2023 End: 05-07-2024 History of Social function [facility] Start: 09-22-2023 End: 05-07-2024 Tobacco use panel [facility] Start: 09-22-2023 Alcohol Comment Intoxicated du ring this ED visit [facility] National Score (1-100), lower number is lower risk 60 [facility] NEGATED: Highlighted row Not [facility] Medical Equipment Procedure Code Equipment Code [...] 08/09 Tu b Collar 3h 33 - [id number] Start: 09-23-2023 Screw Crtx 2.7x2 2mm S-T - [id number] Start: 09-23-2023 Screw Crtx 2.7x1 8mm S-T - [id number] Start: 09-23-2023 Screw Crtx 3.5x1 2mm S-T - [id number] Start: 09-23-2023 Screw Canc 4.0x1 6mm Full-Thrd - [id number] Start: 09-23-2023 Screw Crtx 3.5x1 4mm S-T - [id number] Start: 09-23-2023 Screw Canc 4.0x5 0mm Part-Thrd - [id number] Start: 09-23-2023 Functional Status Date Assessment Result Facility 12-23-2013 Are you deaf, or do you have serious difficulty hearing No 12/23/2013 2:45 PM EDT Fide Mehta Ma No [facility] Work Phone: 12-23-2013 Are you blind, or do you have serious difficulty seeing, even when wearing glasses No 12/23/2013 2:45 PM EDT Tyson Wylie Fide No [facility] 12-23-2013 Do you have serious difficulty walking or climbing stairs No 12/23/2013 2:45 PM EDT Fide Mehta Ma No [facility] 12-23-2013 Do you have difficul ty dressing or bathing No 12/23/2013 2:45 PM EDT Fide Mehta Ma [facility] 12-23-2013 Because of a physica l, mental, or emotional condition, do you have difficulty doing errands alone such as visiting a physician's office or shopping No 12/23/2013 2:45 PM EDT Fide Mehta Ma [facility] Mental Status Date Assessment Result Facility 01-30-2025 Cognitive function Level Of Cons ciousness Awake;Alert;Appropriate;Fol lows Commands [facility] Work Phone: 02-28-2022 Cognitive function Voice/Name [facility] Work Phone: 12-23-2013 Because of a physica l, mental, or emotional condition, do you have serious difficulty concentrating, remembering, or making decisions No 12/23/2013 2:45 PM EDT Fide Mheta Ma Liya [facility] Clinical Notes 02-26-2013 to 01-30-2025 Note Date & Type Note Facility 01-30-2025 History and physical note [facility] 01-30-2025 Discharge summary [facility] 01-30-2025 Discharge summary Note Date/Time January 30, 2025 8:03pm [facility] Medical Records Department [address] [place] [address] Emergency Department Summary 01/30/25 MR#: [id number] Acct: [id number] Name: CATRACHITA MURRAY Rep #:[id number] : 1985 39 From: Jakub Jones MD [...] for reaccumulation of blood of her hemorrhoid. [facility] Medical History History of postoperative nausea and [...] 79.7 H Lymph % (Auto) 13.4 L Ida % (Auto) 5.0 Eos % (Auto) 1.0 [...] A POSITIVE Management Discussion w/another healthcare provider: Long Winder Tender (Dr. Canas) Discharge Plan Dx/Rx/DC Orders Clinical Impression: Hemorrhoid, Failure of outpatient treatment Disposition Disposition: Acute Care Hospital [facility] What to do if you have Problems For any increased pain, shortness of breath, bleeding, nausea or vomiting, chestpain, or any unexpected problems, contact your Primary Care Provider. Call [facility] ([phone]) or report to the closest Emergency Room. Call 911 if necessary. 01/30/252002 <Electronically signed by Jakub Jones MD> Cosigner Signature (if applicable): CC: Dr. Celso Brewer MD ~ Signed [facility] Work Phone: 1(419) 908-686506-26-2025 Progress note Author Essie Leggett [facility] Note Date/Time January 30, 2025 11:[address] [facility] [facility] [place] [address] OFFICE VISIT Date of Service: 01/30/25 MR#: [id number] Acct: [id number] Name: CATRACHITA MURRAY Rep #: [id number] : 1985 Provider: CRISTIAN Leggett Age/Sex: 39/F Location: [facility] Status: Signed Intake Vital Signs 01/20/25 08:34 [...] well. Alert Jeri Alert Billing: Yes Hemorrhoid 48444 Evacuation Procedure Time Out Time Out Informed [...] thrombosis Coding Level of Care Code Attention Drapery Cutter Diagnoses Thrombosed hemorrhoids K64.5 CPT Codes Hemorrhoid - Hemorrhoid: 48339 Evacuation (89679) 01/30/25 1120 <Electronically signed by Essie MAX PA-C> Date _ Essie MAX PA-C Cosigner Signature: Date (if applicable) CC: ~ [facility] Work Phone: 1(978) 123-872106-26-2025 Evaluation note* Diagnosis Onset Date Resolution Status Admit Date Thrombosed hemorrhoids acute Ju ne 2024 9:21am [facility] Work Phone: 1(643) 705-940806-26-2025 Evaluation note* Diagnosis Onset Date Resolution Status Admit Date Thrombosed hemorrhoids acute Ju ne 2024 9:21am Failure of outpatient treatment acut e January 30, 2025 8:18pm Hemorrhoid acute January 30 8:18pm Thrombosed hemorrhoids acute Ju 2024 8:18pm [facility] Work Phone: 1(248) 161-438506-26-2025 Progress [facility] [address] [place], [place] [id number] OFFICE VISIT Date of Service: 01/30/25 MR#: [id number] Acct: [id number] Name: CATRACHITA MURRAY Rep #: [id number] : 1985 Provider: CRISTIAN Leggett Age/Sex: 39/F Location: [facility] Status: Signed Intake Vital Signs 01/20/25 08:34 [...] well. Alert Jeri Alert Billing: Yes Hemorrhoid 73107 Evacuation Procedure Time Out Time Out Informed [...] Coding Level of Care Code Pedro Pablo Drapery Cutter Diagnoses Thrombosed hemorrhoids K64.5 CPT Codes Hemorrhoid - Hemorrhoid: 95321 Evacuation (83689) 01/30/25 1120 th MANSOOR FOSTER> Date _ Essie MAX PA-C Cosigner Signature: Date (if applicable) CC: ~ [facility]2025 NoteHNO ID: [id number] Author: MANOLO HARRINGTON MD Service: ? Author Type: Physician Type: Progress Notes Filed: 01/22/2025 11:31 Note Text: Acoustical Tile Carpenters Supervisor offered: Patient accepts, visit chaperoned by Essie Sandoval MA. Catrachita Murray is a 39 year old female who presents for problem visit subsequent to ER visits for painful ovarian cysts/follicles that resolved spontaneously. HPI: as above, DANNA 1999 for fibroids/[facility] OB History Gravida3 Para3 Term3 Preterm0 AB0 Living2 SAB0 IAB0 Ectopic0 Multiple0 Live Births1 All Source Analyst History LMP: 2019 (Exact Date), Hysterectomy Age at Menarche: Age at First : Age at Menopause: All Source Analyst History Comments: Sexual Activity: Yes; Male Contraception: [...] discussed with the Patient or Patient's Authorized Veterinary Poultry Inspector. As applicable, any other physician, advance practice provider, medical student, or other health professional student that will be observing or involved in the sensitive examination for educational or training purposes was discussed with the Patient or Authorized Veterinary Poultry Inspector. The Patient or Authorized Veterinary Poultry Inspector has agreed to proceed with the sensitive examination. (Sensitive examination includes inspection and/or palpation of the breasts, pelvis, prostate and anorectal regions). EXAM: BP 110/88 Wt 209 lb (94.8kg) LMP 2019 GENERAL: pleasant, female in no apparent distress PELVIC: external genitalia normal, normal Bartholin's glands, urethra, Villa Esperanza's glands, no vulvar lesions, no cervical lesions, good vaginal support, physiologic discharge present, normal appearing perineal body and perianal region, well estrogenized, cervix surgically absent BIMANUAL: no adnexal masses, non-tender, and uterus surgically absent ASSESSMENT AND PLAN: Assessment AND Plan Corpus luteum cyst Nuvaring for ovarian suppression of painful cysts ftft> 30 m Manolo Harrington, [facility]2025 History of Present illness Narrative* Manolo Harrington MD - 01/22/2025 10:54 AM EDT Acoustical T[employer] Carpenters Supervisor offered: Patient accepts, visit chaperoned by Essie Sandoval MA. Catrachita Murray is a 39 year old female who presents for problem visit subsequent to ER visits forpainful ovarian cysts/follicles that resolved spontaneously. HPI: as above, DANNA 1999 for fibroids/HMB OB History Gravida3 Para3 Term3 Preterm0 AB0 Living2 SAB0 IAB0 Ectopic0 Multiple0 Live Births1 All Source Analyst History LMP: 2019 (Exact Date), Hysterectomy Age at Menarche: Age at First : Age at Menopause: All Source Analyst History Comments: Sexual Activity: Yes; Male Contraception: [...] discussed with the Patient or Patient's Authorized Veterinary Poultry Inspector. As applicable, any other physician, advance practice provider, medical student, or other health professional student that will be observing or involved in the sensitive examination for educational or training purposes was discussed with the Patient or Authorized Veterinary Poultry Inspector. The Patient or Authorized Veterinary Poultry Inspector has agreed to proceed with the sensitive examination. (Sensitive examination includes inspection and/or palpation of the breasts, pelvis, prostate and anorectal regions). EXAM: BP 110/88 Wt 209 lb (94.8kg) LMP 2019 GENERAL: pleasant, female in no apparent distress PELVIC: external genitalia normal, normal Bartholin's glands, urethra, [place] Esperanza's glands, no vulvar lesions, no cervical lesions, good vaginal support, physiologic discharge present, normal appearing perineal body and perianal region, well estrogenized, cervix surgically absent BIMANUAL: no adnexal masses, non-tender, and uterus surgically absent ASSESSMENT AND PLAN: Assessment & Plan Corpus luteum cyst Nuvaring for ovarian suppression of painful cysts ftft> 30 m Manolo Harrington MD [facility] Telephone encounter Note * Telephone Encounter [...] uncontrolled. Pt voiced understanding. Umu Norris RN [facility]06-17-2025 Miscellaneous Notes* Telephone Encounter - Umu [...] understanding. Umu Norris RN documented in this [facility]06-16-[facility] Discharge summary [facility] Medical Records Department [address] [place] [address] Emergency Department Summary 01/20/25 MR#: [id number] Acct: [id number] Name: CATRACHITA MURRAY Rep #:[id number] : 1985 39 From: Rajan gonzalez DO [...] right ovarian cyst rupture. She follows with [facility] PHYSICIAN EXTENDER. She states she called them today and [...] intact Psych: Cooperative, appropriate mood and affect [facility] Medical History History of postoperative nausea and [...] is comfortable discharging home. Follow-up with her PHYSICIAN EXTENDER. She was educated she can take ibuprofen [...] % (Auto) 63.8 Lymph % (Auto) 26.0 Ida % (Auto) 6.7 Eos % (Auto) 2.4 [...] Sl. Cloudy Urine pH 6.5 Ur Specific Seaton 1.010 Urine Protein 15 H Urine Glucose [...] left ovary. Status post hysterectomy. Reading Location: [facility]-IR-1 Abdomen/Pelvis CT 01/20/25 10:27 IMPRESSION: Borderline hepatomegaly and fatty infiltration of the liver. Follicles are seen in the left ovary. Small amount of free fluid is seen in hupgtt-tu-uig suggestive of ruptured ovarian cyst. Reading Location: [facility]-IR-1 Discharge Plan Triage Chief Complaint: Female C/O [...] has Tylenol in it. Follow-up with your PHYSICIAN EXTENDER. Return back to the ED if symptoms change or worsen. Print Language: Northern Irish Disposition Disposition: Home, Self Care What to do if you have Problems For any increased pain, shortness of breath, bleeding, nausea or vomiting, chestpain, or any unexpected problems, contact your Primary Care Provider. Call [facility] ([phone]) or report tothe closest Emergency Room. Call 911 if necessary. 01/20/25 1141 Cosigner Signature (if applicable): CC: Dr. Celso Brewer MD ~ Signed [facility]06-16-2025 Radiology Diagnostic study note [facility] Imaging Services [address] [place], [place] [id number] Abdomen/Pelvis W IV Cont ONLY MR#: [id number] Acct: [id number] Name: CATRACHITA MURRAY Rep #: [id number] : 1985 F 39 From: Jimi Martinez MD PCP: Dr. Celso Brewer MD Status: REG ER Study:Abdomen/Pelvis W IV Cont ONLY Date of E xam: 01/20/25 Exam# [id number] Ordering Dr: Rajan Larson DO PROCEDURE: ABDOMEN/PELVIS [...] amount of free fluid is seen in hvptzg-qj-miw suggestive of ruptured ovarian cyst. Reading Location: [facility]-IR-1 CC: Dr. Rajan Fay DO; Dr. Celso Brewer MD ~ Licensed Professional Counselor: Signed [facility]06-16-2025 Radiology Diagnostic study note [facility] Imaging Services [address] [place], [place] [address] Transvaginal Non- MR#: [id number] Acct: [id number] Name: CATRACHITA MURRAY Rep #: [id number] : 1985 F 39 From: Jimi Martinez MD PCP: Dr. Celso Brewer MD Status: REG ER Study:Transvaginal Non- Date of Exam: 01/20/25 Exam# [id number] Ordering Dr: Rajan Larson DO PROCEDURE: TRANSVAGINAL [...] left ovary. Status post hysterectomy. Reading Location: [place] [address] CC: Dr. Rajan Fay DO; Dr. Celso Brewer MD ~ Licensed Professional Counselor: Signed [facility]05-18-2025 Discharge summary [facility] Medical Records Department [address] [place] [address] Emergency Department Summary 12/22/24 MR#: [id number] Acct: [id number] Name: CATRACHITA MURRAY Rep #:[id number] : 1985 39 From: Rajan gonzalez DO [...] intact Psych: Cooperative, appropriate mood and affect [facility] Medical History History of postoperative nausea and [...] controlled. Patient follows with Dr. Nina with PHYSICIAN EXTENDER. Therefore [facility] PHYSICIAN EXTENDER was contacted and I spoke with Dr. [...] 78.4 H Lymph % (Auto) 15.3 L Ida % (Auto) 4.4 Eos % (Auto) 0.9 [...] Clarity Clear Urine pH 6.5 Ur Specific Seaton 1.010 Urine Protein 15 H Urine Glucose [...] ovary. 3. Nonvisualized left ovary. [facility]/Pelvis CT 12/22/24 15:10 IMPRESSION: No acute findings in the abdomen and pelvis. 19 mm right ovarian likely hemorrhagic cyst with small surrounding slightly hyperattenuating fluid,likely secondary to rupture. Reading Location: [facility] Discharge Plan Triage Chief Complaint: Abd Pain [...] MD [Primary Care Provider] - Print Language: Northern Irish What to do if you have Problems For any increased pain, shortness of breath, bleeding, nausea or vomiting, chestpain, or any unexpected problems, contact your Primary Care Provider. Call [facility] ([phone]) or report tothe closest Emergency Room. Call 911 if necessary. 12/22/24 1736 Cosigner Signature (if applicable): CC: Dr. Celso Brewer MD ~ Signed [facility]05-18-2025 Radiology Diagnostic study note [facility] Imaging Services [address] [place] [address] Transvaginal Non- MR#: [id number] Acct: [id number] Name: CATRACHITA MURRAY Rep #: [id number] : 1985 F 39 From: Lorna Price MD PCP: Dr. Celso Brewer MD Status: [facility] ER Study:Transvaginal Non- Date of Exam: 12/22/24 Exam# [id number] Ordering Dr: Rajan Larson DO PROCEDURE: TRANSVAGINAL [...] ovary. 3. Nonvisualized left ovary. [facility] CC: Dr. Rajan Fay DO; Dr. Celso Brewer MD ~ Licensed Professional Counselor: Signed [facility]05-18-2025 Radiology Diagnostic study note [facility] Imaging Services [address] [place] [address] Abdomen/Pelvis W IV Cont ONLY MR#: [id number] Acct: [id number] Name: CATRACHITA MURRAY Rep #: [id number] : 1985 F 39 From: Lorna Price MD PCP: Dr. Celso Brewer MD Status: REG ER Study:Abdomen/Pelvis W IV Cont ONLY Date of E xam: 12/22/24 Exam# [id number] Ordering Dr: Rajan Larson DO PROCEDURE: ABDOMEN/PELVIS [...] Fay DO; Dr. Celso Brewer MD ~ Licensed Professional Counselor: Signed [facility]05-18-2025 Discharge summary Author Rajan Fay [facility] Note Date/Time December 22, 2024 5:36p m [facility] Medical Records Department [address] [place] [address] Emergency Department Summary 12/22/24 MR#: [id number] Acct: [id number] Name: CATRACHITA MURRAY Rep #:[id number] : 1985 39 From: Rajan gonzalez DO [...] intact Psych: Cooperative, appropriate mood and affect [facility] Medical History History of postoperative nausea and [...] controlled. Patient follows with Dr. Nina with PHYSICIAN EXTENDER. Therefore [facility] PHYSICIAN EXTENDER was contacted and I spoke with Dr. [...] 78.4 H Lymph % (Auto) 15.3 L Ida % (Auto) 4.4 Eos % (Auto) 0.9 [...] Clarity Clear Urine pH 6.5 Ur Specific Seaton 1.010 Urine Protein 15 H Urine Glucose [...] ovary. 3. Nonvisualized left ovary. Reading Location: [facility] Abdomen/Pelvis CT 12/22/24 15:10 IMPRESSION: No acute findings in the abdomen and pelvis. 19 mm right ovarian likely hemorrhagic cyst with small surrounding slightly hyperattenuating fluid, likely secondary to rupture. Reading Location: [facility] Discharge Plan Triage Chief Complaint: Abd Pain [...] MD [Primary Care Provider] - Print Language: Northern Irish What to do if you have Problems For any increased pain, shortness of breath, bleeding, nausea or vomiting, chestpain, or any unexpected problems, contact your Primary Care Provider. Call [facility] ([phone]) or report to the closest Emergency Room. Call 911 if necessary. 12/22/24 1736 <Electronically signed by Rajan Fya DO> Cosigner Signature (if applicable): CC: Dr. Celso Brewer MD ~ Signed [facility] Work Phone: 1(818) 484-948803-17-2025 NoteHNO ID: [id number] Author: RADHA PHILLIPS APRN.REFORMATORY ATTENDANT Service: ? Author Type: Nurse Practitioner Type: Progress Notes Filed: 10/21/2024 10:50 Note Text: This note was created using Roadster. Subjective Catrachita Murray is a 39 year [...] follow-up with PCP as needed Radha Phillips APRN.[facility] History of Present illness Narrative* Radha Phillips APRN.CNP - 10/21/2024 10:44 AM EDT This note was created using iDoc24riter. Subjective Catrachita Murray is a 39 year [...] follow-up with PCP as needed Radha Phillips APRN.REFORMATORY ATTENDANT documented in [facility]05-10-2024 History of Present illness Narrative* Melvin [...] bearing as tolerated. We discussed using an [facility] ankle brace for supportprn. We reviewed expectations for recovery and timeline for this. We discussed the option for hardware removal if it becomes more symptomatic. No follow-ups on file.. For any future visits we will obtain WB 3v ankle. Melvin Bucio MD Orthopaedic Sports Medicine [facility] Department of Orthopaedics and Sports Medicine documented in this [facility]03-29-2024 History of Present illness Narrative* Melvin Bucio MD - 11/03/2023 3:15 PM EDT [facility] [address] [place] [address] Dept: [phone] Dept Catrachita Tankred 1985 [id number] 11/03/2023 HISTORY OF PRESENT ILLNESS: Catrachita is [...] 12/15/2023). Melvin Bucio MD Orthopaedic Sports Medicine [facility] Department of Orthopaedics and Sports Medicine 11/03/2023 3:51 PM Voice recognition was used for portions of this note and although it was reviewed prior to signing some incorrect words or phrases could be present. documented in this [facility]03-01-2024 History of Present illness Narrative* Melvin [...] boot. Melvin Bucio MD Orthopaedic Sports Medicine [facility] Department of Orthopaedics and Sports Medicine documented in this [facility]SS[facility] HospitalEsdhks34-78-7821 Telephone encounter Note* Telephone Encounter - Melvin Bucio MD - 09/28/2023 1:41 PM EST New oxycodone order placed [facility]md[facility]28-92-8792 Miscellaneous Notes* Telephone Encounter - Melvin Bucio [...] fx IPO scheduled 10/06/2023 documented in this [facility]02-22-2024 Telephone encounter Note* Telephone Encounter - Deuce Crenshaw - 09/28/2023 1:04 PM EST DOS 09/23/2023- ORIF left trimalleolar ankle fracture; stress exam of left ankle under fluouroscopy Please see request below regarding refill. Last Rx of Oxycodone (Roxicodone) 5mg- 09/24/2023 (15 tablets) [facility] [id number] Telephone encounter Note* Telephone Encounter - Queenie Triplett Lisa - 09/28/2023 1:00 PM EST Oxycodone refill request. Down to 1 pill. Pharmacy correct on file. DOS 09/23/2023 - ORIF LT trimal ankle fx IPO scheduled 10/06/2023 [facility] [id number] NoteDischarge Summary Catrachita Murray : 1985 ADMIT [...] Your Medications These medications were sent to [facility]/pharmacy #[id number] - [place], [place] - [phone], [place] [address] oxyCODONE 5 MG immediate release tablet polyethylene glycol (PEG) 3350 17 g packet DIET: No diet orders on file ACTIVITY: Nonweight bearing thru left leg COMPLEXITY OF FOLLOW UP: [] Moderate Complexity: follow up within 7-14 calendar days (95230) [x] Severe Complexity: follow up within 7 calendar days (17001) FOLLOW UP TESTING, PENDING RESULTS OR REFERRALS AT TRANSITIONAL CARE VISIT: [] Yes [x] No PENDING STUDIES: none DISPOSITION: Home Follow up with Julio César Mock MD [address] [place] [address] [address] [facility] [id number] Schedule an appointment as soon as possible for a visit on 09/25/2023 Polly Lopez [address] [place] [facility] [address] In 2 days INSTRUCTIONS TO MA/SW: Please [...] minutes SIGNED: Manolo Connolly MD 09/25/2023, 8:09 [facility]02-18-2024 NotePHYSICAL THERAPY [facility] Initial Evaluation Name/MRN: Catrachita Murray ([id number]) Evaluation Date: 09/24/2023 Date of : 1985 Admission Date: 09/22/2023 8:55 PM Age: 38 y.o. [facility] Discharge Recommendation: Home with assist [...] Responsibilities: Independent Receives Help From: None Active Assembly Leader: Yes Prior Level of Function ADL Assistance: [...] Verbal and Demonstration Nix (more content not included)...[facility]02-18-2024 Nurse Note * Carla Lora RN - 09/24/2023 2:54 PM EST Removed PIV, ensured catheter intact, dry dressing placed. Reviewed AVS with Pt, answered all questions, Pt verbalized understanding and voiced no concerns. Pt being discharged at this time to home with all belongings. [facility] HospitalJfkpup74-33-8031 Nurse Note* Carla Lora RN - 09/24/2023 2:54 PM EST Removed PIV, ensured catheter intact, dry dressing placed. Reviewed AVS with Pt, answered all questions, Pt verbalized understanding and voiced no concerns. Pt being discharged at this time to home with all belongings. documented in this [facility]02-18-2024 History of Present illness Narrative* Abida Phillips - 09/24/2023 2:15 PM EST Nutrition rescreen completed. Chart reviewed. Patient to be monitored and followed by the diet hazardous waste material technician. YASMEEN Ding * Jenny Hernandez, PT - 09/24/2023 1:35 PM EST Images from the original note were not included. PHYSICAL THERAPY [facility] Initial Evaluation Name/MRN: Catrachita Murray ([id number]) Evaluation Date: 09/24/2023 Date of : 1985 Admission Date: 09/22/2023 8:55 PM Age: 38 y.o. [facility] Discharge Recommendation: Home with assist [...] Responsibilities: Independent Receives Help From: None Active Assembly Leader: Yes Prior Level of Function ADL Assistance: [...] Raw Score (No Stairs) : 17 [facility] Score: Walked 10 steps or more (i.e. [...] Treatment Minutes: 10 Minutes (gait training) Jenny Hernnadez PT Patient's Physical Therapy Plan of Care supervision is transferred to a [facility] Therapy Services Physical Therapist. Goals and/or treatment plan was established in collaboration with patient/family/other representatives. * Manolo Connolly MD - 09/24/2023 12:03 PM EST Images from the original note were not included. Hospitalist Progress Note 09/24/2023 Subjective: Admit Date: 09/22/2023 PCP: POLLY LOPEZ Room#: H-9588/H-5104 A Brief Hospital course: Catrachita is a [...] Manolo Connolly MD Division of Hospitalist Medicine [facility] * Jc Soria MD - 09/24/2023 6:52 [...] perspetcive Jc Soria MD Orthopaedic Surgery PGY-4 *8830 * Ham Caruso MD - 09/23/2023 11:49 [...] weeks -Ortho to follow. documented in this [facility]02-18-2024 NoteHospitalist Progress Note 09/24/2023 Subjective: Admit [...] Manolo Connolly MD Division of Hospitalist Medicine [facility]02-18-2024 NoteOrthopedic Progress Note Name: Catrachita Murray Date:09/24/2023 [...] indicated from ortho standpoint -Follow-up with Dr Bcuio in 2 weeks -Ortho to sign off. Patient appropriate for discharge from ortho perspetcive Jc Soria MD Orthopaedic Surgery PGY-4 *[address] [place], [place] [address]2-17-2024 Plan of care note* Care Plan - [...] integrity is maintained or improved Outcome: Progressing [facility] HospitalXlftsj79-31-3854 Miscellaneous Notes* Care Plan - Tiffany Norris [...] Bucio MD - 09/23/2023 9:30 AM EST [facility] MAIN OR [address] [facility] [address] Dept: [phone] Loc: [phone] Operative Report Patient Name: Catrachita Murray Date of : 1985 Date of Surgery: 09/23/23 Pre-operative diagnosis: Left bimalleolar ankle fracture Post-operative diagnosis: Same Procedure(s): Open reduction internal fixation of left trimalleolar ankle fracture Stress exam of left ankle under fluoroscopy Surgeon: Melvin Bucio MD Catering Chef(s): Ham Caruso M.D. and Jazmyn Valenzuela M.D. [...] as well as medical complications such as TN, stroke, PE, DVT, and even . Pt [...] anatomically and fixed with a single partially zaxoxogt3ty cancellous screw which achieved good purchase. The [...] at 09/23/23, 11:06 AM documented in this [facility]02-17-2024 NotePatient: Catrachita Murray Procedure Summary Date: 09/23/23 Room / Location: [address] Operating Room Anesthesia Start: 934 Anesthesia [...] discharged once all PACU criteria has been met.[facility]02-17-2024 Emergency department Note* Flora Velez RN [...] Velez RN 09/23/23209 Flora Velez RN 09/23/23210 [facility] HospitalTeyayg06-65-8343 NotePatient: Catrachita Murray Procedure Summary Date: 09/23/23 Room / Location: [address] Operating Room Anesthesia Start: 934 Anesthesia [...] Allowed opportunity for questions and acknowledgement of understanding.[facility]02-17-2024 Note* Perioperative Nursing Note - Dino Pizarro RN - 09/23/2023 1:11 PM EST Pt sleeping well in recovery after prn medication given prior. VSS on 3L NC. Report called in for transport. [facility] HospitalChrgiq93-49-2992 Note* Perioperative Nursing Note - Dino Pizarro RN - 09/23/2023 1:11 PM EST Pt sleeping well in recovery after prn medication given prior. VSS on 3L NC. Report called in for transport. [place] [address]-17-2024 Note* Perioperative Nursing Note - Dino Pizarro RN - 09/23/2023 12:27 PM EST Updated over phone, given room assignment [address]17-2024 Note* Perioperative Nursing Note - Dino Pizarro RN - 09/23/2023 12:27 PM EST Updated over phone, given room assignment [address]17-2024 NoteAirway Date/Time: 09/23/2023 9:37 AM Urgency: scheduled General Information and Staff Patient location during procedure: Procedural Resident/POWERHOUSE ELECTRICIAN APPRENTICE: Sascha Perez APRN - POWERHOUSE ELECTRICIAN APPRENTICE Performed: POWERHOUSE ELECTRICIAN APPRENTICE Indications and Patient Condition Indications for airway management: anesthesia Sedation level: Asleep Preoxygenated: yes Patient position: sniffing Mask difficulty assessment: 1 - vent by mask Final Airway Details Final airway type: supraglottic airway Successful airway: Igel Size 4 Number of attempts at approach: [address] [place], [place] [address]-17-2024 Note Peripheral Block Time Out: 09/23/2023 9:17 [...] during injectionMedications Medication group details: 80 mg Propofol.nhjTXDAHsbvrd-xjyobtcizpc-maidbuetguw (TAP) syringe, 60 mLA[facility]irus [facility]02-17-2024 NotePatient: Catrachita Murray Procedure Information Date/Time: 09/23/23 0920 Procedure: OPEN REDUCTION INTERNAL FIXATION TRIMALLEOLAR ANKLE FRACTURE WITH FIXATION OF POSTERIOR LIP (Left: Ankle) - Pull Morris ankle ORIF card Location: [address] Operating Room Surgeons: Melvin Bucio MD [...] might be incomplete. Impression Sinus rhythm Prolonged IA interval Low voltage, precordial leads Consider anterior [facility]02-17-2024 NoteAttending History and Physical Admit Date: 09/22/2023 [...] anticipation of surgery; resum (more content not included)...[facility]02-17-2024 Note* Op Note - Melvin Bucio MD - 09/23/2023 9:30 AM EST [facility] [address] [facility] [address] Dept: [phone] Loc: [phone] Operative Report Patient Name: Catrachita Murray Date of : 1985 Date of Surgery: 09/23/23 Pre-operative diagnosis: Left bimalleolar ankle fracture Post-operative diagnosis: Same Procedure(s): Open reduction internal fixation of left trimalleolar ankle fracture Stress exam of left ankle under fluoroscopy Surgeon: Melvin Bucio MD Catering Chef(s): Ham Caruso M.D. and Jazmyn Valenzuela M.D. [...] as well as medical complications such as TN, stroke, PE, DVT, and even . Pt [...] anatomically and fixed with a single partially avkpfgzw9sv cancellous screw which achieved good purchase. The [...] Melvin Bucio MD at 09/23/23, 11:06 AM [facility] [employer] Work Phone: 1(719) 628-739302-17-2024 Note* Op Note - Melvin Bucio MD - 09/23/2023 9:30 AM EST [facility] MAIN OR [address] [facility] [address] Dept: [phone] Loc: [phone] Operative Report Patient Name: Catrachita Murray Date of : 1985 Date of Surgery: 09/23/23 Pre-operative diagnosis: Left bimalleolar ankle fracture Post-operative diagnosis: Same Procedure(s): Open reduction internal fixation of left trimalleolar ankle fracture Stress exam of left ankle under fluoroscopy Surgeon: Melvin Bucio MD Catering Chef(s): Ham Caruso M.D. and Jazmyn Valenzuela M.D. [...] as well as medical complications such as TN, stroke, PE, DVT, and even . Pt [...] anatomically and fixed with a single partially kcgufpyt0lc cancellous screw which achieved good purchase. The [...] Melvin Bucio MD at 09/23/23, 11:06 AM [employer] Phone: 1(791) 833-212802-17-2024 History and physical note* Christoph Gotti, DO [...] Christoph Gotti DO Division of Hospitalist Medicine [facility] [employer] Phone: 1(499) 910-959902-17-2024 History and physical note* Christoph Gotti DO [...] Christoph Gotti DO Division of Hospitalist [facility] documented in this [facility]02-17-2024 Hospital Discharge instructions* Discharge Instructions* Ham [...] PM EST Resume usual documented in this [facility]02-17-2024 Consult note* Camryn Marquez MD - 09/23/2023 2:54 AM ESTAssociated Order(s): IP CONSULT TO ORTHOPAEDIC SURGERY Ortho Consult Patient: Catrachita Murray Date of : 1985 Acct: [id number] PCP: POLLY LOPEZ Date of Admission: 09/22/2023 [...] reduced and splinted and sent to [facility] for skin check and resplinting. Patient denies [...] Housing Stability: Not on file Family History: [facility] Family History is noncontributory to this [...] as above Left ankle postreduction at [facility]: Reduced ankle fracture dislocation with fracture characteristics [...] along with possible anesthesia complications (DVT, stroke, TN, and even ). They would like to move forward with surgery. Electronically signed by Melvin Bucio M.D. 09/23/2023 at 11:16 AM. [id number] Consult note* Camryn Marquez MD - 09/23/2023 2:54 AM EST Associated Order(s): IP CONSULT TO ORTHOPAEDIC SURGERY Ortho Consult Patient: Catrachita Murray Date of : 1985 Acct: [id number] PCP: POLLY LOPEZ Date of Admission: 09/22/2023 [...] reduced and splinted and sent to [facility] for skin check and resplinting. Patient denies [...] Housing Stability: Not on file Family History: @[facility]@ [facility] Family History is noncontributory to this [...] as above Left ankle postreduction at [facility]: Reduced ankle fracture dislocation with fracture characteristics [...] along with possible anesthesia complications (DVT, stroke, TN, and even ). They would like to move forward with surgery. Electronically signed by Melvin Bucio M.D. 09/23/2023 at 11:16 AM. documented in this [facility]02[facility]17[facility]24 Emergency department Note* Flora Velez RN [...] is requesting more pain medication again. Dr. Gooedn updated; aware that pt was just medicated [...] Flora Velez RN 09/23/23 0131 * Flora Velez RN - 09/22/2023 11:23 PM EST Updated pt and visitors on ETA of transport. Flora Velez RN 09/22/23 2323 * Flora Velez RN - 09/22/2023 11:[address] Gooden the pt will be transported to [facility] ED by friends, then friend came to nurses station saying pt instead wishes to go by squad to [facility]. Flora Velez RN 09/23/23 0132 * Radha Sutherland RN - 09/22/2023 10:47 PM EST Called Tangela at [facility] and requested call back from Dr. Bucio at [facility] ortho Radha Sutherland RN 09/22/23 6849 * Flora Velez RN - 09/22/2023 10:35 [...] RN - 09/22/2023 9:45 PM EST Assisted chemical radiation technician with pts xrays. Pt remains very anxious and tearful. 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 Pt was able to pivot transfer independently [...] 09/22/2023 8:54 PM EST Emergency Department Encounter [facility] ED Patient: Catrachita Murray : 1985 Date [...] HISTORY: as per HPI SOCIAL HISTORY: Speaks [place] MEDICATIONS: Nursing notes and EMR reviewed ALLERGIES: [...] exam, and reviewed imaging, recommends ER to [facility] for orthopedic surgery consult for further [...] of the left ankle DISPOSITION: Transfer to [facility] emergency department for orthopedic surgery consult. [...] for clarification. Marc Gooden MD Acute [facility] Marc Gooden MD 09/23/23 0209 * Adrien Leggett PA-C - 09/22/2023 8:54 PM EST Emergency Department Encounter [facility] EMERGENCY DEPT Patient: Catrachita Murray : 1985 Date of Evaluation: 09/22/2023 ED BRIGIDA Provider: Adrien Leggett PA-C EDcare was supervised by Dr. Mon who independently examined and evaluated the patient. Please see their attestation note for further details. Chief Complaint Chief Complaint Patient presents with Ankle Pain Fall Leg Pain BILL MOORE'S SLOUGH I was wearing a N95, Surgical mask for the entirety of this encounter. Catrachita Murray is a 38 y.o. female who presents to the emergency department for left ankle injury. Patient injured her left ankle this evening when she was getting out of a car. Patient was transferred from [place] ED due to trimalleolar fracture and orthopedic [...] 372 ms QTC Interval 469 ms P [place] 37 degrees QRS [place] -21 degrees T Wave [place] 36 degrees [place] Interval 208 ms Radiographs: [place] GUIDANCE OR [...] Department Physician in the absence of a toll test worker. see their note for interpretation of EKG. EMERGENCY DEPARTMENT COURSE and DIFFERENTIAL DIAGNOSIS/MDM: External Records Review: Reviewed workup from [place] ED. Social Determinants of Health: none. Catrachita Murray is a 38 y.o. female who presented to the emergency department for evaluation of trimalleolar fracture. Patient was transferred from [place] ED for orthopedic evaluation. Patient given Dilaudid at [place] ED. Patient had x-rays at [place] ED. Left foot/ankle/tibia/fibula xray asinterpreted by me and confirmed by radiologist showed trimalleolar fracture left ankle, with posterolateral dislocation of tibiotalar joint. Reduction was attempted at [place] ED. Postreduction film showed interval improvement in [...] medicine team. Alanna Leggett PA-C am the mill control operator of record. Final Diagnosis: 1. Closed displaced [...] Making. Patient was initially seen by at [facility], please see his note I wore appropriate PPE for the entirety of this encounter. In brief, Catrachita Murray is a 38 y.o. that presents to the emergency department as a transfer from [facility] for left trimalleolar ankle fracture with posterior [...] provider for clarification.) Carmita Mon DO [facility] Carmita Mon DO 09/24/23 0107 documented in this [facility]02[facility] Emergency department Note* Flora Velez RN [...] of Dilaudid. Flora Velez RN 09/23/23 0144 [id number] Emergency department Note* Flora Velez RN - [...] said delays. Flora Velez RN 09/23/[address]16-2024 Emergency department Note* Flora Velez RN - 09/22/2023 11:23 PM EST Updated pt and visitors on ETA of transport. Flora Velez RN 09/22/[address]16-2024 Emergency department Note* Flora Velez RN - 09/22/2023 11:[address] Gooden the pt will be transported to [facility] ED by friends, then friend came to nurses station saying pt instead wishes to go by squad to [facility]. Flora Velez RN 09/23/[address]16-2024 Emergency department Note* Radha Sutherland RN - 09/22/2023 10:47 PM EST Called Tangela at [facility] and requested call back from Dr. Bucio at [facility] ortho Radha Sutherland RN 09/22/[address]16-2024 Emergency department Note* Flora Velez RN - 09/22/2023 10:35 PM EST Xray completed at bedside, pt requesting more pain medication, physician notified. Flora Velez RN 09/22/[address]16-2024 Emergency department Note* Flora Velez RN - 09/22/2023 9:53 PM EST Visitor to nurses station requesting pillow for pts head. 3 visitors at bedside, blanket roll placed behind pts head. Call light is in reach of one of the visitors. Flora Velez RN 09/22/232153 [address]16-2024 Emergency department Note* Flora Velez RN - 09/22/2023 9:45 PM EST Assisted chemical radiation technician with pts xrays. Pt remains very anxious and tearful. 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 Pt was able to pivot transfer independently [...] Pt is A&Ox3, skin warm and dry. [address]16-2024 Physician Emergency department Note* Marc Gooden MD - 09/22/2023 8:54 PM EST Emergency Department Encounter [facility] ED Patient: Catrachita Murray : 1985 Date [...] HISTORY: as per HPI SOCIAL HISTORY: Speaks [place] MEDICATIONS: Nursing notes and EMR reviewed ALLERGIES: [...] exam, and reviewed imaging, recommends ER to [facility] to [facility] for orthopedic surgery consult for further management [...] of the left ankle DISPOSITION: Transfer to [facility] emergency department for orthopedic surgery consult. [...] for clarification. Marc Gooden MD Acute [facility] Marc Gooden MD 09/23/23 0209 [facility]02-16-2024 Physician Emergency department Note* Adrien Leggett PA-C - 09/22/2023 8:54 PM EST Emergency Department Encounter [facility] EMERGENCY DEPT Patient: Catrachita Murray : 1985 Date of Evaluation: 09/22/2023 ED BRIGIDA Provider: Adrien Leggett PA-C EDcare was supervised by Dr. Mon who independently examined and evaluated the patient. Please see their attestation note for further details. Chief Complaint Chief Complaint Patient presents with Ankle Pain Fall Leg Pain BILL MOORE'S SLOUGH I was wearing a N95, Surgical mask for the entirety of this encounter. Catrachita Murray is a 38 y.o. female who presents to the emergency department for left ankle injury. Patient injured her left ankle this evening when she was getting out of a car. Patient was transferred from [place] ED due to trimalleolar fracture and orthopedic [...] 372 ms QTC Interval 469 ms P [place] 37 degrees QRS [place] -21 degrees T Wave [place] 36 degrees [place] Interval 208 ms Radiographs: [place] GUIDANCE OR [...] Department Physician in the absence of a toll test worker. see their note for interpretation of EKG. EMERGENCY DEPARTMENT COURSE and DIFFERENTIAL DIAGNOSIS/MDM: External Records Review: Reviewed workup from [place] ED. Social Determinants of Health: none. Catrachita Murray is a 38 y.o. female who presented to the emergency department for evaluation of trimalleolar fracture. Patient was transferred from [place] ED for orthopedic evaluation. Patient given Dilaudid at [place] ED. Patient had x-rays at [place] ED. Left foot/ankle/tibia/fibula xray asinterpreted by me and confirmed by radiologist showed trimalleolar fracture left ankle, with posterolateral dislocation of tibiotalar joint. Reduction was attempted at [place] ED. Postreduction film showed interval improvement in [...] medicine team. Alanna Leggett PA-C am the mill control operator of record. Final Diagnosis: 1. Closed displaced [...] [employer] Adrien Leggett PA-C 09/23/231958 [facility]02-16-2024 Physician Emergency department Note* Carmita Mon DO [...] Making. Patient was initially seen by at [facility], please see his note I wore appropriate PPE for the entirety of this encounter. In brief, Catrachita Murray is a 38 y.o. that presents to the emergency department as a transfer from [facility] for left trimalleolar ankle fracture with posterior [...] dictating provider for clarification.) Carmita Mon DO [facility] Carmita Mon DO 09/24/23 0107 [employer] Phone: 1(851) 317-237109-21-2022 History of Present illness Narrative* Marianne Nina [...] eye doctor. She is headed to the [facility] right now. 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 Discussed with Dr. Ludy Thorpe. Blood type, Rh, and antibody screen ordered today by Dr. Thorpe. TKRN Threatened premature labor, antepartum(644.03) 0 02/11/2010 06/07/2019 Supervision of other normal 08/14/2009 06/07/2019 Overview: Girl on us- chris Supervision of normal first 02/16/2006 07/28/2008 documented as of this encounter (statuses as of 04/27/2022) [facility] Author Rajan Fay [facility] Note Date/Time January 20, 2025 11:4 1am [facility] Medical Records Department [address] [place] [address] Emergency Department Summary 01/20/25 MR#: [id number] Acct: [id number] Name: CATRACHITA MURRAY Rep #:[id number] : 1985 39 From: Rajan gonzalez DO [...] right ovarian cyst rupture. She follows with [facility] PHYSICIAN EXTENDER. She states she called them today and [...] intact Psych: Cooperative, appropriate mood and affect [facility] Medical History History of postoperative nausea and [...] is comfortable discharging home. Follow-up with her PHYSICIAN EXTENDER. She was educated she can take ibuprofen [...] % (Auto) 63.8 Lymph % (Auto) 26.0 Ida % (Auto) 6.7 Eos % (Auto) 2.4 [...] Sl. Cloudy Urine pH 6.5 Ur Specific [place] 1.010 Urine Protein 15 H Urine Glucose [...] left ovary. Status post hysterectomy. Reading Location: [facility]-1 Abdomen/Pelvis CT 01/20/25 10:27 IMPRESSION: Borderline hepatomegaly and fatty infiltration of the liver. Follicles are seen in the left ovary. Small amount of free fluid is seen in [id number] suggestive of ruptured ovarian cyst. Reading Location: [facility]-1 Discharge Plan Triage Chief Complaint: Female C/O [...] has Tylenol in it. Follow-up with your PHYSICIAN EXTENDER. Return back to the ED if symptoms change or worsen. Print Language: [place] Disposition Disposition: Home, Self Care What to do if you have Problems For any increased pain, shortness of breath, bleeding, nausea or vomiting, chestpain, or any unexpected problems, contact your Primary Care Provider. Call [facility] ([phone]) or report to the closest Emergency Room. Call 911 if necessary. 01/20/25 1141 <Electronically signed by Rajan Fay DO> Cosigner Signature (if applicable): CC: Dr. Celso Brweer MD ~ Signed [facility] Work Phone: Evaluation noteNo assessment information available [facility] Work Phone: Evaluation note* Diagnosis Pain of right eye- Primary Pain in or around eye [facility]* Diagnosis Closed displaced trimalleolar fracture of left ankle, initial encounter Closed displaced trimalleolar fracture of left ankle, initial encounter documented in this encounter [facility] note* Diagnosis Closed displaced trimalleolar fracture of left ankle, initial encounter- Primary documented in this encounter [facility] note* Diagnosis Closed displaced trimalleolar fracture of left ankle, initial encounter- Primary documented in this encounter [facility] note* Diagnosis Closed displaced trimalleolar fracture of left ankle, initial encounter [facility]* Diagnosis Closed displaced trimalleolar fracture of left ankle, initial encounter documented in this encounter [facility] note* Diagnosis Closed displaced trimalleolar fracture of left ankle, initial encounter- Primary documented in this encounter [facility] note* Diagnosis Closed displaced trimalleolar fracture of left ankle, initial encounter- Primary documented in this encounter [facility] note* Diagnosis Viral URI- Primary Acute upper respiratory infections of unspecified site [facility] [place]* Diagnosis Corpus luteum cyst- Primary Corpus luteum cyst or hematoma documented in this encounter [facility] note* Diagnosis Onset Date Resolution Status Admit Date Thrombosed hemorrhoids acute Ju ne 2024 9:21am [facility] Work Phone: History and physical note Author Kelsey Canas [facility] Note Date/Time January 30, 2025 8:45 pm [facility] Medical Records Department [address] [place] [address] H&P Exam - Surgical 01/30/252042 MR#: [id number] Acct: [id number] Name: CATRACHITA MURRAY Rep #:[id number] : 1985 39 From: Kelsey Canas MD PCP: Dr. Celso Brewer MD Status:[facility] [place] [facility] [place] - General General Date of Service: [...] had a bowel movement a couple days. [facility] Medical History History of postoperative nausea and [...] (Auto) 79.7 H, Lymph % (Auto) 13.4 L,Ida % (Auto) 5.0, Eos % (Auto) 1.0, [...] further questions time. Kelsey Canas M.D. Pager: [phone] [facility] [address] [place] [address], Outpatient Pavilion, [address] [place] [address] Office: [phone] 01/30/252044 <Electronically signed by Kelsey Canas MD> Cosigner Signature (if applicable): CC: Dr. Celso Brewer MD; Dr. Kelsey Canas MD~ Signed [facility] Work Phone: Hospital Discharge instructions Additional Instructions Your cardiac work-up negative. Ultrasounds of your legs are negative. D-dimer negative. Chest x-ray negative. Prescription omeprazole sent to your pharmacy. Follow-up with your doctor for further testing. Return if any worsening symptoms.[facility] Work Phone: Hospital Discharge instructions Additional Instructions Follow-up with PHYSICIAN EXTENDER. Return back to the ED if symptoms change or worsen. Okay for Tylenol and ibuprofen. Narcotics for severe pain. Monitor Tylenol intake as there is Tylenol in the narcotic. Zofran as needed for nausea.[facility] Work Phone: Hospital Discharge instructions Additional Instructions You received Toradol here in the emergency department. No ibuprofen for 8 hours. After that okay for ibuprofen and Tylenol. Be careful as narcotic has Tylenol in it. Follow-up with your PHYSICIAN EXTENDER. Return back to the ED if symptoms change or worsen.[facility] Work Phone: Reason for referral (narrative)No reason for referral information availableWOhioHealth Southeastern Medical [facility] Work Phone: Chief Complaint and Reason for [...] No February 28, 2022 8:45am Power of Synthetic Cloth Binding Cutter No February 28 8:45am Advance Directive Response Recorded Date/ Time Living Will No February 28, 2022 7:45am Power of Synthetic Cloth Binding Cutter No February 28 7:45am Latest Code Status [...] Do you have a Healthcare Power of Synthetic Cloth Binding Cutter? No December 22, 2024 3:29pm Advance Directive Response Recorded Date/ Time Do you have a Healthcare Power of Synthetic Cloth Binding Cutter? No December 22, 2024 3:29pm Do you have a Healthcare Power of Synthetic Cloth Binding Cutter? No January 20, 2025 8:34am Advance Directive Response Recorded Date/ Time Do you have a Healthcare Power of Synthetic Cloth Binding Cutter? No December 22, 2024 3:29pm Do you have a Healthcare Power of Synthetic Cloth Binding Cutter? No January 30, 2025 6:38pm Do you have a Healthcare Power of Synthetic Cloth Binding Cutter? No January 20, 2025 8:34am Reason for Referral Specialty Diagnoses / Procedures Referred By Contac t Referred To Contact Diagnoses Closed displaced trimalleolar fracture of left ankle, initial encounter Melvin Bucio MD [address] [address], [address] [place] [address] Referral ID Status Reason Start Date Expiration Date Visits Re quested Visits Authorized [id number] Closed 1 1 Specialty Diagnoses / Procedures Referred By Contajith t Referred To Contact Physical Therapy Diagnoses Closed displaced trimalleolar fracture of left ankle, initial encounter Procedures IA OFFICE/OUTPATIENT [facility] 60 MINUTES Melvin Bucio MD [address] [facility] [address] [place] [address] Referral ID Status Reason Start Date Expiration Date Visits Requested Visits Authorized [id number] Pending Review Eval and Treat 12/15/2023 06/12/2024 [...] or prosecute any alcohol or drug abuse patient.[facility] HospitalIn the event this information is protected by the Federal Confidentiality of Alcohol and Drug Abuse Patient Records regulations: The Federal rules restrict any use of the information to criminally investigate or prosecute any alcohol or drug abuse patient.[facility] HospitalIn the event this information is protected by the Federal Confidentiality of Alcohol and Drug Abuse Patient Records regulations: The Federal rules restrict any use of the information to criminally investigate or prosecute any alcohol or drug abuse patient.[facility] HospitalIn the event this information is protected by the Federal Confidentiality of Alcohol and Drug Abuse Patient Records regulations: The Federal rules restrict any use of the information to criminally investigate or prosecute any alcohol or drug abuse patient.[facility] Reason for Visit (unrecogniz ed section and content) Reason Comments Sinus Problem drainage x monday, r ight eye red and pressure x last night Reason Comments Ankle Pain Fall Leg Pain Specialty Diagnoses / Procedures Referred By Contac t Referred To Contact Diagnoses Closed displaced trimalleolar fracture of left ankle, initial encounter Procedures . Yusuf, Christoph, DO [address] [place] [address] [facility] [address] [place] [id number] Referral ID Status Reason Start Date Expiration Date Visits Re quested Visits Authorized [id number] 1 1 Reason Onset Date Comments Med [...] Care Teams (unrecognized sec tion and content) Health Navigator Relationship Specialty Start Date End Date Polly Lopez PCP - General 02/13/06 Health Navigator Relationship Specialty Start Date End Date Polly Lopez [address] [place] [phone] PCP - General Family Medicine 09/22/23 Health Navigator Relationship Specialty Start Date End Date Polly Lopez [address] [place] [phone] PCP - General Family Medicine 09/22/23 Health Navigator Relationship Specialty Start Date End Date Polly Lopez [address] [place] [phone] PCP - General Family Medicine 09/22/23 Health Navigator Relationship Specialty Start Date End Date Polly Lopez [address] [place] [phone] PCP - General Family Medicine 09/22/23 Health Navigator Relationship Specialty Start Date End Date Ploly Lopez [address] [place] [address] PCP - General Family Medicine 09/22/23 Health Navigator Relationship Specialty Start Date End Date Polly Lopez [address] [place] [address] PCP - General Family Medicine 09/22/23 Health Navigator Relationship Specialty Start Date End Date Polly Lopez [address] [place] [address] PCP - General Family Medicine 09/22/23 Health Navigator Relationship Specialty Start Date End Date Polly Lopez [address] [place] [address] PCP - General Family Medicine 09/22/23 Health Navigator Relationship Specialty Start Date End Date Polly [...] Status: Inactive Member Role Status Dates Dr. Celos Brewer MD Primary Care Provider Active Start: [...] January 20, 2025 End: January 20, 2025 Health Navigator Relationship Specialty Start Date End Date Polly Lopez PCP - General 02/13/06 Health Navigator Relationship Specialty Start Date End Date Polly [...] sedation for opioid reversal - MUST notify project control officer provider immediately after first dose, may give [...] section and content) DATE CREATED AUTHOR 12/20/2023 [facility] DATE CREATED AUTHOR AUTHOR'S ORGANIZ ATION 01/24/2025 [facility] DATE CREATED AUTHOR AUTHOR'S ORGANIZ ATION 01/27/2025 [facility] FOR RECORDS PERTAINING TO PATIENTS WHO ARE [...] BE BASED ON THE PRIMARY CLINICAL RECORDS. [employer] [email or web address] provides no warranty or guarantee of the accuracy or completeness of information in this document.
--- NOTE | 2025-01-30 22:17 | PCM.POSTANE2 ---
Anesthesia Postop Eval I Sum Postop Eval Completion status Anesthesia document: Postop Eval 1 completed: Yes Anesthesia Postop Eval I Summary Anesthesia Postop Eval I Summary: Anesthesia Postop Eval I: Assessment Summary Airway patent Yes 01/30/25 22:08 Spontaneous unlabored Yes 01/30/25 22:08 respirations Mental status Awake,Calm 01/30/25 22:08 nausea Yes 01/30/25 22:08 Vomiting No 01/30/25 22:08 Anesthesia Postop Eval I: Fluid Summary Crystalloid volume administer 400 01/30/25 22:08 (ml) Colloids volume administered ( ml) Blood Product volume administered (ml) Total IV fluid infused 400 01/30/25 22:08 Anesthesia Postop Eval I: Summary Notes Anesthesia Complication No 01/30/25 22:08 Anesthesia Complication Comment: Post-operative progress note Anesthesia: Postop Eval II Evaluation Mental status: Awake and Calm Pain Level: 2 nausea: No Vomiting: No Complications Anesthesia Complication: No
[2025-01-30] MEDS: Ketorolac 15 MG/ML Vial IV (22:19)
[2025-01-30] MEDS: Lactated Ringers 1,000 ML 120 ML IV (23:43)
[2025-01-30] MEDS: Pantoprazole Sodium 40 MG in 0.9% Normal Saline (100mL MB+) 100 ML 300 MG IV (23:43)
[2025-01-30] MEDS: 0.9% Saline Lock 10 ML Syringe IV (23:44)
[2025-01-30] MEDS: Polyethylene Glycol 3350 17 GM PACKET 34 GM PO (23:47)
[2025-01-30] MEDS: DULoxetine Hcl 60 MG Capsule PO (23:51)
[2025-01-30] MEDS: Docusate Sodium 100 MG Capsule PO (23:51)
[2025-01-30] MEDS: cloNIDine HCl 0.1 MG Tablet PO (23:51)
[2025-01-31 00:50] VITALS: BP 127/68; PULSE 68; RESP 16; TEMP 36.6; O2SAT 100
[2025-01-31 02:43] VITALS: BP 120/81; PULSE 76; RESP 16; TEMP 36.6; O2SAT 98
--- NOTE | 2025-01-31 05:57 | DCINST_ITS ---
Discharge Instructions Diet Discharge Diet: Light diet - advance as tolerated Activity Discharge Activity: May Shower Additional Activity Instructions:: sitz baths PRN Dressing / Incision Call your doctor if your incision/area has: Continuous Slow Oozing, Sudden Increased Bleeding and Increased Pain/ Swelling Follow Up Care Please Follow Up With: Kelsey Canas MD When: call office [phone] for appt in 2 weeks Test Results: Test results from this visit will be discussed in further detail at your follow- up appointment, if applicable. Discharge Plan Admission Admit Date/Time: 01/30/25 20:45 Attending Provider: Kelsey Canas Primary Care Provider: Celso Brewer Discharge Orders/Prescriptions Prescriptions: New oxycodone 5 mg capsule 5 mg PO Q6H PRN (Reason: pain) 3 Days Qty: 15 0RF Continued losartan 50 mg tablet 50 mg PO QDAY duloxetine 60 MG capsule 60 mg PO QHS bupropion HCl 150 mg tablet sustained-release 12 hr 150 mg PO DAILY clonidine HCl 0.1 mg tablet 0.1 - 0.2 mg PO QHS levothyroxine 25 mcg tablet 25 mcg PO DAILY omeprazole 40 mg capsule,delayed release(DR/EC) 40 mg PO DAILY PRN (Reason: heartburn) Discontinued (DME) Hydrocortisone 2.5% / Lidocaine 5% ointment (cmpd) Ointment See Rx Instructions .ROUTE .MEDSUPPLY Qty: 1 2RF Rx Instructions: As directed oxycodone-acetaminophen [Percocet] 5-325 mg tablet 1 tab PO Q6H 2 Days Qty: 8 0RF Referrals / Follow Up: Celso Brewer MD [Primary Care Provider] - Disposition Disposition (needs filled in before D/C Order can be placed): Home, Self Care
[2025-01-31] MEDS: Levothyroxine 25 MCG TABLET PO (06:21)
[2025-01-31 06:39] VITALS: BP 139/86; PULSE 78; RESP 16; TEMP 36.6; O2SAT 100
[2025-01-31 06:51] LABS: Absolute Lymphocyte Count 1.76 X10^3/uL (0.83-4.51); Absolute Neutrophil Count 5.4 X10^3/uL (2.0-7.7); Basophil# 0.06 X10^3/uL; Basophil% 0.8 % (0-1); Eosinophil# 0.12 X10^3/uL; Eosinophils% 1.5 % (0-5); Hematocrit 35.5 % (37-47); Hemoglobin 12.1 g/dL (12.0-15.0); Lymphocyte # 1.76 X10^3/ul (0.83-4.51); Lymphocyte % 22.5 % (19-41); Mean Corp Hgb Conc 34.1 g/dL (32-36); Mean Corpuscular Hgb 30.3 pg (27.0-32.0); Mean Corpuscular Volume 88.8 fL (81-99); Mean Platelet Vol. 11.6 fl (6.2-12.0); Monocyte# 0.51 X10^3/uL; Monocyte% 6.5 % (0-10); NRBC Flagged by Analyzer 0 % (0-5); Neutrophil # 5.36 X10^3/uL (2.7-7.7); Neutrophil % 68.6 % (47-70); Platelet Count 295 K/mm3 (150-450); RBC Distribution Width CV 12.7 % (11.6-14.6); RBC Distribution Width SD 41.3 fl (35.1-43.9); White Blood Count 7.8 K/mm3 (4.4-11.0)
[2025-01-31 09:08] VITALS: BP 117/79; PULSE 86; RESP 16; TEMP 36.7; O2SAT 98
[2025-01-31] MEDS: oxyCODONE 5 MG Tablet PO (09:16)
[2025-01-31] MEDS: Losartan Potassium 50 MG Tablet PO (09:17)
[2025-01-31] MEDS: buPROPion (SR) 150 MG Tablet.SA PO (09:17)
[2025-01-31] MEDS: Docusate Sodium 100 MG Capsule PO (09:17)
[2025-01-31] MEDS: Acetaminophen 325 MG Tablet 650 MG PO (09:17)
[2025-01-31] MEDS: Pantoprazole Sodium 40 MG in 0.9% Normal Saline (100mL MB+) 100 ML 330 MG IV (09:17)
== END 2025-01-31 12:22 | disposition home or self-care (01) ==
LOC: ED 19:55 → SDC 20:19 → MS3 21:30
PROVIDERS: Admitting Provider Surgery; Emergency Provider Emergency Medicine; PCP Family Medicine; Referring Provider Emergency Medicine; Visit Provider Surgery
PROC: (CPT 46260; principal; 2025-01-30 21:00)
DX: K64.5 Perianal venous thrombosis (principal); E03.9 Hypothyroidism, unspecified; Z79.890 Hormone replacement therapy; F41.9 Anxiety disorder, unspecified; F32.A Depression, unspecified; Z79.899 Other long term (current) drug therapy; R00.0 Tachycardia, unspecified
CPT/HCPCS: 46260; 00902; 36415; 80048; 85025; 86850; 86900; 86901; 88304; 96361; 96365; 96366; 96375; 99221; 99285; A4216; G0378; J0666; J2405